=== PATIENT | female | born 1945 | race Caucasian/White ===

== ENCOUNTER 2017-01-24 17:48 | Emergency (ER) | payer MEDICARE, OTHER ==
[2017-01-24 18:24] VITALS: BP 169/94
--- NOTE | 2017-01-24 19:01 | EDM.PDOC ---
ED HPI GENERAL MEDICAL PROBLEM - General Chief Complaint: Cardiovascular Problem Stated Complaint: HIGH BLOOD PRESSURE Time Seen by Provider: 01/24/17 18:30 Source of Information: Reports: Patient History Limitations: Reports: No Limitations - History of Present Illness INITIAL COMMENTS - FREE TEXT/NARRATIVE: Very pleasant 71-year-old female comes in with complaints of dizziness that began today and now reports that it isn't already improved and also complaints of chronic nausea. Patient reports that she recently had her hypertensive medications changed. And was switched from atenolol to hydrochlorothiazide and metoprolol. This was done because of her chronic nausea that she's had since July since her right knee has been replaced. She comes in today to see what my opinion is with regarding the possibility of her have an allergic reaction to the metal placed in her right knee replacement as a possibility of her chronic nausea. We have taking care of her in the past when she had her left knee replaced. She states that her right knee as well as her left knee are both doing well since he been replaced and does not have any significant swelling warmth redness or pain or discomfort in the knees with activities or at rest. 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 She has an internal medicine consult tomorrow. Onset: Today Duration: Chronic, Waxing/Waning Location: Reports: Generalized Quality: Reports: Same as Previous Episode (nausea chronic) Severity: Moderate Improves with: Reports: Medication (scopolamine patch) Associated Symptoms: Reports: Nausea/Vomiting. Denies: Confusion, Chest Pain, Cough, Diaphoresis, Fever/Chills, Headaches, Shortness of Breath, Syncope, Weakness - Related Data Allergies Allergy/AdvReac Type Severity Reaction Status Date / Time amoxicillin AdvReac Nausea and Verified 01/24/17 18:12 Vomiting azithromycin [From Zithromax] AdvReac Nausea and Verified 01/24/17 18:12 Vomiting hydrocodone AdvReac Nausea and Verified 01/24/17 18:12 Vomiting paclitaxel [From Taxol] AdvReac Nausea and Verified 01/24/17 18:12 Vomiting Home Meds: Home Meds Hydrochlorothiazide 12.5 mg PO DAILY 01/24/17 [History] Metoprolol Succinate 50 mg PO BID 01/24/17 [History] Omeprazole 20 mg PO DAILY 01/24/17 [History] Rosuvastatin Calcium 10 mg PO DAILY 01/24/17 [History] Scopolamine [Transderm-Scop] 1.5 mg TOP Q3D 01/24/17 [History] Past Medical History HEENT History: Reports: Impaired Vision Cardiovascular History: Reports: Angina, Heart Murmur, Hypertension Gastrointestinal History: Reports: GERD Genitourinary History: Reports: None Other Genitourinary History: cancer on L kidney. kidney removed this past august COLD HEADER History: Reports: Musculoskeletal History: Reports: None Neurological History: Reports: TIA Endocrine/Metabolic History: Reports: Obesity/BMI 30+ Immunologic History: Reports: Immunosuppression Oncologic (Cancer) History: Reports: Breast, Renal Other Oncologic History: right breast removed - 2005. left kidney removed - 2015 Dermatologic History: Reports: Eczema - Infectious Disease History Infectious Disease History: Reports: None - Past Surgical History HEENT Surgical History: Reports: None Cardiovascular Surgical History: Reports: None GI Surgical History: Reports: Appendectomy, ERCP Female Surgical History: Reports: Nephrectomy Endocrine Surgical History: Reports: None Neurological Surgical History: Reports: None Musculoskeletal Surgical History: Reports: Knee Replacement Oncologic Surgical History: Reports: Mastectomy Dermatological Surgical History: Reports: None Social & Family History - Family History Cardiac: Reports: [place] Other Cardiac Family History: mother, father heart valve-replace, brother bypass Neurological: Reports: Alzheimers Disease Other Neurological Family History: father - Tobacco Use Smoking Status *Q: Former Smoker Years of Tobacco use: 10 Packs/Tins Daily: 1 Used Tobacco, but Quit: Yes Month Tobacco Last Used: 10 - Caffeine Use Caffeine Use: Reports: Coffee Other Caffeine Use: 2 cups a day - Recreational Drug Use Recreational Drug Use: No ED ROS GENERAL - Review of Systems Review Of Systems: See Below Constitutional: Denies: Fever, Chills, Weakness, Fatigue, Diaphoresis HEENT: Reports: Glasses. Denies: Ear Pain, Eye Pain, Hearing Loss, Sinus Problem, Vertigo, Vision Change Respiratory: Denies: Shortness of Breath, Cough Cardiovascular: Reports: Blood Pressure Problem. Denies: Chest Pain, Dyspnea on Exertion, Edema, Lightheadedness, Orthopnea, Palpitations, PND Endocrine: Reports: No Symptoms GI/Abdominal: Reports: No Symptoms : Reports: No Symptoms Musculoskeletal: Reports: No Symptoms Skin: Reports: No Symptoms Neurological: Reports: Dizziness. Denies: Confusion, Headache, Numbness, Paresthesia, Seizure, Syncope, Trouble Speaking, Difficulty Walking, Weakness, Change in Speech, Gait Disturbance Psychiatric: Reports: No Symptoms Hematologic/Lymphatic: Reports: No Symptoms Immunologic: Reports: No Symptoms ED EXAM, GENERAL - Physical Exam Exam: See Below Exam Limited By: No Limitations General Appearance: Alert, WD/WN, No Apparent Distress Eye Exam: Bilateral Eye: EOMI, PERRL Ears: Normal External Exam, Normal Canal, Hearing Grossly Normal, Normal TMs Nose: Normal Inspection, No Blood Throat/Mouth: Normal Inspection, Normal Lips, Normal Teeth (bridge for her teeth ), Normal Oropharynx, Normal Voice, No Airway Compromise Head: Atraumatic, Normocephalic Neck: Normal Inspection, Supple, Non-Tender, Full Range of Motion, Other ( scopolamine patch on the left side of her neck) Respiratory/Chest: No Respiratory Distress, Lungs Clear, Normal Breath Sounds, No Accessory Muscle Use Cardiovascular: Normal Peripheral Pulses, Regular Rate, Rhythm, Systolic Murmur Peripheral Pulses: 2+: Carotid (L), Carotid (R), Radial (L), Radial (R) GI/Abdominal: Soft Back Exam: Normal Inspection Extremities: Normal Inspection, Normal Range of Motion, No Pedal Edema Neurological: CN II-XII Intact, Normal Cognition, Normal Gait, No Motor/Sensory Deficits Psychiatric: Normal Affect, Normal Mood Skin Exam: Warm, Dry, Intact, Normal Color, No Rash Lymphatic: No Adenopathy Course - Vital Signs Last Recorded V/S: Last Vital Signs Temp 98.6 F 01/24/17 17:52 Pulse 70 01/24/17 18:20 Resp 18 01/24/17 18:20 BP 169/94 H 01/24/17 18:20 Pulse Ox 94 L 01/24/17 18:20 - Orders/Labs/Meds Orders: Active Orders 24 hr Category Date Time Status BASIC METABOLIC PANEL,BMP [CHEM] Stat Lab 01/24/17 18:54 Ordered CBC WITH AUTO DIFF [HEME] Stat Lab 01/24/17 18:54 Ordered UA W/MICROSCOPIC [URIN] Stat Lab 01/24/17 18:54 Uncollected Departure - Departure Time of Disposition: 20:08 Disposition: Home, Self-Care 01 Condition: Good Clinical Impression: Dizziness, Chronic nausea Hypertension Qualifiers: Hypertension type: unspecified Qualified Code(s): I10 - Essential (primary) hypertension Forms: ED Department Discharge - My Orders Last 24 Hours: My Active Orders 01/24/17 18:54 BASIC METABOLIC PANEL,BMP [CHEM] Stat CBC WITH AUTO DIFF [HEME] Stat UA W/MICROSCOPIC [URIN] Stat - Assessment/Plan Last 24 Hours: My Active Orders 01/24/17 18:54 BASIC METABOLIC PANEL,BMP [CHEM] Stat CBC WITH AUTO DIFF [HEME] Stat UA W/MICROSCOPIC [URIN] Stat Assessment:: dizziness, resolved. Hypertension, stable Chronic nausea continue with a scopolamine patch. Plan: 1. Your blood pressures have been fluctuating but are not showing any signs of end organ damage and have come down nicely on their own. Her dizziness has improved as her blood pressures have come down as well. We'll have you follow- up with your primary care next week. You have a follow-up in consult tomorrow with your manager consumer insights and you should keep this appointment. I do not have a significant solution with regards to her chronic nausea that has occurred since her knee replacement in July. I do not feel that your nausea is contributed though to the implants that you have in your knee. He do not seem to be having any type of reaction swelling warmth or pain in the knee following a knee replacement and has gone well. Her lab work was reviewed with you today and essentially looks normal. You have slightly elevated creatinine. Her lab work will be available for your primary care to review with your follow-up appointment.
== END 2017-01-24 20:15 | disposition home or self-care (01) ==
LOC: KA.ED 17:48
DX: I10 Essential (primary) hypertension (principal); K21.9 Gastro-esophageal reflux disease without esophagitis; E66.9 Obesity, unspecified; Z85.3 Personal history of malignant neoplasm of breast; Z90.89 Acquired absence of other organs; Z96.651 Presence of right artificial knee joint; Z90.10 Acquired absence of unspecified breast and nipple; Z88.1 Allergy status to other antibiotic agents; Z88.5 Allergy status to narcotic agent; Z88.8 Allergy status to other drugs, medicaments and biological substances; Z79.899 Other long term (current) drug therapy; Z87.891 Personal history of nicotine dependence
CPT/HCPCS: 36415; 80048; 81001; 85025; 99283

== ENCOUNTER 2017-01-30 21:18 | Emergency (ER) | payer MEDICARE, OTHER ==
[2017-01-30] MEDS ORDERED: Sodium Chloride 0.9% 1,000 ML ONE (21:46)
[2017-01-30] MEDS ORDERED: Ondansetron 4 MG/2 ML SDV ONE ×2 (21:46→22:51)
[2017-01-30] MEDS ORDERED: Sodium Chloride 0.9% 1,000 ML IV ONE (21:50)
--- NOTE | 2017-01-30 22:20 | EDM.PDOC ---
ED HPI GENERAL MEDICAL PROBLEM - General Chief Complaint: Gastrointestinal Problem Stated Complaint: NAUSEA VOMITTING Time Seen by Provider: 01/30/17 21:45 Source of Information: Reports: Patient History Limitations: Reports: No Limitations - History of Present Illness INITIAL COMMENTS - FREE TEXT/NARRATIVE: 71 YO WF presents to ER complaining of chronic nausea with vomiting since stopping her compazine patch. Pt reports she has been using her patch every 3rd day since july due to chronic nausea. Pt was seen by GI doctor who recently started her on carafate and omeprozole and suggested she stop taking her compazine. Pt reports she took the patch off yesterday and has had multiple episodes of vomiting over the last 24 hours. Pt reports she is concerned about her kidney function since she had a nephretomy 1 year ago due to renal cell carcinoma and wants to protect from dehydration. Pt denies chest pain, shortness of breath, dizziness or diaphoresis. Onset: Other (chronic) Duration: Chronic Location: Reports: Generalized Severity: Moderate Improves with: Reports: None Worsens with: Reports: Eating Associated Symptoms: Reports: No Other Symptoms, Nausea/Vomiting - Related Data Allergies Allergy/AdvReac Type Severity Reaction Status Date / Time amoxicillin AdvReac Nausea and Verified 01/30/17 22:11 Vomiting azithromycin [From Zithromax] AdvReac Nausea and Verified 01/30/17 22:11 Vomiting hydrocodone AdvReac Nausea and Verified 01/30/17 22:11 Vomiting paclitaxel [From Taxol] AdvReac Nausea and Verified 01/30/17 22:11 Vomiting Home Meds: Home Meds Hydrochlorothiazide 12.5 mg PO DAILY 01/24/17 [History] Metoprolol Succinate 50 mg PO DAILY 01/24/17 [History] Omeprazole 40 mg PO DAILY 01/24/17 [History] Rosuvastatin Calcium 10 mg PO DAILY 01/24/17 [History] Ondansetron [Zofran ODT] 4 mg PO Q6H PRN #10 tab.dis 01/30/17 [Rx] Sucralfate 1 gm PO QID 01/30/17 [History] Past Medical History HEENT History: Reports: Impaired Vision Cardiovascular History: Reports: Angina, Heart Murmur, Hypertension Gastrointestinal History: Reports: GERD Genitourinary History: Reports: None Other Genitourinary History: cancer on L kidney. 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 left kidney removed - 2015 Dermatologic History: Reports: Eczema - Infectious Disease History Infectious Disease History: Reports: None - Past Surgical History HEENT Surgical History: Reports: None Cardiovascular Surgical History: Reports: None GI Surgical History: Reports: Appendectomy, ERCP Female Surgical History: Reports: Nephrectomy Endocrine Surgical History: Reports: None Neurological Surgical History: Reports: None Musculoskeletal Surgical History: Reports: Knee Replacement Oncologic Surgical History: Reports: Mastectomy Dermatological Surgical History: Reports: None Social & Family History - Family History Cardiac: Reports: [place] Other Cardiac Family History: mother, father heart valve-replace, brother bypass Neurological: Reports: Alzheimers Disease Other Neurological Family History: father - Tobacco Use Smoking Status *Q: Former Smoker Years of Tobacco use: 10 Packs/Tins Daily: 1 Used Tobacco, but Quit: Yes Month Tobacco Last Used: 10 - Caffeine Use Caffeine Use: Reports: Coffee Other Caffeine Use: 2 cups a day - Recreational Drug Use Recreational Drug Use: No ED ROS GENERAL - Review of Systems Review Of Systems: See Below Constitutional: Reports: No Symptoms HEENT: Reports: No Symptoms Respiratory: Reports: No Symptoms Cardiovascular: Reports: No Symptoms Endocrine: Reports: No Symptoms GI/Abdominal: Reports: Nausea, Vomiting : Reports: No Symptoms Musculoskeletal: Reports: No Symptoms Skin: Reports: No Symptoms Neurological: Reports: No Symptoms Psychiatric: Reports: No Symptoms Hematologic/Lymphatic: Reports: No Symptoms Immunologic: Reports: No Symptoms ED EXAM, GI/ABD - Physical Exam Exam: See Below Exam Limited By: No Limitations General Appearance: Alert, WD/WN, No Apparent Distress Ears: Normal External Exam, Normal Canal, Hearing Grossly Normal, Normal TMs Nose: Normal Inspection, Normal Mucosa, No Blood Throat/Mouth: Normal Inspection, Normal Lips, Normal Teeth, Normal Gums, Normal Oropharynx, Normal Voice, No Airway Compromise Head: Atraumatic, Normocephalic Neck: Normal Inspection, Supple, Non-Tender, Full Range of Motion Respiratory/Chest: No Respiratory Distress, Lungs Clear, Normal Breath Sounds, No Accessory Muscle Use, Chest Non-Tender Cardiovascular: Normal Peripheral Pulses, Regular Rate, Rhythm, No Edema, No Gallop, No JVD, No Murmur, No Rub GI/Abdominal Exam: Normal Bowel Sounds, Soft, Non-Tender, No Organomegaly, No Distention, No Abnormal Bruit, No Mass, Pelvis Stable Back Exam: Normal Inspection, Full Range of Motion, NT Extremities: Normal Inspection, Normal Range of Motion, Non-Tender, Normal Capillary Refill, No Pedal Edema Neurological: Alert, Oriented, CN II-XII Intact, Normal Cognition, Normal Gait, Normal Reflexes, No Motor/Sensory Deficits Psychiatric: Normal Affect, Normal Mood Skin Exam: Warm, Dry, Intact, Normal Color, No Rash Lymphatic: No Adenopathy Course - Orders/Labs/Meds Orders: Active Orders 24 hr Category Date Time Status UA W/O MICROSCOPIC [URIN] Stat Lab 01/30/17 21:53 Uncollected Labs: Laboratory Tests 01/30/17 01/30/17 Range/Units 21:50 21:50 WBC 9.2 (5.0-10.0) 10^3/uL RBC 5.08 (3.80-5.50) 10^6/uL Hgb 14.6 (12.0-16.0) g/dL Hct 43.2 (37.0-47.0) % MCV 85.2 (82.0-92.0) fL MCH 28.7 (27.0-31.0) pg MCHC 33.7 (32.0-36.0) g/dL RDW 13.7 (11.5-14.5) % Plt Count 278 (150-300) 10^3/uL MPV 7.8 (7.4-10.4) fL Neut % (Auto) 72.1 H (50.0-70.0) % Lymph % (Auto) 17.1 L (20.0-40.0) % Phillips % (Auto) 7.4 (2.0-8.0) % Eos % (Auto) 2.2 (1.0-3.0) % Baso % (Auto) 1.2 H (0.0-1.0) % Neut # (Auto) 6.6 (2.5-7.0) 10^3/uL Lymph # (Auto) 1.6 (1.0-4.0) 10^3/uL Phillips # (Auto) 0.7 (0.1-0.8) 10^3/uL Eos # (Auto) 0.2 (0.1-0.3) 10^3/uL Baso # (Auto) 0.1 (0.0-0.1) 10^3/uL Sodium 137 (136-145) mmol/L Potassium 3.7 (3.3-5.3) mmol/L Chloride 99 (98-115) mmol/L Carbon Dioxide 26.7 (21.0-32.0) mmol/L BUN 23 (6-25) mg/dL Creatinine 1.12 (0.51-1.17) mg/dL Est Cr Clr Drug Dosing TNP Estimated GFR (MDRD) 48 mL/min Glucose 116 H (70-110) mg/dL Calcium 9.9 (8.7-10.3) mg/dL Total Bilirubin 1.5 H (0.2-1.0) mg/dL AST 26 (15-37) U/L ALT 26 (12-78) U/L Alkaline Phosphatase 86 (46-116) IU/L Total Protein 8.6 H (6.4-8.2) g/dL Albumin 3.99 (3.00-4.80) g/dL Lipase 457 H (73-393) U/L Meds: Medications Discontinued Medications Generic Name Dose Route Start Last Admin Trade Name Freq PRN Reason Stop Dose Admin Sodium Chloride Confirm 01/30/17 21:46 01/30/17 21:50 Normal Saline Administered 01/30/17 21:47 999 ml Dose Administration 1,000 mls @ as directed .ROUTE .STK-MED ONE Ondansetron HCl Confirm 01/30/17 21:46 01/30/17 21:52 Zofran Administered 01/30/17 21:47 4 mg Dose Administration 4 mg .ROUTE .STK-MED ONE Departure - Departure Time of Disposition: 22:41 Disposition: Home, Self-Care 01 Condition: Good Clinical Impression: Chronic nausea Vomiting Qualifiers: Vomiting Intractability: unspecified Nausea presence: with nausea - Discharge Information Prescriptions: Ondansetron [Zofran ODT] 4 mg PO Q6H PRN #10 tab.dis PRN Reason: Vomiting Instructions: Nausea, Adult, Nausea and Vomiting, Adult Referrals: Amanda Abernathy PA-C [Primary Care Provider] - - My Orders Last 24 Hours: My Active Orders 01/30/17 21:53 UA W/O MICROSCOPIC [URIN] Stat - Assessment/Plan Last 24 Hours: My Active Orders 01/30/17 21:53 UA W/O MICROSCOPIC [URIN] Stat Assessment:: 1. vomiting- chronic- improved Plan: 1. zofran ODT 4mg SL Q6 prn vomiting 2. continue current medications 3. plenty of fluids 4. follow up with PCP for further evaluation of chronic vomiting 5. return to ER for worsening symptoms
[2017-01-30 22:29] LABS: CHLORIDE,CL 99 mmol/L (98-115); SODIUM,NA 137 mmol/L (136-145)
[2017-01-30] MEDS ORDERED: Ondansetron 4 MG Tab.DIS PO PRN (22:42)
[2017-01-30] MEDS ORDERED: Ondansetron 4 MG/2 ML SDV IVPUSH ONE ×2 (22:49→23:45)
[2017-01-31 01:51] VITALS: BP 172/77
== END 2017-01-30 23:05 | disposition home or self-care (01) ==
LOC: KA.ED 21:18
DX: R11.2 Nausea with vomiting, unspecified (principal); I10 Essential (primary) hypertension; K21.9 Gastro-esophageal reflux disease without esophagitis; E66.9 Obesity, unspecified; Z85.528 Personal history of other malignant neoplasm of kidney; Z85.3 Personal history of malignant neoplasm of breast; Z90.5 Acquired absence of kidney; Z90.49 Acquired absence of other specified parts of digestive tract; Z96.659 Presence of unspecified artificial knee joint; Z90.11 Acquired absence of right breast and nipple; Z87.891 Personal history of nicotine dependence; Z88.1 Allergy status to other antibiotic agents; Z88.5 Allergy status to narcotic agent; Z88.8 Allergy status to other drugs, medicaments and biological substances; Z79.899 Other long term (current) drug therapy; Z86.73 Personal history of transient ischemic attack (TIA), and cerebral infarction without residual deficits; Z68.33 Body mass index [BMI] 33.0-33.9, adult
CPT/HCPCS: 80053; 83690; 85025; 96361; 96374; 96376; 99284; A9270; J2405; 99283; J7030

== ENCOUNTER 2019-12-27 12:55 | Observation (INO) | payer MEDICARE, OTHER ==
[2019-12-27] MEDS ORDERED: Sodium Chloride 0.9% 10 ML Syringe FLUSH PRN (13:22)
--- NOTE | 2019-12-27 13:41 | EDM.PDOC ---
ED HPI GENERAL MEDICAL PROBLEM - General Chief Complaint: General Stated Complaint: lightheaded, high blood pressure Time Seen by Provider: 12/27/19 13:15 Source of Information: Reports: Patient History Limitations: Reports: No Limitations - History of Present Illness INITIAL COMMENTS - FREE TEXT/NARRATIVE: 74 YO WF PRESENTS TO ER COMPLAINING OF FEELING LIGHTHEADED AND FATIGUED X 2 DAYS. PT REPORTS SHE WAS SITTING AT THE DINNER TABLE AND FELT LIGHTHEADED YESTERDAY. SYMPTOMS LASTED FOR LESS THAN 1 MINUTE. PT REPORTS SHE HAD A SIMILAR EPISODE TODAY PROMPTING ER EVALUATION. PT DENIES SHORTNESS OF BREATH, CHEST PAIN, FEVER/CHILLS, OR DIAPHORESIS. PT REPORTS MILD NAUSEA WITHOUT VOMITING. PT TOOK BP AT HOME AND WAS CONCERNED BECAUSE IT WAS A LITTLE ELEVATED FOR HER 140'S/80'S. PT DENIES HEADACHE, BLURRED VISION OR MOTOR/SENSORY DEFICITS. Onset Date: 12/26/19 Duration: Day(s): (2) Location: Reports: Generalized Severity: Mild Improves with: Reports: None Worsens with: Reports: None Associated Symptoms: Reports: No Other Symptoms, Loss of Appetite, Nausea/Vomiting. Denies: Chest Pain, Cough, Diaphoresis, Fever/Chills, Malaise, Shortness of Breath, Weakness - Related Data Allergies Allergy/AdvReac Type Severity Reaction Status Date / Time No Known Drug Intolerances Allergy Other Verified 02/02/17 16:51 amoxicillin AdvReac Nausea and Verified 01/30/17 22:11 Vomiting azithromycin [From Zithromax] AdvReac Nausea and Verified 01/30/17 22:11 Vomiting hydrocodone AdvReac Nausea and Verified 01/30/17 22:11 Vomiting paclitaxel [From Taxol] AdvReac Nausea and Verified 01/30/17 22:11 Vomiting Home Meds: Home Meds Rosuvastatin Calcium 10 mg PO DAILY 01/24/17 [History] Fluticasone Propionate [Flovent Diskus] 1 spray NASBOTH DAILY PRN 12/27/19 [History] Furosemide 20 mg PO DAILY 12/27/19 [History] atenoloL [Tenormin] 50 mg PO DAILY 12/27/19 [History] Past Medical History HEENT History: Reports: Impaired Vision Cardiovascular History: Reports: Angina, Heart Murmur, Hypertension Gastrointestinal History: Reports: Cholelithiasis, Gastritis, GERD, Other (See Below) Other Gastrointestinal History: Severe nausea/vomiting since 07/2016. Up until yesterday, this was controlled with scopalomine patch. Genitourinary History: Reports: None Other Genitourinary History: cancer on L kidney. kidney removed this past august [employer] History: Reports: Musculoskeletal History: Reports: Arthritis, Osteoarthritis Neurological History: Reports: TIA Endocrine/Metabolic History: Reports: Obesity/BMI 30+ Immunologic History: Reports: Immunosuppression Oncologic (Cancer) History: Reports: Breast, Renal Other Oncologic History: right breast removed - 2005. left kidney removed - 2015 Dermatologic History: Reports: Eczema - Infectious Disease History Infectious Disease History: Reports: None - Past Surgical History HEENT Surgical History: Reports: None Cardiovascular Surgical History: Reports: None GI Surgical History: Reports: Appendectomy, Cholecystectomy, ERCP Female Surgical History: Reports: Nephrectomy Endocrine Surgical History: Reports: None Neurological Surgical History: Reports: None Musculoskeletal Surgical History: Reports: Knee Replacement Oncologic Surgical History: Reports: Mastectomy Dermatological Surgical History: Reports: None Social & Family History - Family History Cardiac: Reports: OR Other Cardiac Family History: mother, father heart valve-replace, brother bypass Neurological: Reports: Alzheimers Disease Other Neurological Family History: father - Tobacco Use Smoking Status *Q: Former Smoker Used Tobacco, but Quit: Yes Month/Year Tobacco Last Used: quit years ago - Caffeine Use Caffeine Use: Reports: Soda Other Caffeine Use: 2 cups a day - Recreational Drug Use Recreational Drug Use: No ED ROS GENERAL - Review of Systems Review Of Systems: See Below Constitutional: Reports: Fatigue HEENT: Reports: No Symptoms Respiratory: Reports: No Symptoms Cardiovascular: Reports: Blood Pressure Problem, Lightheadedness Endocrine: Reports: No Symptoms GI/Abdominal: Reports: No Symptoms : Reports: No Symptoms Musculoskeletal: Reports: No Symptoms Skin: Reports: No Symptoms Neurological: Reports: No Symptoms Psychiatric: Reports: No Symptoms Hematologic/Lymphatic: Reports: No Symptoms Immunologic: Reports: No Symptoms ED EXAM, GENERAL - Physical Exam Exam: See Below Exam Limited By: No Limitations General Appearance: Alert, WD/WN, No Apparent Distress Eye Exam: Bilateral Eye: EOMI, PERRL Head: Atraumatic, Normocephalic Neck: Normal Inspection, Supple, Non-Tender, Full Range of Motion Respiratory/Chest: No Respiratory Distress, Lungs Clear, Normal Breath Sounds, No Accessory Muscle Use, Chest Non-Tender Cardiovascular: Normal Peripheral Pulses, Regular Rate, Rhythm, No Edema, No Gallop, No JVD, No Murmur, No Rub GI/Abdominal: Normal Bowel Sounds, Soft, Non-Tender, No Organomegaly, No Distention, No Abnormal Bruit, No Mass Back Exam: Normal Inspection, Full Range of Motion, NT Extremities: Normal Inspection, Normal Range of Motion, Non-Tender, Normal Capillary Refill, No Pedal Edema Neurological: Alert, Oriented, CN II-XII Intact, Normal Cognition, Normal Gait, Normal Reflexes, No Motor/Sensory Deficits Psychiatric: Normal Affect, Normal Mood Skin Exam: Warm, Dry, Intact, Normal Color, No Rash Lymphatic: No Adenopathy EKG INTERPRETATION EKG Date: 12/27/19 Time: 13:25 Rhythm: NSR Rate (Beats/Min): 66 Pierre: Normal P-Wave: Present QRS: Normal ST-T: Normal QT: Normal Comparison: No Change EKG Interpretation Comments: 08/27/2015 Course - Vital Signs Last Recorded V/S: Last Vital Signs Temp 37.2 C 12/27/19 13:00 Pulse 65 12/27/19 14:31 Resp 18 12/27/19 13:36 BP 141/65 H 12/27/19 14:31 Pulse Ox 93 L 12/27/19 13:36 - Orders/Labs/Meds Orders: Active Orders 24 hr Category Date Time Status Patient Status Manage Transfer [TRANSFER] Routine ADT 12/27/19 14:38 Ordered EKG Documentation Completion [RC] ASDIRECTED Care 12/27/19 13:33 Active Peripheral IV Care [RC] . DIRECTED Care 12/27/19 13:22 Active EKG 12 Lead [EK] Stat Ther 12/27/19 13:33 Ordered Labs: Laboratory Tests 12/27/19 12/27/19 12/27/19 Range/Units 13:20 13:20 13:48 WBC 9.46 (5.00-10.00) 10^3/uL RBC 5.06 (3.80-5.50) 10^6/uL Hgb 14.6 (12.0-16.0) g/dL Hct 45.0 (37.0-47.0) % MCV 88.9 D (82.0-92.0) fL MCH 28.9 (27.0-31.0) pg MCHC 32.4 (32.0-36.0) g/dL RDW 14.2 (11.5-14.5) % Plt Count 244 (150-400) 10^3/uL MPV 9.7 (7.4-10.4) fL Immature Gran % (Auto) 1.1 (0.0-5.0) % Neut % (Auto) 71.0 H (50.0-70.0) % Lymph % (Auto) 16.8 L (20.0-40.0) % Parker % (Auto) 8.5 H (2.0-8.0) % Eos % (Auto) 2.0 (1.0-3.0) % Baso % (Auto) 0.6 (0.0-1.0) % Neut # (Auto) 6.72 (2.50-7.00) 10^3/uL Lymph # (Auto) 1.59 (1.00-4.00) 10^3/uL Parker # (Auto) 0.80 (0.10-0.80) 10^3/uL Eos # (Auto) 0.19 (0.10-0.30) 10^3/uL Baso # (Auto) 0.06 (0.00-0.10) 10^3/uL Immature Gran # (Auto) 0.10 (0.00-0.50) 10^3/uL Sodium 141 (136-145) mmol/L Potassium 4.1 (3.3-5.3) mmol/L Chloride 103 (98-115) mmol/L Carbon Dioxide 27.6 (21.0-32.0) mmol/L Anion Gap 14.5 (5-15) mmol/L BUN 22 (6-25) mg/dL Creatinine 1.22 H (0.51-1.17) mg/dL Est Cr Clr Drug Dosing 45.07 mL/min Estimated GFR (MDRD) 43 mL/min Glucose 120 H (75 - 99) mg/dL Calcium 9.3 (8.7-10.3) mg/dL Total Bilirubin 1.0 (0.2-1.0) mg/dL AST 19 (15-37) U/L ALT 18 (12-78) U/L Alkaline Phosphatase 70 (46-116) IU/L CK-MB (CK-2) 1.10 (0.00-4.30) ng/mL Troponin I < 0.04 (0.00-0.070) ng/mL Total Protein 7.7 (6.4-8.2) g/dL Albumin 3.61 (3.00-4.80) g/dL Specimen Type Urinblad Urine Color Light yellow (YELLOW) Urine Appearance Clear (CLEAR) Urine pH 5.5 (5.0-9.0) Ur Specific [place] 1.015 (1.005-1.030) Urine Protein Negative (NEGATIVE) mg/dL Urine Glucose (UA) Negative (NEGATIVE) mg/dL Urine Ketones Negative (NEGATIVE) mg/dL Urine Occult Blood Trace-intact H (NEGATIVE) Urine Nitrite Negative (NEGATIVE) Urine Bilirubin Negative (NEGATIVE) Urine Urobilinogen 0.2 (0.2-1.0) E.U./dL Ur Leukocyte Esterase Negative (NEGATIVE) Urine RBC 0-5 (0-5) /HPF Urine WBC 0-5 (0-5) /HPF Ur Epithelial Cells Occasional /LPF Urine Bacteria Rare (NONE TO FEW) /HPF Meds: Medications Discontinued Medications Generic Name Dose Route Start Last Admin Trade Name Freq PRN Reason Stop Dose Admin Sodium Chloride 10 ml 12/27/19 13:22 Saline Flush FLUSH Q8HR PRN keep vein open - Radiology Interpretation Free Text/Narrative:: CXR-NAD - Re-Assessments/Exams Free Text/Narrative Re-Assessment/Exam: 12/27/19 14:41 PT FEELS FINE. PT DENIES CHEST PAIN, SHORTNESS OF BREATH, DIAPHORESIS OR LIGHTHEADEDNESS CURRENTLY. PT ALERT AND ORIENTED X 4 AND IN NAD. Departure - Departure Time of Disposition: 14:42 Disposition: Refer to Observation Condition: Fair Clinical Impression: Near syncope Hypertension Qualifiers: Hypertension type: unspecified Qualified Code(s): I10 - Essential (primary) hypertension - Discharge Information Referrals: Amanda Abernathy PA-C [Primary Care Provider] - Forms: ED Department Discharge Sepsis Event Note (ED) - Evaluation Sepsis Screening Result: No Definite Risk - Focused Exam Vital Signs: Vital Signs Temp Pulse Resp BP Pulse Ox 12/27/19 14:31 65 141/65 H 12/27/19 13:36 69 18 146/70 H 93 L 12/27/19 13:15 67 154/77 H 12/27/19 13:00 37.2 C 72 20 188/100 H 97 - My Orders Last 24 Hours: My Active Orders 12/27/19 13:22 Peripheral IV Care [RC] . DIRECTED 12/27/19 13:33 EKG Documentation Completion [RC] ASDIRECTED EKG 12 Lead [EK] Stat 12/27/19 14:38 Patient Status Manage Transfer [TRANSFER] Routine - Assessment/Plan Last 24 Hours: My Active Orders 12/27/19 13:22 Peripheral IV Care [RC] . DIRECTED 12/27/19 13:33 EKG Documentation Completion [RC] ASDIRECTED EKG 12 Lead [EK] Stat 12/27/19 14:38 Patient Status Manage Transfer [TRANSFER] Routine Assessment:: 1. NEAR SYNCOPE 2. HYPERTENSION Plan: 1. DISCUSSED CASE WITH NICOLLE CALHOUN WHO AGREES WITH OBSERVATION DUE TO NEAR SYNCOPE 2. SUPPORTIVE CARE 3. TROP I Q4 X 3
[2019-12-27 13:56] LABS: ANION GAP 14.5 mmol/L (5-15); CHLORIDE,CL 103 mmol/L (98-115); SODIUM,NA 141 mmol/L (136-145)
--- NOTE | 2019-12-27 13:58 | CR ---
[id number] RAD/RAD Chest PA And Lateral EXAM: FRONTAL AND LATERAL CHEST INDICATION: HYPERTENSION. COMPARISON: August 27, 2015. DISCUSSION: Scattered left-sided rib fractures are new relative to the previous exam, but appear chronic. Lateral peripheral and pleural parenchymal scarring in the lower left chest is new relative to the previous exam. Hyperinflation suggests potential underlying chronic obstructive pulmonary disease. Cardiomegaly without evidence of edema. Changes of right mastectomy and right axillary dissection. IMPRESSION: 1. Interval development of left rib fractures which have a chronic appearance. 2. Development of peripheral left MID and lower lung pleural and parenchymal scarring. Jakub Suárez MD 12/27/19 1150 Thank you for allowing us to participate in the care of your patient.
[2019-12-27] MEDS ORDERED: Non-Formulary Medication 1 Each (Fluticasone Propionate [Flovent] 1 SPRAY) NASBOTH PRN (15:55)
[2019-12-27] MEDS ORDERED: EPINEPHrine 1:10,000 1 MG/10 ML Syringe IVPUSH PRN (16:46)
[2019-12-27] MEDS ORDERED: Lidocaine 2% 100 MG/5 ML Syringe IVPUSH PRN (16:46)
[2019-12-27] MEDS ORDERED: Atropine 0.1 MG/ML 10 ML Syringe IVPUSH PRN (16:46)
[2019-12-27] MEDS ORDERED: Nitroglycerin 0.4 MG Tab.SL SL PRN (16:46)
[2019-12-27] MEDS ORDERED: Famotidine 20 MG Tab PO ONE (18:14)
--- NOTE | 2019-12-27 18:14 | PCM.HP.2 ---
H&P History of Present Illness - General Date of Service: 12/27/19 Admit Problem/Dx: Admission Diagnosis/Problem Admission Diagnosis/Problem Near syncope Source of Information: Patient History Limitations: Reports: No Limitations - History of Present Illness Initial Comments - Free Text/Narative: 74 year old female admitted observation telemetry status from the ED. She pres ented to the ED via personal vehicle with complaints of light headedness. She states she had one episode yesterday when she was sitting at the table eating and she became light-headed and felt like she was going to "pass out" and her vision went black for a short time. She did not pass out. No other symptoms noted at the time; chest pain, shortness of breath, nausea, vomiting. It lasted less than a minute and then she recovered. She had been outside mowing earlier in the day and become hot and went inside. Today she noted another episode of light-headedness and this time she had some chest heaviness with it. It last a bit longer. She checked her BP at home and states it was elevated in the 190s systolic. She presented to the ED for evaluation and was subsequently admitted observation to [facility] for rule out of acute coronary syndrome. - Related Data Allergies/Adverse Reactions: Allergies Allergy/AdvReac Type Severity Reaction Status Date / Time No Known Drug Intolerances Allergy Other Verified 02/02/17 16:51 amoxicillin AdvReac Nausea and Verified 01/30/17 22:11 Vomiting azithromycin [From Zithromax] AdvReac Nausea and Verified 01/30/17 22:11 Vomiting hydrocodone AdvReac Nausea and Verified 01/30/17 22:11 Vomiting paclitaxel [From Taxol] AdvReac Nausea and Verified 01/30/17 22:11 Vomiting Home Medications: Home Meds Rosuvastatin Calcium 10 mg PO DAILY 01/24/17 [History] Acyclovir [Zovirax 5% Crm] 1 applic TOP ASDIRECTED PRN 12/27/19 [History] Aspirin [Halfprin] 81 mg PO DAILY 12/27/19 [History] Fluticasone Propionate [Flonase] 1 spray NASBOTH BID 12/27/19 [History] Furosemide 20 mg PO DAILY 12/27/19 [History] Hydrocortisone [Hydrocortisone 2.5% Crm] 1 applic TOP BID PRN 12/27/19 [History] Non-Formulary Medication [NF Drug] 1 applic TOP BID PRN 12/27/19 [History] Non-Formulary Medication [NF Drug] 1 applic TOP QID PRN 12/27/19 [History] Triamcinolone Acetonide [Triamcinolone Acetonide 0.1% Crm] 1 applic TOP BID PRN 12/27/19 [History] atenoloL [Tenormin] 50 mg PO DAILY 12/27/19 [History] Past Medical History HEENT History: Reports: Impaired Vision Cardiovascular History: Reports: Angina, Heart Murmur, Hypertension Gastrointestinal History: Reports: Cholelithiasis, Gastritis, GERD, Other (See Below) Other Gastrointestinal History: Severe nausea/vomiting since 07/2016. Up until yesterday, this was controlled with scopalomine patch. Genitourinary History: Reports: Other (See Below) Other Genitourinary History: cancer on L kidney. 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 left kidney removed - 2015 Dermatologic History: Reports: Eczema - Infectious Disease History Infectious Disease History: Reports: None - Past Surgical History HEENT Surgical History: Reports: None Cardiovascular Surgical History: Reports: None GI Surgical History: Reports: Appendectomy, Cholecystectomy, ERCP Female Surgical History: Reports: Nephrectomy Endocrine Surgical History: Reports: None Neurological Surgical History: Reports: None Musculoskeletal Surgical History: Reports: Knee Replacement Oncologic Surgical History: Reports: Mastectomy Dermatological Surgical History: Reports: None Social & Family History - Family History Cardiac: Reports: ID Other Cardiac Family History: mother, father heart valve-replace, brother bypass Neurological: Reports: Alzheimers Disease Other Neurological Family History: father - Tobacco Use Smoking Status *Q: Former Smoker Years of Tobacco use: 20 Packs/Tins Daily: 0.2 Used Tobacco, but Quit: Yes Month/Year Tobacco Last Used: quit years ago Second Hand Smoke Exposure: No - Caffeine Use Caffeine Use: Reports: Soda Other Caffeine Use: 2 cups a day - Recreational Drug Use Recreational Drug Use: No H&P Review of Systems - Review of Systems: Review Of Systems: See Below General: Denies: Fever, Chills, Weakness, Fatigue HEENT: Reports: Sinus Congestion. Denies: Dysphasia, Ear Pain, Headaches Pulmonary: Denies: Shortness of Breath, Wheezing, Cough Cardiovascular: Denies: Chest Pain, Palpitations, Edema, Lightheadedness Gastrointestinal: Denies: Abdominal Pain, Black Stool, Constipation, Diarrhea, Nausea Genitourinary: Denies: Dysuria, Frequency, Burning, Urgency, Hematuria Musculoskeletal: Denies: Neck Pain, Arm Pain, Leg Pain Skin: Denies: Diaphoresis, Dryness, Pruritis, Rash Psychiatric: Denies: Confusion, Mood Lability, Anxiety Neurological: Denies: Confusion, Dizziness, Headache, Numbness Exam - Exam Exam: See Below - Vital Signs Vital Signs: Last Vital Signs Temp 36.6 C 12/27/19 14:53 Pulse 68 12/27/19 15:40 Resp 20 12/27/19 15:40 BP 141/82 H 12/27/19 15:40 Pulse Ox 95 12/27/19 15:40 Weight: 115.258 kg - Exam Physical Exam Comments:: GENERAL: Well-appearing adult in no acute distress, sitting up in chair. HEENT: Normocephalic, atraumatic. Conjunctiva clear. Nares patent without discharge. Mucous membranes moist, posterior pharynx unremarkable. NECK: Supple, no masses. CV: Regular rate and rhythm, no murmurs, rubs, or gallops. 2+ radial pulses. PULMONARY: Normal effort, clear to auscultation bilaterally, no wheezes, rales, or rhonchi. ABDOMEN: Positive bowel sounds, soft, nontender, nondistended. EXTREMITIES: No edema, cyanosis, or clubbing. MUSCULOSKELETAL: Moves all extremities well. NEUROLOGICAL: No obvious deficits. CN II-XII intact. Normal muscle bulk, normal muscle tone, muscle strength 5/5. Sensation intact in all extremities to touch. Coordination intact by finger-nose. No clonus. DERMATOLOGIC: No rashes or suspicious lesions in exposed areas. PSYCHIATRIC: Alert, interactive, appropriate affect. - Patient Data Lab Results Last 24 hrs: Laboratory Results - last 24 hr 12/27/19 12/27/19 12/27/19 Range/Units 13:20 13:20 13:48 WBC 9.46 (5.00-10.00) 10^3/uL RBC 5.06 (3.80-5.50) 10^6/uL Hgb 14.6 (12.0-16.0) g/dL Hct 45.0 (37.0-47.0) % MCV 88.9 D (82.0-92.0) fL MCH 28.9 (27.0-31.0) pg MCHC 32.4 (32.0-36.0) g/dL RDW 14.2 (11.5-14.5) % Plt Count 244 (150-400) 10^3/uL MPV 9.7 (7.4-10.4) fL Immature Gran % (Auto) 1.1 (0.0-5.0) % Neut % (Auto) 71.0 H (50.0-70.0) % Lymph % (Auto) 16.8 L (20.0-40.0) % [place] % (Auto) 8.5 H (2.0-8.0) % Eos % (Auto) 2.0 (1.0-3.0) % Baso % (Auto) 0.6 (0.0-1.0) % Neut # (Auto) 6.72 (2.50-7.00) 10^3/uL Lymph # (Auto) 1.59 (1.00-4.00) 10^3/uL [place] # (Auto) 0.80 (0.10-0.80) 10^3/uL Eos # (Auto) 0.19 (0.10-0.30) 10^3/uL Baso # (Auto) 0.06 (0.00-0.10) 10^3/uL Immature Gran # (Auto) 0.10 (0.00-0.50) 10^3/uL Sodium 141 (136-145) mmol/L Potassium 4.1 (3.3-5.3) mmol/L Chloride 103 (98-115) mmol/L Carbon Dioxide 27.6 (21.0-32.0) mmol/L Anion Gap 14.5 (5-15) mmol/L BUN 22 (6-25) mg/dL Creatinine 1.22 H (0.51-1.17) mg/dL Est Cr Clr Drug Dosing 45.07 mL/min Estimated GFR (MDRD) 43 mL/min Glucose 120 H (75 - 99) mg/dL Calcium 9.3 (8.7-10.3) mg/dL Total Bilirubin 1.0 (0.2-1.0) mg/dL AST 19 (15-37) U/L ALT 18 (12-78) U/L Alkaline Phosphatase 70 (46-116) IU/L CK-MB (CK-2) 1.10 (0.00-4.30) ng/mL Troponin I < 0.04 (0.00-0.070) ng/mL Total Protein 7.7 (6.4-8.2) g/dL Albumin 3.61 (3.00-4.80) g/dL Specimen Type Urinblad Urine Color Light yellow (YELLOW) Urine Appearance Clear (CLEAR) Urine pH 5.5 (5.0-9.0) Ur Specific [place] 1.015 (1.005-1.030) Urine Protein Negative (NEGATIVE) mg/dL Urine Glucose (UA) Negative (NEGATIVE) mg/dL Urine Ketones Negative (NEGATIVE) mg/dL Urine Occult Blood Trace-intact H (NEGATIVE) Urine Nitrite Negative (NEGATIVE) Urine Bilirubin Negative (NEGATIVE) Urine Urobilinogen 0.2 (0.2-1.0) E.U./dL Ur Leukocyte Esterase Negative (NEGATIVE) Urine RBC 0-5 (0-5) /HPF Urine WBC 0-5 (0-5) /HPF Ur Epithelial Cells Occasional /LPF Urine Bacteria Rare (NONE TO FEW) /HPF Result Diagrams: 12/27/19 13:20 12/27/19 13:20 Sepsis Event Note - Evaluation Sepsis Screening Result: No Definite Risk - Focused Exam Vital Signs: Vital Signs Temp Pulse Resp BP Pulse Ox 12/27/19 15:40 68 20 141/82 H 95 12/27/19 14:53 36.6 C 71 20 172/93 H 94 L 12/27/19 14:31 65 141/65 H 12/27/19 13:36 69 18 146/70 H 93 L 12/27/19 13:15 67 154/77 H 12/27/19 13:00 37.2 C 72 20 188/100 H 97 Date Exam was Performed: 12/27/19 Time Exam was Performed: 18:57 Problem List Initiated/Reviewed/Updated: Yes Orders Last 24hrs: Active Orders 24 hr Category Date Time Status Orthostatic Vital Signs [RC] ASDIRECTED Care 12/27/19 18:04 Ordered Peripheral IV Care [RC] . DIRECTED Care 12/27/19 13:22 Active Vital Signs [RC] 0700,1100,1500,1900,2300,0300 Care 12/27/19 16:49 Active Heart Healthy Diet [DIET] Diet 12/27/19 Dinner Active B-TYPE NATRIURETIC PEPTIDE,BNP [CHEM] Routine Lab 12/27/19 18:00 Ordered TROPONIN I [CHEM] Routine Lab 12/27/19 18:00 Ordered Aspirin Med 12/28/19 08:00 Ordered 81 mg PO WITHBREAKFAST Atropine [Atropine 0.1 MG/ML] Med 12/27/19 16:46 Active See Dose Instructions IVPUSH ASDIRECTED PRN EPINEPHrine [EPINEPHrine 1:10,000] Med 12/27/19 16:46 Active 1 mg IVPUSH ASDIRECTED PRN Lidocaine 2% [Xylocaine 2%] Med 12/27/19 16:46 Active See Dose Instructions IVPUSH ASDIRECTED PRN Nitroglycerin [Nitrostat] Med 12/27/19 16:46 Active 0.4 mg SL ASDIRECTED PRN Rosuvastatin [Crestor] Med 12/28/19 09:00 Active 10 mg PO DAILY atenoloL [Tenormin] Med 12/28/19 09:00 Active 50 mg PO DAILY lisinopriL [Prinivil] Med 12/27/19 18:15 Ordered 5 mg PO DAILY EKG 12 Lead [EK] Stat Ther 12/27/19 13:33 Stop Req Medication Orders Aspirin (Halfprin) 81 mg PO WITHBREAKFAST CORNELIO Atenolol (Tenormin) 50 mg PO DAILY [facility] Atropine Sulfate (Atropine 0.1 Mg/Ml) 0 mg IVPUSH ASDIRECTED PRN PRN Reason: Heart. Epinephrine HCl (Epinephrine 1:10,000) 1 mg IVPUSH ASDIRECTED PRN PRN Reason: Heart. Lidocaine HCl (Xylocaine 2%) 0 mg IVPUSH ASDIRECTED PRN PRN Reason: Heart. Nitroglycerin (Nitrostat) 0.4 mg SL ASDIRECTED PRN PRN Reason: Heart. Rosuvastatin Calcium (Crestor) 10 mg PO DAILY [facility] Assessment/Plan Comment:: HPI summary: 74 year old female admitted observation telemetry status from the ED. She presented to the ED via personal vehicle with complaints of light headedness. She states she had one episode yesterday when she was sitting at the table eating and she became light-headed and felt like she was going to "pass out" and her vision went black for a short time. She did not pass out. No other symptoms noted at the time; chest pain, shortness of breath, nausea, vomiting. It lasted less than a minute and then she recovered. She had been outside mowing earlier in the day and become hot and went inside. Today she noted another episode of light-headedness and this time she had some chest heaviness with it. It last a bit longer. She checked her BP at home and states it was elevated in the 190s systolic. She presented to the ED for evaluation and was subsequently admitted observation to [facility] for rule out of acute coronary syndrome. ED course: -VS: T 37.2, P 65, R 18, BP initially 188/100 then down to 141/65, O2 93%/RA -EKG: NSR rate 66 T wave inversion in V5 and V6 with 1mm of ST elevation in leads V1 and V3 which is pre-existing on previous EKG on 07/2019 in [facility] -[place]ine lock -Lab: WBC 9.46, RBC 5.06, Hgb 14.6, Hct 45, neutrophils 71, lymph 16.8, mono 8.5; Na 141, K 4.1, Cl 103, BUN 22, creatinine 1.22, GFR 43; glucose 120, CK-MB 1.10, troponin <0.04, urine unremarkable -CXR: no acute process Hospitalization problems and plan: # Near syncope; neuro exam unremarkable, no orthostatic changes -serial troponin levels (initial <0.04, second <0.04) -telemetry monitoring -check TSH, CMP, CBC, troponin in the AM # HTN -start lisinopril 5mg orally with first dose tonight -continue atenolol 50mg daily # CKD (chronic kidney disease) stage 3, GFR 30-59 ml/min, stable -discontinue lasix 20mg orally for now, suspect mildly dry; she did have dose this AM at home, consider restart dependent upon fluid status in AM -push oral fluids #HFpEF, last ECHO 07/2019 showing mildly increased LV size and wall thickness, Grade 2 LV diastolic dysfunction, baseline BNP 506 -BNP 649 -Monitor for now, need to get tighter BP control -Restart ASA, patient had previously stopped -daily weight -I/O #Heartburn -Famotidine 20mg orally one time Chronic, stable conditions: # Malignant neoplasm of female breast, stable # Pure hypercholesterolemia, continue rosuvastatin # Vitamin D deficiency, stable # Basal cell carcinoma, eyelid, stable # Allergic rhinitis, hold Flonase for now # Anemia, stable # Cancer of kidney, s/p nephrectomy, stable # Osteoarthritis of right knee, S/P total knee arthroplasty, stable # Thyroid nodule, stable # Malignant neoplasm metastatic to left lung, stable # Obesity with body mass index of 30.0-39.9 # Herpes simplex: hold acyclovir for now Hospitalization details: # FEN: oral fluid intake, saline lock, electrolyutes unremarkable, Heart healthy diet # PPX: restart ASA 81mg as ordered # Code status: Full, discussion with patient and in room # Emergency contact: Josh Pastrana, ; update given at bedside # Disposition: anticipate one overnight observation stay and discharge in the morning with further work-up in clinic if patient stable for discharge - Mortality Measure Prognosis:: Good
[2019-12-27] MEDS: Lisinopril 5 MG Tab PO SCH (18:40)
[2019-12-27] MEDS ORDERED: Aspirin 81 MG Tab.Chew PO ONE (19:43)
[2019-12-27] MEDS ORDERED: Fluticasone Propionate Nasal Spray 16 GM Bottle NASBOTH PRN (20:01)
[2019-12-27] MEDS ORDERED: Labetalol 100 MG/20 ML MDV IVPUSH PRN (23:35)
[2019-12-28] MEDS ORDERED: Aspirin 81 MG Tab.EC PO SCH (08:00)
[2019-12-28 08:08] LABS: ANION GAP 10.9 mmol/L (5-15)
[2019-12-28] MEDS: Lisinopril 5 MG Tab PO SCH (08:13)
[2019-12-28] MEDS ORDERED: Furosemide 20 MG Tab PO SCH (09:00)
[2019-12-28] MEDS ORDERED: Atenolol 25 MG Tab PO SCH (09:00)
[2019-12-28] MEDS ORDERED: Rosuvastatin 10 MG Tab PO SCH (09:00)
[2019-12-28] MEDS ORDERED: ROSUVASTATIN 10 MG PO SCH ×2 (09:00→09:23)
[2019-12-28] MEDS ORDERED: ATENOLOL 50 MG PO SCH (09:30)
[2019-12-28 16:04] VITALS: BP 133/76; PULSE 61
[2019-12-29] MEDS ORDERED: Aspirin 81 MG Tab.EC PO SCH (09:00)
== END 2019-12-28 13:40 | disposition home or self-care (01) ==
LOC: KA.ED 12:55 → KA.MS 14:38
PROVIDERS: ADMIT Nurse Practitioner Family; ATTEND Nurse Practitioner Family
DX: R55 Syncope and collapse (principal); I13.0 Hypertensive heart and chronic kidney disease with heart failure and stage 1 through stage 4 chronic kidney disease, or unspecified chronic kidney disease; I50.30 Unspecified diastolic (congestive) heart failure; N18.3 Chronic kidney disease, stage 3 (moderate); E78.00 Pure hypercholesterolemia, unspecified; K21.9 Gastro-esophageal reflux disease without esophagitis; E66.9 Obesity, unspecified; E55.9 Vitamin D deficiency, unspecified; J30.9 Allergic rhinitis, unspecified; D63.1 Anemia in chronic kidney disease; M17.11 Unilateral primary osteoarthritis, right knee; E04.1 Nontoxic single thyroid nodule; C78.02 Secondary malignant neoplasm of left lung; C44.111 Basal cell carcinoma of skin of unspecified eyelid, including canthus; B00.9 Herpesviral infection, unspecified; Z85.3 Personal history of malignant neoplasm of breast; Z90.11 Acquired absence of right breast and nipple; Z88.0 Allergy status to penicillin; Z88.1 Allergy status to other antibiotic agents; Z96.651 Presence of right artificial knee joint; Z88.5 Allergy status to narcotic agent; Z79.82 Long term (current) use of aspirin; Z85.528 Personal history of other malignant neoplasm of kidney; Z87.891 Personal history of nicotine dependence; Z90.5 Acquired absence of kidney; Z79.899 Other long term (current) drug therapy; Z68.30 Body mass index [BMI] 30.0-30.9, adult
CPT/HCPCS: 36415; 71046; 80053; 81001; 82553; 83880; 84443; 84484; 85025; 99284; 99285-25; A9270-GY; G0378

== ENCOUNTER 2020-11-01 18:44 | Emergency (ER) | payer MEDICARE, OTHER ==
--- NOTE | 2020-11-01 19:17 | EDM.PDOC ---
ED HPI GENERAL MEDICAL PROBLEM - General Chief Complaint: General Stated Complaint: NAUSEA/VOMITING Time Seen by Provider: 11/01/20 18:57 Source of Information: Reports: Patient, Significant Other History Limitations: Reports: No Limitations - History of Present Illness INITIAL COMMENTS - FREE TEXT/NARRATIVE: Patient presents with vomiting frequently since this morning. She now has dry- heaves but can't stop. She just completed her first 2-week course of daily chemotherapy pills for her lung cancer. She now has a week off then treatment again. No diarrhea. - Related Data Allergies Allergy/AdvReac Type Severity Reaction Status Date / Time ampicillin Allergy Nausea and Verified 11/01/20 18:53 Vomiting ciprofloxacin Allergy Nausea Verified 11/01/20 18:53 lisinopril Allergy Cough Verified 11/01/20 18:53 amoxicillin AdvReac Nausea and Verified 11/01/20 18:53 Vomiting azithromycin [From Zithromax] AdvReac Nausea and Verified 11/01/20 18:53 Vomiting hydrocodone AdvReac Nausea and Verified 11/01/20 18:53 Vomiting paclitaxel [From Taxol] AdvReac Nausea and Verified 11/01/20 18:53 Vomiting Home Meds: Home Meds Rosuvastatin Calcium 10 mg PO DAILY 01/24/17 [History] Acyclovir [Zovirax 5% Crm] 1 applic TOP ASDIRECTED PRN 12/27/19 [History] Fluticasone Propionate [Flonase] 1 spray NASBOTH BID PRN 12/27/19 [History] Furosemide 20 mg PO DAILY 12/27/19 [History] Hydrocortisone [Hydrocortisone 2.5% Crm] 1 applic TOP BID PRN 12/27/19 [History] Non-Formulary Medication [NF Drug] 1 applic TOP BID PRN 12/27/19 [History] Non-Formulary Medication [NF Drug] 1 applic TOP QID PRN 12/27/19 [History] Triamcinolone Acetonide [Triamcinolone Acetonide 0.1% Crm] 1 applic TOP BID PRN 12/27/19 [History] atenoloL [Tenormin] 50 mg PO DAILY 12/27/19 [History] Losartan [Cozaar] 25 mg PO DAILY 09/05/20 [History] Prochlorperazine Maleate [Compazine] 10 mg PO QID PRN 09/05/20 [History] Non-Formulary Medication [NF Drug] 1 tab PO ASDIRECTED 11/01/20 [History] Past Medical History HEENT History: Reports: Allergic Rhinitis, Impaired Vision Cardiovascular History: Reports: Angina, Heart Murmur, Hypertension Gastrointestinal History: Reports: Cholelithiasis, Gastritis, GERD, Other (See Below) Other Gastrointestinal History: Severe nausea/vomiting since 07/2016. Up until yesterday, this was controlled with scopalomine patch. Genitourinary History: Reports: Chronic Renal Insuffiency, Other (See Below) Other Genitourinary History: cancer on L kidney. 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 left kidney removed - 2015 Dermatologic History: Reports: Eczema - Infectious Disease History Infectious Disease History: Reports: None - Past Surgical History HEENT Surgical History: Reports: None Cardiovascular Surgical History: Reports: None GI Surgical History: Reports: Appendectomy, Cholecystectomy, ERCP Female Surgical History: Reports: Nephrectomy Other Female Surgeries/Procedures: breast CA with mastectomy years ago Endocrine Surgical History: Reports: None Neurological Surgical History: Reports: None Musculoskeletal Surgical History: Reports: Knee Replacement Oncologic Surgical History: Reports: Mastectomy Dermatological Surgical History: Reports: None Social & Family History - Family History Cardiac: Reports: [place] Other Cardiac Family History: mother, father heart valve-replace, brother bypass Neurological: Reports: Alzheimers Disease Other Neurological Family History: father - Caffeine Use Caffeine Use: Reports: Soda Other Caffeine Use: 2 cups a day ED ROS GENERAL - Review of Systems Review Of Systems: See Below Constitutional: Reports: Malaise, Weakness. Denies: Fever, Chills HEENT: Reports: No Symptoms Respiratory: Denies: Shortness of Breath, Cough Cardiovascular: Denies: Chest Pain, Syncope GI/Abdominal: Reports: Nausea, Vomiting. Denies: Abdominal Pain, Diarrhea : Reports: Frequency (since she started chemo). Denies: Dysuria, Flank Pain Musculoskeletal: Denies: Neck Pain, Shoulder Pain, Arm Pain, Back Pain, Hand Pain Skin: Denies: Cyanosis, Jaundice Neurological: Denies: Confusion, Dizziness, Seizure, Syncope, Trouble Speaking, Difficulty Walking Psychiatric: Denies: Agitation, Anxiety, Confusion ED EXAM, GENERAL - Physical Exam Exam: See Below Exam Limited By: No Limitations General Appearance: Alert, WD/WN, No Apparent Distress Eye Exam: Bilateral Eye: EOMI, Normal Inspection, PERRL Ears: Normal External Exam, Hearing Grossly Normal Nose: Normal Inspection, No Blood Throat/Mouth: Normal Inspection, Normal Lips, Normal Voice, No Airway Compromise Head: Atraumatic, Normocephalic Neck: Normal Inspection, Full Range of Motion Respiratory/Chest: No Respiratory Distress, Lungs Clear, Normal Breath Sounds Cardiovascular: Regular Rate, Rhythm, No Murmur GI/Abdominal: Soft, Non-Tender, No Organomegaly, No Distention Back Exam: Normal Inspection, Full Range of Motion. No: CVA Tenderness (L), CVA Tenderness (R) Extremities: Normal Inspection, Normal Range of Motion Neurological: Alert, Oriented, Normal Cognition, No Motor/Sensory Deficits Psychiatric: Normal Affect, Normal Mood Skin Exam: Warm, Dry, Intact, Normal Color, No Rash Course - Vital Signs Last Recorded V/S: Last Vital Signs Temp 98.7 F 11/01/20 20:44 Pulse 79 11/01/20 20:44 Resp 20 11/01/20 20:44 BP 125/67 11/01/20 20:44 Pulse Ox 91 L 11/01/20 20:44 - Orders/Labs/Meds Labs: Laboratory Tests 11/01/20 11/01/20 Range/Units 19:40 20:15 WBC 5.22 (5.00-10.00) 10^3/uL RBC 5.71 H (3.80-5.50) 10^6/uL Hgb 16.0 (12.0-16.0) g/dL Hct 47.4 H (37.0-47.0) % MCV 83.0 D (82.0-92.0) fL MCH 28.0 (27.0-31.0) pg MCHC 33.8 (32.0-36.0) g/dL RDW 14.6 H (11.5-14.5) % Plt Count 88 L D (150-400) 10^3/uL MPV 10.3 (7.4-10.4) fL Immature Gran % (Auto) 0.6 (0.0-5.0) % Neut % (Auto) 88.1 H (50.0-70.0) % Lymph % (Auto) 6.5 L (20.0-40.0) % [place] % (Auto) 4.2 (2.0-8.0) % Eos % (Auto) 0.0 L (1.0-3.0) % Baso % (Auto) 0.6 (0.0-1.0) % Neut # (Auto) 4.60 (2.50-7.00) 10^3/uL Lymph # (Auto) 0.34 L (1.00-4.00) 10^3/uL [place] # (Auto) 0.22 (0.10-0.80) 10^3/uL Eos # (Auto) 0.00 L (0.10-0.30) 10^3/uL Baso # (Auto) 0.03 (0.00-0.10) 10^3/uL Immature Gran # (Auto) 0.03 (0.00-0.50) 10^3/uL Sodium 139 (136-145) mmol/L Potassium 3.9 (3.5-5.1) mmol/L Chloride 102 (98-107) mmol/L Carbon Dioxide 25.1 (21.0-32.0) mmol/L Anion Gap 15.8 H (5-15) mmol/L BUN 25 H (7-18) mg/dL Creatinine 1.33 H (0.51-1.17) mg/dL Est Cr Clr Drug Dosing 38.00 mL/min Estimated GFR (MDRD) 39 mL/min Glucose 133 (70-140) mg/dL Calcium 8.8 (8.7-10.3) mg/dL Total Bilirubin 2.4 H (0.2-1.0) mg/dL AST 34 (15-37) U/L ALT 29 (14-63) U/L Alkaline Phosphatase 73 (46-116) U/L Total Protein 7.1 (6.4-8.2) g/dL Albumin 2.96 L (3.40-5.00) g/dL Meds: Medications Discontinued Medications Generic Name Dose Route Start Last Admin Trade Name Freq PRN Reason Stop Dose Admin Sodium Chloride 1,000 mls @ 999 mls/hr 11/01/20 19:36 11/01/20 19:44 Normal Saline IV 11/01/20 20:36 999 mls/hr .BOLUS ONE Administration Sodium Chloride Confirm 11/01/20 19:43 11/01/20 21:05 Normal Saline Administered 11/01/20 19:44 Not Given Dose 1,000 mls @ as directed .ROUTE .STK-MED ONE Magnesium Hydroxide Confirm 11/01/20 20:01 11/01/20 21:05 Magnesium Hydroxide 400 Mg/5 Ml Susp 30 Ml Cup Administered 11/01/20 20:02 Not Given Dose 30 ml .ROUTE .STK-MED ONE Ondansetron HCl 8 mg 11/01/20 19:36 11/01/20 19:44 Ondansetron 4 Mg/2 Ml Sdv IVPUSH 11/01/20 19:37 8 mg ONETIME ONE Administration Ondansetron HCl 16 mg 11/01/20 20:44 11/01/20 21:05 Ondansetron 4 Mg Tab.Dis PO 11/01/20 20:45 16 mg ONETIME ONE Administration Ondansetron HCl Confirm 11/01/20 19:43 11/01/20 21:05 Ondansetron 4 Mg/2 Ml Sdv Administered 11/01/20 19:44 Not Given Dose 8 mg .ROUTE .STK-MED ONE Ondansetron HCl Confirm 11/01/20 20:55 11/01/20 21:05 Ondansetron 4 Mg Tab.Dis Administered 11/01/20 20:56 Not Given Dose 16 mg .ROUTE .STK-MED ONE - Re-Assessments/Exams Free Text/Narrative Re-Assessment/Exam: 11/01/20 20:54 Patient is feeling much better. We discussed findings and treatment plan. Zofran ODT 8 mg po bid prn N/V #20 was given to patient to fill if needed tomorrow morning when pharmacies are open for weekend. She is discharged to home in stable condition. Departure - Departure Time of Disposition: 20:50 Disposition: Home, Self-Care 01 Condition: Good Clinical Impression: Chemotherapy-induced nausea and vomiting - Discharge Information Instructions: Nausea and Vomiting, Adult, [id number] Referrals: Guido Duarte NP [Nurse Practitioner] - Forms: ED Department Discharge Additional Instructions: Use the Zofran as directed if needed to control nausea and vomiting. Drink 8 cups of water daily if possible. Follow up with your PCP if this persists. Return to ER if needed. Sepsis Event Note (ED) - Evaluation Sepsis Screening Result: No Definite Risk - Focused Exam Vital Signs: Vital Signs Temp Pulse Resp BP Pulse Ox 11/01/20 20:44 98.7 F 79 20 125/67 91 L 11/01/20 19:20 79 20 129/79 92 L 11/01/20 18:48 98.4 F 85 18 134/69 93 L
[2020-11-01 19:21] VITALS: PULSE 79
[2020-11-01] MEDS ORDERED: Sodium Chloride 0.9% 1,000 ML IV ONE (19:36)
[2020-11-01] MEDS ORDERED: Ondansetron 4 MG/2 ML SDV IVPUSH ONE (19:36)
[2020-11-01] MEDS ORDERED: Ondansetron 4 MG/2 ML SDV ONE (19:43)
[2020-11-01] MEDS ORDERED: Sodium Chloride 0.9% 1,000 ML ONE (19:43)
[2020-11-01] MEDS ORDERED: Magnesium Hydroxide 400 MG/5 ML Susp 30 ML Cup ONE (20:01)
[2020-11-01 20:35] LABS: ANION GAP 15.8 mmol/L (5-15)
[2020-11-01] MEDS ORDERED: Ondansetron 4 MG Tab.DIS PO ONE (20:44)
[2020-11-01 20:46] VITALS: BP 125/67
[2020-11-01] MEDS ORDERED: Ondansetron 4 MG Tab.DIS ONE (20:55)
== END 2020-11-01 21:20 | disposition home or self-care (01) ==
LOC: KA.ED 18:44
DX: R11.2 Nausea with vomiting, unspecified (principal); T45.1X5A Adverse effect of antineoplastic and immunosuppressive drugs, initial encounter; I12.9 Hypertensive chronic kidney disease with stage 1 through stage 4 chronic kidney disease, or unspecified chronic kidney disease; N18.9 Chronic kidney disease, unspecified; E66.9 Obesity, unspecified; Z68.38 Body mass index [BMI] 38.0-38.9, adult; Z88.1 Allergy status to other antibiotic agents; Z88.8 Allergy status to other drugs, medicaments and biological substances; Z88.0 Allergy status to penicillin; Z88.5 Allergy status to narcotic agent; Z86.73 Personal history of transient ischemic attack (TIA), and cerebral infarction without residual deficits
CPT/HCPCS: 36415; 80053; 85025; 96374; 99284; A9270; J2405; J7030

== ENCOUNTER 2020-11-02 11:16 | Inpatient (IN) | payer MEDICARE, OTHER ==
[2020-11-02] MEDS ORDERED: Sodium Chloride 0.9% 1,000 ML ONE (11:42)
[2020-11-02] MEDS ORDERED: Sodium Chloride 0.9% 1,000 ML IV SCH (12:15)
--- NOTE | 2020-11-02 12:42 | EDM.PDOC ---
ED HPI GENERAL MEDICAL PROBLEM - General Chief Complaint: General Stated Complaint: extreme tired, nausea Time Seen by Provider: 11/02/20 11:49 Source of Information: Reports: Patient, Family (two sons) History Limitations: Reports: No Limitations - History of Present Illness INITIAL COMMENTS - FREE TEXT/NARRATIVE: Patient presents to ER with weakness, fatigue and nausea. She hasn't vomited any since she was in ER last evening but has some nausea still. She took a Zofran 8 mg ODT about 1.5 hours ago. She hasn't eaten anything today but did eat some Cheerios after ER visit last night. She hasn't drank any water at all. She did take her laxative last night and passed stool twice this morning. She was in ER last night with frequent vomiting after finishing a 2-week course of chemotherapy for lung cancer. She felt quite well after Zofran and fluids IV. - Related Data Allergies Allergy/AdvReac Type Severity Reaction Status Date / Time ampicillin Allergy Nausea and Verified 11/02/20 13:08 Vomiting ciprofloxacin Allergy Nausea Verified 11/02/20 13:08 lisinopril Allergy Cough Verified 11/02/20 13:08 amoxicillin AdvReac Nausea and Verified 11/02/20 13:08 Vomiting azithromycin [From Zithromax] AdvReac Nausea and Verified 11/02/20 13:08 Vomiting hydrocodone AdvReac Nausea and Verified 11/02/20 13:08 Vomiting paclitaxel [From Taxol] AdvReac Nausea and Verified 11/02/20 13:08 Vomiting Home Meds: Home Meds Rosuvastatin Calcium 10 mg PO DAILY 01/24/17 [History] Acyclovir [Zovirax 5% Crm] 1 applic TOP ASDIRECTED PRN 12/27/19 [History] Fluticasone Propionate [Flonase] 1 spray NASBOTH BID PRN 12/27/19 [History] Furosemide 20 mg PO DAILY 12/27/19 [History] Hydrocortisone [Hydrocortisone 2.5% Crm] 1 applic TOP BID PRN 12/27/19 [History] Non-Formulary Medication [NF Drug] 1 applic TOP BID PRN 12/27/19 [History] Non-Formulary Medication [NF Drug] 1 applic TOP QID PRN 12/27/19 [History] Triamcinolone Acetonide [Triamcinolone Acetonide 0.1% Crm] 1 applic TOP BID PRN 12/27/19 [History] atenoloL [Tenormin] 50 mg PO DAILY 12/27/19 [History] Losartan [Cozaar] 25 mg PO DAILY 09/05/20 [History] Prochlorperazine Maleate [Compazine] 10 mg PO QID PRN 09/05/20 [History] Non-Formulary Medication [NF Drug] 1 tab PO ASDIRECTED 11/01/20 [History] Past Medical History HEENT History: Reports: Allergic Rhinitis, Impaired Vision Cardiovascular History: Reports: Angina, Heart Murmur, Hypertension Gastrointestinal History: Reports: Cholelithiasis, Gastritis, GERD, Other (See Below) Other Gastrointestinal History: Severe nausea/vomiting since 07/2016. Up until yesterday, this was controlled with scopalomine patch. Genitourinary History: Reports: Chronic Renal Insuffiency, Other (See Below) Other Genitourinary History: cancer on L kidney. kidney removed this past august VET TECH History: Reports: Musculoskeletal History: Reports: Arthritis, Osteoarthritis Neurological History: Reports: TIA Endocrine/Metabolic History: Reports: Obesity/BMI 30+, Other (See Below) Other Endocrine/Metabolic History: thyroid nodule Hematologic History: Reports: Anemia Immunologic History: Reports: Immunosuppression Oncologic (Cancer) History: Reports: Basal Cell Carcinoma, Breast, Lung, Renal Other Oncologic History: right breast removed - 2005. left kidney removed - 2015 Dermatologic History: Reports: Eczema - Infectious Disease History Infectious Disease History: Reports: None - Past Surgical History HEENT Surgical History: Reports: None Cardiovascular Surgical History: Reports: None GI Surgical History: Reports: Appendectomy, Cholecystectomy, ERCP Female Surgical History: Reports: Nephrectomy Other Female Surgeries/Procedures: breast CA with mastectomy years ago Endocrine Surgical History: Reports: None Neurological Surgical History: Reports: None Musculoskeletal Surgical History: Reports: Knee Replacement Oncologic Surgical History: Reports: Mastectomy Dermatological Surgical History: Reports: None Social & Family History - Family History Cardiac: Reports: DC Other Cardiac Family History: mother, father heart valve-replace, brother bypass Neurological: Reports: Alzheimers Disease Other Neurological Family History: father - Tobacco Use Tobacco Use Status *Q: Never Tobacco User - Caffeine Use Caffeine Use: Reports: Coffee Other Caffeine Use: 2 cups a day - Recreational Drug Use Recreational Drug Use: No ED ROS GENERAL - Review of Systems Review Of Systems: See Below Constitutional: Reports: Weakness, Fatigue, Decreased Appetite. Denies: Fever, Chills, Malaise HEENT: Reports: No Symptoms Respiratory: Denies: Shortness of Breath, Cough Cardiovascular: Denies: Chest Pain, Lightheadedness, Syncope GI/Abdominal: Reports: Nausea. Denies: Abdominal Pain, Constipation (did for 3 days), Diarrhea, Vomiting : Denies: Dysuria Musculoskeletal: Reports: No Symptoms Skin: Denies: Cyanosis, Jaundice, Mottled, Pallor, Diaphoresis Neurological: Reports: Weakness (general). Denies: Confusion, Dizziness, Seizure, Syncope, Trouble Speaking, Difficulty Walking Psychiatric: Denies: Agitation, Anxiety, Confusion ED EXAM, GENERAL - Physical Exam Exam: See Below Exam Limited By: No Limitations General Appearance: Alert, WD/WN, No Apparent Distress Eye Exam: Bilateral Eye: EOMI, Normal Inspection, PERRL Ears: Normal External Exam, Hearing Grossly Normal Nose: Normal Inspection, No Blood Throat/Mouth: Normal Inspection, Normal Lips, Normal Voice, No Airway Compromise Head: Atraumatic, Normocephalic Neck: Normal Inspection, Full Range of Motion Respiratory/Chest: No Respiratory Distress, No Accessory Muscle Use, Crackles (mildly in bilat bases). No: Decreased Breath Sounds, Rhonchi, Wheezing, Stridor Cardiovascular: Regular Rate, Rhythm, No Murmur GI/Abdominal: Soft, Non-Tender, No Organomegaly, No Distention Back Exam: Normal Inspection, Full Range of Motion. No: CVA Tenderness (L), CVA Tenderness (R) Extremities: Normal Inspection, Normal Range of Motion Neurological: Alert, Oriented, Normal Cognition, No Motor/Sensory Deficits Psychiatric: Normal Affect, Normal Mood Skin Exam: Warm, Dry, Intact, Normal Color, No Rash Course - Vital Signs Last Recorded V/S: Last Vital Signs Temp 100.7 F H 11/02/20 12:55 Pulse 81 11/02/20 12:55 Resp 16 11/02/20 12:55 BP 149/76 H 11/02/20 12:55 Pulse Ox 92 L 11/02/20 12:55 - Orders/Labs/Meds Orders: Active Orders 24 hr Category Date Time Status Sodium Chloride 0.9% [Normal Saline] 1,000 ml Med 11/02/20 12:15 Active IV ASDIRECTED Medication Orders Sodium Chloride (Normal Saline) 1,000 mls @ 500 mls/hr IV ASDIRECTED CORNELIO Last Admin: 11/02/20 12:16 Dose: 500 mls/hr Documented by: ALICIA Labs: Laboratory Tests 11/02/20 11/02/20 11/02/20 Range/Units 13:07 13:35 13:35 WBC 5.65 (5.00-10.00) 10^3/uL RBC 5.57 H (3.80-5.50) 10^6/uL Hgb 15.3 (12.0-16.0) g/dL Hct 46.7 (37.0-47.0) % MCV 83.8 (82.0-92.0) fL MCH 27.5 (27.0-31.0) pg MCHC 32.8 (32.0-36.0) g/dL RDW 14.8 H (11.5-14.5) % Plt Count 64 L (150-400) 10^3/uL MPV 9.6 (7.4-10.4) fL Immature Gran % (Auto) 0.5 (0.0-5.0) % Neut % (Auto) 90.0 H (50.0-70.0) % Lymph % (Auto) 5.8 L (20.0-40.0) % [place] % (Auto) 3.2 (2.0-8.0) % Eos % (Auto) 0.0 L (1.0-3.0) % Baso % (Auto) 0.5 (0.0-1.0) % Neut # (Auto) 5.08 (2.50-7.00) 10^3/uL Lymph # (Auto) 0.33 L (1.00-4.00) 10^3/uL [place] # (Auto) 0.18 (0.10-0.80) 10^3/uL Eos # (Auto) 0.00 L (0.10-0.30) 10^3/uL Baso # (Auto) 0.03 (0.00-0.10) 10^3/uL Immature Gran # (Auto) 0.03 (0.00-0.50) 10^3/uL Sodium 138 (136-145) mmol/L Potassium 3.9 (3.5-5.1) mmol/L Chloride 101 (98-107) mmol/L Carbon Dioxide 24.7 (21.0-32.0) mmol/L Anion Gap 16.2 H (5-15) mmol/L BUN 28 H (7-18) mg/dL Creatinine 1.41 H (0.51-1.17) mg/dL Est Cr Clr Drug Dosing 35.85 mL/min Estimated GFR (MDRD) 37 mL/min Glucose 135 (70-140) mg/dL Lactic Acid (0.4-2.0) mmol/L Calcium 8.6 L (8.7-10.3) mg/dL Total Bilirubin 2.3 H (0.2-1.0) mg/dL AST 58 H (15-37) U/L ALT 48 (14-63) U/L Alkaline Phosphatase 75 (46-116) U/L Total Protein 7.1 (6.4-8.2) g/dL Albumin 2.92 L (3.40-5.00) g/dL Specimen Type Urincc Urine Color [place] H (YELLOW) Urine Appearance Slightly cloudy H (CLEAR) Urine pH 5.5 (5.0-9.0) Ur Specific [place] >= 1.030 (1.005-1.030) Urine Protein >=300 H (NEGATIVE) mg/dL Urine Glucose (UA) Negative (NEGATIVE) mg/dL Urine Ketones Negative (NEGATIVE) mg/dL Urine Occult Blood Moderate H (NEGATIVE) Urine Nitrite Negative (NEGATIVE) Urine Bilirubin Small H (NEGATIVE) Urine Urobilinogen 1.0 (0.2-1.0) E.U./dL Ur Leukocyte Esterase Trace H (NEGATIVE) Urine RBC 0-5 (0-5) /HPF Urine WBC 5-10 H (0-5) /HPF Ur Epithelial Cells Many H /LPF Amorphous Sediment Moderate H (0/HPF) /HPF Urine Bacteria Moderate H (NONE TO FEW) /HPF 11/02/20 Range/Units 13:35 WBC (5.00-10.00) 10^3/uL RBC (3.80-5.50) 10^6/uL Hgb (12.0-16.0) g/dL Hct (37.0-47.0) % MCV (82.0-92.0) fL MCH (27.0-31.0) pg MCHC (32.0-36.0) g/dL RDW (11.5-14.5) % Plt Count (150-400) 10^3/uL MPV (7.4-10.4) fL Immature Gran % (Auto) (0.0-5.0) % Neut % (Auto) (50.0-70.0) % Lymph % (Auto) (20.0-40.0) % [place] % (Auto) (2.0-8.0) % Eos % (Auto) (1.0-3.0) % Baso % (Auto) (0.0-1.0) % Neut # (Auto) (2.50-7.00) 10^3/uL Lymph # (Auto) (1.00-4.00) 10^3/uL [place] # (Auto) (0.10-0.80) 10^3/uL Eos # (Auto) (0.10-0.30) 10^3/uL Baso # (Auto) (0.00-0.10) 10^3/uL Immature Gran # (Auto) (0.00-0.50) 10^3/uL Sodium (136-145) mmol/L Potassium (3.5-5.1) mmol/L Chloride (98-107) mmol/L Carbon Dioxide (21.0-32.0) mmol/L Anion Gap (5-15) mmol/L BUN (7-18) mg/dL Creatinine (0.51-1.17) mg/dL Est Cr Clr Drug Dosing mL/min Estimated GFR (MDRD) mL/min Glucose (70-140) mg/dL Lactic Acid 1.9 (0.4-2.0) mmol/L Calcium (8.7-10.3) mg/dL Total Bilirubin (0.2-1.0) mg/dL AST (15-37) U/L ALT (14-63) U/L Alkaline Phosphatase (46-116) U/L Total Protein (6.4-8.2) g/dL Albumin (3.40-5.00) g/dL Specimen Type Urine Color (YELLOW) Urine Appearance (CLEAR) Urine pH (5.0-9.0) Ur Specific [place] (1.005-1.030) Urine Protein (NEGATIVE) mg/dL Urine Glucose (UA) (NEGATIVE) mg/dL Urine Ketones (NEGATIVE) mg/dL Urine Occult Blood (NEGATIVE) Urine Nitrite (NEGATIVE) Urine Bilirubin (NEGATIVE) Urine Urobilinogen (0.2-1.0) E.U./dL Ur Leukocyte Esterase (NEGATIVE) Urine RBC (0-5) /HPF Urine WBC (0-5) /HPF Ur Epithelial Cells /LPF Amorphous Sediment (0/HPF) /HPF Urine Bacteria (NONE TO FEW) /HPF Meds: Medications Generic Name Dose Route Start Last Admin Trade Name Freq PRN Reason Stop Dose Admin Sodium Chloride 1,000 mls @ 500 mls/hr 11/02/20 12:15 11/02/20 12:16 Normal Saline IV 500 mls/hr ASDIRECTED CORNELIO Administration Discontinued Medications Generic Name Dose Route Start Last Admin Trade Name Freq PRN Reason Stop Dose Admin Sodium Chloride Confirm 11/02/20 11:42 11/02/20 12:16 Normal Saline Administered 11/02/20 11:43 Not Given Dose 1,000 mls @ as directed .ROUTE .STK-MED ONE - Re-Assessments/Exams Free Text/Narrative Re-Assessment/Exam: 11/02/20 12:47 With the recent dose of Zofran I didn't give more now but encouraged patient to try to eat something. She was willing and successfully ate a slice of toast with peanut butter and jelly. She drank a bottle of water and is working on her second. 500 ml of saline is in and IV is running. 11/02/20 12:55 Temp recheck is now 100.7, up from 99.0 so will run some labs and CXR. WBC was normal last night. 11/02/20 14:43 CXR reports evidence of possible left lower lobe pneumonia. UA shows possible mild UTI. Lactate 1.9, WBC 5.6 with 90% NE. Temp is now 101.1. Discussed case with Evelyn Parnell NP who accepted for admission for treatment. Patient has several allergies but I will initiate treatment with Rocephin 2 gm in ER. Blood and urine cultures are obtained. Discussed findings and treatment plan with patient and she is agreeable. She is stable. Departure - Departure Time of Disposition: 14:38 Disposition: Admitted As Inpatient 68 Condition: Good Clinical Impression: General weakness, Patient on antineoplastic chemotherapy regimen CAP (community acquired pneumonia) Qualifiers: Laterality: left Lung location: lower lobe of lung Qualified Code(s): J18.9 - Pneumonia, unspecified organism Fatigue Qualifiers: Fatigue type: other Qualified Code(s): R53.83 - Other fatigue Fever Qualifiers: Fever type: unspecified Qualified Code(s): R50.9 - Fever, unspecified Lung cancer Qualifiers: Laterality: unspecified laterality - Discharge Information Referrals: Sophia Smith [employer] [Primary Care Provider] - Forms: ED Department Discharge Sepsis Event Note (ED) - Evaluation Sepsis Screening Result: No Definite Risk - Focused Exam Vital Signs: Vital Signs Temp Pulse Resp BP Pulse Ox 11/02/20 12:55 100.7 F H 81 16 149/76 H 92 L 11/02/20 11:47 99.0 F 88 18 114/67 93 L - My Orders Last 24 Hours: My Active Orders 11/02/20 12:15 Sodium Chloride 0.9% [Normal Saline] 1,000 ml IV ASDIRECTED - Assessment/Plan Last 24 Hours: My Active Orders 11/02/20 12:15 Sodium Chloride 0.9% [Normal Saline] 1,000 ml IV ASDIRECTED
--- NOTE | 2020-11-02 13:34 | CR ---
[id number] RAD/RAD Chest PA And Lateral EXAM: RAD Chest PA And Lateral INDICATION: FEVER. COMPARISON: January 08, 2020. DISCUSSION/IMPRESSION: Blunting of the left costophrenic sulcus. This was not seen previously. Lateral view demonstrates opacity in the retrocardiac clear space. Combination of findings suggest possible left lower lobe pneumonia in the clinical setting of infection. Right lung is clear. Chronic left-sided rib fracture is stable compared to the prior examination. Cardiac mediastinal silhouette is also stable in size and contour. Suraj Gutiérrez MD 11/02/20 [id number] Thank you for allowing us to participate in the care of your patient.
[2020-11-02 13:59] LABS: ANION GAP 16.2 mmol/L (5-15)
[2020-11-02] MEDS ORDERED: cefTRIAXone 2 GM Vial IVPUSH ONE (14:27)
[2020-11-02] MEDS ORDERED: Acetaminophen 500 MG Tab PO ONE (14:38)
[2020-11-02] MEDS ORDERED: Water For Injection, Sterile 20 ML ONE (14:44)
--- NOTE | 2020-11-02 16:08 | PCM.HP.2 ---
H&P History of Present Illness - General Date of Service: 11/02/20 Admit Problem/Dx: Admission Diagnosis/Problem Admission Diagnosis/Problem CAP (community acquired pneumonia) due to MSSA ( methicillin sensitive Staphylococcus aureus) Source of Information: Patient History Limitations: Reports: No Limitations - History of Present Illness Initial Comments - Free Text/Narative: 75 year old female with known breast, left kidney and left lower lung cancer with multiple mets presented initially to the ED on 11/01/2020 with complaints of weakness, nausea and vomiting. She recently finished a two week course of Sunitinib (VEGF antagonist) 37.5mg orally for two weeks on 10/31/2020. This is her week off. Denies diarrhea. She was afebrile with stable VSS, labs were unremarkable. She was given ondansetron and IVF with improvement in symptoms and discharged home. She returned the following day 11/02/2020 with complaints of continued weakness, fatigue and nausea. Decreased oral intake. She did take a laxative the night before and had good results today. While in the ED patient started to develop fever at 38.2C and 38.4C. Her oxygen saturations were diminished to 88-91% and oxygen was applied. Patient was admitted for inpatient stay related to community acquired pneumonia with possible UTI and dehydration. - Related Data Allergies/Adverse Reactions: Allergies Allergy/AdvReac Type Severity Reaction Status Date / Time ampicillin Allergy Nausea and Verified 11/02/20 13:08 Vomiting ciprofloxacin Allergy Nausea Verified 11/02/20 13:08 lisinopril Allergy Cough Verified 11/02/20 13:08 amoxicillin AdvReac Nausea and Verified 11/02/20 13:08 Vomiting azithromycin [From Zithromax] AdvReac Nausea and Verified 11/02/20 13:08 Vomiting hydrocodone AdvReac Nausea and Verified 11/02/20 13:08 Vomiting paclitaxel [From Taxol] AdvReac Nausea and Verified 11/02/20 13:08 Vomiting Home Medications: Home Meds Rosuvastatin Calcium 10 mg PO DAILY 01/24/17 [History] Acyclovir [Zovirax 5% Crm] 1 applic TOP ASDIRECTED PRN 12/27/19 [History] Fluticasone Propionate [Flonase] 1 spray NASBOTH BID PRN 12/27/19 [History] Furosemide 20 mg PO DAILY 12/27/19 [History] Hydrocortisone [Hydrocortisone 2.5% Crm] 1 applic TOP BID PRN 12/27/19 [History] Non-Formulary Medication [NF Drug] 1 applic TOP BID PRN 12/27/19 [History] Non-Formulary Medication [NF Drug] 1 applic TOP QID PRN 12/27/19 [History] Triamcinolone Acetonide [Triamcinolone Acetonide 0.1% Crm] 1 applic TOP BID PRN 12/27/19 [History] atenoloL [Tenormin] 50 mg PO DAILY 12/27/19 [History] Losartan [Cozaar] 25 mg PO DAILY 09/05/20 [History] Prochlorperazine Maleate [Compazine] 10 mg PO QID PRN 09/05/20 [History] Non-Formulary Medication [NF Drug] 1 tab PO ASDIRECTED 11/01/20 [History] Ondansetron [Zofran ODT] 8 mg PO BID PRN 11/02/20 [History] Past Medical History HEENT History: Reports: Allergic Rhinitis, Impaired Vision Cardiovascular History: Reports: Angina, Heart Murmur, Hypertension Gastrointestinal History: Reports: Cholelithiasis, Gastritis, GERD, Other (See Below) Other Gastrointestinal History: Severe nausea/vomiting since 07/2016. Up until yesterday, this was controlled with scopalomine patch. Genitourinary History: Reports: Chronic Renal Insuffiency, Other (See Below) Other Genitourinary History: cancer on L kidney. kidney removed this past august STUDY LEAD History: Reports: Musculoskeletal History: Reports: Arthritis, Osteoarthritis Neurological History: Reports: TIA Endocrine/Metabolic History: Reports: Obesity/BMI 30+, Other (See Below) Other Endocrine/Metabolic History: thyroid nodule Hematologic History: Reports: Anemia Immunologic History: Reports: Immunosuppression Oncologic (Cancer) History: Reports: Basal Cell Carcinoma, Breast, Lung, Renal Other Oncologic History: right breast removed - 2005. left kidney removed - Dermatologic History: Reports: Eczema - Infectious Disease History Infectious Disease History: Reports: None - Past Surgical History HEENT Surgical History: Reports: None Cardiovascular Surgical History: Reports: None GI Surgical History: Reports: Appendectomy, Cholecystectomy, ERCP Female Surgical History: Reports: Nephrectomy Other Female Surgeries/Procedures: breast CA with mastectomy years ago Endocrine Surgical History: Reports: None Neurological Surgical History: Reports: None Musculoskeletal Surgical History: Reports: Knee Replacement Oncologic Surgical History: Reports: Mastectomy Dermatological Surgical History: Reports: None Social & Family History - Family History Cardiac: Reports: [place] Other Cardiac Family History: mother, father heart valve-replace, brother bypass Neurological: Reports: Alzheimers Disease Other Neurological Family History: father - Tobacco Use Tobacco Use Status *Q: Never Tobacco User - Caffeine Use Caffeine Use: Reports: Coffee Other Caffeine Use: 2 cups a day - Recreational Drug Use Recreational Drug Use: No H&P Review of Systems - Review of Systems: Review Of Systems: See Below Free Text/Narrative: 75 year old female reports weakness and fatigue. Denies any pain. No cough. General: Reports: Fever, Weakness, Fatigue, Decreased Appetite. Denies: Chills HEENT: Denies: Dysphasia, Headaches, Sinus Congestion, Sore Throat, Visual Changes Pulmonary: Reports: Shortness of Breath. Denies: Wheezing, Cough Cardiovascular: Reports: Lightheadedness (when standing). Denies: Chest Pain, Palpitations, Edema Gastrointestinal: Reports: Constipation (recent, but did have BM this am), Decreased Appetite, Nausea. Denies: Abdominal Pain, Bloody Stool, Diarrhea, Vomiting Genitourinary: Denies: Dysuria, Burning, Urgency, Hematuria Musculoskeletal: Denies: Neck Pain, Back Pain, Joint Swelling Skin: Reports: Pallor. Denies: Bruising, Rash Psychiatric: Denies: Confusion, Depression, Anxiety Neurological: Denies: Confusion, Dizziness, Headache, Paresthesia, Trouble Speaking, Difficulty Walking Exam - Exam Exam: See Below - Vital Signs Vital Signs: Last Vital Signs Temp 37.2 C 11/02/20 15:27 Pulse 77 11/02/20 15:27 Resp 20 11/02/20 15:27 BP 132/72 11/02/20 15:27 Pulse Ox 88 L 11/02/20 15:27 Weight: 115.122 kg - Exam Physical Exam Comments:: GENERAL: Ill-appearing adult in no acute distress lying in bed with daughter in law in room. HEENT: Normocephalic, atraumatic. Conjunctiva clear. Nares patent without discharge. Mucous membranes moist, posterior pharynx unremarkable. NECK: Supple, no masses. CV: Regular rate and rhythm, no murmurs, rubs, or gallops. 2+ radial pulses. PULMONARY: Normal effort, clear to auscultation bilaterally, no wheezes, rales, or rhonchi. ABDOMEN: Positive bowel sounds, soft, nontender, nondistended. EXTREMITIES: No edema, cyanosis, or clubbing. MUSCULOSKELETAL: Moves all extremities well. NEUROLOGICAL: No obvious deficits. DERMATOLOGIC: No rashes or suspicious lesions in exposed areas. PSYCHIATRIC: Alert, interactive, appropriate affect. - Patient Data Lab Results Last 24 hrs: Laboratory Results - last 24 hr 11/02/20 11/02/20 11/02/20 Range/Units 13:07 13:35 13:35 WBC 5.65 (5.00-10.00) 10^3/uL RBC 5.57 H (3.80-5.50) 10^6/uL Hgb 15.3 (12.0-16.0) g/dL Hct 46.7 (37.0-47.0) % MCV 83.8 (82.0-92.0) fL MCH 27.5 (27.0-31.0) pg MCHC 32.8 (32.0-36.0) g/dL RDW 14.8 H (11.5-14.5) % Plt Count 64 L (150-400) 10^3/uL MPV 9.6 (7.4-10.4) fL Immature Gran % (Auto) 0.5 (0.0-5.0) % Neut % (Auto) 90.0 H (50.0-70.0) % Lymph % (Auto) 5.8 L (20.0-40.0) % [place] % (Auto) 3.2 (2.0-8.0) % Eos % (Auto) 0.0 L (1.0-3.0) % Baso % (Auto) 0.5 (0.0-1.0) % Neut # (Auto) 5.08 (2.50-7.00) 10^3/uL Lymph # (Auto) 0.33 L (1.00-4.00) 10^3/uL [place] # (Auto) 0.18 (0.10-0.80) 10^3/uL Eos # (Auto) 0.00 L (0.10-0.30) 10^3/uL Baso # (Auto) 0.03 (0.00-0.10) 10^3/uL Immature Gran # (Auto) 0.03 (0.00-0.50) 10^3/uL Sodium 138 (136-145) mmol/L Potassium 3.9 (3.5-5.1) mmol/L Chloride 101 (98-107) mmol/L Carbon Dioxide 24.7 (21.0-32.0) mmol/L Anion Gap 16.2 H (5-15) mmol/L BUN 28 H (7-18) mg/dL Creatinine 1.41 H (0.51-1.17) mg/dL Est Cr Clr Drug Dosing 35.85 mL/min Estimated GFR (MDRD) 37 mL/min Glucose 135 (70-140) mg/dL Lactic Acid (0.4-2.0) mmol/L Calcium 8.6 L (8.7-10.3) mg/dL Total Bilirubin 2.3 H (0.2-1.0) mg/dL AST 58 H (15-37) U/L ALT 48 (14-63) U/L Alkaline Phosphatase 75 (46-116) U/L Total Protein 7.1 (6.4-8.2) g/dL Albumin 2.92 L (3.40-5.00) g/dL Specimen Type Urincc Urine Color Webb H (YELLOW) Urine Appearance Slightly cloudy H (CLEAR) Urine pH 5.5 (5.0-9.0) Ur Specific Candia >= 1.030 (1.005-1.030) Urine Protein >=300 H (NEGATIVE) mg/dL Urine Glucose (UA) Negative (NEGATIVE) mg/dL Urine Ketones Negative (NEGATIVE) mg/dL Urine Occult Blood Moderate H (NEGATIVE) Urine Nitrite Negative (NEGATIVE) Urine Bilirubin Small H (NEGATIVE) Urine Urobilinogen 1.0 (0.2-1.0) E.U./dL Ur Leukocyte Esterase Trace H (NEGATIVE) Urine RBC 0-5 (0-5) /HPF Urine WBC 5-10 H (0-5) /HPF Ur Epithelial Cells Many H /LPF Amorphous Sediment Moderate H (0/HPF) /HPF Urine Bacteria Moderate H (NONE TO FEW) /HPF SARS CoV-2 RNA Rapid AMERICO (NEGATIVE) 11/02/20 11/02/20 Range/Units 13:35 14:55 WBC (5.00-10.00) 10^3/uL RBC (3.80-5.50) 10^6/uL Hgb (12.0-16.0) g/dL Hct (37.0-47.0) % MCV (82.0-92.0) fL MCH (27.0-31.0) pg MCHC (32.0-36.0) g/dL RDW (11.5-14.5) % Plt Count (150-400) 10^3/uL MPV (7.4-10.4) fL Immature Gran % (Auto) (0.0-5.0) % Neut % (Auto) (50.0-70.0) % Lymph % (Auto) (20.0-40.0) % [place] % (Auto) (2.0-8.0) % Eos % (Auto) (1.0-3.0) % Baso % (Auto) (0.0-1.0) % Neut # (Auto) (2.50-7.00) 10^3/uL Lymph # (Auto) (1.00-4.00) 10^3/uL [place] # (Auto) (0.10-0.80) 10^3/uL Eos # (Auto) (0.10-0.30) 10^3/uL Baso # (Auto) (0.00-0.10) 10^3/uL Immature Gran # (Auto) (0.00-0.50) 10^3/uL Sodium (136-145) mmol/L Potassium (3.5-5.1) mmol/L Chloride (98-107) mmol/L Carbon Dioxide (21.0-32.0) mmol/L Anion Gap (5-15) mmol/L BUN (7-18) mg/dL Creatinine (0.51-1.17) mg/dL Est Cr Clr Drug Dosing mL/min Estimated GFR (MDRD) mL/min Glucose (70-140) mg/dL Lactic Acid 1.9 (0.4-2.0) mmol/L Calcium (8.7-10.3) mg/dL Total Bilirubin (0.2-1.0) mg/dL AST (15-37) U/L ALT (14-63) U/L Alkaline Phosphatase (46-116) U/L Total Protein (6.4-8.2) g/dL Albumin (3.40-5.00) g/dL Specimen Type Urine Color (YELLOW) Urine Appearance (CLEAR) Urine pH (5.0-9.0) Ur Specific Candia (1.005-1.030) Urine Protein (NEGATIVE) mg/dL Urine Glucose (UA) (NEGATIVE) mg/dL Urine Ketones (NEGATIVE) mg/dL Urine Occult Blood (NEGATIVE) Urine Nitrite (NEGATIVE) Urine Bilirubin (NEGATIVE) Urine Urobilinogen (0.2-1.0) E.U./dL Ur Leukocyte Esterase (NEGATIVE) Urine RBC (0-5) /HPF Urine WBC (0-5) /HPF Ur Epithelial Cells /LPF Amorphous Sediment (0/HPF) /HPF Urine Bacteria (NONE TO FEW) /HPF SARS CoV-2 RNA Rapid AMERICO Negative (NEGATIVE) Result Diagrams: 11/02/20 13:35 11/02/20 13:35 Sepsis Event Note - Evaluation Sepsis Screening Result: No Definite Risk - Focused Exam Vital Signs: Vital Signs Temp Pulse Resp BP Pulse Ox 11/02/20 15:27 37.2 C 77 20 132/72 88 L 11/02/20 14:48 81 16 121/64 91 L 11/02/20 14:19 38.4 C H 78 16 120/64 91 L 11/02/20 12:55 38.2 C H 81 16 149/76 H 92 L 11/02/20 11:47 37.2 C 88 18 114/67 93 L Problem List Initiated/Reviewed/Updated: Yes Orders Last 24hrs: Active Orders 24 hr Category Date Time Status Patient Status [ADT] Routine ADT 11/02/20 14:48 Active CULTURE BLOOD [BC] Stat Lab 11/02/20 14:40 Received CULTURE BLOOD [BC] Stat Lab 11/02/20 14:50 Received CULTURE URINE [RM] Stat Lab 11/02/20 14:17 Ordered Sodium Chloride 0.9% [Normal Saline] 1,000 ml Med 11/02/20 12:15 Active IV ASDIRECTED Blood Culture x2 Reflex Set [OM.PC] Stat Oth 11/02/20 14:18 Ordered Medication Orders Sodium Chloride (Normal Saline) 1,000 mls @ 500 mls/hr IV ASDIRECTED CORNELIO Last Admin: 11/02/20 12:16 Dose: 500 mls/hr Documented by: [id number] Assessment/Plan Comment:: HPI summary: 75 year old female with known breast, left kidney and left lower lung cancer with multiple mets presented initially to the ED on 11/01/2020 with complaints of weakness, nausea and vomiting. She recently finished a two week course of Sunitinib (VEGF antagonist) 37.5mg orally for two weeks on 10/31/2020. This is her week off. Denies diarrhea. She was afebrile with stable VSS, labs were unremarkable. She was given ondansetron and IVF with improvement in symptoms and discharged home. She returned the following day 11/02/2020 with complaints of continued weakness, fatigue and nausea. Decreased oral intake. She did take a laxative the night before and had good results today. While in the ED patient started to develop fever at 38.2C and 38.4C. Her oxygen saturations were diminished to 88-91% and oxygen was applied. Patient was admitted for inpatient stay related to community acquired pneumonia with possible UTI and dehydration. ED course: 11/01/2020: Afebrile, VSS -labs: WBC 5.22, RBC 5.71, Hgb 16, hct 47.4, Plt 88, neut 88.1%, electrolytes unremarkable, BUN 25, creatinine 1.33, GFR 39 -NS 1000mL bolus x 1; ondansetron 8mg IVP with improvement and discharge 11/02/2020: Afebrile initially, VSS -patient was initially given 1000mL NS bolus, but developed fever while in the ED of up to 101 -lab: WBC 5.65, RBC 5.57, Hgb 15.3, Hct 46.7, plt 64, neut 90%, electrolytes stable, BUN 28, creatinine 1.41, GFR 37, lactic 1.9 with anion gap 16.2 -urine: orange and cloudy, >300 protein, mod blood, neg nitrites, small bili, trace leukocyte esterase, 0-5 RBC, 5-10 WBC, many epithelial cells, moderate bacteria and moderate amorphous sediment -CXR: blunting of left costophrenic sulcus not seen previously, lateral view demonstrates opacity in the retrocardiac clear space, suggesting LLL pneumonia Hospital course: 11/02/2020: Patient reports weakness and fatigue, no pain or cough. Added on procalcitonin and CRP. Lungs are clear. No edema. No urinary complaints, a lthough son reports later she has had frequency. Given recent oral sunitinib consult call placed to oncology in [place]. Recommendations to continue same, await blood cultures, continue ceftriaxone and trend lab. General feeling is that symptoms are primarily due to sunitinib, however fever would not fit with this picture. Will monitor closely for clinical improvement or deterioration. Hospitalization problems and plan: # Fever, unknown origin suspect pneumonia vs Cystitis - CBC in the AM - Add on procalcitonin and CRP - Acetaminophen 650mg orally as needed for fever - ceftriaxone 2gm IVP daily - blood cultures pending - urine culture pending - sputum culture if able to be obtained # Dehydration, rehydrate gently due to h/o grade 2 diastolic heart failure, last EF 55% 08/18/2019 - NS 75mL/hr - Push oral intake - BMP in the AM - weight daily # Nausea, secondary to chemotherapy - Ondansetron 4mg IVP every four hours as needed # Thrombocytopenia, possibly secondary to chemotherapy - CBC in the AM - VTE prophylaxis with antiplatelets contraindicated at this time - Bleeding precautions Chronic, stable conditions: # Hypertension; hold losartan for now # Hypercholesterolemia, continue rosuvastatin # Chronic diastolic heart failure: hold furosemide for now; continue atenolol # Postmenopausal status since age 58 # Stage IIB (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 # TIA with Rt. Facial droop and expressive aphasia on 08/27/15. # Allergic rhinitis: continue fluticasone # CKD, stage 3: baseline creatinine 1.29, GFR 49 # Thyroid nodule Hospitalization details: # FEN: NS 75mL/hr; electrolytes stable; oral diet as tolerated # PPX: Lovenox contraindicated due to platelets less than 100,000. Will reassess in the AM; GI prophylaxis Protonix # Code status: Full code per discussion with patient # Emergency contact: gerard Raya updated via telephone # Disposition: home after approximately two to three midnights while awaiting blood cultures - Mortality Measure Prognosis:: Good
[2020-11-02] MEDS ORDERED: Fluticasone Propionate Nasal Spray 16 GM Bottle NASBOTH PRN (16:38)
[2020-11-02] MEDS: Sodium Chloride 0.9% 1,000 ML IV SCH (17:24)
[2020-11-02] MEDS ORDERED: Pantoprazole 40 MG in Sodium Chloride 0.9% 100 ML IV SCH (17:45)
[2020-11-02] MEDS ORDERED: Pantoprazole 40 MG Vial ONE (18:55)
[2020-11-02] MEDS ORDERED: Pantoprazole 40 MG Vial IVPUSH ONE (18:59)
[2020-11-02] MEDS: Acetaminophen 325 MG Tab PO PRN (20:18)
[2020-11-02] MEDS: Ondansetron 4 MG/2 ML SDV IVPUSH PRN (21:41)
[2020-11-03] MEDS: Acetaminophen 325 MG Tab PO PRN ×3 (02:29→18:10)
[2020-11-03] MEDS: Sodium Chloride 0.9% 1,000 ML IV SCH (06:19)
[2020-11-03 08:27] LABS: ANION GAP 14.6 mmol/L (5-15)
[2020-11-03] MEDS ORDERED: Atenolol 25 MG Tab PO SCH (09:00)
[2020-11-03] MEDS ORDERED: Rosuvastatin 10 MG Tab PO SCH (09:00)
--- NOTE | 2020-11-03 10:56 | PCM.PN ---
- General Info Date of Service: 11/03/20 Subjective Update: 75 year old female reports some improvement in her weakness. No additional complaint. Functional Status: Reports: Pain Controlled, Ambulating, Urinating - Review of Systems General: Reports: Fever, Weakness (mildly improved), Fatigue, Appetite (decreased) HEENT: Denies: Dysphasia, Headaches, Sinus Congestion, Sore Throat, Visual Changes Pulmonary: Denies: Shortness of Breath, Cough, Sputum Cardiovascular: Denies: Chest Pain, Palpitations, Edema Gastrointestinal: Reports: Decreased Appetite, Nausea. Denies: Abdominal Pain, Constipation, Diarrhea, Vomiting Genitourinary: Denies: Dysuria, Pain, Urgency Musculoskeletal: Denies: Neck Pain, Back Pain, Joint Swelling Skin: Denies: Diaphoresis, Bruising, Rash Neurological: Reports: Weakness. Denies: Confusion, Headache, Trouble Speaking, Difficulty Walking - Patient Data Vitals - Most Recent: Last Vital Signs Temp 38.3 C H 11/03/20 09:48 Pulse 79 11/03/20 09:43 Resp 20 11/03/20 09:41 BP 137/68 11/03/20 09:43 Pulse Ox 92 L 11/03/20 09:41 Weight - Most Recent: 118.07 kg I&O - Last 24 Hours: Intake & Output 11/02/20 11/03/20 11/03/20 22:59 06:59 14:59 Intake Total 331 606 Balance 331 606 Lab Results Last 24 Hours: Laboratory Results - last 24 hr 11/02/20 11/02/20 11/02/20 Range/Units 13:07 13:35 13:35 WBC 5.65 (5.00-10.00) 10^3/uL RBC 5.57 H (3.80-5.50) 10^6/uL Hgb 15.3 (12.0-16.0) g/dL Hct 46.7 (37.0-47.0) % MCV 83.8 (82.0-92.0) fL MCH 27.5 (27.0-31.0) pg MCHC 32.8 (32.0-36.0) g/dL RDW 14.8 H (11.5-14.5) % Plt Count 64 L (150-400) 10^3/uL MPV 9.6 (7.4-10.4) fL Immature Gran % (Auto) 0.5 (0.0-5.0) % Neut % (Auto) 90.0 H (50.0-70.0) % Lymph % (Auto) 5.8 L (20.0-40.0) % [place] % (Auto) 3.2 (2.0-8.0) % Eos % (Auto) 0.0 L (1.0-3.0) % Baso % (Auto) 0.5 (0.0-1.0) % Neut # (Auto) 5.08 (2.50-7.00) 10^3/uL Lymph # (Auto) 0.33 L (1.00-4.00) 10^3/uL [place] # (Auto) 0.18 (0.10-0.80) 10^3/uL Eos # (Auto) 0.00 L (0.10-0.30) 10^3/uL Baso # (Auto) 0.03 (0.00-0.10) 10^3/uL Immature Gran # (Auto) 0.03 (0.00-0.50) 10^3/uL Clumped Platelets Sodium 138 (136-145) mmol/L Potassium 3.9 (3.5-5.1) mmol/L Chloride 101 (98-107) mmol/L Carbon Dioxide 24.7 (21.0-32.0) mmol/L Anion Gap 16.2 H (5-15) mmol/L BUN 28 H (7-18) mg/dL Creatinine 1.41 H (0.51-1.17) mg/dL Est Cr Clr Drug Dosing 35.85 mL/min Estimated GFR (MDRD) 37 mL/min Glucose 135 (70-140) mg/dL Lactic Acid (0.4-2.0) mmol/L Calcium 8.6 L (8.7-10.3) mg/dL Total Bilirubin 2.3 H (0.2-1.0) mg/dL AST 58 H (15-37) U/L ALT 48 (14-63) U/L Alkaline Phosphatase 75 (46-116) U/L C-Reactive Protein (0.0-0.9) mg/dL Total Protein 7.1 (6.4-8.2) g/dL Albumin 2.92 L (3.40-5.00) g/dL Specimen Type Urincc Urine Color [place] H (YELLOW) Urine Appearance Slightly cloudy H (CLEAR) Urine pH 5.5 (5.0-9.0) Ur Specific [place] >= 1.030 (1.005-1.030) Urine Protein >=300 H (NEGATIVE) mg/dL Urine Glucose (UA) Negative (NEGATIVE) mg/dL Urine Ketones Negative (NEGATIVE) mg/dL Urine Occult Blood Moderate H (NEGATIVE) Urine Nitrite Negative (NEGATIVE) Urine Bilirubin Small H (NEGATIVE) Urine Urobilinogen 1.0 (0.2-1.0) E.U./dL Ur Leukocyte Esterase Trace H (NEGATIVE) Urine RBC 0-5 (0-5) /HPF Urine WBC 5-10 H (0-5) /HPF Ur Epithelial Cells Many H /LPF Amorphous Sediment Moderate H (0/HPF) /HPF Urine Bacteria Moderate H (NONE TO FEW) /HPF SARS CoV-2 RNA Rapid AMERICO (NEGATIVE) 11/02/20 11/02/20 11/03/20 Range/Units 13:35 14:55 07:50 WBC (5.00-10.00) 10^3/uL RBC (3.80-5.50) 10^6/uL Hgb (12.0-16.0) g/dL Hct (37.0-47.0) % MCV (82.0-92.0) fL MCH (27.0-31.0) pg MCHC (32.0-36.0) g/dL RDW (11.5-14.5) % Plt Count (150-400) 10^3/uL MPV (7.4-10.4) fL Immature Gran % (Auto) (0.0-5.0) % Neut % (Auto) (50.0-70.0) % Lymph % (Auto) (20.0-40.0) % [place] % (Auto) (2.0-8.0) % Eos % (Auto) (1.0-3.0) % Baso % (Auto) (0.0-1.0) % Neut # (Auto) (2.50-7.00) 10^3/uL Lymph # (Auto) (1.00-4.00) 10^3/uL [place] # (Auto) (0.10-0.80) 10^3/uL Eos # (Auto) (0.10-0.30) 10^3/uL Baso # (Auto) (0.00-0.10) 10^3/uL Immature Gran # (Auto) (0.00-0.50) 10^3/uL Clumped Platelets Sodium (136-145) mmol/L Potassium (3.5-5.1) mmol/L Chloride (98-107) mmol/L Carbon Dioxide (21.0-32.0) mmol/L Anion Gap (5-15) mmol/L BUN (7-18) mg/dL Creatinine (0.51-1.17) mg/dL Est Cr Clr Drug Dosing mL/min Estimated GFR (MDRD) mL/min Glucose (70-140) mg/dL Lactic Acid 1.9 (0.4-2.0) mmol/L Calcium (8.7-10.3) mg/dL Total Bilirubin (0.2-1.0) mg/dL AST (15-37) U/L ALT (14-63) U/L Alkaline Phosphatase (46-116) U/L C-Reactive Protein 11.5 H (0.0-0.9) mg/dL Total Protein (6.4-8.2) g/dL Albumin (3.40-5.00) g/dL Specimen Type Urine Color (YELLOW) Urine Appearance (CLEAR) Urine pH (5.0-9.0) Ur Specific [place] (1.005-1.030) Urine Protein (NEGATIVE) mg/dL Urine Glucose (UA) (NEGATIVE) mg/dL Urine Ketones (NEGATIVE) mg/dL Urine Occult Blood (NEGATIVE) Urine Nitrite (NEGATIVE) Urine Bilirubin (NEGATIVE) Urine Urobilinogen (0.2-1.0) E.U./dL Ur Leukocyte Esterase (NEGATIVE) Urine RBC (0-5) /HPF Urine WBC (0-5) /HPF Ur Epithelial Cells /LPF Amorphous Sediment (0/HPF) /HPF Urine Bacteria (NONE TO FEW) /HPF SARS CoV-2 RNA Rapid AMERICO Negative (NEGATIVE) 11/03/20 11/03/20 Range/Units 07:50 07:50 WBC 4.49 L (5.00-10.00) 10^3/uL RBC 5.28 (3.80-5.50) 10^6/uL Hgb 14.4 (12.0-16.0) g/dL Hct 44.6 (37.0-47.0) % MCV 84.5 (82.0-92.0) fL MCH 27.3 (27.0-31.0) pg MCHC 32.3 (32.0-36.0) g/dL RDW 15.1 H (11.5-14.5) % Plt Count 38 L (150-400) 10^3/uL MPV 9.6 (7.4-10.4) fL Immature Gran % (Auto) 0.7 (0.0-5.0) % Neut % (Auto) 86.9 H (50.0-70.0) % Lymph % (Auto) 8.9 L (20.0-40.0) % [place] % (Auto) 2.9 (2.0-8.0) % Eos % (Auto) 0.2 L (1.0-3.0) % Baso % (Auto) 0.4 (0.0-1.0) % Neut # (Auto) 3.90 (2.50-7.00) 10^3/uL Lymph # (Auto) 0.40 L (1.00-4.00) 10^3/uL [place] # (Auto) 0.13 (0.10-0.80) 10^3/uL Eos # (Auto) 0.01 L (0.10-0.30) 10^3/uL Baso # (Auto) 0.02 (0.00-0.10) 10^3/uL Immature Gran # (Auto) 0.03 (0.00-0.50) 10^3/uL Clumped Platelets Rare Sodium 139 (136-145) mmol/L Potassium 3.8 (3.5-5.1) mmol/L Chloride 103 (98-107) mmol/L Carbon Dioxide 25.2 (21.0-32.0) mmol/L Anion Gap 14.6 (5-15) mmol/L BUN 27 H (7-18) mg/dL Creatinine 1.40 H (0.51-1.17) mg/dL Est Cr Clr Drug Dosing 36.10 mL/min Estimated GFR (MDRD) 37 mL/min Glucose 100 (70-140) mg/dL Lactic Acid (0.4-2.0) mmol/L Calcium 8.1 L (8.7-10.3) mg/dL Total Bilirubin (0.2-1.0) mg/dL AST (15-37) U/L ALT (14-63) U/L Alkaline Phosphatase (46-116) U/L C-Reactive Protein (0.0-0.9) mg/dL Total Protein (6.4-8.2) g/dL Albumin (3.40-5.00) g/dL Specimen Type Urine Color (YELLOW) Urine Appearance (CLEAR) Urine pH (5.0-9.0) Ur Specific [place] (1.005-1.030) Urine Protein (NEGATIVE) mg/dL Urine Glucose (UA) (NEGATIVE) mg/dL Urine Ketones (NEGATIVE) mg/dL Urine Occult Blood (NEGATIVE) Urine Nitrite (NEGATIVE) Urine Bilirubin (NEGATIVE) Urine Urobilinogen (0.2-1.0) E.U./dL Ur Leukocyte Esterase (NEGATIVE) Urine RBC (0-5) /HPF Urine WBC (0-5) /HPF Ur Epithelial Cells /LPF Amorphous Sediment (0/HPF) /HPF Urine Bacteria (NONE TO FEW) /HPF SARS CoV-2 RNA Rapid AMERICO (NEGATIVE) Med Orders - Current: Current Medications Acetaminophen (Acetaminophen 325 Mg Tab) 650 mg PO Q6H PRN PRN Reason: Fever Last Admin: 11/03/20 09:48 Dose: 650 mg Documented by: Atenolol (Atenolol 25 Mg Tab) 50 mg PO DAILY [facility] Last Admin: 11/03/20 09:43 Dose: 50 mg Documented by: Ceftriaxone Sodium (Ceftriaxone 2 Gm Vial) 2 gm IVPUSH Q24H [facility] Fluticasone Propionate (Fluticasone Propionate Nasal [place] 16 Gm Bottle) 0 gm NASBOTH BID PRN PRN Reason: post nasal drip Sodium Chloride (Normal Saline) 1,000 mls @ 100 mls/hr IV ASDIRECTED [facility] Last Admin: 11/03/20 06:19 Dose: 75 mls/hr Documented by: Ondansetron HCl (Ondansetron 4 Mg/2 Ml Sdv) 4 mg IVPUSH Q4H PRN PRN Reason: Nausea/Vomiting Last Admin: 11/02/20 21:41 Dose: 4 mg Documented by: Rosuvastatin Calcium (Rosuvastatin 10 Mg Tab) 10 mg PO DAILY [facility] Last Admin: 11/03/20 09:43 Dose: 10 mg Documented by: Discontinued Medications Acetaminophen (Acetaminophen 500 Mg Tab) 500 mg PO ONETIME ONE Stop: 11/02/20 14:39 Last Admin: 11/02/20 14:46 Dose: 500 mg Documented by: Ceftriaxone Sodium (Ceftriaxone 2 Gm Vial) 2 gm IVPUSH ONETIME ONE Stop: 11/02/20 14:28 Last Admin: 11/02/20 14:56 Dose: 2 gm Documented by: Sodium Chloride (Normal Saline) Confirm Administered Dose 1,000 mls @ as direct ed .ROUTE .STK-MED ONE Stop: 11/02/20 11:43 Last Admin: 11/02/20 12:16 Dose: Not Given Documented by: Sodium Chloride (Normal Saline) 1,000 mls @ 500 mls/hr IV ASDIRECTED [facility] Last Admin: 11/02/20 12:16 Dose: 500 mls/hr Documented by: Sterile Water (Sterile Water For Injection) Confirm Administered Dose 20 mls @ as directed .ROUTE .[facility] ONE Stop: 11/02/20 14:45 Last Admin: 11/02/20 15:15 Dose: Not Given Documented by: Pantoprazole Sodium (Pantoprazole 40 Mg Vial) Confirm Administered Dose 40 mg .ROUTE .STK-MED ONE Stop: 11/02/20 18:56 Last Admin: 11/02/20 19:06 Dose: Not Given Documented by: Pantoprazole Sodium (Pantoprazole 40 Mg Vial) 40 mg IVPUSH ONETIME ONE Stop: 11/02/20 19:00 Last Admin: 11/02/20 19:07 Dose: 40 mg Documented by: - Exam Physical Findings Comments:: GENERAL: Ill-appearing adult in no acute distress lying in bed with son in room. HEENT: Normocephalic, atraumatic. Conjunctiva clear. Nares patent without discharge. Mucous membranes moist, posterior pharynx unremarkable. NECK: Supple, no masses. CV: Regular rate and rhythm, no murmurs, rubs, or gallops. 2+ radial pulses. PULMONARY: Normal effort, clear to auscultation bilaterally, no wheezes, rales, or rhonchi. ABDOMEN: Positive bowel sounds, soft, nontender, nondistended. EXTREMITIES: No edema, cyanosis, or clubbing. MUSCULOSKELETAL: Moves all extremities well. NEUROLOGICAL: No obvious deficits. DERMATOLOGIC: No rashes or suspicious lesions in exposed areas. PSYCHIATRIC: Alert, interactive, appropriate affect. - Patient Data Lab Results Last 24 hrs: Laboratory Results - last 24 hr 11/02/20 11/02/20 11/02/20 Range/Units 13:07 13:35 13:35 WBC 5.65 (5.00-10.00) 10^3/uL RBC 5.57 H (3.80-5.50) 10^6/uL Hgb 15.3 (12.0-16.0) g/dL Hct 46.7 (37.0-47.0) % MCV 83.8 (82.0-92.0) fL MCH 27.5 (27.0-31.0) pg MCHC 32.8 (32.0-36.0) g/dL RDW 14.8 H (11.5-14.5) % Plt Count 64 L (150-400) 10^3/uL MPV 9.6 (7.4-10.4) fL Immature Gran % (Auto) 0.5 (0.0-5.0) % Neut % (Auto) 90.0 H (50.0-70.0) % Lymph % (Auto) 5.8 L (20.0-40.0) % [place] % (Auto) 3.2 (2.0-8.0) % Eos % (Auto) 0.0 L (1.0-3.0) % Baso % (Auto) 0.5 (0.0-1.0) % Neut # (Auto) 5.08 (2.50-7.00) 10^3/uL Lymph # (Auto) 0.33 L (1.00-4.00) 10^3/uL [place] # (Auto) 0.18 (0.10-0.80) 10^3/uL Eos # (Auto) 0.00 L (0.10-0.30) 10^3/uL Baso # (Auto) 0.03 (0.00-0.10) 10^3/uL Immature Gran # (Auto) 0.03 (0.00-0.50) 10^3/uL Clumped Platelets Sodium 138 (136-145) mmol/L Potassium 3.9 (3.5-5.1) mmol/L Chloride 101 (98-107) mmol/L Carbon Dioxide 24.7 (21.0-32.0) mmol/L Anion Gap 16.2 H (5-15) mmol/L BUN 28 H (7-18) mg/dL Creatinine 1.41 H (0.51-1.17) mg/dL Est Cr Clr Drug Dosing 35.85 mL/min Estimated GFR (MDRD) 37 mL/min Glucose 135 (70-140) mg/dL Lactic Acid (0.4-2.0) mmol/L Calcium 8.6 L (8.7-10.3) mg/dL Total Bilirubin 2.3 H (0.2-1.0) mg/dL AST 58 H (15-37) U/L ALT 48 (14-63) U/L Alkaline Phosphatase 75 (46-116) U/L C-Reactive Protein (0.0-0.9) mg/dL Total Protein 7.1 (6.4-8.2) g/dL Albumin 2.92 L (3.40-5.00) g/dL Specimen Type Urincc Urine Color [place] H (YELLOW) Urine Appearance Slightly cloudy H (CLEAR) Urine pH 5.5 (5.0-9.0) Ur Specific [place] >= 1.030 (1.005-1.030) Urine Protein >=300 H (NEGATIVE) mg/dL Urine Glucose (UA) Negative (NEGATIVE) mg/dL Urine Ketones Negative (NEGATIVE) mg/dL Urine Occult Blood Moderate H (NEGATIVE) Urine Nitrite Negative (NEGATIVE) Urine Bilirubin Small H (NEGATIVE) Urine Urobilinogen 1.0 (0.2-1.0) E.U./dL Ur Leukocyte Esterase Trace H (NEGATIVE) Urine RBC 0-5 (0-5) /HPF Urine WBC 5-10 H (0-5) /HPF Ur Epithelial Cells Many H /LPF Amorphous Sediment Moderate H (0/HPF) /HPF Urine Bacteria Moderate H (NONE TO FEW) /HPF SARS CoV-2 RNA Rapid AMERICO (NEGATIVE) 05/15/21 05/15/21 05/16/21 Range/Units 13:35 14:55 07:50 WBC (5.00-10.00) 10^3/uL RBC (3.80-5.50) 10^6/uL Hgb (12.0-16.0) g/dL Hct (37.0-47.0) % MCV (82.0-92.0) fL MCH (27.0-31.0) pg MCHC (32.0-36.0) g/dL RDW (11.5-14.5) % Plt Count (150-400) 10^3/uL MPV (7.4-10.4) fL Immature Gran % (Auto) (0.0-5.0) % Neut % (Auto) (50.0-70.0) % Lymph % (Auto) (20.0-40.0) % [place] % (Auto) (2.0-8.0) % Eos % (Auto) (1.0-3.0) % Baso % (Auto) (0.0-1.0) % Neut # (Auto) (2.50-7.00) 10^3/uL Lymph # (Auto) (1.00-4.00) 10^3/uL [place] # (Auto) (0.10-0.80) 10^3/uL Eos # (Auto) (0.10-0.30) 10^3/uL Baso # (Auto) (0.00-0.10) 10^3/uL Immature Gran # (Auto) (0.00-0.50) 10^3/uL Clumped Platelets Sodium (136-145) mmol/L Potassium (3.5-5.1) mmol/L Chloride (98-107) mmol/L Carbon Dioxide (21.0-32.0) mmol/L Anion Gap (5-15) mmol/L BUN (7-18) mg/dL Creatinine (0.51-1.17) mg/dL Est Cr Clr Drug Dosing mL/min Estimated GFR (MDRD) mL/min Glucose (70-140) mg/dL Lactic Acid 1.9 (0.4-2.0) mmol/L Calcium (8.7-10.3) mg/dL Total Bilirubin (0.2-1.0) mg/dL AST (15-37) U/L ALT (14-63) U/L Alkaline Phosphatase (46-116) U/L C-Reactive Protein 11.5 H (0.0-0.9) mg/dL Total Protein (6.4-8.2) g/dL Albumin (3.40-5.00) g/dL Specimen Type Urine Color (YELLOW) Urine Appearance (CLEAR) Urine pH (5.0-9.0) Ur Specific [place] (1.005-1.030) Urine Protein (NEGATIVE) mg/dL Urine Glucose (UA) (NEGATIVE) mg/dL Urine Ketones (NEGATIVE) mg/dL Urine Occult Blood (NEGATIVE) Urine Nitrite (NEGATIVE) Urine Bilirubin (NEGATIVE) Urine Urobilinogen (0.2-1.0) E.U./dL Ur Leukocyte Esterase (NEGATIVE) Urine RBC (0-5) /HPF Urine WBC (0-5) /HPF Ur Epithelial Cells /LPF Amorphous Sediment (0/HPF) /HPF Urine Bacteria (NONE TO FEW) /HPF SARS CoV-2 RNA Rapid AMER[place] Negative (NEGATIVE) 11/03/20 11/03/20 Range/Units 07:50 07:50 WBC 4.49 L (5.00-10.00) 10^3/uL RBC 5.28 (3.80-5.50) 10^6/uL Hgb 14.4 (12.0-16.0) g/dL Hct 44.6 (37.0-47.0) % MCV 84.5 (82.0-92.0) fL MCH 27.3 (27.0-31.0) pg MCHC 32.3 (32.0-36.0) g/dL RDW 15.1 H (11.5-14.5) % Plt Count 38 L (150-400) 10^3/uL MPV 9.6 (7.4-10.4) fL Immature Gran % (Auto) 0.7 (0.0-5.0) % Neut % (Auto) 86.9 H (50.0-70.0) % Lymph % (Auto) 8.9 L (20.0-40.0) % [place] % (Auto) 2.9 (2.0-8.0) % Eos % (Auto) 0.2 L (1.0-3.0) % Baso % (Auto) 0.4 (0.0-1.0) % Neut # (Auto) 3.90 (2.50-7.00) 10^3/uL Lymph # (Auto) 0.40 L (1.00-4.00) 10^3/uL [place] # (Auto) 0.13 (0.10-0.80) 10^3/uL Eos # (Auto) 0.01 L (0.10-0.30) 10^3/uL Baso # (Auto) 0.02 (0.00-0.10) 10^3/uL Immature Gran # (Auto) 0.03 (0.00-0.50) 10^3/uL Clumped Platelets Rare Sodium 139 (136-145) mmol/L Potassium 3.8 (3.5-5.1) mmol/L Chloride 103 (98-107) mmol/L Carbon Dioxide 25.2 (21.0-32.0) mmol/L Anion Gap 14.6 (5-15) mmol/L BUN 27 H (7-18) mg/dL Creatinine 1.40 H (0.51-1.17) mg/dL Est Cr Clr Drug Dosing 36.10 mL/min Estimated GFR (MDRD) 37 mL/min Glucose 100 (70-140) mg/dL Lactic Acid (0.4-2.0) mmol/L Calcium 8.1 L (8.7-10.3) mg/dL Total Bilirubin (0.2-1.0) mg/dL AST (15-37) U/L ALT (14-63) U/L Alkaline Phosphatase (46-116) U/L C-Reactive Protein (0.0-0.9) mg/dL Total Protein (6.4-8.2) g/dL Albumin (3.40-5.00) g/dL Specimen Type Urine Color (YELLOW) Urine Appearance (CLEAR) Urine pH (5.0-9.0) Ur Specific [place] (1.005-1.030) Urine Protein (NEGATIVE) mg/dL Urine Glucose (UA) (NEGATIVE) mg/dL Urine Ketones (NEGATIVE) mg/dL Urine Occult Blood (NEGATIVE) Urine Nitrite (NEGATIVE) Urine Bilirubin (NEGATIVE) Urine Urobilinogen (0.2-1.0) E.U./dL Ur Leukocyte Esterase (NEGATIVE) Urine RBC (0-5) /HPF Urine WBC (0-5) /HPF Ur Epithelial Cells /LPF Amorphous Sediment (0/HPF) /HPF Urine Bacteria (NONE TO FEW) /HPF SARS CoV-2 RNA Rapid AMERICO (NEGATIVE) Result Diagrams: 11/03/20 07:50 11/03/20 07:50 Sepsis Event Note - Evaluation Sepsis Screening Result: No Definite Risk - Focused Exam Vital Signs: Vital Signs Temp Temp Temp Pulse Pulse Resp BP 11/03/20 09:48 38.3 C H 11/03/20 09:43 79 137/68 11/03/20 09:41 38.3 C H 79 20 11/03/20 09:00 11/03/20 06:58 37.5 C 76 20 11/03/20 02:59 37.3 C 11/03/20 02:29 38.1 C 11/03/20 02:27 38.1 C 76 20 BP Pulse Ox Pulse Ox 11/03/20 09:48 11/03/20 09:43 11/03/20 09:41 137/68 92 L 11/03/20 09:00 92 L 11/03/20 06:58 131/64 93 L 11/03/20 02:59 11/03/20 02:29 11/03/20 02:27 125/55 L 93 L - Problem List Review Problem List Initiated/Reviewed/Updated: Yes - My Orders Last 24 Hours: My Active Orders 11/02/20 16:38 Fluticasone Propionate [Flonase] 0 gm NASBOTH BID PRN 11/02/20 16:42 Height and Weight [RC] 07 Intake and Output [RC] .PRN Oxygen Therapy [RC] DAILY Up With Assistance [RC] ASDIRECTED VTE/DVT Education [RC] PER UNIT ROUTINE Vital Signs [RC] 03,07,11,15,19,23 Anticoagulation Contraindications VTE [AST] Per Unit Routine Resuscitation Status Routine 11/02/20 16:53 Sequential Compression Device [OM.PC] Per Unit Routine 11/02/20 16:55 Antiembolic Devices [RC] ,11/02/20 16:58 PROCALCITONIN [REF] Routine 11/02/20 16:59 Acetaminophen [TylenoL] 650 mg PO Q6H PRN 11/02/20 17:00 Sodium Chloride 0.9% [Normal Saline] 1,000 ml IV ASDIRECTED 11/02/20 17:02 Ondansetron [Zofran] 4 mg IVPUSH Q4H PRN 11/02/20 17:03 CULTURE SPUTUM + SMEAR [RM] Routine 11/02/20 17:19 Communication Order [RC] 11/02/20 Dinner Regular Diet [DIET] 11/03/20 09:00 Rosuvastatin [Crestor] 10 mg PO DAILY atenoloL [Tenormin] 50 mg PO DAILY 11/03/20 14:00 cefTRIAXone [Rocephin] 2 gm IVPUSH Q24H 11/04/20 05:11 CBC W/O DIFF,HEMOGRAM [HEME] AM CMP [COMPREHENSIVE METABOLIC PN,CMP] [CHEM] AM CRP [C-REACTIVE PROTEIN] [CHEM] AM - Plan Plan:: HPI summary: 75 year old female with known breast, left kidney and left lower lung cancer with multiple mets presented initially to the ED on 11/01/2020 with complaints of weakness, nausea and vomiting. She recently finished a two week course of Sunitinib (VEGF antagonist) 37.5mg orally for two weeks on 10/31/2020. This is her week off. Denies diarrhea. She was afebrile with stable VSS, labs were unremarkable. She was given ondansetron and IVF with improvement in symptoms and discharged home. She returned the following day 11/02/2020 with complaints of continued weakness, fatigue and nausea. Decreased oral intake. She did take a laxative the night before and had good results today. While in the ED salas ent started to develop fever at 38.2C and 38.4C. Her oxygen saturations were diminished to 88-91% and oxygen was applied. Patient was admitted for inpatient stay related to community acquired pneumonia with possible UTI and dehydration. ED course: 11/01/2020: Afebrile, VSS -labs: WBC 5.22, RBC 5.71, Hgb 16, hct 47.4, Plt 88, neut 88.1%, electrolytes unremarkable, BUN 25, creatinine 1.33, GFR 39 -NS 1000mL bolus x 1; ondansetron 8mg IVP with improvement and discharge 11/02/2020: Afebrile initially, VSS -patient was initially given 1000mL NS bolus, but developed fever while in the ED of up to 101 -lab: WBC 5.65, RBC 5.57, Hgb 15.3, Hct 46.7, plt 64, neut 90%, electrolytes stable, BUN 28, creatinine 1.41, GFR 37, lactic 1.9 with anion gap 16.2 -urine: orange and cloudy, >300 protein, mod blood, neg nitrites, small bili, trace leukocyte esterase, 0-5 RBC, 5-10 WBC, many epithelial cells, moderate bacteria and moderate amorphous sediment -CXR: blunting of left costophrenic sulcus not seen previously, lateral view demonstrates opacity in the retrocardiac clear space, suggesting LLL pneumonia Hospital course: 11/02/2020: Patient reports weakness and fatigue, no pain or cough. Added on procalcitonin and CRP. Lungs are clear. No edema. No urinary complaints, although son reports later she has had frequency. Given recent oral sunitinib consult call placed to oncology in [place]. Recommendations to continue same, await blood cultures, continue ceftriaxone and trend lab. General feeling is that symptoms are primarily due to sunitinib, however fever would not fit with this picture. Will monitor closely for clinical improvement or deterioration. 11/03/2020: Patient reports mild improvement in weakness. She has had fevers that are responsive to Tylenol overnight Tmax 101. She does continue to have an oxygen requirement of 3L/NC with sat of 92%. BP 137/68, pulse 79, resp 20. WBC 4.49, Hgb 14.4, Hct 44.6, Plt 38, Neut 86.9%, electrolytes unremarkable with exception of calcium at 8.1, BUN 27, creatinine 1.40, GFR 37, CRP 11.5. Awaiting blood cultures. Call placed to [facility] oncology to update. Recommend to continue with ceftriaxone for now, will consider cefepime tomorrow if continues to have fevers. Hospitalization problems and plan: # Fever, unknown origin suspect pneumonia vs Cystitis - CBC and CRP in the AM - Acetaminophen 650mg orally as needed for fever - ceftriaxone 2gm IVP daily - blood cultures pending - urine culture pending - sputum culture if able to be obtained # Dehydration, rehydrate gently due to h/o grade 2 diastolic heart failure, last EF 55% 08/18/2019 - NS 100mL/hr - Push oral intake - CMP in the AM - weight daily # Nausea, secondary to chemotherapy - Ondansetron 4mg IVP every four hours as needed # Thrombocytopenia, possibly secondary to chemotherapy - CBC in the AM - VTE prophylaxis with antiplatelets contraindicated at this time - Bleeding precautions Chronic, stable conditions: # Hypertension; hold losartan for now # Hypercholesterolemia, continue rosuvastatin # Chronic diastolic heart failure: hold furosemide for now; continue atenolol # Postmenopausal status since age 58 # Stage IIB (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 # TIA with Rt. Facial droop and expressive aphasia on 08/27/15. # Allergic rhinitis: continue fluticasone # CKD, stage 3: baseline creatinine 1.29, GFR 49 # Thyroid nodule Hospitalization details: # FEN: NS 100mL/hr; electrolytes stable; oral diet as tolerated # PPX: Lovenox contraindicated due to platelets less than 100,000. Will reassess in the AM; GI prophylaxis Protonix # Code status: Full code per discussion with patient # Emergency contact: Suraj, son updated in room # Disposition: home after approximately two to three midnights while awaiting blood cultures and clinical response
[2020-11-03] MEDS ORDERED: cefTRIAXone 2 GM Vial IVPUSH SCH (14:00)
[2020-11-03] MEDS: Morphine 2 MG/ML SYRINGE IVPUSH PRN ×2 (16:43→19:10)
[2020-11-03] MEDS ORDERED: Cefepime 2 GM in Sodium Chloride 0.9% 50 ML IV ONE (18:56)
[2020-11-03] MEDS ORDERED: diphenhydrAMINE 50 MG/ML SDV IVPUSH ONE (19:15)
[2020-11-03] MEDS: Ondansetron 4 MG/2 ML SDV IVPUSH PRN (19:21)
[2020-11-03 19:36] VITALS: BP 143/71; PULSE 84
--- NOTE | 2020-11-03 19:37 | PCM.DCSUM1 ---
Discharge Summary - Hospital Course Free Text/Narrative:: Date of admission: 11/02/2020 Date of discharge: 11/03/2020 Admission diagnoses: # Fever, unknown origin suspect pneumonia vs Cystitis # Dehydration, rehydrate gently due to h/o # Nausea, secondary to chemotherapy # Thrombocytopenia Discharge diagnoses: # Neutopenic fever # Dehydration, improved # Nausea # Thrombocytopenia # Hypertension # Hypercholesterolemia # Chronic diastolic heart failure; grade 2 diastolic heart failure, last EF 55% 08/18/2019 # Postmenopausal status since age 58 # Stage IIB (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 # TIA with Rt. Facial droop and expressive aphasia on 08/27/15. # Allergic rhinitis # CKD, stage 3: baseline creatinine 1.29, GFR 49 # Thyroid nodule Consultations: [facility] Procedures: None Hospital course: HPI summary: 75 year old female with known breast, left kidney and left lower lung cancer with multiple mets presented initially to the ED on 11/01/2020 with complaints of weakness, nausea and vomiting. She recently finished a two week course of Sunitinib (VEGF antagonist) 37.5mg orally for two weeks on 10/31/2020. This is her week off. Denies diarrhea. She was afebrile with stable VSS, labs were unremarkable. She was given ondansetron and IVF with improvement in symptoms and discharged home. She returned the following day 11/02/2020 with complaints of continued weakness, fatigue and nausea. Decreased oral intake. She did take a laxative the night before and had good results today. While in the ED patient started to develop fever at 38.2C and 38.4C. Her oxygen saturations were diminished to 88-91% and oxygen was applied. Patient was admitted for inpatient stay related to community acquired pneumonia with possible UTI and dehydration. ED course: 11/01/2020: Afebrile, VSS -labs: WBC 5.22, RBC 5.71, Hgb 16, hct 47.4, Plt 88, neut 88.1%, electrolytes unremarkable, BUN 25, creatinine 1.33, GFR 39 -NS 1000mL bolus x 1; ondansetron 8mg IVP with improvement and discharge 11/02/2020: Afebrile initially, VSS -patient was initially given 1000mL NS bolus, but developed fever while in the ED of up to 101 -lab: WBC 5.65, RBC 5.57, Hgb 15.3, Hct 46.7, plt 64, neut 90%, electrolytes stable, BUN 28, creatinine 1.41, GFR 37, lactic 1.9 with anion gap 16.2 -urine: orange and cloudy, >300 protein, mod blood, neg nitrites, small bili, trace leukocyte esterase, 0-5 RBC, 5-10 WBC, many epithelial cells, moderate bacteria and moderate amorphous sediment -CXR: blunting of left costophrenic sulcus not seen previously, lateral view demonstrates opacity in the retrocardiac clear space, suggesting LLL pneumonia Hospital course: 11/02/2020: Patient reports weakness and fatigue, no pain or cough. Added on procalcitonin and CRP. Lungs are clear. No edema. No urinary complaints, although son reports later she has had frequency. Given recent oral sunitinib consult call placed to oncology in [place]. Recommendations to continue same, await blood cultures, continue ceftriaxone and trend lab. General feeling is that symptoms are primarily due to sunitinib, however fever would not fit with this picture. Will monitor closely for clinical improvement or deterioration. 11/03/2020: Patient reports mild improvement in weakness. She has had fevers that are responsive to Tylenol overnight Tmax 101. She does continue to have an oxygen requirement of 3L/NC with sat of 92%. BP 137/68, pulse 79, resp 20. WBC 4.49, Hgb 14.4, Hct 44.6, Plt 38, Neut 86.9%, electrolytes unremarkable with exception of calcium at 8.1, BUN 27, creatinine 1.40, GFR 37, CRP 11.5. Awaiting blood cultures. Call placed to [facility] oncology to update. Recommend to continue with ceftriaxone for now, will consider cefepime tomorrow if continues to have fevers. UPDATE: Fever 103 with tachypnea 36, blood pressure stable. Called placed to [facility] for transfer. Dr. Nava accepting. Cefepime and vancomycin initiated for transfer. Patient has pain bilateral hips and legs. Also noted some facial swelling and edema. Suspect possibly allergy to Rocephin that was given several hours ago. Will hold cefepime for now and only initiate Vanco. Benedryl 50mg IV x 1 given. Report given. Discharge and follow-up recommendations: - Discharge to [facility] via ambulance - Follow-up after hospitalization - Discharge Data Discharge Date: 11/03/20 Discharge Disposition: DC/Tfer to Acute Hospital 02 Condition: Poor - Referral to Home Health Primary Care Physician: Sophia Smith NP - Discharge Plan *PRESCRIPTION DRUG MONITORING PROGRAM REVIEWED*: Not Applicable *COPY OF PRESCRIPTION DRUG MONITORING REPORT IN PATIENT CLARENCE: Not Applicable Home Medications: Home Meds Rosuvastatin Calcium 10 mg PO DAILY 01/24/17 [History] Acyclovir [Zovirax 5% Crm] 1 applic TOP ASDIRECTED PRN 12/27/19 [History] Fluticasone Propionate [Flonase] 1 spray NASBOTH BID PRN 12/27/19 [History] Furosemide 20 mg PO DAILY 12/27/19 [History] Hydrocortisone [Hydrocortisone 2.5% Crm] 1 applic TOP BID PRN 12/27/19 [History] Non-Formulary Medication [NF Drug] 1 applic TOP BID PRN 12/27/19 [History] Non-Formulary Medication [NF Drug] 1 applic TOP QID PRN 12/27/19 [History] Triamcinolone Acetonide [Triamcinolone Acetonide 0.1% Crm] 1 applic TOP BID PRN 12/27/19 [History] atenoloL [Tenormin] 50 mg PO DAILY 12/27/19 [History] Losartan [Cozaar] 25 mg PO DAILY 09/05/20 [History] Prochlorperazine Maleate [Compazine] 10 mg PO QID PRN 09/05/20 [History] Non-Formulary Medication [NF Drug] 1 tab PO ASDIRECTED 11/01/20 [History] Ondansetron [Zofran ODT] 8 mg PO BID PRN 11/02/20 [History] Acetaminophen [Tylenol] 650 mg PO Q6H PRN tablet 11/03/20 [Rx] Morphine 1 mg IVPUSH Q1H PRN syringe 11/03/20 [Rx] Ondansetron [Zofran] 4 mg IVPUSH Q4H PRN vial 11/03/20 [Rx] Oxygen Therapy Mode: Nasal Cannula Referrals: Sophia Smiht NP [Primary Care Provider] - - Discharge Summary/Plan Comment DC Time >30 min.: Yes - General Info Functional Status: Reports: Tolerating Diet, Ambulating, Urinating - Review of Systems General: Reports: Fever, Weakness, Fatigue Pulmonary: Denies: Shortness of Breath, Cough, Sputum, Wheezing Cardiovascular: Denies: Chest Pain, Palpitations Gastrointestinal: Denies: Abdominal Pain Neurological: Reports: Weakness. Denies: Confusion, Headache, Trouble Speaking, Difficulty Walking - Patient Data Vitals - Most Recent: Last Vital Signs Temp 39.5 C H 11/03/20 18:14 Pulse 92 11/03/20 18:14 Resp 36 H 11/03/20 18:14 BP 149/75 H 11/03/20 18:14 Pulse Ox 94 L 11/03/20 18:14 Weight - Most Recent: 118.07 kg I&O - Last 24 hours: Intake & Output 11/03/20 11/03/20 11/03/20 06:59 14:59 22:59 Intake Total 606 1035 Balance 606 1035 Lab Results - Last 24 hrs: Laboratory Results - last 24 hr 11/03/20 11/03/20 11/03/20 Range/Units 07:50 07:50 07:50 WBC 4.49 L (5.00-10.00) 10^3/uL RBC 5.28 (3.80-5.50) 10^6/uL Hgb 14.4 (12.0-16.0) g/dL Hct 44.6 (37.0-47.0) % MCV 84.5 (82.0-92.0) fL MCH 27.3 (27.0-31.0) pg MCHC 32.3 (32.0-36.0) g/dL RDW 15.1 H (11.5-14.5) % Plt Count 38 L (150-400) 10^3/uL MPV 9.6 (7.4-10.4) fL Immature Gran % (Auto) 0.7 (0.0-5.0) % Neut % (Auto) 86.9 H (50.0-70.0) % Lymph % (Auto) 8.9 L (20.0-40.0) % [place] % (Auto) 2.9 (2.0-8.0) % Eos % (Auto) 0.2 L (1.0-3.0) % Baso % (Auto) 0.4 (0.0-1.0) % Neut # (Auto) 3.90 (2.50-7.00) 10^3/uL Lymph # (Auto) 0.40 L (1.00-4.00) 10^3/uL [place] # (Auto) 0.13 (0.10-0.80) 10^3/uL Eos # (Auto) 0.01 L (0.10-0.30) 10^3/uL Baso # (Auto) 0.02 (0.00-0.10) 10^3/uL Immature Gran # (Auto) 0.03 (0.00-0.50) 10^3/uL Clumped Platelets Rare Sodium 139 (136-145) mmol/L Potassium 3.8 (3.5-5.1) mmol/L Chloride 103 (98-107) mmol/L Carbon Dioxide 25.2 (21.0-32.0) mmol/L Anion Gap 14.6 (5-15) mmol/L BUN 27 H (7-18) mg/dL Creatinine 1.40 H (0.51-1.17) mg/dL Est Cr Clr Drug Dosing 36.10 mL/min Estimated GFR (MDRD) 37 mL/min Glucose 100 (70-140) mg/dL Calcium 8.1 L (8.7-10.3) mg/dL C-Reactive Protein 11.5 H (0.0-0.9) mg/dL LAURENCE Results - Last 24 hrs: Microbiology 11/02/20 14:50 Aerobic Blood Culture - Preliminary Blood - Arm, Left NO GROWTH AFTER 1 DAY Anaerobic Blood Culture - Preliminary NO GROWTH AFTER 1 DAY 11/02/20 14:40 Aerobic Blood Culture - Preliminary Blood - Arm, Left NO GROWTH AFTER 1 DAY Anaerobic Blood Culture - Preliminary NO GROWTH AFTER 1 DAY Med Orders - Current: Current Medications Acetaminophen (Acetaminophen 325 Mg Tab) 650 mg PO Q6H PRN PRN Reason: Fever Last Admin: 11/03/20 18:10 Dose: 650 mg Documented by: Atenolol (Atenolol 25 Mg Tab) 50 mg PO DAILY CORNELIO Last Admin: 11/03/20 09:43 Dose: 50 mg Documented by: Ceftriaxone Sodium (Ceftriaxone 2 Gm Vial) 2 gm IVPUSH Q24H [facility] Last Admin: 11/03/20 13:43 Dose: 2 gm Documented by: Fluticasone Propionate (Fluticasone Propionate Nasal [place] 16 Gm Bottle) 0 gm NASBOTH BID PRN PRN Reason: post nasal drip Sodium Chloride (Normal Saline) 1,000 mls @ 100 mls/hr IV ASDIRECTED [facility] Last Admin: 11/03/20 06:19 Dose: 75 mls/hr Documented by: Cefepime HCl 2 gm/ Sodium (Chloride) 50 mls @ 100 mls/hr IV ONETIME ONE Stop: 11/03/20 19:25 Morphine Sulfate (Morphine 2 Mg/Ml Syringe) 1 mg IVPUSH Q4H PRN PRN Reason: severe pain greater than 6/10 Last Admin: 11/03/20 16:43 Dose: 1 mg Documented by: Ondansetron HCl (Ondansetron 4 Mg/2 Ml Sdv) 4 mg IVPUSH Q4H PRN PRN Reason: Nausea/Vomiting Last Admin: 11/02/20 21:41 Dose: 4 mg Documented by: Rosuvastatin Calcium (Rosuvastatin 10 Mg Tab) 10 mg PO DAILY [facility] Last Admin: 11/03/20 09:43 Dose: 10 mg Documented by: Vancomycin HCl (Pharmacy To Dose - Vancomycin) 1 dose .XX ONETIME ONE Stop: 11/03/20 18:58 Discontinued Medications Acetaminophen (Acetaminophen 500 Mg Tab) 500 mg PO ONETIME ONE Stop: 11/02/20 14:39 Last Admin: 11/02/20 14:46 Dose: 500 mg Documented by: Ceftriaxone Sodium (Ceftriaxone 2 Gm Vial) 2 gm IVPUSH ONETIME ONE Stop: 11/02/20 14:28 Last Admin: 11/02/20 14:56 Dose: 2 gm Documented by: Sodium Chloride (Normal Saline) Confirm Administered Dose 1,000 mls @ as directed .ROUTE .STK-MED ONE Stop: 11/02/20 11:43 Last Admin: 11/02/20 12:16 Dose: Not Given Documented by: Sodium Chloride (Normal Saline) 1,000 mls @ 500 mls/hr IV ASDIRECTED [facility] Last Admin: 11/02/20 12:16 Dose: 500 mls/hr Documented by: Sterile Water (Sterile Water For Injection) Confirm Administered Dose 20 mls @ as directed .ROUTE .STK-MED ONE Stop: 11/02/20 14:45 Last Admin: 11/02/20 15:15 Dose: Not Given Documented by: Pantoprazole Sodium (Pantoprazole 40 Mg Vial) Confirm Administered Dose 40 mg .ROUTE .STK-MED ONE Stop: 11/02/20 18:56 Last Admin: 11/02/20 19:06 Dose: Not Given Documented by: Pantoprazole Sodium (Pantoprazole 40 Mg Vial) 40 mg IVPUSH ONETIME ONE Stop: 11/02/20 19:00 Last Admin: 11/02/20 19:07 Dose: 40 mg Documented by: - Exam General: Reports: Alert, Oriented, Cooperative, Mild Distress HEENT: Reports: Other (MIld facial edema with mild erythema) Neck: Reports: Trachea Midline Lungs: Reports: Clear to Auscultation, Decreased Breath Sounds Cardiovascular: Reports: Regular Rate, Regular Rhythm *Q Meaningful Use (DIS) - VTE *Q VTE Anticoagulation Contraindications: Medical/Procedure Contrai
== END 2020-11-03 19:45 | DRG 808 ==
LOC: KA.ED 11:16 → KA.MS 14:48
PROVIDERS: ADMIT Nurse Practitioner Family; ATTEND Family Medicine
DX: D70.9 Neutropenia, unspecified (principal); R53.1 Weakness; R53.83 Other fatigue; R50.9 Fever, unspecified; C34.90 Malignant neoplasm of unspecified part of unspecified bronchus or lung; Z85.3 Personal history of malignant neoplasm of breast; Z85.528 Personal history of other malignant neoplasm of kidney; J18.9 Pneumonia, unspecified organism; I50.32 Chronic diastolic (congestive) heart failure; I13.0 Hypertensive heart and chronic kidney disease with heart failure and stage 1 through stage 4 chronic kidney disease, or unspecified chronic kidney disease; C64.2 Malignant neoplasm of left kidney, except renal pelvis; I12.9 Hypertensive chronic kidney disease with stage 1 through stage 4 chronic kidney disease, or unspecified chronic kidney disease; N18.9 Chronic kidney disease, unspecified; R47.01 Aphasia; C34.32 Malignant neoplasm of lower lobe, left bronchus or lung; D84.9 Immunodeficiency, unspecified; R50.81 Fever presenting with conditions classified elsewhere; Z20.822 Contact with and (suspected) exposure to COVID-19; E86.0 Dehydration; R11.0 Nausea; D69.59 Other secondary thrombocytopenia; T45.1X5A Adverse effect of antineoplastic and immunosuppressive drugs, initial encounter; E78.00 Pure hypercholesterolemia, unspecified; N18.30 Chronic kidney disease, stage 3 unspecified; C50.911 Malignant neoplasm of unspecified site of right female breast; R29.810 Facial weakness; J30.9 Allergic rhinitis, unspecified; E04.1 Nontoxic single thyroid nodule; K21.9 Gastro-esophageal reflux disease without esophagitis; M19.90 Unspecified osteoarthritis, unspecified site; E66.9 Obesity, unspecified; T36.1X5A Adverse effect of cephalosporins and other beta-lactam antibiotics, initial encounter; Z96.659 Presence of unspecified artificial knee joint; M25.551 Pain in right hip; M25.552 Pain in left hip; M79.604 Pain in right leg; H54.7 Unspecified visual loss; M79.605 Pain in left leg; Z86.73 Personal history of transient ischemic attack (TIA), and cerebral infarction without residual deficits; Z88.1 Allergy status to other antibiotic agents; Z88.0 Allergy status to penicillin; Z88.5 Allergy status to narcotic agent; Z88.8 Allergy status to other drugs, medicaments and biological substances; Z79.899 Other long term (current) drug therapy; Z90.49 Acquired absence of other specified parts of digestive tract; Z68.39 Body mass index [BMI] 39.0-39.9, adult; Z85.828 Personal history of other malignant neoplasm of skin; Z90.10 Acquired absence of unspecified breast and nipple; Z90.5 Acquired absence of kidney
CPT/HCPCS: 36415; 71046; 80048; 80053; 81001; 83605; 84145; 85025; 86140; 87040; 87086; 87088; 87186; 99284; 99285-25; A9270-GY; C9113; J0692; J0696; J1200; J2270; J2405; J3370; J7030; J7050; U0002

== ENCOUNTER 2020-11-12 16:05 | Emergency (ER) | payer MEDICARE, OTHER ==
[2020-11-12 17:15] LABS: ANION GAP 14.5 mmol/L (5-15)
--- NOTE | 2020-11-12 17:16 | EDM.PDOC ---
ED HPI GENERAL MEDICAL PROBLEM - General Chief Complaint: Respiratory Problem Stated Complaint: DYSPNEA Time Seen by Provider: 11/12/20 16:08 Source of Information: Reports: Patient, Family, Old Records History Limitations: Reports: No Limitations - History of Present Illness INITIAL COMMENTS - FREE TEXT/NARRATIVE: 75 YO WF WITH PMH OF RENAL CELL CARCINOMA, CKD STAGE 3, S/P NEPHRECTOMY AND LEFT LUNG CA WHO WAS RECENTLY HOSPITALIZED 11/03-11/11 AND DISCHARGED YESTERDAY FOR LLL PNEUMONIA, THROMBOCYTOPENIA AND ACUTE TUBULAR NECROSIS SECONDARY TO CHEMO, PRESENTS TO ER WITH SHORTNESS OF BREATH AND BILATERAL LOWER EXTREMITY EDEMA WHICH BEGAN THIS AM. PT REPORTS SHE WAS RESTLESS LAST NIGHT AND HAD A LOT OF DIFFICULTY SLEEPING DUE TO FATIGUE AND MILD ORTHOPNEA. PT STATES SHE TOOK HER LASIX 20MG THIS AM, BUT WAS TOLD TO STOP TAKING DUE TO RENAL FUNCTION. PT DENIES CHEST PAIN, DIAPHORESIS, NAUSEA/VOMITING. PT REPORTS NONPRODUCTIVE COUGH WITHOUT HEMOPTYSIS. PT REPORTS NO CHANGE IN URINATION. PT WAS STARTED ON SODIUM BICARB AND LACTULOSE IN HOSPITAL. PT WAS TOLD TO STOP LOSARTAN, LASIX, PREDNISONE AND CHEMO DRUG DUE TO RENAL FUNCTION. Onset: Today Duration: Getting Worse Location: Reports: Generalized Severity: Moderate Improves with: Reports: Rest Worsens with: Reports: Breathing, Movement Associated Symptoms: Reports: No Other Symptoms, Cough, Malaise, Shortness of Breath, Weakness. Denies: Chest Pain, Diaphoresis, Fever/Chills, Nausea/Vomiting, Syncope - Related Data Allergies Allergy/AdvReac Type Severity Reaction Status Date / Time ampicillin Allergy Nausea and Verified 11/02/20 13:08 Vomiting ciprofloxacin Allergy Nausea Verified 11/02/20 13:08 lisinopril Allergy Cough Verified 11/02/20 13:08 pembrolizumab Allergy Joint Pain Verified 11/12/20 17:59 amoxicillin AdvReac Nausea and Verified 11/02/20 13:08 Vomiting azithromycin [From Zithromax] AdvReac Nausea and Verified 11/02/20 13:08 Vomiting hydrocodone AdvReac Nausea and Verified 11/02/20 13:08 Vomiting paclitaxel [From Taxol] AdvReac Nausea and Verified 11/02/20 13:08 Vomiting paclitaxel Allergy Nausea and Uncoded 11/12/20 17:59 Vomiting Home Meds: Home Meds Rosuvastatin Calcium 10 mg PO DAILY 01/24/17 [History] Acyclovir [Zovirax 5% Crm] 1 applic TOP ASDIRECTED PRN 12/27/19 [History] Fluticasone Propionate [Flonase] 1 spray NASBOTH BID PRN 12/27/19 [History] Hydrocortisone [Hydrocortisone 2.5% Crm] 1 applic TOP BID PRN 12/27/19 [History] atenoloL [Tenormin] 50 mg PO DAILY 12/27/19 [History] Ondansetron [Zofran ODT] 8 mg PO TID PRN 11/02/20 [History] Aspirin [Aspirin EC] 81 mg PO DAILY 11/12/20 [History] Lactulose [Chronulac] 30 ml PO DAILY 11/12/20 [History] Metoclopramide [Reglan] 10 mg PO QID 11/12/20 [History] Omeprazole 40 mg PO BIDAC 11/12/20 [History] Sodium Bicarbonate 650 mg PO BID 11/12/20 [History] Sodium Chloride/Aloe Vera [[place] Saline Nasal Gel Powers] 2 spray NS Q2H PRN 11/12/20 [History] Triamcinolone Acetonide [Triamcinolone Acetonide 0.1% Crm] 1 applic TOP BID 11/12/20 [History] fluorouraciL [Fluorouracil] 1 gm TP BID 11/12/20 [History] guaiFENesin/Dextromethorphan [Guaifenesin Dm Syrup] 10 ml PO Q6H 11/12/20 [History] oxyCODONE 5 mg PO Q6H PRN 11/12/20 [History] Past Medical History HEENT History: Reports: Allergic Rhinitis, Impaired Vision Cardiovascular History: Reports: Angina, Heart Murmur, Hypertension Gastrointestinal History: Reports: Cholelithiasis, Gastritis, GERD Other Gastrointestinal History: Severe nausea/vomiting since 07/2016. Up until yesterday, this was controlled with scopalomine patch. Genitourinary History: Reports: Chronic Renal Insuffiency, Other (See Below) Other Genitourinary History: cancer on L kidney. 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 left kidney removed - 2016 Dermatologic History: Reports: Eczema - Infectious Disease History Infectious Disease History: Reports: None - Past Surgical History HEENT Surgical History: Reports: None Cardiovascular Surgical History: Reports: None GI Surgical History: Reports: Appendectomy, Cholecystectomy, ERCP Female Surgical History: Reports: Nephrectomy Other Female Surgeries/Procedures: breast CA with mastectomy years ago Endocrine Surgical History: Reports: None Neurological Surgical History: Reports: None Musculoskeletal Surgical History: Reports: Knee Replacement Oncologic Surgical History: Reports: Mastectomy Dermatological Surgical History: Reports: None Social & Family History - Family History Family Medical History: No Pertinent Family History Cardiac: Reports: NE Other Cardiac Family History: mother, father heart valve-replace, brother bypass Neurological: Reports: Alzheimers Disease Other Neurological Family History: father - Caffeine Use Caffeine Use: Reports: Coffee Other Caffeine Use: 2 cups a day ED ROS GENERAL - Review of Systems Review Of Systems: See Below Constitutional: Reports: Malaise, Weakness HEENT: Reports: No Symptoms Respiratory: Reports: Shortness of Breath, Cough. Denies: Hemoptysis Cardiovascular: Reports: Dyspnea on Exertion, Edema, Orthopnea Endocrine: Reports: No Symptoms GI/Abdominal: Reports: No Symptoms : Reports: No Symptoms Musculoskeletal: Reports: No Symptoms Skin: Reports: No Symptoms Neurological: Reports: No Symptoms Psychiatric: Reports: No Symptoms Hematologic/Lymphatic: Reports: No Symptoms Immunologic: Reports: No Symptoms ED EXAM, GENERAL - Physical Exam Exam: See Below Exam Limited By: No Limitations General Appearance: Alert, WD/WN, No Apparent Distress Eye Exam: Bilateral Eye: PERRL Throat/Mouth: Normal Inspection, Normal Lips, Normal Teeth, Normal Gums, Normal Oropharynx, Normal Voice, No Airway Compromise Head: Atraumatic, Normocephalic Neck: Normal Inspection, Supple, Non-Tender, Full Range of Motion Respiratory/Chest: No Respiratory Distress, No Accessory Muscle Use, Chest Non- Tender, Decreased Breath Sounds Cardiovascular: Normal Peripheral Pulses, Regular Rate, Rhythm, No Edema, No Gallop, No JVD, No Murmur, No Rub GI/Abdominal: Normal Bowel Sounds, Soft, Non-Tender, No Organomegaly, No Distention, No Abnormal Bruit, No Mass Back Exam: Normal Inspection, Full Range of Motion, NT Extremities: Pedal Edema Neurological: Alert, Oriented, CN II-XII Intact, Normal Cognition, Normal Gait, Normal Reflexes, No Motor/Sensory Deficits Psychiatric: Normal Affect, Normal Mood Skin Exam: Warm, Dry, Intact, Normal Color, No Rash Lymphatic: No Adenopathy #1 Interpretation EKG Date: 11/12/20 Time: 16:25 Rhythm: NSR Rate (Beats/Min): 82 Orient: Normal P-Wave: Present QRS: Normal ST-T: Normal QT: Normal Course - Vital Signs Last Recorded V/S: Last Vital Signs Temp 98.0 F 11/12/20 16:25 Pulse 73 11/12/20 18:45 Resp 21 H 11/12/20 18:45 BP 155/82 H 11/12/20 18:45 Pulse Ox 97 11/12/20 18:45 - Orders/Labs/Meds Orders: Active Orders 24 hr Category Date Time Status Chest 1V Frontal [CR] Stat Exams 11/12/20 17:06 Taken CULTURE BLOOD [BC] Stat Lab 11/12/20 16:35 Received Peripheral IV Insertion Adult [OM.PC] Routine Oth 11/12/20 17:06 Ordered EKG 12 Lead [EK] Stat Ther 11/12/20 17:06 Ordered Labs: Laboratory Tests 11/12/20 11/12/20 11/12/20 Range/Units 16:35 16:35 16:35 WBC 4.39 L (5.00-10.00) 10^3/uL RBC 4.31 (3.80-5.50) 10^6/uL Hgb 11.8 L D (12.0-16.0) g/dL Hct 35.8 L (37.0-47.0) % MCV 83.1 (82.0-92.0) fL MCH 27.4 (27.0-31.0) pg MCHC 33.0 (32.0-36.0) g/dL RDW 15.2 H (11.5-14.5) % Plt Count 175 D (150-400) 10^3/uL MPV 10.0 (7.4-10.4) fL Immature Gran % (Auto) 0.2 (0.0-5.0) % Neut % (Auto) 69.5 (50.0-70.0) % Lymph % (Auto) 15.5 L (20.0-40.0) % [place] % (Auto) 8.9 H (2.0-8.0) % Eos % (Auto) 4.8 H (1.0-3.0) % Baso % (Auto) 1.1 H (0.0-1.0) % Neut # (Auto) 3.05 (2.50-7.00) 10^3/uL Lymph # (Auto) 0.68 L (1.00-4.00) 10^3/uL [place] # (Auto) 0.39 (0.10-0.80) 10^3/uL Eos # (Auto) 0.21 (0.10-0.30) 10^3/uL Baso # (Auto) 0.05 (0.00-0.10) 10^3/uL Immature Gran # (Auto) 0.01 (0.00-0.50) 10^3/uL PT 10.5 (9.2-11.2) SEC INR 1.0 (0.9-1.1) APTT 27.2 (22.8-31.4) SEC D-Dimer, Quantitative 967 H (<400) ng/mL Sodium 139 (136-145) mmol/L Potassium 4.2 (3.5-5.1) mmol/L Chloride 102 (98-107) mmol/L Carbon Dioxide 26.7 (21.0-32.0) mmol/L Anion Gap 14.5 (5-15) mmol/L BUN 37 H (7-18) mg/dL Creatinine 2.79 H D (0.51-1.17) mg/dL Est Cr Clr Drug Dosing 18.12 mL/min Estimated GFR (MDRD) 17 mL/min Glucose 115 (70-140) mg/dL Lactic Acid (0.4-2.0) mmol/L Calcium 9.3 (8.7-10.3) mg/dL Total Bilirubin 1.5 H (0.2-1.0) mg/dL AST 46 H (15-37) U/L ALT 71 H (14-63) U/L Alkaline Phosphatase 113 (46-116) U/L Troponin I High Sens 22.300 (0-51.000) pg/mL B-Natriuretic Peptide 1270 H (0-100) pg/mL Total Protein 6.6 (6.4-8.2) g/dL Albumin 2.72 L (3.40-5.00) g/dL SARS CoV-2 RNA Rapid AMERICO (NEGATIVE) 11/12/20 11/12/20 Range/Units 16:35 16:35 WBC (5.00-10.00) 10^3/uL RBC (3.80-5.50) 10^6/uL Hgb (12.0-16.0) g/dL Hct (37.0-47.0) % MCV (82.0-92.0) fL MCH (27.0-31.0) pg MCHC (32.0-36.0) g/dL RDW (11.5-14.5) % Plt Count (150-400) 10^3/uL MPV (7.4-10.4) fL Immature Gran % (Auto) (0.0-5.0) % Neut % (Auto) (50.0-70.0) % Lymph % (Auto) (20.0-40.0) % [place] % (Auto) (2.0-8.0) % Eos % (Auto) (1.0-3.0) % Baso % (Auto) (0.0-1.0) % Neut # (Auto) (2.50-7.00) 10^3/uL Lymph # (Auto) (1.00-4.00) 10^3/uL [place] # (Auto) (0.10-0.80) 10^3/uL Eos # (Auto) (0.10-0.30) 10^3/uL Baso # (Auto) (0.00-0.10) 10^3/uL Immature Gran # (Auto) (0.00-0.50) 10^3/uL PT (9.2-11.2) SEC INR (0.9-1.1) APTT (22.8-31.4) SEC D-Dimer, Quantitative (<400) ng/mL Sodium (136-145) mmol/L Potassium (3.5-5.1) mmol/L Chloride (98-107) mmol/L Carbon Dioxide (21.0-32.0) mmol/L Anion Gap (5-15) mmol/L BUN (7-18) mg/dL Creatinine (0.51-1.17) mg/dL Est Cr Clr Drug Dosing mL/min Estimated GFR (MDRD) mL/min Glucose (70-140) mg/dL Lactic Acid 1.1 (0.4-2.0) mmol/L Calcium (8.7-10.3) mg/dL Total Bilirubin (0.2-1.0) mg/dL AST (15-37) U/L ALT (14-63) U/L Alkaline Phosphatase (46-116) U/L Troponin I High Sens (0-51.000) pg/mL B-Natriuretic Peptide (0-100) pg/mL Total Protein (6.4-8.2) g/dL Albumin (3.40-5.00) g/dL SARS CoV-2 RNA Rapid AMERICO Negative (NEGATIVE) Meds: Medications Discontinued Medications Generic Name Dose Route Start Last Admin Trade Name Freq PRN Reason Stop Dose Admin Bumetanide 1 mg 11/12/20 17:19 11/12/20 17:50 Bumetanide 1 Mg/4 Ml Mdv IVPUSH 11/12/20 17:20 1 mg ONETIME ONE Administration Sodium Chloride 10 ml 11/12/20 17:06 11/12/20 17:54 Sodium Chloride 0.9% 10 Ml Syringe FLUSH 10 ml Q8HR PRN Administration keep vein open - Radiology Interpretation Free Text/Narrative:: CXR- MILD TO MODERATE CHF Departure - Departure Time of Disposition: 19:00 Disposition: DC/Tfer to Acute Hospital 02 Condition: Serious Clinical Impression: Congenital heart disease in adult Renal failure (ARF), acute on chronic Qualifiers: Chronic kidney disease stage: stage 4 (severe) - Discharge Information Referrals: Sophia Smith ASSOCIATE DIRECTOR OF NURSING [Primary Care Provider] - Forms: ED Department Discharge, Interfacility Transfer GEORGINA Sepsis Event Note (ED) - Focused Exam Vital Signs: Vital Signs Temp Pulse Resp BP Pulse Ox 11/12/20 18:45 73 21 H 155/82 H 97 11/12/20 18:30 75 22 H 155/84 H 96 11/12/20 18:15 73 18 163/61 H 95 11/12/20 18:00 75 21 H 155/89 H 94 L 11/12/20 17:45 78 23 H 158/86 H 95 11/12/20 17:30 76 24 H 167/96 H 95 11/12/20 17:15 75 19 165/89 H 93 L 11/12/20 17:00 77 19 169/97 H 94 L 11/12/20 16:45 81 24 H 168/99 H 95 11/12/20 16:30 82 27 H 172/93 H 98 11/12/20 16:25 98.0 F 85 21 H 166/94 H 96 11/12/20 16:15 80 23 H 167/90 H 94 L - My Orders Last 24 Hours: My Active Orders 11/12/20 16:35 CULTURE BLOOD [BC] Stat 11/12/20 17:06 Chest 1V Frontal [CR] Stat Peripheral IV Insertion Adult [OM.PC] Routine EKG 12 Lead [EK] Stat - Assessment/Plan Last 24 Hours: My Active Orders 11/12/20 16:35 CULTURE BLOOD [BC] Stat 11/12/20 17:06 Chest 1V Frontal [CR] Stat Peripheral IV Insertion Adult [OM.PC] Routine EKG 12 Lead [EK] Stat Assessment:: 1. DECOMPENSATED CONGESTIVE HEART FAILURE 2. ELEVATED D DIMER- PT NEEDS V/Q SCAN 3. RENAL FAILURE-ACUTE ON CHRONIC Plan: 1. [facility] IF PT IS AGREEABLE TO HEMODIALYSIS IF NEPHROLOGY DEEMS NECESSARY. 2. SUPPORTIVE CARE 3. BUMEX 1MG IV NOW 4. CONSIDER KIRK CATH 5. BIPAP IF NECESSARY
[2020-11-12 17:34] LABS: PTT,PARTIAL THROMBOPLSTIN TIME 27.2 SEC (22.8-31.4)
[2020-11-12] MEDS: Bumetanide 1 MG/4 ML MDV IVPUSH ONE (17:50)
[2020-11-12] MEDS: Sodium Chloride 0.9% 10 ML Syringe FLUSH PRN (17:54)
[2020-11-12 18:48] VITALS: BP 155/82; PULSE 73
--- OUTSIDE RECORDS SUMMARY | 2020-11-21 15:22 | XMSREPORT ---
:[address] [facility] and [facility] s Address [address] [place] [address] [address] [place] [address] Care Team Providers Name Role Phone TOMMIE Archer Unavailable Jeremi Smith APRN-ULTRASOUND SPECIALIST Primary Care Provider Provider, Attributed RESOURCE Attributed Provider Unavailab le Reason for Referral Comprehensive Primary [facility] Plus (Routine) Status Reason Specialty Diagnoses / Referred By Referred To Contact Procedures Contact New Request Diagnoses Acute systolic heart failure (HCC) [facility] Manrique [address] [place] [id number] Phone: Phone: Scheduling Instructions This is an electronic referral. Reason for Visit Auth/Cert Status Reason Specialty Diagnoses / Procedures Referred By Shakeel alejoact Referred To Contact Encounter Details Date Type Department Care Team Description 11/12/2020 - Hospital Encounter [facility] Provider, Gen aguirre Hosp Procedure Heart failure (HCC) 11/16/2020 CENTER 6CD Nery Ward MD [address] [place] [address] [phone] [id number] [facility] Otto Tamayo MD [address] [place] [address] [phone] [place] [address] Bj Diego MD [address] [place] [address] [phone] Allergies Active Allergy Reactions Severity Noted Date Comments Amoxicillin Nausea and Vomiting 01/24/2017 Ampicillin Nausea and Vomiting, 11/03/2012 Diarrhea Azithromycin Nausea and Vomiting 01/24/2017 Ciprofloxacin Nausea 12/26/2015 Hydrocodone Nausea, Other (Specify in 04/23/2015 Sk in crawling per Comments), Nausea and patien t Vomiting Lisinopril Cough 01/18/2020 Paclitaxel Nausea and Vomiting 01/24/2017 Pembrolizumab Other (Specify in 09/25/2020 Joint new ns. Auto-immune Comments) arthritis. Omeprazole Nausea and Vomiting 11/13/2020 Paclitaxel Hives (High), Rash, Edema High 11/03/2012 Azithromycin Hives (High), Rash High 11/03/2012 documented as of this encounter (statuses as of 11/16/2020) Medications Medication Sig Dispensed Refills Start Date End Date Status aspirin 81 mg Take 81 mg by mouth 0 10/21/2016 Active enteric coated 1 time per day tablet fluorouracil APPLY TO AFFECTED 40 g 0 01/31/2018 Active (EFUDEX) 5 % AREA ON FACE creamIndications: AK (NOSE/CHEEKS) TWICE (actinic keratosis) DAILY FOR TWO-THREE WEEKS. acyclovir (ZOVIRAX) Apply topically 5 5 g 2 06/07/2018 Active 5 % times a day Begin as creamIndications: early as possible Herpes simplex following onset of signs and symptoms. triamcinolone Apply twice a day to 80 g 2 07/24/2019 Active acetonide affected eczema (KENALOG,ARISTOCORT) areas for 1-2 weeks 0.1 % for flares and creamIndications: break. Than apply Stasis dermatitis of the hydrocortisone both legs cream. hydrocortisone, Apply to affected 1 Tube 0 08/10/2019 Active topical, (HYTONE) area 2 times a day 2.5 % as needed for creamIndications: itching Apply to Irritant dermatitis affected areas twice a day for 1-2 weeks. RUP ANALGESIC RUB Apply topically 4 4 oz 1 11/20/2019 Active (KETOPROFEN times a day as 20%/MENTHOL needed for other 3%/TROLAMINE 10%) (Specify) (muscle COMPOUNDIndications: aches) Greater trochanteric bursitis of left hip oxyCODONE (OXY-IR) 5 Take 1 tablet (5 mg) 5 tablet 0 06/22/19 21 Active mg tablet (immediate by mouth every 6 release)Indications: hours as needed for Left adrenal mass severe pain for up (HCC) to 5 doses rosuvastatin TAKE ONE TABLET 90 tablet 3 08/14/2020 Active (CRESTOR) 10 mg DAILY AT BEDTIME tabletIndications: Hyperlipidemia, unspecified hyperlipidemia type Additional Information Patient taking differently: 10 mg Oral Bedtime, TAKE ONE TABLET DAILY AT BEDTIME, Reported on 11/04/2020 fluticasone (FLONASE) 50 SPRAY ONE SPRAY INTO EACH 16 g 2 08/14/2020 Active mcg/spray nasal sprayIndications: NOSTRIL TWO TIMES A DAY Chronic allergic rhinitis NEEDED FOR POSTNASAL DRIP. Additional Information Patient taking differently: 1 spray Each nostril Two times a day prn, SPRAY ONE SPRAY INTO EACH NOSTRIL TWO TIMES A DAY NEEDED FOR POSTNASAL DRIP., Reported on 11/04/2020 ondansetron (ZOFRAN) 8 Take 1 tablet (8 50 tablet 11 10/04/2020 Active MG tabletIndications: mg) by mouth 3 Nausea times a day as needed for nausea or vomiting metoclopramide (REGLAN) Take 1 tablet (10 120 tablet 12 021 Active 10 mg mg) by mouth 4 tabletIndications: times a day Nausea, Malignant before meals and neoplasm metastatic to at bedtime left adrenal gland (HCC) omeprazole (PRILOSEC) Take 1 capsule 180 capsule 3 10/25/2020 Active 40 mg (40 mg) by mouth capsuleIndications: 2 times a day Other chronic gastritis before meals without hemorrhage guaiFENesin-dextrometho Take 10 mL by 50 mL 0 11/11/2020 Active rphan (ROBITUSSIN DM) mouth every 6 100 mg-10mg/5 mL hours as needed SYRPIndications: for cough Pneumonia of left lower lobe due to infectious organism saline nasal spray [place] 2 sprays 50 mL 0 11/11/2020 Active (AYR,OCEAN) 0.65 % into each nostril nasal sprayIndications: every 2 hours as Pneumonia of left lower needed for other lobe due to infectious (Specify) organism (dryness) lactulose 10 GM/15ML Take 30 mL by 200 mL 0 11/11/2020 Active oral mouth 1 time a solutionIndications: day as needed for Constipation, constipation unspecified constipation type carVEDilol (COREG) 6.25 Take 1 tablet 60 tablet 0 11/16/2020 0 11/20 Active mg tabletIndications: (6.25 mg) by 02/07 Acute combined systolic mouth 2 times a 21 and diastolic heart day with meals failure (HCC) furosemide (LASIX) 40 Take 1 tablet (40 60 tablet 0 11/16/202011/20 Active mg tabletIndications: mg) by mouth two Acute combined systolic times a day (in 21 and diastolic heart the morning and failure (HCC) mid-afternoon). magnesium oxide 500 mg Take 1 tablet 30 tablet 0 11/17/2020 Active TABS tabletIndications: (500 mg) by mouth 03/10 Acute combined systolic 1 time per day 2 1 and diastolic heart failure (HCC) potassium chloride Take 1 tablet (10 30 tablet 0 11/16/2020 Active (KLOR-CON M10) 10 MEQ mEq) by mouth 1 CR tabletIndications: time per day TAKE 21 Acute combined systolic WHEN TOLD BY PCP and diastolic heart AFTER OUTPATIENT failure (HCC) FOLLOW UP nitroglycerin Dissolve 1 tablet 30 tablet 0 11/16/202011/20 Active (NITROSTAT) 0.4 mg (0.4 mg) under 02/07 sublingual the tongue Every tabletIndications: 5 minutes as Acute combined systolic needed for chest and diastolic heart pain May repeat failure ([facility]) every 5 minutes for a total of 3 doses. sodium bicarbonate 650 Take 0.5 tablets 15 tablet 0 11/16/20202 Active MG tabletIndications: (325 mg) by mouth 02/07 DOMENIC (acute kidney 1 time per day 21 injury) ([facility]) atenolol (TENORMIN) 50 Take 1 tablet (50 90 tablet 3 1 05/2 Discontinued mg tabletIndications: mg) by mouth 1 02/20 0 (Stop Taking at Essential hypertension, time per day 21 Discharge) benign sodium bicarbonate 650 Take 1 tablet 90 tablet 0 11/11/2020 Discontinued MG tabletIndications: (650 mg) by mouth 03/10 (Reorder) DOMENIC (acute kidney 2 times a day 21 injury) (HCC) documented as of this encounter (statuses as of 11/16/2020) Active Problems Problem Noted Date Heart failure 11/12/2020 Acute heart failure 11/12/2020 LLL pneumonia 11/03/2020 Gastritis 10/17/2020 Malignant neoplasm metastatic to left adrenal gland Obesity with body mass index of 30.0-39.9 07/15/2018 Malignant neoplasm metastatic to left lung 05/24/2018 Thyroid nodule 04/01/2018 Nausea 08/24/2016 S/P total knee arthroplasty 07/23/2016 S/p nephrectomy 07/17/2016 CKD (chronic kidney disease) stage 3, GFR 30-59 ml/min 05/06/2016 Cancer of kidney 08/25/2015 Cancer Staging: Clinical: Stage I (T1b, N0, M0) - Unsigned Anemia 08/13/2015 Allergic rhinitis 03/10/2015 Basal cell carcinoma, eyelid 03/29/2013 Vitamin D deficiency 03/19/2011 Malignant neoplasm of female breast 04/15/2006 Cancer Staging: Clinical: Stage IIB (T2, N1, M0) - Signed by Jerry Wang MD on 02/11/2013 Pathologic: Stage IIB (T2, N1a, M0) - Si gned by Jerry Wang MD on 02/11/2013 Essential hypertension, benign Pure hypercholesterolemia documented as of this encounter (statuses as of 11/16/2020) Resolved Problems Problem Noted Date Resolved Date Left adrenal mass 06/26/2020 06/26/2020 Hypertension 07/15/2018 07/15/2018 Nodule of left lung 04/25/2018 12/19/2018 Lung nodule 03/23/2018 07/15/2018 Musculoskeletal pain 07/05/2017 01/17/2018 Osteoarthritis of right knee 07/21/2016 11/20/2019 Chest pain 05/08/2016 01/17/2018 Weight loss, unintentional 08/18/2015 01/17/2018 Epigastric pain 08/06/2015 01/17/2018 Chronic fatigue syndrome 06/24/2011 01/17/2018 documented as of this encounter (statuses as of 11/16/2020) Immunizations Name Administration Dates Next Due FLU VACCINE TRIVALENT 04/10/2013 MULTIDOSE(Fluvirin,Afluria) FLU VACCINE HIGH DOSE 65YR+(Fluzone) 03/14/2020, 03/15/2019, 04/08/2018, 04/26/2017, 04/10/2016, 04/10/2016 FLU VACCINE SINGLE DOSE 04/13/2018 0.5mL(6MO+Fluzone/Flulaval/Fluarix,3YR +Afluria) H1N1 Vaccine W/preservative 3yr+ 07/19/2009 Influenza Vaccine,unspecified 04/10/2016, 03/15/2015, 2013 Moderna COVID-19 Vaccine 08/23/2020, 07/24/2020 Pneumococcal Conj PCV13 04/10/2016, 03/15/2015 Pneumococcal Polysaccharide PPSV23 04/19/2018 Zoster Live(Zostavax) 04/02/2013 Zoster Recombinant (Shingrix) 04/13/2018, 12/28/2017 documented as of this encounter Social History Tobacco Use Types Packs/Day Years Used Date Former Smoker Cigarettes 0.3 Quit: 06/21/18 85 Smokeless Tobacco: Never Used Alcohol Use Standard Drinks/Week Comments Not Currently 0 (1 standard drink = 0.6 oz pure 0-1 EV SHARAN THREE MONTHS A GLASS OF alcohol) WINE Alcohol Habits Answer Date Recorded How often do you have a drink containing alcohol? Monthly or less 11/13/2020 How many drinks containing alcohol do you have on a 1 or 2 11/13/2020 typical day when you are drinking? How often do you have six or more drinks on one Less than mo nthly 11/13/2020 occasion? Physical Activity Answer Date Recorded On average, how many days per week do you engage in moderate to 3 days 08/13/2020 strenuous exercise (like walking fast, running, jogging, dancing, swimming, biking, or other activities that cause a light or heavy sweat)? On average, how many minutes do you engage in exercise at th is 40 min 08/13/2020 level? Food Insecurity Answer Date Recorded Within the past 12 months, you worried that your food would Never true 08/13/2020 run out before you got money to buy more. Within the past 12 months, the food you bought just didn't N ever true 08/13/2020 last and you didn't have money to get more. Transportation Needs Answer Date Recorded In the past 12 months, has lack of transportation kept you f rom No 08/13/2020 medical appointments or from getting medications? In the past 12 months, has lack of transportation kept you f rom No 08/13/2020 meetings, work, or getting things needed for daily living? Sexually Active Control Partners Comments Yes Male Sex Assigned at Date Recorded Not on file documented as of this encounter Last Filed Vital Signs Vital Sign Reading Time Taken Comments Blood Pressure 139/85 11/16/2020 11:10 AM CDT Pulse 71 11/16/2020 11:10 AM CDT Temperature 36.7 C (98 F) 11/16/2020 11:10 AM CDT Respiratory Rate 18 11/16/2020 11:10 AM CDT Oxygen Saturation 96% 11/16/2020 11:10 AM CDT Inhaled Oxygen Concentration - - Weight 100.7 kg (222 lb) 11/16/2020 6:27 AM CDT Height 172.7 cm (5' 8") 11/12/2020 10:00 PM CDT Body Mass Index 33.75 11/12/2020 10:00 PM CDT documented in this encounter Functional Status Functional Status Response Date of Assessment Is the person deaf or does he/she have serious difficulty No 04/22/2018 hearing? Is this person blind or does he/she have difficulty No 04/22/2018 seeing even when wearing glasses? Do you have difficulty with walking, balance, climbing No 11/14/2020 stairs, or had a fall in the last 3 months? Does the patient have difficulty dressing or bathing? No 04/22/2018 Because of a physical, mental, or emotional condition; No 04/22/2018 does this person have difficulty doing errands alone such as visiting a doctor's office or shopping? Cognitive Status Response Date of Assessment Because of a physical, mental, or emotional condition; No 04/22/2018 does this person have serious difficulty concentrating, remembering, or making decisions? documented as of this encounter Discharge Summaries Not on filedocumented in this encounter Discharge Instructions Adelina Blanchard RN - 11/14/2020 Heart Failure Discharge Instructions Activity: Be as active as possible Break down tasks to small activities to avoid becoming overly tired Talk to your doctor before lifting more than 10 pounds Begin to exercise slowly and increase only as tolerated; refer to your education book Balance activity and rest periods Nutrition: Follow a low sodium (salt) diet Choose no added salt or low sodium foods; choose fresh foods as much as possible Avoid adding salt to food when cooking or at the table Read the nutrition facts labels and avoid foods with more than 300 mg of sodium per serving Medication: Make a list and schedule of the medications you take Keep a current list of your medications with you Take your medications as prescribed Avoid NSAIDs or Non-Steroidal Anti-Inflammatory Drugs (i.e. Advil, Ibuprofen, Motrin, etc.) Self-Care: Weigh yourself and write it down first thing in the morning after you empty your bladder and before you eat or drink Check for swelling of your feet, ankles, legs, and stomach Do your daily exercise If you smoke, stop Keep all follow-up appointments and bring your medications and weight log with you Review the Living Well with Heart Failure booklet for more information on caring for yourself or your loved one at home. Call Your Doctor or Health Finance Mgr If You Have: Weight gain of more than 2 pounds overnight or 5 pounds in one week (or whatever weight gain youwere told to report by your doctor) New or increased swelling of your legs or ankles, swelling or pain in your stomach Decrease in amount you urinate Increased shortness of breath Increased cough with yellow or green sputum (mucus) Increased breathing trouble at night (waking up short of breath, needing more pillows to breathe) Feeling much more tired than usual Racing or pounding heart beat Dizziness Go To The Nearest Emergency Room or Call 911 If You Have: Shortness of breath so severe that you cannot catch your breath even while resting [place], foamy sputum (mucus) New problem sleeping; you need to sit straight up to sleep or are not able to sleep due to shortness of breath Severe chest pain that does not resolve with rest or Nitroglycerin New or increased confusion or cannot think clearly A continuous rapid or irregular heart beat Fainting or feeling to dizzy to stand up AttachmentsThe following attachments cannot be sent through Care Everywhere. Advanced Heart Failure and Ventricular Assist Devices, Understanding (Uzbek) Coreg Oral Tablet 6.25 mg (Uzbek)Lasix Oral Tablet 40 mg (Uzbek)documented in this encounter Medications at Time of Discharge Medication Sig Dispensed Refills Start Date End Date carVEDilol (COREG) Take 1 tablet (6.25 60 tablet 0 11/17/19 21 12/16/2020 6.25 mg mg) by mouth 2 times tabletIndications: a day with meals Acute combined systolic and diastolic heart failure (HCC) furosemide (LASIX) 40 Take 1 tablet (40 mg) 60 tablet 0 12/16/2020 mg tabletIndications: by mouth two times a Acute combined day (in the morning systolic and diastolic and mid-afternoon). heart failure (HCC) magnesium oxide 500 mg Take 1 tablet (500 30 tablet 0 11/1712/17/2020 TABS mg) by mouth 1 time tabletIndications: per day Acute combined systolic and diastolic heart failure (HCC) sodium bicarbonate 650 Take 0.5 tablets (325 15 tablet 0 12/16/2020 MG tabletIndications: mg) by mouth 1 time DOMENIC (acute kidney per day injury) (HCC) guaiFENesin-dextrometh Take 10 mL by mouth 50 mL 0 10/20 orphan (ROBITUSSIN DM) every 6 hours as 100 mg-10mg/5 mL needed for cough SYRPIndications: Pneumonia of left lower lobe due to infectious organism saline nasal spray [place] 2 sprays into 50 mL 0 11/12/19 21 (AYR,OCEAN) 0.65 % each nostril every 2 nasal hours as needed for sprayIndications: other (Specify) Pneumonia of left (dryness) lower lobe due to infectious organism lactulose 10 GM/15ML Take 30 mL by mouth 1 200 mL 0 10/20 oral time a day as needed solutionIndications: for constipation Constipation, unspecified constipation type omeprazole (PRILOSEC) Take 1 capsule (40 180 capsule 3 10/25 40 mg mg) by mouth 2 times capsuleIndications: a day before meals Other chronic gastritis without hemorrhage metoclopramide Take 1 tablet (10 mg) 120 tablet 12 10/14/2020 (REGLAN) 10 mg by mouth 4 times a tabletIndications: day before meals and Nausea, Malignant at bedtime neoplasm metastatic to left adrenal gland (HCC) ondansetron (ZOFRAN) 8 Take 1 tablet (8 mg) 50 tablet 11 MG tabletIndications: by mouth 3 times a Nausea day as needed for nausea or vomiting rosuvastatin (CRESTOR) TAKE ONE TABLET DAILY 90 tablet 3 10 mg AT BEDTIME tabletIndications: Hyperlipidemia, unspecified hyperlipidemia type fluticasone (FLONASE) SPRAY ONE SPRAY INTO 16 g 2 07/23 50 mcg/spray nasal EACH NOSTRIL TWO sprayIndications: TIMES A DAY NEEDED Chronic allergic FOR POSTNASAL DRIP. rhinitis oxyCODONE (OXY-IR) 5 Take 1 tablet (5 mg) 5 tablet 0 06/22 mg tablet (immediate by mouth every 6 release)Indications: hours as needed for Left adrenal mass severe pain for up to (HCC) 5 doses RUP ANALGESIC RUB Apply topically 4 4 oz 1 11/20/2019 (KETOPROFEN times a day as needed 20%/MENTHOL for other (Specify) 3%/TROLAMINE 10%) (muscle aches) COMPOUNDIndications: Greater trochanteric bursitis of left hip hydrocortisone, Apply to affected 1 Tube 0 08/10/2019 topical, (HYTONE) 2.5 area 2 times a day as % creamIndications: needed for itching Irritant dermatitis Apply to affected areas twice a day for 1-2 weeks. triamcinolone Apply twice a day to 80 g 2 07/24/2019 acetonide affected eczema areas (KENALOG,ARISTOCORT) for 1-2 weeks for 0.1 % flares and break. creamIndications: Than apply the Stasis dermatitis of hydrocortisone cream. both legs acyclovir (ZOVIRAX) 5 Apply topically 5 5 g 2 06/07/ 018 % creamIndications: times a day Begin as Herpes simplex early as possible following onset of signs and symptoms. fluorouracil (EFUDEX) APPLY TO AFFECTED 40 g 0 018 5 % creamIndications: AREA ON FACE AK (actinic keratosis) (NOSE/CHEEKS) TWICE DAILY FOR TWO-THREE WEEKS. aspirin 81 mg enteric Take 81 mg by mouth 1 0 08/2016 coated tablet time per day potassium chloride Take 1 tablet (10 30 tablet 0 11/16/2020 12/16/2020 (KLOR-CON M10) 10 MEQ mEq) by mouth 1 time CR tabletIndications: per day TAKE WHEN Acute combined TOLD BY PCP AFTER systolic and diastolic OUTPATIENT FOLLOW UP heart failure (HCC) nitroglycerin Dissolve 1 tablet 30 tablet 0 11/16/2020 06/2 01/2021 (NITROSTAT) 0.4 mg (0.4 mg) under the sublingual tongue Every 5 tabletIndications: minutes as needed for Acute combined chest pain May repeat systolic and diastolic every 5 minutes for a heart failure (HCC) total of 3 doses. documented as of this encounter Progress Notes Epi Barr MD - 11/15/2020 11:36 AM CDT Inpatient Progress Note ROOM/BED: [id number] PCP: Sophia Smith APRN-[facility] Admission date: 11/12/2020 LOS: 3 Assessment/ Plan Acute on chronic combined CHF Fluid overload overload secondary to above 75-year-old female who presented with shortness of breath and leg swelling. She was recently hospitalized in was discharged on 11/11 and treated for left lower lobe pneumonia and DOMENIC that was thought to be ATN due to her immune therapy regimen. Upon discharge her creatinine was trending down baselinecreatinine 1.3 she was treated for 7-day course of IV cefepime and doxycycline. Last echo was done in 2018 which showed ejection fraction of 55% with grade 2 diastolic dysfunction and mild to moderateaortic stenosis. D-dimer was elevated at an outside facility of 967(upper range of normal was 400). Concern for PE warranted a VQ scan due to CTA B contraindicated due to her DOMENIC/ATN. She was then given a dose of Lasix 40 mg IV to help with the fluid overload. Fluids were avoided due to ATN and likely improvement with diuresis. With diuresis she responded well the next morning and her creatininewent down to 2.90. We will continue diuresis with Lasix and monitor VQ scan. Will continue Diuresis and switch to oral this afternoon. If progresses well, possible discharge home tomorrow with family assistance. Plan - Cardiology following, appreciate recommendations - Lasix 40 mg IV 1 dose - Lasix 40 mg oral BID starting in PM - Avoid IVF - Coreg 6.25 mg BID - ASA 81 mg - Rosuvastatin 10 mg - 1.8 L fluid restriction - Telemetry - Strict I/O - PT/OT/RT - Cardiac rehab - Supplemental oxygen as needed - CBC,RFP, mag in AM DOMENIC - likely ATN secondary to immunotherapy medications CKD stage 1 Baseline creatinine 1.2-1.3. Has improved significantly with diuresis. Most likely due to her outpatient cancer treatment. Plan: - Nephrology following, appreciate recommendations - Lasix 40 mg IV 1 dose, reassess later - Avoid IVF - ACEi held due to DOMENIC Hypokalemia Hypomagnesemia Anticipate potassium will decrease due to lasix diuresis. Plan: - Replace as needed - RFP and magnesium in AM Chronic Medical Conditions: Hypertension - Coreg 6.25 mg Hyperlipidemia - Rosuvastatin 10 mg Renal cancer with mets - Follows with [facility] - Prilosec Obesity Known anemia DVT Prophylaxis:SQ Heparin Diet:Heart Healthy and 1.8L fluid restriction Code Status:Full Code Epi Barr MD Pager Number: [phone] 11/15/2020 HPI / History / ROS Interval History Stress test showed non-ischemic cardiomyopathy. Weight stable from yesterday. Symptomatically, she has improved significantly today. If continues to do well, possible discharge home tomorrow with assistance from family. Review of Systems Review of Systems Constitutional: Negative for chills and fever. Respiratory: Positive for cough and wheezing. Negative for hemoptysis, sputum production and shortness of breath. Cardiovascular: Negative for chest pain and palpitations. Gastrointestinal: Negative for abdominal pain, nausea and vomiting. Musculoskeletal: Negative for back pain, myalgias and neck pain. Neurological: Negative for dizziness and headaches. Physical / Results Physical Exam/Vitals Vital signs: Blood pressure 140/84, pulse 82, temperature 98.6 F (37 C), resp. rate 18, height 172.7 cm (68"), weight 112.7 kg (248 lb 8 oz), SpO2 93 %, not currently . Vital Signs Min/Max (last 24 hours) Flowsheet Row Name Min Max Temp 97.9 F (36.6 C) 98.6 F (37 C) BP: Systolic 124 140 BP: Diastolic 75 84 Pulse 74 82 Resp 16 18 SpO2 93 % 99 % O2 Flow Rate (L/min) 2.5 l/min 2.5 l/min MAP (mm Hg) 101 mm Hg 101 mm Hg Physical Exam: Physical Exam Vitals and nursing note reviewed. Constitutional: Appearance: Normal appearance. She is obese. She is not ill-appearing or diaphoretic. HENT: Head: Normocephalic and atraumatic. Cardiovascular: Rate and Rhythm: Normal rate and regular rhythm. Pulses: Normal pulses. Heart sounds: No friction rub. No gallop. Pulmonary: Breath sounds: No stridor. Wheezing present. No rhonchi. Comments: Bilateral crackles Chest: Chest wall: No tenderness. Abdominal: General: There is distension (Adiposity). Palpations: Abdomen is soft. There is no mass. Tenderness: There is no abdominal tenderness. There is no guarding or rebound. Hernia: No hernia is present. Musculoskeletal: General: Swelling present. No tenderness, deformity or signs of injury. Right lower leg: Edema present. Left lower leg: Edema present. Skin: General: Skin is warm and dry. Coloration: Skin is not jaundiced or pale. Findings: No bruising, erythema, lesion or rash. Neurological: General: No focal deficit present. Mental Status: She is alert and oriented to person, place, and time. Mental status is at baseline. Psychiatric: Mood and Affect: Mood normal. Behavior: Behavior normal. Thought Content: Thought content normal. Judgment: Judgment normal. Patient Lines/Drains/Airways Status Active Lines Name: Placement date: Placement time: Site: Days: Peripheral IV 11/13/20 Thumb Anterior;Left 11/13/20 2000 Thumb 1 [place] Drain 06/20/20 Left Abdomen Drain #1 06/20/20 1001 Abdomen 148 Incision 06/20/20 Left Abdomen Lap sites 5 06/20/20 1002 Abdomen 148 Intake and Output Last 24 Hours 11/14 0700 - 11/15 0659 In: 120 [Oral:120] Out: 800 [Urine:800] Intake and Output Since Admit 10/010 - 11/15 1859 In: 1090 [Oral:1090] Out: 1850 [Urine:1850] Net: -760 Weight change: -0.227 kg (-8 oz) Medications Current Facility-Administered Medications Medication Dose Route Frequency Provider Last Rate Last Admin furosemide (LASIX) tablet 40 mg 40 mg Oral 2 times a day diuretic Steven Brunson MD sodium chloride 0.9% flush (adult) 10 mL 10 mL IV 2 times a day and prn Fang Cox MD 10 mL at 11/15/20 0816 magnesium oxide tablet 500 mg 500 mg Oral Daily Steven Brunson MD 500 mg at 11/15/20 0816 rosuvastatin (CRESTOR) tablet 10 mg 10 mg Oral at bedtime Ludwig Land MD 10 mg at11/14/208 lactulose oral solution (10 gm/15 mL) 30 mL 30 mL Oral 1 time a day prn Otto Tamayo MD saline (AYR,OCEAN) nasal spray 2 spray Each nostril Every 2 hours prn Otto Tamayo MD 2 spray at 11/14/20 1236 heparin (porcine) injection solution 5,000 Units 5,000 Units Subcutaneous Every 8 hours Otto Tamayo MD 5,000 Units at 11/15/20 0549 carVEDilol (COREG) tablet 6.25 mg 6.25 mg Oral 2 times a day with meals Otto Tamayo MD 6.25 mg at 11/15/20 0816 sodium chloride 0.9% flush (adult) 10 mL 10 mL IV 2 times a day and prn Farshad Guevara MD 10mL at 11/13/202003 acetaminophen (TYLENOL) tablet 650 mg 650 mg Oral Every 4 hours prn Farshad Guevara MD nalOXone (NARCAN) injection solution (vial) 0.4 mg 0.4 mg Injection Every 2 minutes prn Farshad Guevara MD nalOXone (NARCAN) injection solution (vial) 0.2 mg 0.2 mg Injection Every 2 minutes prn Farshad Guevara MD ondansetron (ZOFRAN) injection solution 4 mg 4 mg IV Every 4 hours prn Farshad Guevara MD aspirin enteric coated tablet 81 mg 81 mg Oral daily Ludwig Land MD 81 mg at 11/15/20 0816 omeprazole (priLOSEC) capsule 40 mg 40 mg Oral 2 times a day before meals Ludwig Land MD 40 mg at 11/13/20 0630 oxyCODONE (OXY-IR) tablet 5 mg 5 mg Oral Every 6 hours prn Ludwig Land MD sodium chloride 0.9% flush (adult) 10 mL 10 mL IV 2 times a day and prn Ludwig Land MD 10 mL at 11/14/202117 nitroglycerin (NITROSTAT) sublingual tablet 0.4 mg 0.4 mg Sublingual Every 5 minutes prn Ludwig Land MD melatonin tablet 3 mg 3 mg Oral Bedtime prn Ludwig Land MD senna-docusate sodium (SENOKOT-S;PERICOLACE) tablet 2 tablet 2 tablet Oral 2 times a day prn Ludwig Land MD And bisacodyl (DULCOLAX) suppository 10 mg 10 mg Rectal 1 time a day prn Ludwig Land MD And docusate sodium (THEREVAC-SB MINI;ENEMEEZ MINI) 283 MG enema 1 enema 1 enema Rectal 1 time a day prn Ludwig Land MD calcium carbonate (TUMS) chewable tablet 1,000 mg 1,000 mg Oral Every 4 hours prn Ludwig Land MD Labs/Imaging All labs and imaging were personally reviewed and pertinent findings are discussed in the history and assessment. Associated attestation - Otto Tamayo MD - 11/15/2020 2:56 PM CDT I discussed the patient with the resident and personally interviewed and examined the patient. I verified in the medical record all resident documentation/findings, including history, physical exam, and medical decision making, and I agree with the resident's documentation. Haylee Morrissey, PIETRO-ULTRASOUND SPECIALIST - 11/14/2020 4:16 PM CDT Images from the original note were not included. Nephrology Daily Progress Note Assessment/Plan 1. Non-Oliguric DOMENIC on CKDIII improving 2. Solitary kidney s/p nephrectomy 2015 -contributing factors include: recent DOMENIC, dehydration, ATN & sunitinib, htn, CHF, malignant neoplasm of the lung with mets hx of renal cell carcinoma s/p L nephrectomy 08/23/15. -baseline creatinine 1.2-1.4mg/dl as of 07/2020 -today creatinine 2.73mg/dl. Improved since discharge from last hospitalization for DOMENIC -admission weight 118.2kg; today weight 112.7kg -24hr urine output: 1050mls -Diuretic recommendation: lasix per primary team for fluid status management -potassium 3.8mEq/L -Avoid Nephrotoxins, NSAIDs, ACEis, ARBs, IV contrast -Renally dose all medications -Strict I&O -Drink to thirst -Access: none - no concerns -No need for METER MAKER at this time. -Nephrology services will sign off. Please call or re-consult on-call provider with any questions or concerns. 3. Anemia of chronic disease -Hgb 12.3g/dL; albumin 3.5g/dL -transfuse if Hgb < 7 4. Hypertension 5. CHF 6. Metastatic malignant neoplasm of the breast, to lung & adrenal gland -cardiology on board -primary team to manage -continue bumex or lasix at time of discharge per primary team for fluid status maintance -primary team to manage Plan discussed and made in conjunction with Dr. Rain. Please call or re-consult with any questions. Thank you for allowing Nephrology services to be part of patient care team. Nephrology Department Haylee Morrissye APRN, FREDIS- Subjective: Patient was seen and examined today. She feels well Oxygen via NC Good appetite A&O No family at bedside Patient denies shortness of breath, chest pain, abdominal discomfort, excessive swelling or cramping. All questions answered, no additional concerns. Objective: Current Vital Signs Temp: 97.9 F (36.6 C) BP: 128/80 Pulse: 74 O2 Device: NC - no humidity O2 Flow Rate (L/min): 2.5 l/min Resp: 18 Pain Ratin (out of 10) Weight: 112.8 kg (248 lb 9.6 oz) SpO2: 99 % Vitals Min/Max Last 24 Hours Vital Signs Min/Max (last 24 hours) Flowsheet Row Name Min Max Temp 97.7 F (36.5 C) 98.7 F (37.1 C) BP: Systolic 124 148 BP: Diastolic 62 89 Pulse 69 84 Resp 14 18 SpO2 96 % 100 % O2 Flow Rate (L/min) 1 l/min 2.5 l/min MAP (mm Hg) 94 mm Hg 105 mm Hg Intake and Output Last 24 Hours Intake/Output Summary (Last 24 hours) at 11/14/2020 1616 Last data filed at 11/14/2020 0600 Gross per 24 hour Intake 240 ml Output 1050 ml Net -810 ml Physical Exam: General Appearance: Patient is well developed, well nourished, alert and oriented to person, place, time and situation. Chest: clear to auscultation Heart: Regular rate and rhythm Abdomen: bowel sounds present, soft, non-tender, and non-distended. Extremities: no edema. Symmetric pedal pulses. Diagnostics and Labs Labs (Last day) 11/13/20 1758 - 11/13/20 1758 CARDIAC MARKERS 11/13/20 1758 CARDIAC MARKERS Troponin I 0.000-0.028 (ng/mL) 0.013 11/14/20 1025 - 11/14/20 1025 CBC 11/14/20 1025 CBC WBC 4.0-11.0 (K/uL) 3.9 RBC 3.80-5.30 (M/uL) 4.66 Hemoglobin 11.5-15.8 (g/dL) 12.3 Hematocrit 35.0-45.0 (%) 39.0 MCV 80.0-98.0 (fL) 83.7 MCH 25.5-34.0 (pg) 26.4 MCHC 31.5-36.5 (g/dL) 31.5 RDW-CV 11.5-15.5 (%) 15.6 RDW-SD 35.5-50.0 (fl) 46.2 Platelet Count 140-400 (K/uL) 181 MPV 8.5-12.0 (fL) 9.5 11/14/20 1025 - 11/14/20 1025 CHEMISTRY 11/14/20 1025 11/14/20 1025 11/14/20 1025 CHEMISTRY Glucose 70-100 (mg/dL) 118 Sodium 135-145 (meq/L) 143 Potassium 3.5-5.3 (meq/L) 3.8 Chloride 99-110 (meq/L) 100 CO2 20-29 (meq/L) 31 Anion Gap with K 6-20 (meq/L) 16 BUN 6-22 (mg/dL) 36 Creatinine 0.60-1.10 (mg/dL) 2.73 BUN/Creatinine Ratio 10.0-25.0 13.2 Calcium 8.5-10.5 (mg/dL) 10.0 Corrected Calcium 8.5-10.5 (mg/dL) 10.4 Phosphorus 2.5-4.5 (mg/dL) 2.8 Magnesium 1.8-2.4 (mg/dL) 1.9 Albumin 3.5-5.0 (g/dL) 3.5 Ammonia 10-45 (uMol/L) 25 eGFR >=60 (mL/min/1.73m2) 21 eGFR Non- >=60 (mL/min/1.73m2) 17 11/14/20 1147 - 11/14/20 1147 GLUCOSE POINT OF CARE 11/14/20 1147 GLUCOSE POINT OF CARE Glucose POC 70-99 (mg/dL) 115 11/14/20 1025 - 11/14/20 1025 OTHER 11/14/20 1025 OTHER Age (Years) 75 Allergies Allergies have been reviewed. Teresa is allergic to taxol [paclitaxel], zithromax [azithromycin], amoxicillin, ampicillin, azithromycin, ciprofloxacin, hydrocodone, lisinopril, paclitaxel, pembrolizumab, and prilosec [omeprazole]. Medications in the hospital: Current Facility-Administered Medications Medication Dose Route Frequency Provider Last Rate Last Admin sodium chloride 0.9% flush (adult) 10 mL 10 mL IV 2 times a day and prn Fang Cox MD aminophylline IV solution 125 mg 125 mg IV PRN per parameter Fang Cox MD magnesium oxide tablet 500 mg 500 mg Oral Daily Steven Brunson MD 500 mg at 11/14/20 1123 rosuvastatin (CRESTOR) tablet 10 mg 10 mg Oral at bedtime Ludwig Land MD 10 mg at11/13/202003 lactulose oral solution (10 gm/15 mL) 30 mL 30 mL Oral 1 time a day prn Otto Tamayo MD saline (AYR,OCEAN) nasal spray 2 spray Each nostril Every 2 hours prn Otto Tamayo MD 2 spray at 11/14/20 1236 heparin (porcine) injection solution 5,000 Units 5,000 Units Subcutaneous Every 8 hours Otto Tamayo MD 5,000 Units at 11/14/20 1321 carVEDilol (COREG) tablet 6.25 mg 6.25 mg Oral 2 times a day with meals Otto Tamayo MD 6.25 mg at 11/14/20 1049 sodium chloride 0.9% flush (adult) 10 mL 10 mL IV 2 times a day and prn Farshad Guevara MD 10mL at 11/13/202003 acetaminophen (TYLENOL) tablet 650 mg 650 mg Oral Every 4 hours prn Farshad Guevara MD nalOXone (NARCAN) injection solution (vial) 0.4 mg 0.4 mg Injection Every 2 minutes prn Farshad Guevara MD nalOXone (NARCAN) injection solution (vial) 0.2 mg 0.2 mg Injection Every 2 minutes prn Farshad Guevara MD ondansetron (ZOFRAN) injection solution 4 mg 4 mg IV Every 4 hours prn Farshad Guevara MD aspirin enteric coated tablet 81 mg 81 mg Oral daily Ludwig Land MD 81 mg at 11/14/20 1049 omeprazole (priLOSEC) capsule 40 mg 40 mg Oral 2 times a day before meals Ludwig Land MD 40 mg at 11/13/20 0630 oxyCODONE (OXY-IR) tablet 5 mg 5 mg Oral Every 6 hours prn Ludwig Land MD sodium chloride 0.9% flush (adult) 10 mL 10 mL IV 2 times a day and prn Ludwig Land MD 10 mL at 11/14/20 1050 nitroglycerin (NITROSTAT) sublingual tablet 0.4 mg 0.4 mg Sublingual Every 5 minutes prn Ludwig Land MD melatonin tablet 3 mg 3 mg Oral Bedtime prn Ludwig Land MD senna-docusate sodium (SENOKOT-S;PERICOLACE) tablet 2 tablet 2 tablet Oral 2 times a day prn Ludwig Land MD And bisacodyl (DULCOLAX) suppository 10 mg 10 mg Rectal 1 time a day prn Ludwig Land MD And docusate sodium (THEREVAC-SB MINI;ENEMEEZ MINI) 283 MG enema 1 enema 1 enema Rectal 1 time a day prn Ludwig Land MD calcium carbonate (TUMS) chewable tablet 1,000 mg 1,000 mg Oral Every 4 hours prn Ludwig Land MD Associated attestation - Jose Rain MD - 11/14/2020 10:33 PM CDT I discussed the patient with the RANDALL and personally interviewed and examined the patient. I verifiedin the medical record all RANDALL documentation/findings, including history, physical exam, and medical decision making, and I agree with the RANDALL's documentation. The patient's renal function are improving. We will sign off, please have the patient to follow withnephrology as outpatient in 1-2 months after hospital discharge. Thank you very much for this interesting consult.Epi Barr MD - 11/14/2020 11:28 AM CDT Inpatient Progress Note ROOM/BED: [id number] PCP: Sophia Smith APRN-ULTRASOUND SPECIALIST Admission date: 11/12/2020 LOS: 2 Assessment/ Plan Acute on chronic combined CHF Fluid overload overload secondary to above 75-year-old female who presented with shortness of breath and leg swelling. She was recently hospitalized in was discharged on 11/11 and treated for left lower lobe pneumonia and DOMENIC that was thought to be ATN due to her immune therapy regimen. Upon discharge her creatinine was trending down baselinecreatinine 1.3 she was treated for 7-day course of IV cefepime and doxycycline. Last echo was done in 2018 which showed ejection fraction of 55% with grade 2 diastolic dysfunction and mild to moderateaortic stenosis. D-dimer was elevated at an outside facility of 967(upper range of normal was 400). Concern for PE warranted a VQ scan due to CTA B contraindicated due to her DOMENIC/ATN. She was then given a dose of Lasix 40 mg IV to help with the fluid overload. Fluids were avoided due to ATN and likely improvement with diuresis. With diuresis she responded well the next morning and her creatininewent down to 2.90. We will continue diuresis with Lasix and monitor VQ scan. Stress test this morning. Possibly followed by dobutamine echo pending results. Plan - Cardiology following, appreciate recommendations - Lasix 40 mg IV 1 dose, reassess later - Avoid IVF - Coreg 6.25 mg BID - ASA 81 mg - Rosuvastatin 10 mg - 1.8 L fluid restriction - Telemetry - Strict I/O - PT/OT/RT - Cardiac rehab - Supplemental oxygen as needed - CBC,RFP, mag in AM DOMENIC - likely ATN secondary to immunotherapy medications CKD stage 1 Baseline creatinine 1.2-1.3. Has improved significantly with diuresis. Most likely due to her outpatient cancer treatment. Plan: - Nephrology following, appreciate recommendations - Lasix 40 mg IV 1 dose, reassess later - Avoid IVF Hypokalemia Hypomagnesemia Anticipate potassium will decrease due to lasix diuresis. Plan: - Replace as needed - RFP and magnesium in AM Chronic Medical Conditions: Hypertension - Coreg 6.25 mg Hyperlipidemia - Rosuvastatin 10 mg Renal cancer with mets - Follows with [facility] - Prilosec Obesity Known anemia DVT Prophylaxis:SQ Heparin Diet:Heart Healthy and 1.8L fluid restriction Code Status:Full Code Epi Barr MD Pager Number: [phone] 11/14/2020 HPI / History / ROS Interval History Underwent stress test this morning. [place] worse after, but stated breathing felt better. No acute events overnight. She has had 10 lb weight loss overnight, I/O do not appear accurate. Review of Systems Review of Systems Constitutional: Negative for chills and fever. Respiratory: Positive for cough, shortness of breath and wheezing. Negative for hemoptysis and sputum production. Cardiovascular: Negative for chest pain and palpitations. Gastrointestinal: Negative for abdominal pain, nausea and vomiting. Musculoskeletal: Negative for back pain, myalgias and neck pain. Neurological: Negative for dizziness and headaches. Physical / Results Physical Exam/Vitals Vital signs: Blood pressure 148/86, pulse 79, temperature 98.2 F (36.8 C), resp. rate 18, hqdrez130.7 cm (68"), weight 112.8 kg (248 lb 9.6 oz), SpO2 99 %, not currently . Vital Signs Min/Max (last 24 hours) Flowsheet Row Name Min Max Temp 97.7 F (36.5 C) 98.7 F (37.1 C) BP: Systolic 124 148 BP: Diastolic 62 89 Pulse 69 84 Resp 14 18 SpO2 96 % 100 % O2 Flow Rate (L/min) 1 l/min 2 l/min MAP (mm Hg) 94 mm Hg 105 mm Hg Physical Exam: Physical Exam Vitals and nursing note reviewed. Constitutional: Appearance: Normal appearance. She is obese. She is not ill-appearing or diaphoretic. HENT: Head: Normocephalic and atraumatic. Cardiovascular: Rate and Rhythm: Normal rate and regular rhythm. Pulses: Normal pulses. Heart sounds: No friction rub. No gallop. Pulmonary: Breath sounds: No stridor. Wheezing present. No rhonchi. Comments: Bilateral crackles Chest: Chest wall: No tenderness. Abdominal: General: There is distension (Adiposity). Palpations: Abdomen is soft. There is no mass. Tenderness: There is no abdominal tenderness. There is no guarding or rebound. Hernia: No hernia is present. Musculoskeletal: General: Swelling present. No tenderness, deformity or signs of injury. Right lower leg: Edema present. Left lower leg: Edema present. Skin: General: Skin is warm and dry. Coloration: Skin is not jaundiced or pale. Findings: No bruising, erythema, lesion or rash. Neurological: General: No focal deficit present. Mental Status: She is alert and oriented to person, place, and time. Mental status is at baseline. Psychiatric: Mood and Affect: Mood normal. Behavior: Behavior normal. Thought Content: Thought content normal. Judgment: Judgment normal. Patient Lines/Drains/Airways Status Active Lines Name: Placement date: Placement time: Site: Days: Peripheral IV 11/13/20 Thumb Anterior;Left 11/13/201999 Thumb less than 1 [place] Drain 06/20/20 Left Abdomen Drain #1 06/20/20 1001 Abdomen 147 Incision 06/20/20 Left Abdomen Lap sites 5 06/20/20 1002 Abdomen 147 Intake and Output Last 24 Hours 11/13 0700 - 11/14 0659 In: 720 [Oral:720] Out: 1050 [Urine:1050] Intake and Output Since Admit 09/30 1900 - 11/14 1859 In: 720 [Oral:720] Out: 1050 [Urine:1050] Net: -330 Weight change: -4.536 kg (-8 lb) Medications Current Facility-Administered Medications Medication Dose Route Frequency Provider Last Rate Last Admin sodium chloride 0.9% flush (adult) 10 mL 10 mL IV 2 times a day and prn Fang Cox MD aminophylline IV solution 125 mg 125 mg IV PRN per parameter Fang Cox MD furosemide (LASIX) injection solution 40 mg 40 mg IV 1 time Marta Baez MD magnesium oxide tablet 500 mg 500 mg Oral Daily Steven Brunson MD 500 mg at 11/14/20 1123 rosuvastatin (CRESTOR) tablet 10 mg 10 mg Oral at bedtime Ludwig Land MD 10 mg at11/13/202003 lactulose oral solution (10 gm/15 mL) 30 mL 30 mL Oral 1 time a day prn Otto Tamayo MD saline (AYR,OCEAN) nasal spray 2 spray Each nostril Every 2 hours prn Otto Tamayo MD heparin (porcine) injection solution 5,000 Units 5,000 Units Subcutaneous Every 8 hours Otto Tamayo MD 5,000 Units at 11/14/20 0605 carVEDilol (COREG) tablet 6.25 mg 6.25 mg Oral 2 times a day with meals Otto Tamayo MD 6.25 mg at 11/14/20 1049 sodium chloride 0.9% flush (adult) 10 mL 10 mL IV 2 times a day and prn Farshad Guevara MD 10mL at 11/13/202003 acetaminophen (TYLENOL) tablet 650 mg 650 mg Oral Every 4 hours prn Farshad Guevara MD nalOXone (NARCAN) injection solution (vial) 0.4 mg 0.4 mg Injection Every 2 minutes prn Farshad Guevara MD nalOXone (NARCAN) injection solution (vial) 0.2 mg 0.2 mg Injection Every 2 minutes prn Farshad Guevara MD ondansetron (ZOFRAN) injection solution 4 mg 4 mg IV Every 4 hours prn Farshad Guevara MD aspirin enteric coated tablet 81 mg 81 mg Oral daily Ludwig Land MD 81 mg at 11/14/20 1049 omeprazole (priLOSEC) capsule 40 mg 40 mg Oral 2 times a day before meals Lduwig Land MD 40 mg at 11/13/20 0630 oxyCODONE (OXY-IR) tablet 5 mg 5 mg Oral Every 6 hours prn Ludwig Land MD sodium chloride 0.9% flush (adult) 10 mL 10 mL IV 2 times a day and prn Ludwig Land MD 10 mL at 11/14/20 1050 nitroglycerin (NITROSTAT) sublingual tablet 0.4 mg 0.4 mg Sublingual Every 5 minutes prn Ludwig Land MD melatonin tablet 3 mg 3 mg Oral Bedtime prn Ludwig Land MD senna-docusate sodium (SENOKOT-S;PERICOLACE) tablet 2 tablet 2 tablet Oral 2 times a day prn Ludwig Land MD And bisacodyl (DULCOLAX) suppository 10 mg 10 mg Rectal 1 time a day prn Ludwig Land MD And docusate sodium (THEREVAC-SB MINI;ENEMEEZ MINI) 283 MG enema 1 enema 1 enema Rectal 1 time a day prn Ludwig Land MD calcium carbonate (TUMS) chewable tablet 1,000 mg 1,000 mg Oral Every 4 hours prn Ludwig Land MD Labs/Imaging All labs and imaging were personally reviewed and pertinent findings are discussed in the history and assessment. Associated attestation - Otto Tamayo MD - 11/14/2020 5:03 PM CDT I discussed the patient with the resident and personally interviewed and examined the patient. I verified in the medical record all resident documentation/findings, including history, physical exam, and medical decision making, and I agree with the resident's documentation. Otto Tamayo MD - 11/13/2020 4:04 PM CDT Prolonged conference at bedside with son / . Discussed with cardiology and nephrology . Patient wants full code . Guarded prognosis due to CHF/DOMENIC/Cancer and other comorbidities discussed . Total time spent in care of this patient 35 minutes with greater than 50 percent of the time spent in counseling and coordination of care as described above alongside reviewing chart, discussing with nursing, phone calls, reviewing labs, and imaging. Epi Melendez MD - 11/13/2020 9:14 AM CDT Inpatient Progress Note [facility] PCP: Sophia Smith APRN-[facility] Admission date: 11/12/2020 LOS: 0 Assessment/ Plan Acute on chronic combined CHF Fluid overload overload secondary to above 75-year-old female who presented with shortness of breath and leg swelling. She was recently hospitalized in was discharged on 11/11 and treated for left lower lobe pneumonia and DOMENIC that was thought to be ATN due to her immune therapy regimen. Upon discharge her creatinine was trending down baselinecreatinine 1.3 she was treated for 7-day course of IV cefepime and doxycycline. Last echo was done in 2018 which showed ejection fraction of 55% with grade 2 diastolic dysfunction and mild to moderateaortic stenosis. D-dimer was elevated at an outside facility of 967(upper range of normal was 400). Concern for PE warranted a VQ scan due to CTA B contraindicated due to her DOMENIC/ATN. She was then given a dose of Lasix 40 mg IV to help with the fluid overload. Fluids were avoided due to ATN and likely improvement with diuresis. With diuresis she responded well the next morning and her creatininewent down to 2.90. We will continue diuresis with Lasix and monitor VQ scan. Plan - Cardiology following, appreciate recommendations - Lasix 40 mg IV - Avoid IVF - Coreg 6.25 mg - ASA 81 mg - Rosuvastatin 10 mg - 1.8 L fluid restriction - Telemetry - Strict I/O - PT/OT/RT - Supplemental oxygen as needed - CBC,RFP, mag in AM DOMENIC - likely ATN secondary to immunotherapy medications CKD stage 1 Baseline creatinine 1.2-1.3. Has improved significantly with diuresis. Most likely due to her outpatient cancer treatment. Plan: - Nephrology following, appreciate recommendations - Lasix 40 mg IV - Avoid IVF Chronic Medical Conditions: Hypertension - Coreg 6.25 mg Hyperlipidemia - Rosuvastatin 10 mg Renal cancer with mets - Follows with [facility] - Prilosec Obesity Known anemia DVT Prophylaxis:SQ Heparin Diet:Heart Healthy and 1.8L fluid restriction Code Status:Full Code Epi Barr MD Pager Number: [phone] 11/13/2020 HPI / History / ROS Interval History No acute events overnight. She continues to feel weak. Upon first visit with patient, she felt slightly better, but upon second visit, after going to the bathroom, she felt the same as she did on admit. Review of Systems Review of Systems Constitutional: Negative for chills and fever. Respiratory: Positive for cough, shortness of breath and wheezing. Negative for hemoptysis and sputum production. Cardiovascular: Negative for chest pain and palpitations. Gastrointestinal: Negative for abdominal pain, nausea and vomiting. Musculoskeletal: Negative for back pain, myalgias and neck pain. Neurological: Negative for dizziness and headaches. Physical / Results Physical Exam/Vitals Vital signs: Blood pressure 147/90, pulse 72, temperature 97.9 F (36.6 C), resp. rate 16, skezvw797.7 cm (68"), weight 117.3 kg (258 lb 9.6 oz), SpO2 97 %, not currently . Vital Signs Min/Max (last 24 hours) Flowsheet Row Name Min Max Temp 97.1 F (36.2 C) 98.6 F (37 C) BP: Systolic 147 166 BP: Diastolic 75 93 Pulse 68 77 Resp 16 18 SpO2 91 % 98 % O2 Flow Rate (L/min) 1 l/min 2 l/min MAP (mm Hg) 98 mm Hg 105 mm Hg Physical Exam: Physical Exam Vitals and nursing note reviewed. Constitutional: Appearance: Normal appearance. She is obese. She is ill-appearing. She is not diaphoretic. HENT: Head: Normocephalic and atraumatic. Cardiovascular: Rate and Rhythm: Normal rate and regular rhythm. Pulses: Normal pulses. Heart sounds: No friction rub. No gallop. Pulmonary: Breath sounds: No stridor. Wheezing present. No rhonchi. Comments: Bilateral crackles Chest: Chest wall: No tenderness. Abdominal: General: There is distension (Adiposity). Palpations: Abdomen is soft. There is no mass. Tenderness: There is no abdominal tenderness. There is no guarding or rebound. Hernia: A hernia is present. Musculoskeletal: General: Swelling present. No tenderness, deformity or signs of injury. Right lower leg: Edema present. Left lower leg: Edema present. Skin: General: Skin is warm and dry. Coloration: Skin is not jaundiced or pale. Findings: No bruising, erythema, lesion or rash. Neurological: General: No focal deficit present. Mental Status: She is alert and oriented to person, place, and time. Mental status is at baseline. Psychiatric: Mood and Affect: Mood normal. Behavior: Behavior normal. Thought Content: Thought content normal. Judgment: Judgment normal. Patient Lines/Drains/Airways Status Active Lines Name: Placement date: Placement time: Site: Days: [place] Drain 06/20/20 Left Abdomen Drain #1 06/20/20 1001 Abdomen 146 Incision 06/20/20 Left Abdomen Lap sites 5 06/20/20 1002 Abdomen 146 Intake and Output Last 24 Hours No intake/output data recorded. Intake and Output Since Admit 09/290 - 11/13 1859 In: 360 [Oral:360] Out: - Net: 360 Weight change: Medications Current Facility-Administered Medications Medication Dose Route Frequency Provider Last Rate Last Admin rosuvastatin (CRESTOR) tablet 10 mg 10 mg Oral at bedtime Ludwig Land MD sodium chloride 0.9% flush (adult) 10 mL 10 mL IV 2 times a day and prn Farshad Guevara MD 10mL at 11/13/20 0835 acetaminophen (TYLENOL) tablet 650 mg 650 mg Oral Every 4 hours prn Farshad Guevara MD nalOXone (NARCAN) injection solution (vial) 0.4 mg 0.4 mg Injection Every 2 minutes prn Farshad Guevara MD nalOXone (NARCAN) injection solution (vial) 0.2 mg 0.2 mg Injection Every 2 minutes prn Farshad Guevara MD ondansetron (ZOFRAN) injection solution 4 mg 4 mg IV Every 4 hours prn Farshad Guevara MD aspirin enteric coated tablet 81 mg 81 mg Oral daily Ludwig Land MD 81 mg at 11/13/20 0835 atenolol (TENORMIN) tablet 50 mg 50 mg Oral daily Ludwig Land MD 50 mg at 11/13/20 0835 omeprazole (priLOSEC) capsule 40 mg 40 mg Oral 2 times a day before meals Ludwig Land MD 40 mg at 11/13/20 0630 oxyCODONE (OXY-IR) tablet 5 mg 5 mg Oral Every 6 hours prn Ludwig Land MD sodium chloride 0.9% flush (adult) 10 mL 10 mL IV 2 times a day and prn Ludwig Land MD nitroglycerin (NITROSTAT) sublingual tablet 0.4 mg 0.4 mg Sublingual Every 5 minutes prn Ludwig Land MD heparin (porcine) injection solution 5,000 Units 5,000 Units Subcutaneous Every 8 hours Ludwig Land MD 5,000 Units at 11/13/20 1314 melatonin tablet 3 mg 3 mg Oral Bedtime prn Ludwig Land MD senna-docusate sodium (SENOKOT-S;PERICOLACE) tablet 2 tablet 2 tablet Oral 2 times a day prn Ludwig Land MD And bisacodyl (DULCOLAX) suppository 10 mg 10 mg Rectal 1 time a day prn Ludwig Land MD And docusate sodium (THEREVAC-SB MINI;ENEMEEZ MINI) 283 MG enema 1 enema 1 enema Rectal 1 time a day prn Ludwig Land MD calcium carbonate (TUMS) chewable tablet 1,000 mg 1,000 mg Oral Every 4 hours prn Ludwig Land MD Labs/Imaging All labs and imaging were personally reviewed and pertinent findings are discussed in the history and assessment. Associated attestation - Otto Tamayo MD - 11/14/2020 5:03 PM CDT I discussed the patient with the resident and personally interviewed and examined the patient. I verified in the medical record all resident documentation/findings, including history, physical exam, and medical decision making, and I agree with the resident's documentation. documented in this encounter H&P Notes Ludwig Land MD - 11/12/2020 10:33 PM CDT INTERNAL MEDICINE H&P NOTE NAME: Teresa Perez is a 75yr old female 1945 PCP: Sophia Smith APRN-ULTRASOUND SPECIALIST Admit Date: 11/12/2020 Referring Provider: No ref. provider found [facility] Impression / Plan Acute Medical Conditions: #) Acute heart failure, likely diastolic #) Hx of chronic diastolic heart failure #) Elevated D dimer (967; normal <400) in the setting of malignancy Assessment: - Patient presented with SBO and leg swelling. Pt had elevated BNP and evidence of pulmonary vascular congestion on CXR. Pt clinically appears fluid overloaded which I think is likely the main cause ofher SOB. - Last echo was in 07/2017 which showed EF 55% with grade 2 diastolic dysfunction, mild to moderate . - D dimer was elevated at the outside facility. She has a significant history of malignancy and was recently hospitalized. Due to DOMENIC, CT with contrast should be avoided. Well's score for PE: 2.5 pointindicating moderate risk Plan: - Admit to med/surg - Consider oncology consult - Echocardiogram ordered - Lasix 40 mg IV - VQ scan to rule out PE - Labs: BNP, troponin, Procalcitonin, CRP, CBC, RFP, Mg - Morning labs: RFP, Mg - Strict I&O - Daily weights - Continuous oximetry - Supplemental O2 as needed #) DOMENIC on CKD stage III, improving Assessment: - Baseline creatinine was 1.3 prior to the previous admission. She was hospitalized with an DOMENIC - Pt could still be recovering from ATN but clinically appears fluid overloaded at this time which could be worsening her DOMENIC. Plan: - Trial diuresis as above - Monitor Cr and electrolytes - Replace electrolytes as needed - Avoid nephrotoxic medications Stable Chronic Medical Conditions: #) HTN - Continue Atenolol #) HLD - Continue Crestor 10 mg #) Renal cancer with multiple sites of metastasis - follows with [facility] oncology #) GERD - Continue Prilosec #) Obesity #) Anemia - Monitor CODE STATUS: Full Code DVT Prophylaxis: SQ heparin Therapies: PT/OT Disposition: Med/surg - anticipate home when medically stable Diet: Heart healthy with sodium and fluid restriction Chief Complaint Leg swelling, SOB HPI Teresa Perez is a 75-year-old female who presents as a direct admit from the [place] ED due to shortness of breath and leg swelling. Past medical history significant for hypertension, hyperlipidemia, CKD stage III, kidney cancer with metastasis to the lung and adrenal gland as well as a history of breast cancer. Patient was recently admitted at [place] from 11/03-11/11 with a LLL pneumonia and DOMENIC likely secondary to ATN due to her immune therapy with sunitinib and dehydration. Creatinine peaked at 3.89 and was3.1 at the time of discharge, 1 day prior to this admission. Patient's baseline creatinine is about1.3. For her CAP, the patient was treated with a 7 day course of IV cefepime and doxycycline. Patient developed swelling in her feet that started on the day of admission. She took a dose of Lasix however did not help her leg swelling. Then she developed sudden onset shortness of breath while walking around her home. She has an associated cough that is productive of yellow sputum however this has improved since her discharge from the hospital after being treated for pneumonia. Patient states she cannot lay flat due to shortness of breath however this is not new for her. She presented to the [place] ED where vital signs showed she was afebrile, BP 165/84, heart rate 76, respiratory rate 24, SPO2 96% on 3 L. Labs were significant for WBC 4.4, hemoglobin 11.8, platelets 175, creatinine 2.8, T bili 1.5, AST 46, ALT 71, BNP 1270, troponin negative, D-dimer 967 (normal less than 400). Lactic acid was 1.1 CXR was concerning for pulmonary vascular congestion. She was given Bumex 1 mg IV in the ED and was transferred for further work-up of the elevated D-dimer and CHF as well as management. She is a former smoker and denies any EtOH use. She lives in [place] with her and a disabled son. Medications Current Facility-Administered Medications Medication Dose Route Frequency Provider Last Rate Last Admin sodium chloride 0.9% flush (adult) 10 mL 10 mL IV 2 times a day and prn Farshad Guevara MD 10mL at 11/12/202 acetaminophen (TYLENOL) tablet 650 mg 650 mg Oral Every 4 hours prn Farshad Guevara MD nalOXone (NARCAN) injection solution (vial) 0.4 mg 0.4 mg Injection Every 2 minutes prn Farshad Guevara MD nalOXone (NARCAN) injection solution (vial) 0.2 mg 0.2 mg Injection Every 2 minutes prn Farshad Guevara MD ondansetron (ZOFRAN) injection solution 4 mg 4 mg IV Every 4 hours prn Farshad Guevara MD [START ON 11/13/2020] aspirin enteric coated tablet 81 mg 81 mg Oral daily Ludwig Land MD [START ON 11/13/2020] atenolol (TENORMIN) tablet 50 mg 50 mg Oral daily Ludwig Land MD [START ON 11/13/2020] omeprazole (priLOSEC) capsule 40 mg 40 mg Oral 2 times a day before meals Ludwig Land MD oxyCODONE (OXY-IR) tablet 5 mg 5 mg Oral Every 6 hours prn Ludwig Land MD [START ON 11/13/2020] sodium chloride 0.9% flush (adult) 10 mL 10 mL IV 2 times a day and prn Ludwig Land MD nitroglycerin (NITROSTAT) sublingual tablet 0.4 mg 0.4 mg Sublingual Every 5 minutes prn Ludwig Land MD heparin (porcine) injection solution 5,000 Units 5,000 Units Subcutaneous Every 8 hours Ludwig Land MD melatonin tablet 3 mg 3 mg Oral Bedtime prn Ludwig Land MD senna-docusate sodium (SENOKOT-S;PERICOLACE) tablet 2 tablet 2 tablet Oral 2 times a day prn Ludwig Land MD And bisacodyl (DULCOLAX) suppository 10 mg 10 mg Rectal 1 time a day prn Ludwig Land MD And docusate sodium (THEREVAC-SB MINI;ENEMEEZ MINI) 283 MG enema 1 enema 1 enema Rectal 1 time a day prn Ludwig Land MD calcium carbonate (TUMS) chewable tablet 1,000 mg 1,000 mg Oral Every 4 hours prn Ludwig Ladn MD Allergies Allergies Allergen Reactions Taxol [Paclitaxel] Hives (High), Rash and Edema Zithromax [Azithromycin] Hives (High) and Rash Amoxicillin Nausea and Vomiting Ampicillin Nausea and Vomiting and Diarrhea Azithromycin Nausea and Vomiting Ciprofloxacin Nausea Hydrocodone Nausea, Other (Specify in Comments) and Nausea and Vomiting Skin crawling per patient Lisinopril Cough Paclitaxel Nausea and Vomiting Pembrolizumab Other (Specify in Comments) Joint pains. Auto-immune arthritis. Problem List Patient Active Problem List Diagnosis Heart failure (HCC) Acute heart failure (HCC) LLL pneumonia Gastritis Malignant neoplasm metastatic to left adrenal gland (HCC) Obesity with body mass index of 30.0-39.9 Malignant neoplasm metastatic to left lung (HCC) Thyroid nodule Nausea S/P total knee arthroplasty S/p nephrectomy CKD (chronic kidney disease) stage 3, GFR 30-59 ml/min (HCC) Cancer of kidney (HCC) Anemia Allergic rhinitis Basal cell carcinoma, eyelid Vitamin D deficiency Essential hypertension, benign Pure hypercholesterolemia Malignant neoplasm of female breast (HCC) Social History Social History Socioeconomic History Marital status: Spouse name: Not on file Number of children: 3 Years of education: 14 Highest education level: Not on file Occupational History Employer: [employer] 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 (09/2016) Social Determinants of Health Financial Resource Strain: Difficulty of Paying Living Expenses: Food Insecurity: No Food Insecurity Worried About Running Out of Food in the Last Year: Never true Ran Out of Food in the Last Year: Never true Transportation Needs: No Transportation Needs Lack of Transportation (Medical): No Lack of Transportation (Non-Medical): No Physical Activity: Insufficiently Active Days of Exercise per Week: 3 days Minutes of Exercise per Session: 40 min Stress: Feeling of Stress : Social Connections: Frequency of Communication with Friends and Family: Frequency of Social Gatherings with Friends and Family: Attends Voodoo Services: Active Member of Clubs or Organizations: Attends Club or Organization Meetings: Marital Status: Intimate Partner Violence: Fear of Current or Ex-Partner: Emotionally Abused: Physically Abused: Sexually Abused: Family History Family History Problem Relation Age of Onset Heart Attack Mother Dementia Father No Known Problems Sister Heart Disease Brother Valve replaced. No Known Problems Sister No Known Problems Sister Heart Disease Brother CABG No Known Problems Brother Skin Cancer (non melanomatous) Son Melanoma Neg Hx Bladder Cancer Neg Hx Kidney Disease Neg Hx Kidney Cancer Neg Hx Nephrolithiasis Neg Hx Prostate Cancer Neg Hx Testicular Cancer Neg Hx ROS Review of Systems Constitutional: Negative for chills and fever. HENT: Negative for congestion and sore throat. Cardiovascular: Positive for leg swelling. Negative for chest pain. Respiratory: Positive for cough, shortness of breath and sputum production. Hematologic/Lymphatic: Negative for bleeding problem. Skin: Negative for rash. Musculoskeletal: Negative for falls. Gastrointestinal: Negative for abdominal pain, constipation, diarrhea, nausea and vomiting. Genitourinary: Negative for dysuria and hematuria. Neurological: Negative for headaches and numbness. Physical Exam BP 166/93 Pulse 70 Temp 97.1 F (36.2 C) Resp 18 Ht 172.7 cm (68") Wt 117.3 kg (258 lb 9.6 oz) SpO2 98% BMI 39.32 kg/m2 Body mass index is 39.32 kg/m. Physical Exam Constitutional: Appearance: She is well-developed. She is obese. Interventions: Nasal cannula in place. HENT: Head: Normocephalic and atraumatic. Eyes: General: No scleral icterus. Cardiovascular: Rate and Rhythm: Normal rate and regular rhythm. Heart sounds: Normal heart sounds. No murmur heard. Pulmonary: Effort: Pulmonary effort is normal. No respiratory distress. Breath sounds: Wheezing (scattered) and rales (bibasilar) present. Abdominal: General: Bowel sounds are normal. There is no distension. Palpations: Abdomen is soft. Tenderness: There is no abdominal tenderness. Musculoskeletal: Cervical back: Neck supple. Comments: 2+ pitting edema to bilateral lower extremities to the knees Skin: General: Skin is warm and dry. Neurological: Mental Status: She is alert and oriented to person, place, and time. Psychiatric: Mood and Affect: Mood normal. Labs/Imaging I have reviewed laboratory studies myself. I have reviewed images myself. I have reviewed the patients medical records. This note was produced with voice recognition software, there may be some unintended errors within the dictation secondary to the software used to compile this note. Ludwig Land MD Internal Medicine, PGY-1 Page #: [id number] Associated attestation - Nery Castro MD - 11/13/2020 8:21 AM CDT I saw and evaluated the patient. Discussed with resident and agree with residents findings and plan as documented in the residents note. All patient's available previous medical records reviewed, all available laboratory studies reviewedand interpreted, all available imaging studies reviewed. documented in this encounter Consult Notes Jamil Brooks MD - 11/13/2020 4:57 PM CDT Cardiology Consult Note Consults Assessment / Plan Active Problems: Heart failure (HCC) Acute heart failure (HCC) Plan: 1. Schedule cardiac PET to assess whether patient's impaired LV function is likely to be due to CAD. 2. To assess the severity of the aortic stenosis, will proceed with dobutamine stress echo, depending on results of PET. 3. Continue heart failure treatment, IV diuresis, PRN Reason for Consult DCM, elevated troponin, shortness of breath HPI / History / ROS HPI Teresa Perez is a 75yr old female with a medical history of hypertension, hyperlipidemia, CKDstage III, kidneycancer with metastasis to the lung andadrenal glandas well as a history of breast cancer who initially presented from the emergency department in [facility]. She was recently discharged from the hospital here with CHF, acute kidney injury with a peak in her creatinine to 3.89 with appears her baseline is 1.3. This was felt to be 2 medications as well as dehydration. Creatinine was trending down at the time of discharge. Patient was also in the hospital with leftlower lobe pneumonia and thrombocytopenia. Pt presented to [place] ED with restlessness and orthopnea b ilateral lower extremity edema as well as worsening shortness of breath. She states she had not been on any diuretics since discharge due to above. She slowly started to notice more shortness of breath and lower extremity edema at which point she went to the ED in [place] for further evaluation. She denies any chest pain, palpitations, lightheadedness or syncope during this time. Upon admission, she had changes in her chest x-ray consist with CHF. Initial O2 sat was 91% up to 96% after 6 L of oxygen via nasal cannula. Creatinine is 2.8 today which is slightly improved from yesterday. BNP is >1400. She was given a dose of Bumex. Patient also has an elevated D-dimer and cannot have a CTA of the chest due to elevated creatinine and renal insufficiency. VQ scan ordered. Echo showed a decline in systolic function from 50% to 20% for which cardiology is consulted. Troponin negative on admission. Currently, pt denies any chest pain. She states the shortness of breath she had has improved with oxygen and diuretics. She is faithful with her medications but does not weigh herself daily. 05/09/2016 PET: Normal perfusion without evidence of ischemia or infarction. There is evidence of misregistration reducing uptake in the lateral wall. Reduced global coronary flow reserve. No obvious coronary artery calcification seen on the CT attenuation map. Misregistration is noted. EF 48-53%. Coronary risk factors: Hyperlipidemia, non-smoker, denies HTN, DM History Patient Active Problem List Diagnosis Essential hypertension, benign Malignant neoplasm of female breast (HCC) Pure hypercholesterolemia Vitamin D deficiency Basal cell carcinoma, eyelid Allergic rhinitis Anemia Cancer of kidney (HCC) CKD (chronic kidney disease) stage 3, GFR 30-59 ml/min (HCC) S/p nephrectomy S/P total knee arthroplasty Nausea Thyroid nodule Malignant neoplasm metastatic to left lung (HCC) Obesity with body mass index of 30.0-39.9 Malignant neoplasm metastatic to left adrenal gland (HCC) Gastritis LLL pneumonia Heart failure (HCC) Acute heart failure (HCC) Current Facility-Administered Medications Medication Dose Route Frequency rosuvastatin (CRESTOR) tablet 10 mg 10 mg Oral at bedtime lactulose oral solution (10 gm/15 mL) 30 mL 30 mL Oral 1 time a day prn saline (AYR,OCEAN) nasal spray 2 spray Each nostril Every 2 hours prn heparin (porcine) injection solution 5,000 Units 5,000 Units Subcutaneous Every 8 hours [START ON 11/14/2020] carVEDilol (COREG) tablet 6.25 mg 6.25 mg Oral 2 times a day with meals sodium chloride 0.9% flush (adult) 10 mL 10 mL IV 2 times a day and prn acetaminophen (TYLENOL) tablet 650 mg 650 mg Oral Every 4 hours prn nalOXone (NARCAN) injection solution (vial) 0.4 mg 0.4 mg Injection Every 2 minutes prn nalOXone (NARCAN) injection solution (vial) 0.2 mg 0.2 mg Injection Every 2 minutes prn ondansetron (ZOFRAN) injection solution 4 mg 4 mg IV Every 4 hours prn aspirin enteric coated tablet 81 mg 81 mg Oral daily omeprazole (priLOSEC) capsule 40 mg 40 mg Oral 2 times a day before meals oxyCODONE (OXY-IR) tablet 5 mg 5 mg Oral Every 6 hours prn sodium chloride 0.9% flush (adult) 10 mL 10 mL IV 2 times a day and prn nitroglycerin (NITROSTAT) sublingual tablet 0.4 mg 0.4 mg Sublingual Every 5 minutes prn melatonin tablet 3 mg 3 mg Oral Bedtime prn senna-docusate sodium (SENOKOT-S;PERICOLACE) tablet 2 tablet 2 tablet Oral 2 times a day prn And bisacodyl (DULCOLAX) suppository 10 mg 10 mg Rectal 1 time a day prn And docusate sodium (THEREVAC-SB MINI;ENEMEEZ MINI) 283 MG enema 1 enema 1 enema Rectal 1 time a day prn calcium carbonate (TUMS) chewable tablet 1,000 mg 1,000 mg Oral Every 4 hours prn Allergies Allergen Reactions Taxol [Paclitaxel] Hives (High), Rash and Edema Zithromax [Azithromycin] Hives (High) and Rash Amoxicillin Nausea and Vomiting Ampicillin Nausea and Vomiting and Diarrhea Azithromycin Nausea and Vomiting Ciprofloxacin Nausea Hydrocodone Nausea, Other (Specify in Comments) and Nausea and Vomiting Skin crawling per patient Lisinopril Cough Paclitaxel Nausea and Vomiting Pembrolizumab Other (Specify in Comments) Joint pains. Auto-immune arthritis. 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 Eczema Gastritis 10/17/2020 History of antineoplastic chemotherapy Hyperlipidemia Hypertension Infiltrating ductal carcinoma of right breast (HCC) 2005 Malignant neoplasm metastatic to left adrenal gland (HCC) 07/24/2020 Malignant neoplasm metastatic to left adrenal gland (HCC) 07/24/2020 Malignant neoplasm metastatic to left lung (HCC) 05/24/2018 Malignant neoplasm of female breast (HCC) Nausea Nodule of left lung 04/25/2018 Nodule of lower lobe of left lung Obesity Osteoarthritis of right knee 07/21/2016 PONV (postoperative nausea and vomiting) Pure hypercholesterolemia S/p nephrectomy S/P total knee arthroplasty Thyroid nodule TIA (transient ischemic attack) 08/27/2015 Vitamin D deficiency Vitamin D deficiency Past Surgical History: Procedure Laterality Date APPENDECTOMY BREAST BIOPSY Right 05/14/2006 malignant (needle) EXCISION BASAL CELL 09/20/2013 leg x 2 mohs EXCISIONAL BIOPSY Right 12/14/2005 breast IR PORTACATH INSERTION 06/28/2006 now out JOINT REPLACEMENT left TKA LAP ADRENALECTOMY ROBOTIC Left 06/20/2020 Procedure: FRANK DAVPATRICIA LEFT ADRENALECTOMY;; Surgeon: David Wang MD LAP CHOLECYSTECTOMY N/A 10/09/2016 Procedure: LAPAROSCOPIC CHOLECYSTECTOMY;; Surgeon: Ralph Guerin MD LAP NEPHRECTOMY Left 08/23/2015 Procedure: LEFT HAND ASSIST LAPAROSCOPIC NEPHRECTOMY ;; Surgeon: Sanya Gomez MD MASTCTMY, MOD RAD,W/AXIL LYMPH NODES,W/WO PECTORALIS MINOR WO PECT MJR Right 05/26/[id number] MASTECTOMY 2006 rt THORACOSCOPY Left 04/25/2018 Procedure: LEFT THORACOSCOPY, LEFT THORACOTOMY, WEDGE RESECTION OF LEFT LOWER LOBE, FLEXIBLE BRONCHOSCOPY;; Surgeon: Alejandro Kohler MD TOTAL ABDOMINAL HYSTERECTOMY WWO REMVL TUBE(S) OVARY(S) [id number] one ovary left TOTAL KNEE Right 07/22/2016 Procedure: RIGHT TOTAL KNEE ARTHROPLASTY ;; Surgeon: Felipe Manzo MD TUBAL LIGATION UPPER ENDOSCOPY N/A 10/01/2016 Procedure: UPPER ENDOSCOPY;; Surgeon: David Jaramillo MD Family History Problem Relation Age of Onset Heart Attack Mother Dementia Father No Known Problems Sister Heart Disease Brother Valve replaced. 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 (09/2016) Social Determinants of Health Physical Activity: Insufficiently Active Days of Exercise per Week: 3 days Minutes of Exercise per Session: 40 min Stress: Feeling of Stress : Social Connections: Frequency of Communication with Friends and Family: Frequency of Social Gatherings with Friends and Family: Attends Voodoo Services: Active Member of Clubs or Organizations: Attends Club or Organization Meetings: Marital Status: Intimate Partner Violence: Fear of Current or Ex-Partner: Emotionally Abused: Physically Abused: Sexually Abused: Financial Resource Strain: Difficulty of Paying Living Expenses: Food Insecurity: No Food Insecurity Worried About Running Out of Food in the Last Year: Never true Ran Out of Food in the Last Year: Never true Transportation Needs: No Transportation Needs Lack of Transportation (Medical): No Lack of Transportation (Non-Medical): No Review of Systems Review of Systems Constitutional: Negative. HENT: Negative. Eyes: Negative. Respiratory: Negative for apnea, cough, chest tightness, shortness of breath and wheezing. Cardiovascular: Negative for chest pain, palpitations and leg swelling. Gastrointestinal: Negative for abdominal distention and abdominal pain. Genitourinary: Negative. Musculoskeletal: Negative. Skin: Negative. Neurological: Negative. Psychiatric/Behavioral: Negative. Physical / Results Current Vital Signs Temp: 97.9 F (36.6 C) BP: 147/90 Weight: 117.3 kg (258 lb 9.6 oz) SpO2: 97 % Resp: 16 Pulse: 72 Current BMI (>50 = increased risk): (!) 39.33 O2 Device: NC - no humidity O2 Flow Rate (L/min): 1 l/min Pain Ratin Physical Exam Constitutional: She appears healthy. No distress. Neck: Thyroid normal. Cardiovascular: Normal rate, regular rhythm and normal heart sounds. Pulmonary/Chest: Effort normal and breath sounds normal. She has no wheezes. She has no rales. She exhibits no tenderness. Abdominal: Soft. Bowel sounds are normal. She exhibits no distension and no mass. There is no abdominal tenderness. Musculoskeletal: General: No edema. Normal range of motion. Cervical back: Normal range of motion and neck supple. Neurological: She is alert and oriented to person, place, and time. She has intact cranial nerves. Skin: Skin is warm and dry. Wilbert, Mark Ogden PA-C - 11/13/2020 3:51 PM CDT NEPHROLOGY CONSULT NOTE 11/13/2020 3:52 PM CDT Reason For Consult: DOMENIC Consulted Requested By: Dr. Tamayo Chief Complaint: "Shortness of breath" HISTORY OF PRESENT ILLNESS: Teresa Perez is a 75yr old lady with baseline creatinine of 1.2-1.4 mg/dL as of July 2020. 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 Patient was recently hospitalized from -11/11 primarily for DOMENIC on CKD 3 and left lower lobe pneumonia. Her DOMENIC as mentioned before was thought to be secondary to ATN from prolonged dehydration, vomiting, and sunitinib. During that admission, she had thrombocytopenia. Peripheral blood smear was negative for schistocytes, and both haptoglobin and LDH were elevated. [id number] was ordered and it was resulted at 38%. Patient has a solitary kidney, kidney function was improving, and she making over 2 L of urine output. Renal biopsy was not pursued because of these reasons. In the setting of DOMENIC and dehydration, ACEi/ARB and loop diuretics were held at discharge. She has an allergy/adverse reaction listed for lisinopril (cough). Patient's shortness of breath began yesterday. She lives at home near [facility] with her . Shestates that she took Lasix 20 mg PO one time yesterday. This produced a mild diuresis. She then presented to the ER and was transferred here. Patient's kidney function on discharge was 3.13 mg/dL, and today it is 2.90 mg/dL. She reports that breathing is easier after she received a dose of Lasix 40 mgIV by primary team and now on supplemental oxygen. Notably her ejection fraction has dropped from 55% in July 2019 to 20% today 11/13/2020. CXR from this morning shows improvement in pulmonary edema. ALLERGIES: Allergies Allergen Reactions Taxol [Paclitaxel] Hives (High), Rash and Edema Zithromax [Azithromycin] Hives (High) and Rash Amoxicillin Nausea and Vomiting Ampicillin Nausea and Vomiting and Diarrhea Azithromycin Nausea and Vomiting Ciprofloxacin Nausea Hydrocodone Nausea, Other (Specify in Comments) and Nausea and Vomiting Skin crawling per patient Lisinopril Cough Paclitaxel Nausea and Vomiting Pembrolizumab Other (Specify in Comments) Joint pains. Auto-immune arthritis. 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 Eczema Gastritis 10/17/2020 History of antineoplastic chemotherapy Hyperlipidemia Hypertension Infiltrating ductal carcinoma of right breast (HCC) 2006 Malignant neoplasm metastatic to left adrenal gland (HCC) 07/24/2020 Malignant neoplasm metastatic to left adrenal gland (HCC) 07/24/2020 Malignant neoplasm metastatic to left lung (HCC) 05/24/2018 Malignant neoplasm of female breast (HCC) Nausea Nodule of left lung 04/25/2018 Nodule of lower lobe of left lung Obesity Osteoarthritis of right knee 07/21/2016 PONV (postoperative nausea and vomiting) Pure hypercholesterolemia S/p nephrectomy S/P total knee arthroplasty Thyroid nodule TIA (transient ischemic attack) 08/27/2015 Vitamin D deficiency Vitamin D deficiency PAST SURGICAL HISTORY: Past Surgical History: Procedure Laterality Date APPENDECTOMY BREAST BIOPSY Right 05/14/2006 malignant (needle) EXCISION BASAL CELL 09/20/2013 leg x 2 mohs EXCISIONAL BIOPSY Right 12/14/2005 breast IR PORTACATH INSERTION 06/28/2006 now out JOINT REPLACEMENT left TKA LAP ADRENALECTOMY ROBOTIC Left 06/20/2020 Procedure: XI DAVINCI LEFT ADRENALECTOMY;; Surgeon: David Wang MD LAP CHOLECYSTECTOMY N/A 10/09/2016 Procedure: LAPAROSCOPIC CHOLECYSTECTOMY;; Surgeon: Ralph Guerin MD LAP NEPHRECTOMY Left 08/23/2015 Procedure: LEFT HAND ASSIST LAPAROSCOPIC NEPHRECTOMY ;; Surgeon: Sanya Gomez MD MASTCTMY, MOD RAD,W/AXIL LYMPH NODES,W/WO PECTORALIS MINOR WO PECT MJR Right 05/26/200620111029 MASTECTOMY 2006 rt THORACOSCOPY Left 04/25/2018 Procedure: LEFT THORACOSCOPY, LEFT THORACOTOMY, WEDGE RESECTION OF LEFT LOWER LOBE, FLEXIBLE BRONCHOSCOPY;; Surgeon: Alejandro Kohler MD TOTAL ABDOMINAL HYSTERECTOMY WWO REMVL TUBE(S) OVARY(S) [id number] one ovary left TOTAL KNEE Right 07/22/2016 Procedure: RIGHT TOTAL KNEE ARTHROPLASTY ;; Surgeon: Felipe Manzo MD TUBAL LIGATION UPPER ENDOSCOPY N/A 10/01/2016 Procedure: UPPER ENDOSCOPY;; Surgeon: David Jaramillo MD SOCIAL HISTORY: Social History Socioeconomic History Marital status: Spouse name: Not on file Number of children: 3 Years of education: 14 Highest education level: Not on file Occupational History Employer: [employer] 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 (09/2016) Social Determinants of Health Financial Resource Strain: Difficulty of Paying Living Expenses: Food Insecurity: No Food Insecurity Worried About Running Out of Food in the Last Year: Never true Ran Out of Food in the Last Year: Never true Transportation Needs: No Transportation Needs Lack of Transportation (Medical): No Lack of Transportation (Non-Medical): No Physical Activity: Insufficiently Active Days of Exercise per Week: 3 days Minutes of Exercise per Session: 40 min Stress: Feeling of Stress : Social Connections: Frequency of Communication with Friends and Family: Frequency of Social Gatherings with Friends and Family: Attends Voodoo Services: Active Member of Clubs or Organizations: Attends Club or Organization Meetings: Marital Status: Intimate Partner Violence: Fear of Current or Ex-Partner: Emotionally Abused: Physically Abused: Sexually Abused: FAMILY HISTORY: Family History Problem Relation Age of Onset Heart Attack Mother Dementia Father No Known Problems Sister Heart Disease Brother Valve replaced. No Known Problems Sister No Known Problems Sister Heart Disease Brother CABG No Known Problems Brother Skin Cancer (non melanomatous) Son Melanoma Neg Hx Bladder Cancer Neg Hx Kidney Disease Neg Hx Kidney Cancer Neg Hx Nephrolithiasis Neg Hx Prostate Cancer Neg Hx Testicular Cancer Neg Hx Family Status Relation Name Status Mo at age 42 MT Fa at age 90 Dementia Sis Alive Bro Alive Sis Alive Sis Alive Bro Alive Bro Alive Son Alive Son Alive Handicaled after a minigitis Son Alive Neg Hx (Not Specified) MEDICATIONS: Current Facility-Administered Medications Medication Dose Route Frequency Provider Last Rate Last Admin rosuvastatin (CRESTOR) tablet 10 mg 10 mg Oral at bedtime Ludwig Land MD lactulose oral solution (10 gm/15 mL) 30 mL 30 mL Oral 1 time a day prn Otto Tamayo MD saline (AYR,OCEAN) nasal spray 2 spray Each nostril Every 2 hours prn Otto Tamayo MD heparin (porcine) injection solution 5,000 Units 5,000 Units Subcutaneous Every 8 hours Otto Tamayo MD sodium chloride 0.9% flush (adult) 10 mL 10 mL IV 2 times a day and prn Farshad Guevara MD 10mL at 11/13/20 0835 acetaminophen (TYLENOL) tablet 650 mg 650 mg Oral Every 4 hours prn Farshad Guevara MD nalOXone (NARCAN) injection solution (vial) 0.4 mg 0.4 mg Injection Every 2 minutes prn Farshad Guevara MD nalOXone (NARCAN) injection solution (vial) 0.2 mg 0.2 mg Injection Every 2 minutes prn Farshad Guevara MD ondansetron (ZOFRAN) injection solution 4 mg 4 mg IV Every 4 hours prn Farshad Guevara MD aspirin enteric coated tablet 81 mg 81 mg Oral daily Ludwig Land MD 81 mg at 11/13/20 0835 atenolol (TENORMIN) tablet 50 mg 50 mg Oral daily Ludwig Land MD 50 mg at 11/13/20 0835 omeprazole (priLOSEC) capsule 40 mg 40 mg Oral 2 times a day before meals Ludwig Land MD 40 mg at 11/13/20 0630 oxyCODONE (OXY-IR) tablet 5 mg 5 mg Oral Every 6 hours prn Ludwig Land MD sodium chloride 0.9% flush (adult) 10 mL 10 mL IV 2 times a day and prn Ludwig Land MD nitroglycerin (NITROSTAT) sublingual tablet 0.4 mg 0.4 mg Sublingual Every 5 minutes prn Ludwig Land MD melatonin tablet 3 mg 3 mg Oral Bedtime prn Ludwig Land MD senna-docusate sodium (SENOKOT-S;PERICOLACE) tablet 2 tablet 2 tablet Oral 2 times a day prn Ludwig Land MD And bisacodyl (DULCOLAX) suppository 10 mg 10 mg Rectal 1 time a day prn Ludwig Land MD And docusate sodium (THEREVAC-SB MINI;ENEMEEZ MINI) 283 MG enema 1 enema 1 enema Rectal 1 time a day prn Ludwig Land MD calcium carbonate (TUMS) chewable tablet 1,000 mg 1,000 mg Oral Every 4 hours prn Ludwig Land MD REVIEW OF SYSTEMS: Gen: no fever, chills, fatigue, weight loss/gain, anorexia HEENT: no vision changes, no hearing deficits, no nasal discharge Respiratory:+dypsnea. no cough, dyspnea CVS: no chest pain, PND, orthopnea Abd:+constipation-last BM 2 days ago per patient no nausea, vomiting, abdl pain, diarrhea : no hematuria, dysuria, urinary retention Ext: +edema. no joint and muscle pains Neuro: no weakness, no numbness Skin: no rashes, no lesions Psych: no depression, no anxiety PHYSICAL EXAMINATION: BP 147/90 Pulse 72 Temp 97.9 F (36.6 C) Resp 16 Ht 1.727 m (5' 8") Wt 117.3 kg (258 lb 9.6 oz) SpO2 97% ? No BMI 39.32 kg/m2|| Vital signs reviewed. GENERAL ASSESSMENT: alert, well appearing, and in no distress, oriented to person, place, and time, overweight SKIN EXAM: Skin color, texture, turgor normal. No rashes or lesions. EYES: normal ENT: Ears, Nose, Throat: No hearing loss, sneezing, congestion, runny nose or sore throat. HEART: Regular rate and rhythm. CHEST: clear to auscultation, no wheezes, rales, or rhonchi and no tachypnea, retractions, or cyanosis ABDOMEN: Abdomen soft, non-tender. BS normal. No masses or organomegaly EXTREMITIES: Trace peripheral edema. Access: None. NEURO: alert, oriented, normal speech, no focal findings or movement disorder noted LABS: Lab Results Component Value Date NA 139 11/13/2020 POTASSIUM 4.0 11/13/2020 CL 101 11/13/2020 CO2 30 (H) 11/13/2020 BUN 36 (H) 11/13/2020 CREATSERUM 2.90 (H) 11/13/2020 EGFR 16 (L) 11/13/2020 MAGNESIUM 1.9 11/13/2020 GLUCOSE 140 (H) 11/13/2020 ALBUMIN 3.2 (L) 11/13/2020 No results found for: TACROLIMUS MBD: Lab Results Component Value Date CA 9.8 11/13/2020 PHOSPHORUS 3.1 11/13/2020 Lab Results Component Value Date [id number] <4 01/20/2014 [id number] 34 01/20/2014 [id number] 34 01/20/2014 HEMATOLOGY: Lab Results Component Value Date WBC 4.2 11/13/2020 NUCRBC 0 11/13/2020 RBC 4.17 11/13/2020 HEMOGLOBIN 11.2 (L) 11/13/2020 HEMATOCRIT 35.4 11/13/2020 MCV 84.9 11/13/2020 MCH 26.9 11/13/2020 MCHC 31.6 11/13/2020 PLTCOUNT 172 11/13/2020 NEUTROPCT 66.1 11/13/2020 LYMPHSPCT 17.0 11/13/2020 MONOSPCT 9.9 11/13/2020 EOSPCT 5.4 11/13/2020 BASOPHILPCT 1.4 11/13/2020 Lab Results Component Value Date FETOT 20 (L) 11/04/2020 FERRITINSER 1,932 (H) 11/04/2020 TIBC 251 11/04/2020 FESAT 8 (L) 11/04/2020 URINALYSIS: Lab Results Component Value Date COLORUR Yanira 11/05/2020 CLARITYUR Cloudy (A) 11/05/2020 GLUCOSEUR Negative 11/05/2020 BILIUR Negative 11/05/2020 SPECGRAVU 1.020 09/13/2018 BLDUR Small (1+) (A) 11/05/2020 PHURINE 5.0 11/05/2020 PROTEINUA 30 mg/dL (A) 11/05/2020 UROBILINOGEN < 2 mg/dL 11/05/2020 NITRITE Negative 11/05/2020 LEUKESTERUR Trace (A) 11/05/2020 WBCUR 6-10 /hpf (A) 11/05/2020 RBCUR 3-5 /hpf (A) 11/05/2020 SQUAMEPI Moderate (21-50) /lpf (A) 11/05/2020 BACTERIAUA Occ (0-10) /hpf (A) 11/05/2020 Lab Results Component Value Date PROTEINTRNUR 76.7 11/05/2020 No results found for: MICCRERAT Lab Results Component Value Date CREATURINE 95.6 11/05/2020 CREATURINE 95.1 11/05/2020 ENDOCRINE: Lab Results Component Value Date HGBA1C 6.2 (H) 12/26/2012 ASSESSMENT /PLAN 1. Baseline Creatinine of 1.2-1.4 mg/dl as of Feburary. -Solitary kidney, hx of RCC, left nephrectomy on 08/23/2015 2. DOMENIC on CKD 3: -Unlikely to have aHUS/TTP/TMA -Kidney function improving since last hospital admission discharge. -Patient is likely in recovery phase of ATN -Recommend daily renal panel. -US kidneys from 11/05: Showed solitary right kidney, normal cortical thickness, and 13.7 cm kidney size . -Urinalysis from 11/05: Showed granular casts consistent with ATN. Recommendations: -Encourage adequate oral hydration. -Encourage to avoid NSAID, IV contrast. -Discussed briefly with her about creatinine, eGFR, chronic kidney disease and it's stages, dialysisand access. -Accurate intake and output -Daily weights -Hold ACEi/ARB -Avoid coronary angiogram if possible until kidney function returns to baseline. 3. Electrolytes, acid base, and nutrtion: -Patient's home medications reviewed. -Her CO2 is high and she was taking sodium bicarbonate. I discussed with Dr. Tamayo that I recommend holding this during this admission. -Patient's hypoalbuminemia is improving. Currently 3.2, was as low as 2.6. 4. Hypertension/Fluid Status: -Currently on atenolol. Cardiology following and recommending changing to Coreg. -Consider nifedipine XL 30 mg PO once daily if patient is still hypertensive (>130/80 mmHg) after Coreg adjustment. -Patient is already feeling better after relatively low dose diuretic. She'll likely need to remain on a loop diuretic such as Bumex 1 mg PO daily or Lasix 40 mg daily. She appears mildly fluid overloaded on exam. CXR improved after Lasix IV. 5. Anemia -Hemoglobin is 11.2. Monitor. 6. Congestive Heart Failure with Reduced Ejection Fraction 7. Aortic Regurgitation versus Aortic Stenosis? -Cardiology following. No plans for coronary angiogram at this time. Plan was discussed and made in conjunction with Dr. Rain Thank you for the consult. Nephrology services will continue to follow. Mark Philip PA-C [facility] Associated attestation - Jose Rain MD - 11/14/2020 10:29 PM CDT I discussed the patient with the RANDALL, Mark, and personally interviewed and examined the patient.I verified in the medical record all RANDALL documentation/findings, including history, physical exam, and medical decision making, and I agree with the RANDALL's documentation. documented in this encounter Miscellaneous Notes Clinical Team - Marva Goetz RN - 11/16/2020 2:04 PM CDT Patient D/C home. Upon D/C, patient was stable. AVS printed. Education provided. No questions at this time. are Planning - Marva Goetz RN - 11/16/2020 11:38 AM CDT Problem: DECREASED CARDIAC OUTPUT Goal: ACTIVITY TOLERANCE Description: DEFINITION: Physiologic response to energy-consuming movements with daily activities. 1= Severely compromised, 2=Substantially compromised, 3=Moderately compromised, 4=Mildly compromised, 5=Not compromised. Outcome: Outcome acceptable for discharge Cardiac Rehab - Rosita Daniels EP - 11/16/2020 9:48 AM CDT Cardiac Rehab Phase 1 Inpatient Note: Diagnosis: CHF Physical Activity Completed: Ambulate in [place] Distance Ambulated: 300 feet Ambulation Assistance: SBA Patient response to Exercise: good Exercise Comments: Steady gait with pushing FWW. Denies SOB or chest pain today, is awaiting DC plans. Gaitbelt used with activity Vitals Exercise Heart Rate - 87 bpm O2 Device - RA Exercise SpO2 - 93% Assessment/Plan: Tolerates activity well. Encouraged patient to ambulate in hallway 3-4 times daily as tolerated with gradual progression. -Progress as tolerated -Patient referred to outpatient Cardiac Rehab program -Continue to follow until until Discharge -Home activity and exercise teaching completed Recommendation: "Outpatient Cardiac Rehab- [place] Continue Inpatient Cardiac Rehab Plan of Care daily until discharge. Cardiac Rehab [place] Pager: [phone] linical Team - Jreemy Yeboah RN - 11/16/2020 5:06 AM CDT Shift Summary [id number]: Patient is alert and oriented x4. Vital signs stable on room air/1L NC overnight. NS on tele. Patient denies pain and SOB. On bed alarm for safety. Will continue to monitor. are Planning - Jeremy Yeboah RN - 11/15/2020 9:26 PM CDT Problem: DECREASED CARDIAC OUTPUT Goal: ACTIVITY TOLERANCE Description: DEFINITION: Physiologic response to energy-consuming movements with daily activities. 1= Severely compromised, 2=Substantially compromised, 3=Moderately compromised, 4=Mildly compromised, 5=Not compromised. Outcome: NOC Rating 3 Flowsheets (Taken 11/15/20202123) Initial Score: 3 Target Score: 5 Plan of care reviewed with: Patient Patient specific goal for the day: Pt will remain vitally stable on room air Patient specific goal for the stay: Return to baseline Achieve goal for stay: By discharge Patient Progress: VSS on room air. pt denies SOB. Will continue to encourage activity as tolerated by the patient. NS on tele, HR in 70s. linical Team - Marva Goetz RN - 11/15/2020 5:55 PM CDT A/Ox4 VSS stable. Remains on RA at rest. Started on lasix PO SOB with exertion. Patient ambulated twice in the [place] way today. Home O2 evaluation completed Will continue to monitor. Possible D/C tomorrow. espiratory Therapy - Harriet Potts RRT - 11/15/2020 3:17 PM CDT Home Oxygen Evaluation A home oxygen evaluation was completed because of Hypoxemia. The patient has a history of CHF. The patient does not qualify for home oxygen at rest or with activity to keep SpO2 levels greater than 88%. During the home oxygen evaluation the patient walked until exertion with gait belt and walker. The patient will not be set up with home oxygen. Harriet Potts, METER MAKER, CTTS Disease Management Respiratory Care Services [facility] Cardiac Rehab - Deanna Jackson EP - 11/15/2020 2:55 PM CDT Cardiac Rehab Phase 1 Inpatient Note: Attempted to see patient 3 times today. She was either busy with another discipline or had just returned from a walk with other staff. Will follow up tomorrow for activity. are Planning - Marva Goetz RN - 11/15/2020 1:29 PM CDT Problem: DECREASED CARDIAC OUTPUT Goal: ACTIVITY TOLERANCE Description: DEFINITION: Physiologic response to energy-consuming movements with daily activities. 1= Severely compromised, 2=Substantially compromised, 3=Moderately compromised, 4=Mildly compromised, 5=Not compromised. Outcome: NOC Rating 3 Flowsheets (Taken 11/15/2020 1327) Target Score: 4 Plan of care reviewed with: Patient Patient specific goal for the day: Pt will remain vitally stable and Room air Patient specific goal for the stay: Pt will return to baseline. Achieve goal for stay: By discharge Patient Progress: patient is vital stable. reports no SOB with activity. remains on room air. ambulated in [place] ways today with RN. MOOSEM Nutrition Team - Zackary Lindsay RD - 11/15/2020 12:48 PM CDT Nutrition Therapy Follow Up Hospital Day: 3 days Active Problems: #)Acute heart failure, likely diastolic #)Hx of chronic diastolic heart failure #) Elevated D dimer (967; normal <400)in the setting of malignancy #)DOMENIC on CKD stage III, improving PMH: HTN, HLD, Renal cancer w/ multiple metastasis, Left nephrectomy (2016), Obesity, GERD, Anemia, Vit D deficiency, Gastritis Recommendations: Continue with current diet. Encourage 3 meals per day Moderate (not high) protein intake d/t reduced renal function. NUTRITION ASSESSMENT Anthropometrics: Height: 172.7 cm (5' 8") Admission Weight: Weight: 117.3 kg (258 lb 9.6 oz) as of 11/12/2020 per bed scale Most Recent Weight: Weight: 112.7 kg (248 lb 8 oz) (11/15/20 0632) per bed scale Lowest Weight Since Admission: 112.5 kg Weight Change: -4.6 kg (-10.1 lb) since admission BMI: Body mass index is 37.78 kg/m. IBW: 64 kg %IBW: 183% (based on admit weight) Usual Body Weight: ~260 lb Unintentional Weight Loss: No significant wt change noted Adjusted Body Weight: 77 kg Estimated Needs: 6042-8869 kcal/day ([place] [address]. Jeor x 1-1.1 Using: Admission Weight) 62 gm protein (0.8 gm/kg Using:Adjusted Body Weight) Fluids per MD Estimated average intake over the last 2 days: 1465 kcal and 46 gm protein, which meets: 85% of estimated kcal needs and 74% of estimated protein needs. Intake Records: Intake Prior to Admit: Pt recently admitted to [facility]. Per RD note on 11/07, she had been meeting most of kcal and protein needs from 11/04-11/06. Pt tired during visit today, though denies poor appetite since that time. 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 Normal eating for patient is typically 3 small meals during the day. Breakfast: cereal with 2% milk, toast with cheese, jelly, or peanut butter, black coffee Lunch: ~ 1 cup of macaroni hot dish with meat, water to drink Dinner: same as lunch Current Intake: Meeting most of kcal needs. No questions today r/t the low- sodium diet. Current Diet: Nutrition (From admission, onward) Start Ordered 11/12/202319 Diet - Heart Healthy; Sodium 2 gm (Low), 1800 mls FL Restr. Now Question Answer Comment Modified Diets Heart Healthy Sodium Control/Fluid Restriction Sodium 2 gm (Low) Sodium Control/Fluid Restriction 1800 mls FL Restr. 11/12/202322 Physical Assessment: Edema: (per physician office rep at 0916 today) LLE Edema 1 RLE Edema 1 GI Assessment: Abdominal exam: WDL, per physician office rep at 0916 today. Stool Frequency: 0-2x/day over the last 3 days Wounds/Pressure Points: (per physician office rep at 0916 today) Coccyx Blanchable Redness Functional Status: PT Following OT Following Nutrition Focused Physical Exam: Completed by RD on 11/15 Below the Eye (fat): Slightly Bulged Fat Pads (Within Defined Limits) [place] (muscle): Able to see/feel well-defined muscle (Within defined limits) Buccal (fat): Full, round/filled out cheeks (Within defined limits) Clavicle (muscle): Bone not prominent (Within defined limits) Shoulder (muscle)/Deltoid muscle: Rounded curves at arm/shoulder/neck (Within defined limits) Triceps/Biceps (fat): Ample fat tissue obvious between folds of skin (Within defined limits) Hand/Interosseous (muscle): Flat to bulging muscle (Within defined limits) Nutritionally-Relevant Medications, Vitamins and Minerals: Lasix, Mg, PPI, Statin Nutritionally-Relevant Biochemical Data: (11/15/2020) Glucose 145 H BUN 37 H Creatinine 2.62 H Albumin 3.3 L GFR 18 L Allergies/Food Intolerance: Teresa is allergic to taxol [paclitaxel], zithromax [azithromycin], amoxicillin, ampicillin, azithromycin, ciprofloxacin, hydrocodone, lisinopril, paclitaxel, pembrolizumab, and prilosec [omeprazole]. Culturally Voodoo Needs: no INTERVENTIONS Encouraged adequate calories and optimal protein in small, frequent meals and snacks Will send pm snack RD provided nutrition education on heart failure on 11/13. Discussed high and low sodium foods, label reading and flavoring foods without sodium. Pt has no questions regarding that today. MONITORING/EVALUATION Monitor ability to consume and tolerate adequate intake to approximate estimated needs with accomodation of preferences and tolerances until intake is sustained within desirable limits Monitor I&O, weight trends, nutrition-related labs and medications, clinical status, and planof care r/t need for nutrition intervention and provide as warranted Nutrition Therapy will reassess every 1-[address], LRD [facility] Pager #[phone] ase Laura Mauro RN - 11/15/2020 10:48 AM CDT CASE MANAGEMENT / SOCIAL SERVICE TRANSITION PLAN - INITIAL ASSESSMENT TRANSITION PLAN: Will Continue to Follow for Support and Progression Towards Final Transition Plan BARRIERS TO TRANSITION: Medical barriers:PT, Cr 2.62, IV lasix, home O2 eval, Cardiology to see COMMENTS / PATIENT AND FAMILY RESPONSE TO PLAN: Chart reviewed. Patient was recently discharged home with family after hospitalization at [facility]. Prior to admission, patient was living in own home with her spouse and handicapped son in a house ([address] [place], [place] Patient has not been using any community services. She does havea FWW and shower chair available at home along with grab bars and handicapped-height toilet. Patient had been independent with ADLs/IADLs, medication management, finances, and driving. Patient and family did not have any other questions for CM at this time. PT currently recommending outpatient cardiac rehab. OT has signed off. Family hopeful for patient to return home over weekend. Family will provide transportation home. 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 Medical Doctor Medical Record Nurse: Bedside Patient CURRENT LIVING SITUATION / LEVEL OF ASSISTANCE: Lives with spouse and son in own home on [address] in [place], [place] Independent Front Wheeled Walker COMMUNITY SERVICES: None HEALTHCARE DIRECTIVE: No POWER OF MACHINE SHORTHAND REPORTER: None FINANCIAL CONCERNS: No Concerns Medicare Part A & B Supplemental Insurance- for Life PRIMARY CARE PHYSICIAN: Daylin Smith APRN-EDNA : No IS PATIENT'S ADMISSION ASSOCIATED WITH TIA, ISCHEMIC, OR HEMORRHAGIC STROKE?: No LANGUAGE / COMMUNICATION BARRIERS: No PATIENT / SUBSTITUTE DECISION MAKER GOAL UPON TRANSITION: First Choice: Home: Family/Friend Support ANTICIPATED NEEDS, TRANSITION CHOICES OFFERED: Home Health: Bath Aid, Home Safety Evaluation, Nurse, Occupational Therapy and Physical Therapy Home: Family/Friend Support RESOURCE(S) PROVIDED: Home Health DOES PATIENT HAVE CLOTHING TO WEAR AT DISCHARGE? Yes ANTICIPATED MODE OF TRANSPORT UPON DISCHARGE: Family Car VERIFIED CORRECT PHARMACY IS ENTERED FOR DISCHARGE: Yes - Pharmacy: [id number] CURRENT READMISSION RISK SCORE Predictive Risk Score Risk of Unplanned Readmission: 24.1 Please refer to readmission risk assessment flowsheet for further details. SIGNED: Laura Henderson RN, BSN, CMSRN Case Management [facility] Office (Ph): [phone] [facility] (Ph): [phone] Care Planning - Annie Montoya RN - 11/15/2020 12:20 AM CDT Problem: DECREASED CARDIAC OUTPUT Goal: ACTIVITY TOLERANCE Description: DEFINITION: Physiologic response to energy-consuming movements with daily activities. 1= Severely compromised, 2=Substantially compromised, 3=Moderately compromised, 4=Mildly compromised, 5=Not compromised. Outcome: NOC Rating 3 Flowsheets (Taken 11/15/2020 0019) Initial Score: 3 Target Score: 5 Plan of care reviewed with: Patient Patient specific goal for the day: Pt will remain vitally stable on 1.5L's of O2. Patient specific goal for the stay: Pt will return to baseline. Achieve goal for stay: By discharge Patient Progress: Pt is vitally stable on 1.5L's of O2. Pt's SpO2 has been greater than 95% throughout shift. Pt reports having SOB with exertion but not at rest. linical Team - Annie Montoya RN - 11/15/2020 12:18 AM CDT Pt is A&Ox4. Pt is vitally stable on RA. Pt is currently on tele running NSR, 70's-80's. Pt is aSBA. Pt voided well throughout shift, see Flowsheet. No other acute events occurred throughout this shift. linical Team - Alondra Hickman RN - 11/14/2020 6:26 PM CDT [id number] AO x 4 VSS on 1.5-2L NC Tele: NSR Pt reports SOB at rest. No CP. No N/V. PET/Stress today. IV lasix for diuresis Supplemental Progress Note - Epi Barr MD - 11/14/2020 5:57 PM CDT Talked with son Elver Perez and updated him on current status of Teresa. Attempted to call Suraj Victoriano,sent to voicemail. are Planning - Alondra Hickman RN - 11/14/2020 2:51 PM CDT Problem: DECREASED CARDIAC OUTPUT Goal: ACTIVITY TOLERANCE Description: DEFINITION: Physiologic response to energy-consuming movements with daily activities. 1= Severely compromised, 2=Substantially compromised, 3=Moderately compromised, 4=Mildly compromised, 5=Not compromised. Outcome: NOC Rating 3 Flowsheets (Taken 11/14/2020 1242) Target Score: 5 Plan of care reviewed with: Patient Patient specific goal for the day: Pt will remain vitally stable on 1.5L's of O2. Patient specific goal for the stay: Pt will return to baseline. Achieve goal for stay: By discharge Patient Progress: Pt is vitally stable on 1.5L's of O2. Pt's SpO2 is has been 95% and greater throughout shift. PET/Stress test completed today. Awaiting results. Pt reports SOB at rest. IV lasix given. Will continue to monitor. hysical Therapy - Nikia Zhang, SPT - 11/14/2020 11:21 AM CDT Physical Therapy Acute Inpatient Initial Evaluation ASSESSMENT/RECOMMENDATIONS Patient presents with generalized deconditioning and functional mobility impairments below baseline.She transfers independently and ambulates ~100' with front-wheeled walker and contact guard assistance. Recommend she will progress enough to discharge home with family assistance when medically stable. May benefit from OP cardiac rehab to further improve cardiovascular health. 6-Clicks Basic Mobility Score: 21 Activity Prescription with Nursing: With assist of 1 and FWW, walk in [place] 3 times per day. At a minimum, up to chair for all meals or 3 times per day. Encourage patient to perform personal cares at sink when able. Encourage walking to bathroom rather than use commode or bedpan. Anticipated D/C Service needs: No further PT needs anticipated upon transition from hospital Diagnosis: ICD-10-CM 1. Acute on chronic heart failure, unspecified heart failure type (HCC) I50.9 CARDIAC REHAB PHASE II 2. Malignant neoplasm of left kidney (HCC) C64.2 Prescription: Eval and Treat Admit Date: 11/12/2020 Pertinent Medical / Surgical History: Patient has a past medical history of Adrenal nodule (HCC), Allergic rhinitis, Allergic rhinitis, Anemia, Basal cell carcinoma, Basal cell carcinoma, eyelid, Breast cancer (HCC) (12/14/2005), Cancer (HCC), Cancer of kidney (HCC) (08/25/2015), Cancer of kidney (HCC), CKD (chronic kidney disease) stage 3, GFR 30-59 ml/min (HCC), Clear cell carcinoma of kidney (HCC), Eczema, Gastritis (10/17/2020), History of antineoplastic chemotherapy, Hyperlipidemia, Hypertension, Infiltrating ductal carcinoma of right breast (HCC) (2005), Malignant neoplasm metastatic to left adrenal gland (HCC) (07/24/2020), Malignant neoplasm metastatic to left adrenal gland (HCC) (07/24/2020), Malignant neoplasm metastatic to left lung (HCC) (05/24/2018), Malignant neoplasm of female breast (HCC), Nausea, Nodule of left lung (04/25/2018), Nodule of lower lobe of left lung, Obesity, Osteoarthritis of right knee (07/21/2016), PONV (postoperative nausea and vomiting), Pure hypercholesterolemia, S/p nephrectomy, S/P total knee arthroplasty, Thyroid nodule, TIA (transient ischemic attack) (08/27/2015), Vitamin D deficiency, and Vitamin D deficiency. She also has no past medical history of Actinic keratosis, Atypical nevi, Autoimmune disease (HCC), Automatic implantable cardiac defibrillator in situ, Diabetes mellitus (HCC), Family hist ory of malignant hyperthermia, Heart valve replaced by other means, Keloid, Liver disease, shelter(current) use of anticoagulants, Malignant hyperthermia, Melanoma (HCC), Organ transplant, Other specified disorder of skin, Pacemaker, Psoriasis, or Squamous cell carcinoma. Patient has a past surgical history that includes mastctmy, mod rad,w/axil lymph nodes,w/wo pectoralis minor wo pect mjr (Right, 05/26/2006); total abdominal hysterectomy wwo remvl tube(s) ovary(s); lap nephrectomy (Left, 08/23/2015); total knee (Right, 07/22/2016); upper endoscopy (N/A, 10/01/2016); appen dectomy; lap cholecystectomy (N/A, 10/09/2016); Joint Replacement; excisional biopsy (Right, 12/14/2005); breast biopsy (Right, 05/14/2006); ir portacath insertion (06/28/2006); excision basal cell (09/20/2013); thoracoscopy (Left, 04/25/2018); mastectomy; tubal ligation; and lap adrenalectomy robotic (Left, 06/20/2020). Current medical status: Admitted with CHF and SOB Precautions: None SUBJECTIVE Social History: Patient lives: With Home environment: House Steps: 3 to enter, railing. None inside the home Employment: Retired Prior Level of Function: Activities of Daily Living: Independent Mobility: Independent, no AD History of falls: No Home O2: None Adaptive equipment available: front-wheeled walker Patient Concerns: None Patient/Family Goals: Return home OBJECTIVE Patient seen at bedside. Patient presents with no lines. Cognition: Alert and oriented x4 Pain: Reports 9/10 pain in low back and both legs at rest, improves with activity Posture: Forward head, rounded shoulders Observation: Patient sitting up in bed upon PT arrival. No acute distress. Agreeable to PT. Range of Motion: Bilateral lower extremities WFL Refer to Occupational Therapy report for upper extremity range of motion. Strength: Bilateral lower extremities WFL Refer to Occupational Therapy report for upper extremity strength testing. Sensation: Grossly intact bilaterally. Tone: Normal. Coordination: WNL bilaterally. Bed Mobility: Supine to Sit: Not assessed this session. Sit to Supine: Not assessed this session. Transfers: Sit to/from Stand: Independent Balance: Static Sitting Balance: Good Dynamic Sitting Balance: Good Static Standing with FWW: Good Dynamic Standing with FWW: Good Perturbation Testing: NA Gait: Ambulates ~100 feet with front-wheeled walker and contact guard assistance. Steady, no LOB orSOB. Unable to ambulate further due to fatigue. Stairs: NA Response to Activity: Observation: no change from baseline Education: Patient was educated on PT role, plan of care, goals, and discharge recommendations today through explanation. They accepted teaching and verbalized understanding. Interdisciplinary Communication: Spoke with interdisciplinary team members regarding patient plan ofcare. Today's Treatment Evaluation: Completed Gait trainin minutes Therapeutic exercise: 0 minutes Therapeutic activity: 8 minutes TOTAL TIME-CODED MINUTES: 8 minutes TOTAL TREATMENT TIME: 15 minutes Treatment provided: Physical therapy evaluation. Therapeutic activity consisting of: bed mobility, transfers and ambulation. GOALS Goals to be achieved by discharge. Patient will be aware of equipment recommendations as indicated in note to allow for safe mobility. Patient will transfer sit to/from supine with no assistance. Patient will transfer from sit to/from stand with no assistance and equipment as needed to progress to safe household mobility. Patient will be able to ambulate 150 feet using FWW with no assistance to progress to safe functional mobility in the home. Patient will be able to negotiate 3 stairs with rail in step to pattern with no assistance to progress to safe functional mobility in the home. PLAN Will continue 3 times per week. Physical Therapy Services: balance training bed mobility training education equipment gait training therapeutic activity therapeutic exercise transfer training Nikia Wendorff, SPT Associated attestation - Hong Tracy PT - 11/14/2020 11:55 AM CDT Hong Canales PT, have reviewed the attached note and this students entries in Care Plan andPatient Education Activities and agree with the evaluation findings, plan of care and patient education notation. Cardiac Rehab - Rosita Daniels EP - 11/14/2020 10:40 AM CDT Cardiac Rehab Phase 1 Inpatient Note: Diagnosis: CHF Physical Activity Completed: Ambulate in [place] Distance Ambulated: 80 feet Ambulation Assistance: SBA Patient response to Exercise: good Exercise Comments: Steady gait with pushing FWW. Pt distance was limited due to leg cramps. Denies chest pain. Gaitbelt used with activity Assessment/Plan: Tolerates activity well. Encouraged patient to ambulate in hallway 3-4 times daily as tolerated with gradual progression. -Progress as tolerated -Continue to follow until until Discharge Recommendation: "Outpatient Cardiac Rehab Continue Inpatient Cardiac Rehab Plan of Care daily until discharge. Cardiac Rehab [facility] Pager: [phone] are Planning - Annie Montoya RN - 11/13/2020 10:20 PM CDT Problem: DECREASED CARDIAC OUTPUT Goal: ACTIVITY TOLERANCE Description: DEFINITION: Physiologic response to energy-consuming movements with daily activities. 1= Severely compromised, 2=Substantially compromised, 3=Moderately compromised, 4=Mildly compromised, 5=Not compromised. Outcome: NOC Rating 3 Flowsheets (Taken 11/13/2020 2210) Initial Score: 3 Target Score: 5 Plan of care reviewed with: Patient Patient specific goal for the day: Pt will remain vitally stable on 1.5L's of O2. Patient specific goal for the stay: Pt will return to baseline. Achieve goal for stay: By discharge Patient Progress: Pt is vitally stable on 1.5L's of O2. Pt's SpO2 is has been 95% and greater throughout shift. linical Team - Annie Montoya RN - 11/13/2020 10:15 PM CDT Pt is A&Ox4. Pt is vitally stable on 1.5L's of O2. Pt is currently on tele running NSR, 60's-70's. Pt is a SBA with a GB/FWW. Pt voided well throughout night, see Flowsheet. Pt has been NPO since midnight. No acute events occurred throughout this shift. linical Team - Alondra Hickman RN - 11/13/2020 5:04 PM CDT Upon Transfer to [facility], skin assessment completed with Fang Young RN Upon skin assessment including pressure points findings include: Old surgical scars to Bilateral knees, L. Back, R. Mastectomy. Pressure points WDL. Scattered bruising. AO x 4 VSS on 1.5L NC Plan for PET/Stress tomorrow. NPO at 0000. No caffeine ardiac Rehab - Deanna Jackson EP - 11/13/2020 3:10 PM CDT Cardiac Rehab Phase 1 Inpatient Note: Diagnosis: CHF Physical Activity Completed: Ambulate in [place] Distance Ambulated: 100 feet Ambulation Assistance: independent with FWW Patient response to Exercise: good Exercise Comments: Steady gait. Just slightly short of breath but oxygen levels are good. Gaitbelt used with activity Vitals Exercise Heart Rate - 80's bpm O2 Device - RA Exercise SpO2 - 95% Assessment/Plan: Tolerates activity well. Encouraged patient to ambulate in hallway 3-4 times daily as tolerated with gradual progression. -Progress as tolerated -Patient referred to outpatient Cardiac Rehab program -Continue to follow until until Discharge -Home activity and exercise teaching to be completed Recommendation: "Outpatient Cardiac Rehab Continue Inpatient Cardiac Rehab Plan of Care daily until discharge. Cardiac Rehab [facility] Pager: [phone] Physical Therapy - Alyssa Hammond PT - 11/13/2020 1:06 PM CDT Attempted to see for PT, but patient busy on 3 attempts thus far. Will follow up as appropriate. Alyssa Hammond PT Alpha pager [phone] utrition Team - Zackary Lindsay RD - 11/13/2020 11:22 AM CDT Nutrition Therapy Initial Assessment Referral: heart failure Hospital Day: 0 days Active Problems: #) Acute heart failure, likely diastolic #) Hx of chronic diastolic heart failure #) Elevated D dimer (967; normal <400) in the setting of malignancy #) DOMENIC on CKD stage III, improving PMH: HTN, HLD, Renal cancer w/ multiple metastasis, Left nephrectomy (2015), Obesity, GERD, Anemia, Vit D deficiency, Gastritis Recommendations: Continue with current diet. Encourage 3 meals per day Moderate (not high) protein intake d/t reduced renal function. NUTRITION ASSESSMENT Anthropometrics: Height: 172.7 cm (5' 8") Admission Weight: Weight: 117.3 kg (258 lb 9.6 oz) as of 11/12/2020 per bed scale Most Recent Weight: Weight: 117.3 kg (258 lb 9.6 oz) (11/12/20 2200) per bed scale BMI: Body mass index is 39.32 kg/m. IBW: 64 kg %IBW: 183% (based on admit weight) Usual Body Weight: ~260 lb Unintentional Weight Loss: No significant wt change noted Adjusted Body Weight: 77 kg Estimated Needs: 9567-1998 kcal/day ([place] [address] Jeor x 1-1.1 Using: Admission Weight) 62 gm protein (0.8 gm/kg Using:Adjusted Body Weight) Fluids per MD Intake Records: Intake Prior to Admit: Pt recently admitted to [facility]. Per RD note on 11/07, she had been meeting most of kcal and protein needs from 11/04-11/06. Pt tired during visit today, though denies poor appetite since that time. 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 Normal eating for patient is typically 3 small meals during the day. Breakfast: cereal with 2% milk, toast with cheese, jelly, or peanut butter, black coffee Lunch: ~ 1 cup of macaroni hot dish with meat, water to drink Dinner: same as lunch Current Intake: Provided low-sodium menu. She is hungry and ordered lunch. Current Diet: Nutrition (From admission, onward) Start Ordered 11/12/20 2320 Diet - Heart Healthy; Sodium 2 gm (Low), 1800 mls FL Restr. Now Question Answer Comment Modified Diets Heart Healthy Sodium Control/Fluid Restriction Sodium 2 gm (Low) Sodium Control/Fluid Restriction 1800 mls FL Restr. 11/12/20 2323 Physical Assessment: Edema: (per physician office rep at 0837 today) LLE Edema 1 RLE Edema 1 GI Assessment: Abdominal exam: WDL, per physician office rep at 0837 today. Stool Frequency: x2 since admit Wounds/Pressure Points: (per physician office rep at 0837 today) Coccyx Blanchable Redness Nutrition Focused Physical Exam: No visible losses. No deficits noted per RD note on 11/07. Nutritionally-Relevant Medications, Vitamins and Minerals: PPI, Statin, Lasix Nutritionally-Relevant Biochemical Data: (11/13/2020) Glucose 140 H BUN 36 H Creatinine 2.9 H Albumin 3.2 L CRP 44.3 H GFR 16 L Allergies/Food Intolerance: Teresa is allergic to taxol [paclitaxel], zithromax [azithromycin], amoxicillin, ampicillin, azithromycin, ciprofloxacin, hydrocodone, lisinopril, paclitaxel, and pembrolizumab. Culturally Voodoo Needs: no INTERVENTIONS Encouraged adequate calories and optimal protein in small, frequent meals and snacks Pt declined snacks. Provided nutrition education for heart failure w/ handout (Heart Failure Nutrition Therapy). Discussed high and low sodium foods, label reading, and ways to flavor food without sodium. Obtained diet history Consult acknowledged MONITORING/EVALUATION Monitor ability to consume and tolerate adequate intake to approximate estimated needs with accomodation of preferences and tolerances until intake is sustained within desirable limits Monitor I&O, weight trends, nutrition-related labs and medications, clinical status, and planof care r/t need for nutrition intervention and provide as warranted Nutrition Therapy will reassess every 1-[address], LRD [facility] Pager #[phone] ccupational Therapy - April Pacheco, OTR/L - 11/13/2020 9:43 AM CDT Occupational Therapy Acute Care Evaluation/Discharge Impression/Recommendations Recommending home with spouse when medically stable. No further skilled acute OT needs as pt is modIto SBA with ADL's, transfers, and mobility with use of FWW. OT to sign off at this time. Admitting Diagnosis: ICD-10-CM 1. Acute on chronic heart failure, unspecified heart failure type (HCC) I50.9 CARDIAC REHAB PHASE II History of Present Illness: Refer to H&P for details Past Medical History: 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 Eczema Gastritis 10/17/2020 History of antineoplastic chemotherapy Hyperlipidemia Hypertension Infiltrating ductal carcinoma of right breast (HCC) 2005 Malignant neoplasm metastatic to left adrenal gland (HCC) 07/24/2020 Malignant neoplasm metastatic to left adrenal gland (HCC) 07/24/2020 Malignant neoplasm metastatic to left lung (HCC) 05/24/2018 Malignant neoplasm of female breast (HCC) Nausea Nodule of left lung 04/25/2018 Nodule of lower lobe of left lung Obesity Osteoarthritis of right knee 07/21/2016 PONV (postoperative nausea and vomiting) Pure hypercholesterolemia S/p nephrectomy S/P total knee arthroplasty Thyroid nodule TIA (transient ischemic attack) 08/27/2015 Vitamin D deficiency Vitamin D deficiency Activity Level: As tolerated Precautions: Standard Infection Control: standard Patient History Social/Home Environment: Patient lives: lives with their family (adult son disabled and spouse who is retired) House: house (farm) with 3 steps with railing Home Environment: Bed/Bath on main: yes Bath Setup: Walk-In Shower with curtain can sit or stand for showering Employment: retired Prior Level of Function Independent prior Adaptive Equipment Available: 4 wheeled walker,shower chair, hand held shower, grab bars and handicapped-height toilet Present for Eval: pt Objective Activities of Daily Living: Feeding: Set up Grooming: able to stand at the sink to complete hand washing, combing hair, and teeth brushing Upper Extremity Dressing: SBA Lower Extremity Dressing: SBA to don/doff socks while sitting at EOB Bathing: Toileting: SBA clothing management and hygiene cares Comments: Pt able to demonstrate ADL's with SBA this date. No v/c's needed this date for FWW safety. Transfers: Bed: SBA Chair: SBA Toilet: SBA Tub/Shower: - Comments: Pt able to demonstrate transfers and mobility within the room and hallway with use of FWW and SBA. Pain: denied pain Upper Extremity Function: Range of Motion: Right:within functional limits Left: within functional limits Strength: Right: within functional limits Left: within functional limits Orientation: Cognition: intact Attention: intact Following Directions: intact Safety Awareness: intact Visual/Perception: WFL's Glasses: yes Education Education/Training provided: Role of OT, plan of care, ADL's, transfers, mobility, d/c rec's Learners: Patient Readiness: Acceptance Method of Training: Verbal education, demonstration Response: Verbalized/demonstrated understanding, will benefit from continued reinforcement Adaptive Equipment Recommendations Adaptive Equipment Recommended: No adaptive equipment needed Plan to obtain adaptive equipment: Patient indicates all needed adaptive equipment obtained prior to hospitalization. Assessment/Plan Assessment: Patient at SBA/Independent level for ADLs/transfers. No further skilled OT needed. Plan: D/c acute OT Goals Patient/Family Stated Goal for Session: none, agreeable to OT OT goals met d/c acute OT Certification dates: 11/13/2020 to 12/13/20 Treatment Provided See above for details Charges Treatment/Minutes: Today's Evaluation/Treatment Evaluation Self care/home management: 18 minutes Total for time-based codes: 18 minutes Total treatment time: 30 minutes Evaluation Complexity PMH/Comorbidities that affect Occupational Performance: see above for details Occupational Profile/Medical and Therapy History: LOW - Brief history relating to presenting problem Patient Assessment: LOW - 1-3 performance deficits relating to physical, cognitive, psychosocial limitations/restrictions Clinical Decision Making: LOW - Low complexity, limited amount of treatment options, no assessment modification, no comorbidities Evaluation Complexity: Low Therapist Alpha Pager Number: [phone] linical Team - Nereyda Rico RN - 11/13/2020 4:51 AM CDT Upon Admission to [facility], skin assessment completed with Lizbeth Resendiz RN Upon skin assessment including pressure points findings include: Scab under the right nostril, scattered bruising in abdomen,old lap sites in abdomen, rash to bilateral forearms, bruise to the left AC,scars to bilateral knees, blanchable redness to buttocks, bruising to bilateral lower extremities, dry heels bilaterally. documented in this encounter Plan of Treatment Date Type Specialty Care Team Description 11/27/2020 Office Visit Nephrology Deon Chavarria MD [address] [place], [place] [id number] 12/02/2020 Ancillary Procedure Radiology 12/04/2020 Orders Only Laboratory 12/06/2020 Office Visit Oncology Jerry Wang MD [address] [place], [place] [id number] 12/18/2020 Orders Only Laboratory 12/25/2020 Office Visit Oncology Jerry Wang MD [address] [place], [place] [id number] Name Type Priority Associated Diagnoses Order S chedule RENAL FUNCTION PANEL Lab Routine Early A M draw for labs until discontinued st arting 11/16/2020, 1 c ompleted MAGNESIUM Lab Routine Early AM draw f or labs until discontinued st arting 11/16/2020, 1 c ompleted Name Type Priority Associated Diagnoses Order S chedule CLINIC REFERRAL HEART Referral Routine Acute systolic hear t Ordered: 11/15/2020 FAILURE PROGRAM ONE failure (HCC) CHART documented as of this encounter Implants Implanted Type Area Mineral Surveyor Device Shelf Model / Identifier Expiration Serial / Date Lot Cmnt Bone Simplex P Stry 40gm N 6191-1-001 Ea - Sn/A Bone/Tiss Right: KNEE FERNANDA 02/18/2019 [id number] / Implanted: Qty: 1 on 07/22/2016 by Felipe Manzo MD at [facility] ue/Allogr N/A / aft [id number] Knee Psn Ptla All Pe Ve 38mm N [id number] Ea - Sn/A Total Jt Ri ght: CARISSA 06/20/2021 [id number] / Implanted: Qty: 1 on 07/22/2016 by Felipe Manzo MD at [facility] Knee PATELLA N/A / [id number] Knee Psn Tib Stem 5d Rt Szf N [id number] Ea - Sn/A Total Jt Right: KNEE CARISSA 03/20/2026 [id number] / Implanted: Qty: 1 on 07/22/2016 by Felipe Manzo MD at [facility] Knee N/A / [id number] Knee Psn Fem Pscmnt Std Rt Sz8 N [id number] Ea - Sn/A Total Jt Right: KNEE CARISSA 12/18/2025 [id number] / Implanted: Qty: 1 on 07/22/2016 by Felipe Manzo MD at [facility] Knee N/A / [id number] Knee Psn Asf Ps Ve [id number] Ef N [id number] Ea - Sn/A Total Jt Right: KNEE CARISSA 10/18/2017 [id number] / Implanted: Qty: 1 on 07/22/2016 by Felipe Manzo MD at [facility] Knee N/A / [id number] documented as of this encounter Procedures Procedure Name Priority Date/Time Associated Comments Diagnosis MAGNESIUM Routine 11/16/2020 6:25 Results for this AM CDT procedure are i n the results section. RENAL FUNCTION PANEL Routine 11/16/2020 6:25 Res ults for this AM CDT procedure are i n the results section. MAGNESIUM Routine 11/15/2020 8:53 Results for this AM CDT procedure are i n the results section. RENAL FUNCTION PANEL Routine 11/15/2020 8:53 Res ults for this AM CDT procedure are i n the results section. GLUCOSE BY METER, POCT Routine 11/14/2020 11:47 R esults for this AM CDT procedure are i n the results section. PETCT NUCLEAR STRESS Routine 11/14/2020 10:38 Res ults for this TEST RB-82 AM CDT procedure are i n the results section. COMPLETE BLOOD COUNT CHAVA 11/14/2020 10:25 Res ults for this WITHOUT DIFFERENTIAL AM CDT procedu re are in the results section. MAGNESIUM CHAVA 11/14/2020 10:25 Results for this AM CDT procedure are i n the results section. AMMONIA Routine 11/14/2020 10:25 Results for this AM CDT procedure are i n the results section. RENAL FUNCTION PANEL CHAVA 11/14/2020 10:25 Res ults for this AM CDT procedure are i n the results section. TROPONIN I CHAVA 11/13/2020 5:58 Results for this PM CDT procedure are i n the results section. ECHO ADULT COMPLETE Routine 11/13/2020 1:37 Resu lts for this PM CDT procedure are i n the results section. XRAY CHEST PA AND Routine 11/13/2020 11:13 Malignant neoplasm Results for this LATERAL AM CDT of left kidney procedure are in (HCC) the results section. NM LUNG VQ SCAN Routine 11/13/2020 11:02 Results for this VENTILATION AND AM CDT procedure ar e in PERFUSION the results section. LAB ONLY-COMPLETE Routine 11/13/2020 9:21 Result s for this BLOOD COUNT WITH AM CDT procedure a re in DIFFERENTIAL the results section. PROCALCITONIN Routine 11/13/2020 9:21 Results fo r this AM CDT procedure are i n the results section. C-REACTIVE PROTEIN Routine 11/13/2020 9:21 Resul ts for this (INFLAMMATION) AM CDT procedure are in the results section. TROPONIN I Routine 11/13/2020 9:21 Results for this AM CDT procedure are i n the results section. MAGNESIUM Routine 11/13/2020 9:21 Results for this AM CDT procedure are i n the results section. RENAL FUNCTION PANEL Routine 11/13/2020 9:21 Res ults for this AM CDT procedure are i n the results section. LAB ONLY-COMPLETE Routine 11/13/2020 9:21 Result s for this BLOOD COUNT WITH AM CDT procedure a re in DIFFERENTIAL the results section. BRAIN NATRIURETIC Routine 11/13/2020 9:21 Result s for this PEPTIDE AM CDT procedure are i n the results section. documented in this encounter Results MAGNESIUM (11/16/2020 6:25 AM CDT) Pathologist [facility] Magnesium 1.8 1.8 - 2.4 mg/dL [address] Specimen Blood - Blood specimen (specimen) Performing Organization Address City/State/ZIP Code Phon e Number [address], [place] [address] RENAL FUNCTION PANEL (11/16/2020 6:25 AM CDT) Pathologist [facility] Glucose 105 (H) 70 - 100 mg/dL [address] BUN 40 (H) 6 - 22 mg/dL [address] Creatinine 2.38 (H) 0.60 - 1.[address] mg/dL BUN/Creatinine Ratio 16.8 10.0 - 25.[address] Sodium 143 135 - 145 meq/L [address] Potassium 4.6 3.5 - 5.3 meq/L [address] Chloride 103 99 - 110 meq/L [place] [address] [facility] CO2 29 20 - 29 meq/L [address] Anion Gap with K 16 6 - 20 meq/L [address] Calcium 9.6 8.5 - 10.5 [place] [address] [facility] mg/dL Phosphorus 3.2 2.5 - 4.5 mg/dL [address] Albumin 3.2 (L) 3.5 - 5.0 g/dL [address] Corrected Calcium 10.2 8.5 - 10.5 [place] [address] [facility] mg/dL Age [address] eGFR Non- 20 (L) >=[address] Vincentian mL/min/1.73m2 eGFR 24 (L) >=[address] mL/min/1.73m2 Specimen Blood - Blood specimen (specimen) Performing Organization Address [facility] Phon e Number [place] [address] [facility] [address] [place] [address] MAGNESIUM (11/15/2020 8:53 AM CDT) Pathologist Sig nature Magnesium 1.8 1.8 - 2.4 mg/dL [place] [address] [facility] Specimen Blood - Blood specimen (specimen) Performing Organization Address [facility] Phon e Number [place] [address] [facility] [address] [place] [address] RENAL FUNCTION PANEL (11/15/2020 8:53 AM CDT) Pathologist Sig nature Glucose 145 (H) 70 - 100 mg/dL [address] BUN 37 (H) 6 - 22 mg/dL [address] Creatinine 2.62 (H) 0.60 - 1.[address] mg/dL BUN/Creatinine Ratio 14.1 10.0 - 25.[address] Sodium 141 135 - 145 meq/L [address] Potassium 3.7 3.5 - 5.3 meq/L [address] Chloride 99 99 - 110 meq/L [address] CO2 31 (H) 20 - 29 meq/L [address] Anion Gap with K 15 6 - 20 meq/L [address] Calcium 9.5 8.5 - 10.5 [place] [address] [facility] mg/dL Phosphorus 2.8 2.5 - 4.5 mg/dL [address] Albumin 3.3 (L) 3.5 - 5.0 g/dL [address] Corrected Calcium 10.1 8.5 - 10.5 [place] [address] [facility] mg/dL Age 75 Years [place] [address] [facility] eGFR Non- 18 (L) >=[address] Vincentian mL/min/1.73m2 eGFR 22 (L) >=[address] mL/min/1.73m2 Specimen Blood - Blood specimen (specimen) Performing Organization Address City/State/ZIP Code Phon e Number [place] [facility] [address] [facility] [place] [address] GLUCOSE BY METER, POCT (11/14/2020 11:47 AM CDT) Pathologist Sig nature Glucose POC 115 (H) 70 - 99 mg/dL [facility] O POINT OF CARE TESTING Specimen Blood - Blood specimen (specimen) Performing Organization Address [facility]/ZIP Code Phon e Number [facility] POINT [address] [facility] [place], [place] [address] OF CARE TESTING PETCT NUCLEAR STRESS TEST RB-82 (11/14/2020 10:38 AM CDT) Specimen Narrative Performed At This result has an attachment that is no t available. Name: TERESA PEREZCurt LAB : 1945 RADIOLOGY EXAM DATE AND TIME OF SERVICE: 11/14/2020 00:00:00 INDICATION: Heart failure, known or suspected, initial workup EXAM: PETCT NUCLEAR STRESS TEST RB-82 REQUESTING PROVIDER: Juany Booker NP Dosage of rubidium at rest 51 mCi, at stress 52 mCi. REASON FOR STUDY: A 75-year-old female with new hear t failure. Rule out ischemia. STRESS EKG PORTION: Patient underwent Lexiscan PET p rotocol. There was ST depression and T-wave inversion in multiple leads a t rest. This did not change appreciably during stress. Stress EKG overall was diagnostic due to resting ST-T wave changes and a pharmacologic stress test. TECHNIQUE: Gated and nongated perfusion images were obtained at rest and following vasodilator stress using rubidium-82 as the radioactive tracer. Images were reformatted into standard views. Absolut e flow quantification was also performed. FINDINGS: There is homogeneous uptake of radioactive tracer in all myocardial segments at stress and rest. There were n o significant fixed or reversible perfusion defects. Gated perfusion sharath ges show severe diffuse hypokinesis. Resting ejection fraction 29%, resting end-diastolic volume 207 mL, resting end-systolic volume 146 mL. S tress ejection fraction 33%, stress end-diastolic volume 198 mL, stre ss end-systolic volume 132 mL. TID 0.95 is within normal limits. C T attenuation map reveals mild coronary calcification within the left an terior descending and left circumflex coronary arteries. Absolute flow quantification shows global myocardial flow at rest of 1.05 mL/g per minute . Global myocardial flow at stress is 1.37 mL/g per minute. Global myoca rdial flow reserve was 1.31, which is moderate to severely reduced. IMPRESSION: 1. Abnormal study due to reduced systolic function . 2. Normal stress and rest perfusion images. No e vidence of ischemia or infarction. 3. Dilated left ventricular cavity. Severely red uced left ventricular ejection fraction with severe diffuse hypokinesis. 4. Mild coronary calcification. 5. Reduced global myocardial flow reserve. This most likely reflects endothelial dysfunction or small vessel disease since the perfusion images were normal. 6. 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 Fang Cox MD Receipt: [id number] Trans ID: [id number] WELT WHEELER WELT WHEELER CSN: [id number] Order Phys: JUANY BOOKER MR#/TONY#: [id number] Admit Date: 11/12/2020 [facility] RADIOLOGY REPORT [facility] Performing Organization Address City/State/ZIP Code Phon e Number LAB RENAL FUNCTION PANEL (11/14/2020 10:25 AM CDT) [facility] nature Glucose 118 (H) 70 - 100 mg/dL [address] BUN 36 (H) 6 - 22 mg/dL [place] [address] [facility] Creatinine 2.73 (H) 0.60 - 1.[address] mg/dL BUN/Creatinine Ratio 13.2 10.0 - 25.0 [place] [address] [facility] Sodium 143 135 - 145 meq/L [address] Potassium 3.8 3.5 - 5.3 meq/L [address] Chloride 100 99 - 110 meq/L [place] [address] [facility] CO2 31 (H) 20 - 29 meq/L [address] Anion Gap with K 16 6 - 20 meq/L [address] Calcium 10.0 8.5 - 10.5 [place] [address] [facility] mg/dL Phosphorus 2.8 2.5 - 4.5 mg/dL [place] [address] [facility] Albumin 3.5 3.5 - 5.0 g/dL [address] Corrected Calcium 10.4 8.5 - 10.[address] mg/dL Age [address] eGFR Non- 17 (L) >=[address] Vincentian mL/min/1.73m2 eGFR 21 (L) >=[address] mL/min/1.73m2 Specimen Blood - Blood specimen (specimen) Performing Organization Address [facility] Phon e Number [address] [place] [address] COMPLETE BLOOD COUNT WITHOUT DIFFERENTIAL (11/14/2020 10:25 AM CDT) Pathologist Sig nature WBC 3.9 (L) 4.0 - 11.0 K/uL [address] RBC 4.66 3.80 - 5.30 M/uL [address] Hemoglobin 12.3 11.5 - 15.8 g/dL [address] Hematocrit 39.0 35.0 - 45.0 % [address] MCV 83.7 80.0 - 98.[address] MCH 26.4 25.5 - 34.[address] MCHC 31.5 31.5 - 36.5 g/dL [address] RDW-CV 15.6 (H) 11.5 - 15.5 % [address] RDW-SD 46.2 35.5 - 50.[address] Platelet Count 181 140 - 400 K/uL [address] MPV 9.5 8.5 - 12.[address] Specimen Blood - Blood specimen (specimen) Performing Organization Address [facility] Phon e Number [place] [address] [facility] [address] [place] [address] MAGNESIUM (11/14/2020 10:25 AM CDT) Pathologist Sig nature Magnesium 1.9 1.8 - 2.4 mg/dL [address] Specimen Blood - Blood specimen (specimen) Performing Organization Address [facility] Phon e Number [place] [address] [facility] [address] [place] [address] AMMONIA (11/14/2020 10:25 AM CDT) Pathologist Sig nature Ammonia 25 10 - 45 uMol/L [address] Specimen Blood - Blood specimen (specimen) Performing Organization Address [facility] Phon e Number [place] [facility] [address], [place] [address] TROPONIN I (11/13/2020 5:58 PM CDT) Pathologist Sig nature Troponin I 0.013 0.000 - 0.028 ng/mL [address] Specimen Blood - Blood specimen (specimen) Performing Organization Address [facility] Phon e Number [facility] [address] [place] [address] ECHO ADULT COMPLETE (11/13/2020 1:37 PM CDT) Specimen Narrative Performed At This result has an attachment that is no t available. [facility] Patient: TERESA PEREZ MR#: [id number] Exam Date: 11/13/2020 Transthoracic Echocardiogram [facility] [address] [place] [address] BP: 147/90 mmHg HR: 60 bpm : 1945 Exam Location: Height: 68.00 "(172.7 cm) Age: 75 year(s) Patient Room: [place] [address] Weight: 258 lbs.(117.03 kg) Gender: Female Patient Status: Inpatient BSA: 2.28 m2 [employer] Room Servicer: KARENA SORIANO RDCS [place] Physician: CARIE HINDS MD Ordering Physician: NERY GIRON MD Procedure Indication(s): Congestive heart failure Examination: TTE Complete 2D(m-mode), Complete Spectral Doppler, Color Doppler Conclusions Left Ventricle: Markedly reduced left ventricular systol ic function. The ejection fraction is visually estimated to be 20 %. Left Atrium: Markedly dilated left atrium. Aortic Valve: Mild aortic regurgitation. Aortic valve mean gradient is 19 mmHg. Estimated aortic valve area (by VTI) is 1.6 cm-sq. Aortic valve obstructive index (by VTI) is 0.36. Open ing looks quite restricted but probably due to low output state.Severity of Aortic stenosis not clear . May need to consider Dobutamine e cho to review this. Mitral Valve: Mild mitral regurgitation. Right Ventricle: Normal right ventricular systolic functi on on visualized images although quality poor.. Pericardium: No significant pericardial effusion. Comparison Study Comparison Date: 08/18/2019 Comparison Study: Transthoracic Echocardiogram There was no significant change from prior echo Findings Left Ventricle: Dilated left ventricle. Upper normal lef t ventricular wall thickness. Markedly reduced left ventricular systolic function. The ejection fraction is visually estimated to be 20 %. There is global hypokinesis of the left ventricle. Grade 2 left ventricular diastolic dysfunction. Left Atrium: Markedly dilated left atrium. Aortic Valve: The aortic valve is tricuspid. Marked ao rtic cuspal calcification. Mild aortic regurgitation. Aortic valve mean gradient is 19 mmHg. Estimated aortic valve area (by VT I) is 1.6 cm-sq. Aortic valve obstructive index (by VTI) is 0.36. Opening looks quite restricted but probably due to low outpu t state.Severity of Aortic stenosis not clear . May need to consider Dobutamine echo to review this. Aorta: The sinus of valsalva is normal in size measuring 35.0 mm. The ascending aorta is normal in size measuring 38.0 mm. Mitral Valve: Normal mitral valve structure. Mild mitr al regurgitation. No mitral stenosis. IAS: No evidence of an atrial shunt by color Doppler. Right Ventricle: Normal right ventricular size. Normal ri ght ventricular systolic function on visualized images although quality poor.. Normal right ventricular wall thickness. Pulmonary Artery: The tricuspid jet envelope definition is inadequate for estimation of RV systolic pressure. Right Atrium: Normal right atrial size. Tricuspid Valve: Normal tricuspid valve structure. No significant tricu spid regurgitation. Pulmonic Valve: Normal pulmonary valve structure. No sig nificant pulmonary regurgitation. No pulmonary stenosis. Pericardium: No significant pericardial effusion. No pleural effusi on. Measurements Left Ventricle Aortic Valve Label Value Normal Value Label Value Normal Value LVDd, 2D 59.4 mm LVOT Vmax 81 cm/s LVDs, 2D 53.6 mm AV Vmax 284 cm/s IVSd, 2D 11.3 mm LVOTd 24 mm LVPWd, 2D 11.3 mm LVOT VTI 20.05 cm FS, 2D 9.76 % LVOT PGmax 3 mmHg LVEF, 2D 21 % AV Vmean 169 cm/s LVEDV, 2D 176 ml AV VTI 55.89 cm LVESV, 2D 139 ml AV PGmax 23 mmHg LVEDVI, 2D 77.2 ml/m 2 ANSELMO (Vmax) 1.5 cm-sq LVESVI, 2D 61 ml/m2 AV Vmax, Caliper 242 cm/s Cardiac Output 5.46 L/min Obstructive Index 0.29 Cardiac Index 2.39 (Vmax) L/min/m-sq AV PGmean 19 mmHg Stroke Index 39.91 ANSELMO (VTI) 1.6 cm-sq ml/m-sq Obstruction Index 0.36 Left Atrium (VTI) Label Value Normal Value Mitral Valve LA Volume Index 47 ml/m-sq Label Value Normal Value Aorta MV E Vmax 99 cm/s Label Value Normal Value MV A Vmax 76 cm/s Ao Asc 38 mm MV E/E' septal 17.7 Ao Sinus, 2D 35 mm MV Dec Time 226 ms Heart Rate MV E' septal 0.1 cm/s Label Value Normal Value MV E/A 1.3 Heart Rate 60 bpm Procedure Note [employer] Results No Pull Forward - 11/13/2020 2:19 PM CDT Patient: TERESA PEREZ MR#: [id number] Exam Date: 11/13/2020 Transthoracic Echocardiogram [facility] [address] [place] [address] BP: 147/90 mmHg HR: 60 bpm : 1945 Exa m Location: Height: 68.00 "(172.7 cm) Age: 75 year(s) Pat ient Room: [place] [address] Weight: 258 lbs.(117.03 kg) Gender: Female Pat ient Status: Inpatient BSA: 2.28 m2 [employer] Room Servicer: KARENA Olivares, [facility] Reading Physician: TRICIA HINDS MD Ordering Physician: NREY CASTRO MD Procedure Indication(s): Conges tive heart failure Examination: TTE Co mplete 2D(m-mode), Complete Spectral Doppler, Color Doppler Conclusions Left Ventricle: Markedly reduced left ventricular systol ic function. The ejection fraction is visually estimated to be 20 %. Left Atrium: Markedly dilated left atrium. Aortic Valve: Mild aortic regurgitation. Aortic valve mean gradient is 19 mmHg. Estimated aortic valve area (by VTI) is 1.6 cm-sq. Aortic valve obstructive index (by VTI) is 0.36. Open ing looks quite restricted but probably due to low output state.Severity of Aortic stenosis not clear . May need to conside r Dobutamine echo to review this. Mitral Valve: Mild mitral regurgitation. Right Ventricle: Normal right ventricular systolic functi on on visualized images although quality poor.. Pericardium: No significant pericardial effusion. Comparison Study Comparison Date: 08/18/2019 Comparison Study: Transthoracic Echocard iogram There was no significant change from prema or echo Findings Left Ventricle: Dilated left ventricle. Upper normal lef t ventricular wall thickness. Markedly reduced left ventricular systolic function. The ejection fraction is visually estimated to be 20 %. There is global hypokinesis of the left ventricle. Grade 2 left ventricular diastolic dysfunction. Left Atrium: Markedly dilated left atrium. Aortic Valve: The aortic valve is tricuspid. Marked ao rtic cuspal calcification. Mild aortic regurgitation. Aortic valve mean gradient is 19 mmHg. Estimated aortic valve area (by VT I) is 1.6 cm-sq. Aortic valve obstructive index (by VTI) is 0.36. Opening looks quite restricted but probably due to low outpu t state.Severity of Aortic stenosis not clear . May need to consider Dobutamine echo to review this. Aorta: The sinus of valsalva is normal in size measuring 35.0 mm. The ascending aorta is normal in size measuring 38.0 mm. Mitral Valve: Normal mitral valve structure. Mild mitr al regurgitation. No mitral stenosis. IAS: No evidence of an atrial shunt by color Doppler. Right Ventricle: Normal right ventricular size. Normal ri ght ventricular systolic function on visualized images although quality poor.. Normal right ventricular wall thickness. Pulmonary Artery: The tricuspid jet envelope definition is inadequate for estimation of RV systolic pressure. Right Atrium: Normal right atrial size. Tricuspid Valve: Normal tricuspid valve structure. No sig nificant tricuspid regurgitation. Pulmonic Valve: Normal pulmonary valve structure. No sig nificant pulmonary regurgitation. No pulmonary stenosis. Pericardium: No significant pericardial effusion. No pleural effusion. Measurements Left Ventricle Aortic Valve Label Value Nor mal Value Label Value Normal Value LVDd, 2D 59.4 mm LVOT Vmax 81 cm/s LVDs, 2D 53.6 mm AV Vmax 284 cm/s IVSd, 2D 11.3 mm LVOTd 24 mm LVPWd, 2D 11.3 mm LVOT VTI 20.05 cm FS, 2D 9.76 % LVOT PGmax 3 mmHg LVEF, 2D 21 % AV Vmean 169 cm/s LVEDV, 2D 176 ml AV VTI 55.89 cm LVESV, 2D 139 ml AV PGmax 23 mmHg LVEDVI, 2D 77.2 ml/m2 ANSELMO (Vmax) 1.5 cm-sq LVESVI, 2D 61 ml/m2 AV Vmax, Caliper 242 cm/s Cardiac Output 5.46 L/min Obstructive Index 0.29 Cardiac Index 2.39 (Vmax) L/min/m-sq A V PGmean 19 mmHg Stroke Index 39.91 ANSELMO (VTI) 1.6 cm-sq ml/m-sq O bstruction Index 0.36 Left Atrium (VTI) Label Value Nor mal Value Mitral Valve LA Volume Index 47 ml/m-sq Label Value Normal Value Aorta MV E Vmax 99 cm/s Label Value Nor mal Value MV A Vmax 76 cm/s Ao Asc 38 mm MV E/E' septal 17.7 Ao Sinus, 2D 35 mm MV Dec Time 226 ms Heart Rate MV E' septal 0.1 cm/s Label Value Nor mal Value MV E/A 1.3 Heart Rate 60 bpm Performing Organization Address City/State/ZIP Code Phon e Number [facility] [place], [place] XRAY CHEST PA AND LATERAL (11/13/2020 11:13 AM CDT) Specimen Narrative Performed At [facility] Patient Name: TERESA PEREZ Date of : 1945 Procedure: XRAY CHEST PA AND LATERAL Date of Service: 11/13/2020 EXAM: XRAY CHEST PA AND LATERAL INDICATION: ICD-10 C64.2 Malignant neopl asm of left kidney COMPARISON(S): Chest radiograph from November 12, 2020 FINDINGS: There are small pleural effusions bilaterall y similar to the prior study. Bibasilar opacities are also present like ly representing associated atelectasis. Mild cardiomegaly is stable. T here is mild pulmonary edema which has improved since the prior. Ch ronic left lower rib fracture deformities and multiple ri ght axillary surgical clips. IMPRESSION: 1. Improvement in now mild pulmonary epi ma since the prior day's study. 2. Small pleural effusions, greater on the left, and a ssociated bibasilar atelectasis is stable. Finalized by: Magdiel Gaitan MD on 11/13 1:14 PM CDT Patient/Procedure Information: [facility] MRN/TONY: [id number] Order Number: [id number] Accession Number: [id number] Ordering Provider: JERRY WANG Authorizing Provider: JERRY WANG Procedure Note Interface, Radiantres - 11/13/2020 1:16 PM CDT Patient Name: TERESA PEREZ Date of : 1945 Procedure: XRAY CHEST PA AND LATERAL Date of Service: 11/13/2020 EXAM: XRAY CHEST PA AND LATERAL INDICATION: ICD-10 C64.2 Malignant neopl asm of left kidney COMPARISON(S): Chest radiograph from November 12, 2020 FINDINGS: There are small pleural effusi ons bilaterally similar to the prior study. Bibasilar opacities are also present likely representing associated atelectasis. Mild cardiomegaly is stable. There is mild pulmonary edema which has improved since the prior. Chronic left lower rib fracture deformities and multiple right axillary surgical clips. IMPRESSION: 1. Improvement in now mild pulmonary epi ma since the prior day's study. 2. Small pleural effusions, greater on t he left, and associated bibasilar atelectasis is stable. Finalized by: Magdiel Gaitan MD on 11/13 1:14 PM CDT Patient/Procedure Information: [facility] MRN/TONY: [id number] Order Number: [id number] Accession Number: [id number] Ordering Provider: JERRY WANG Authorizing Provider: JERRY WANG Performing Organization Address City/State/ZIP Code Phon e Number [id number] NM LUNG VQ SCAN VENTILATION AND PERFUSION (11/13/2020 11:02 AM CDT) Specimen Narrative Performed At [facility] Patient Name: TERESA PEREZ Date of : 1945 Procedure: NM LUNG VQ SCAN VENTILATION AND PERFUSION Date of Service: 11/13/2020 EXAM: NM LUNG VQ SCAN VENTILATION AND PE RFUSION INDICATION:PE suspected, low/intermediat e prob, positive D-dimer DOSE: 34 mCi technetium 99m DTPA Aerosol 5.42 mCi technetium 99m MAA IV. IMPRESSION: 1. Low probability for pulmonary embo lism FINDINGS: The perfusion study shows central radiotrace r impaction. This may be secondary to COPD/air trapping. The perfusion lung scan shows minimal peripheral heter ogeneity, but no clearly segmental or subsegmental perfusion defect. No ventilation/perfusion mismatch. Finalized by: Yosvany Amezcua MD on 5:30 PM CDT Patient/Procedure Information: [facility] MRN/TONY: [id number] Order Number: [id number] Accession Number: [id number] Ordering Provider: LUDWIG LAND Authorizing Provider: NERY CASTRO Procedure Note Interface, Radiantres - 11/13/2020 5:32 PM CDT Patient Name: TERESA PEREZ Date of : 1945 Procedure: NM LUNG VQ SCAN VENTILATION AND PERFUSION Date of Service: 11/13/2020 EXAM: NM LUNG VQ SCAN VENTILATION AND PE RFUSION INDICATION:PE suspected, low/intermediat e prob, positive D-dimer DOSE: 34 mCi technetium 99m DTPA Aerosol 5.42 mCi technetium 99m MAA IV. IMPRESSION: 1. Low probability for pulmonary embol ism FINDINGS: The perfusion study shows cent ral radiotracer impaction. This may be secondary to COPD/air trapping. The perfusion lung scan shows minimal pe ripheral heterogeneity, but no clearly segmental or subsegmental perfusion defect. No ventilation/perfusion mismatch. Finalized by: Yosvany Amezcua MD on 5:30 PM CDT Patient/Procedure Information: [facility] MRN/TONY: [id number] Order Number: [id number] Accession Number: [id number] Ordering Provider: LUDWIG LAND Authorizing Provider: NERY ALMAZAN NIS Performing Organization Address [facility] Phon e Number [id number] PROCALCITONIN (11/13/2020 9:21 AM CDT) Pathologist Sig nature Procalcitonin 0.12 (H) <0.07 ng/mL [address] Specimen Blood - Blood specimen (specimen) Narrative Performed At Suspected Lower Respiratory Tract Infect ion: [address] 0.1-0.25: Low risk for bacterial infection; Antibiotic s discouraged. > 0.25: Increased likelihood for bacterial infection; Antibiotics encouraged. Suspected Sepsis: 0.1-0.5: Low likelihood for sepsis; Anti biotics discouraged. > 0.5: Increased Likelihood for sepsis; Antibiotics encouraged. > 2.0: High risk of sepsis/septic shock; Antibiotics s trongly encouraged. Decisions on antibiotic use should not be based solely on procalcitonin levels. If antibiotics are administered, repeat procalcitonin testing should be performed every 2-3 da ys to consider early antibiotic cessation. PCT is a dynamic biomarker and most useful when trends are analyzed over time in accompaniment with other clinical data. Performing Organization Address [facility] Phon e Number [address] [place] [phone] C-REACTIVE PROTEIN QUANTITATIVE (11/13/2020 9:21 AM CDT) Pathologist Sig nature CRP 44.3 (H) 0.0 - 8.0 mg/L [address] Specimen Blood - Blood specimen (specimen) Performing Organization Address [facility] Phon e Number [address] [place] [phone] LAB ONLY-COMPLETE BLOOD COUNT WITH DIFFERENTIAL (11/13/2020 9:21 AM CDT) Pathologist Sig nature WBC 4.2 4.0 - 11.0 K/uL [address] RBC 4.17 3.80 - 5.[address] M/uL Hemoglobin 11.2 (L) 11.5 - 15.[address] g/dL Hematocrit 35.4 35.0 - 45.0 % [address] MCV 84.9 80.0 - 98.[address] MCH 26.9 25.5 - 34.[address] MCHC 31.6 31.5 - 36.[address] g/dL RDW-CV 15.4 11.5 - 15.5 % [address] RDW-SD 46.9 35.5 - 50.[address] Platelet Count 172 140 - 400 K/uL [address] MPV 9.9 8.5 - 12.[address] Seg Neut Absolute 2.8 1.8 - 8.0 K/uL [address] Lymphocytes Absolute 0.7 (L) 0.8 - 4.1 K/uL [place] [address] [facility] Monocytes Absolute 0.4 0.0 - 1.0 K/uL [address] Eosinophils Absolute 0.2 0.0 - 0.7 K/uL [place] [address] [facility] Basophil Absolute 0.1 0.0 - 0.2 K/uL [address] Immature Granulocyte 0.01 0.00 - 0.[address] Absolute K/uL Neutrophils Abs. 2,800 /uL [address] (Segs and Bands) Neutrophils Percent 66.1 % [address] Lymphocytes Percent 17.0 % [address] Monocytes Percent 9.9 % [address] Immature Granulocyte 0.2 % [address] Percent Eosinophils Percent 5.4 % [address] Basophil Percent 1.4 % [address] Nucleated RBC 0 /[address] Specimen Blood - Blood specimen (specimen) Performing Organization Address City/[facility] Phon e Number [place] [address] [facility] [address] [place] [phone] TROPONIN I (11/13/2020 9:21 AM CDT) Pathologist Sig nature Troponin I 0.016 0.000 - 0.028 ng/mL [address] Specimen Blood - Blood specimen (specimen) Performing Organization Address [facility] Phon e Number [place] [address] [facility] [address] [place] [address], [place] [address] BRAIN NATRIURETIC PEPTIDE (11/13/2020 9:21 AM CDT) Pathologist Sig nature BNP 1,457 (H) 0 - 100 pg/mL [address] Specimen Blood - Blood specimen (specimen) Performing Organization Address [facility] Phon e Number [place] [address] [facility] [address] [place] [address], [place] [address] MAGNESIUM (11/13/2020 9:21 AM CDT) Pathologist Sig [facility] Magnesium 1.9 1.8 - 2.4 mg/dL [address] Specimen Blood - Blood specimen (specimen) Performing Organization Address [facility] Phon e Number [place] [address] [facility] [address] [place] [address], [place] [address] RENAL FUNCTION PANEL (11/13/2020 9:21 AM CDT) Pathologist Sig [facility] Glucose 140 (H) 70 - 100 mg/dL [address] BUN 36 (H) 6 - 22 mg/dL [address] Creatinine 2.90 (H) 0.60 - 1.[address] mg/dL BUN/Creatinine Ratio 12.4 10.0 - 25.[address] Sodium 139 135 - 145 meq/L [address] Potassium 4.0 3.5 - 5.3 meq/L [address] Chloride 101 99 - 110 meq/L [address] CO2 30 (H) 20 - 29 meq/L [address] Anion Gap with K 12 6 - 20 meq/L [address] Calcium 9.8 8.5 - 10.[address] mg/dL Phosphorus 3.1 2.5 - 4.5 mg/dL [address] Albumin 3.2 (L) 3.5 - 5.0 g/dL [address] Corrected Calcium 10.4 8.5 - 10.5 [place] [address] [facility] mg/dL Age 75 Years [place] [address] [facility] eGFR Non- 16 (L) >=[address] Vincentian mL/min/1.73m2 eGFR 19 (L) >=[address] mL/min/1.73m2 Specimen Blood - Blood specimen (specimen) Performing Organization Address [facility] Phon e Number [place] [address] [facility] [address] [place] [address], [place] [address] documented in this encounter Visit Diagnoses Diagnosis Acute combined systolic and diastolic he art failure (HCC) - Primary Acute combined systolic and diastolic he art failure Acute on chronic heart failure, unspecif ied heart failure type (HCC) Malignant neoplasm of left kidney (HCC) Acute systolic heart failure (HCC) Acute systolic heart failure DOMENIC (acute kidney injury) (HCC) Acute kidney failure, unspecified Heart failure (HCC) Heart failure, unspecified Acute heart failure (HCC) Heart failure, unspecified documented in this encounter Discharge Diagnoses Not on filedocumented in this encounter Administered Medications Medication Order MAR Action Action Date Dose Rate Site aspirin enteric coated tablet 81 Given 11/16/2020 8:13 AM CDT 8 1 mg mg 81 mg, Oral, DAILY, First dose on Wed11/13/20 at 0900, Until Discontinued, Tablet should be swallowed whole and not be divided, crushed or chewed. Given 11/15/2020 8:16 AM CDT 81 mg Given 11/14/2020 10:49 AM CDT 81 mg bisacodyl (DULCOLAX) suppository 10 mg 10 mg, Rectal, One time a day prn, Starting on 10/20 at 2318, Until Discontinued, constipation, Use SECOND for constipatio n. If patient cannot take oral medications, use first for constipation. calcium carbonate (TUMS) chewable tablet 1,000 mg 1,000 mg, Oral, Every four hours prn, Starting on Wed11/12/20 at 2318, Until Discontinued, other (Specify), acid reflux, Use FIRST for acid reflux. If ineffective after 60 minutes, may proceed to next chacon ce option or, if no other options, contact provider. carVEDilol (COREG) tablet 6.25 mg Given 11/16/2020 8:13 AM CDT 6.25 mg 6.25 mg, Oral, Two times a day with meals, First dose (after last modification) on Wed11/14/20 at 0800, Until Discontinued, Take with food. Hold if sbp <100 Hold if HR <50 Given 11/15/2020 5:04 PM CDT 6.25 mg Given 11/15/2020 8:16 AM CDT 6.25 mg docusate sodium (THEREVAC-SB MINI;ENEMEE Z MINI) 283 MG enema 1 enema 1 enema, Rectal, One time a day prn, Starting on Wed at 2318, Until Discontinued, constipation, Use THIRD for constipation - if no BM 8 hours after dulcolax suppository. If patient cannot take oral medi cations, use second for constipation. furosemide (LASIX) tablet 40 mg Given 11/16/2020 8:13 AM CDT 40 mg 40 mg, Oral, Two times a day diuretic, First dose on Wed11/15/20 at 1600, Until Discontinued, Hold for SBP less than 100 Given 11/15/2020 4:15 PM CDT 40 mg heparin (porcine) injection solution Given 11/16/2020 5:50 AM C DT 5,000 Units 5,000 Units 5,000 Units, Subcutaneous, Every eight hours, First dose on Wed11/13/20 at 2200, Until Discontinued, 1 mL Given 11/15/2020 10:19 PM CDT 5,000 Units Given 11/15/2020 2:04 PM CDT 5,000 Units magnesium oxide tablet 500 mg Given 11/16/2020 8:13 AM CDT 500 mg 500 mg, Oral, Daily, First dose on Wed11/14/20 at 1105, Until Discontinued Given 11/15/2020 8:16 AM CDT 500 mg Given 11/14/2020 11:23 AM CDT 500 mg melatonin tablet 3 mg 3 mg, Oral, Bedtime prn, Starting on Wed11/12/20 at 2317, Until Discontinued, other (Specify), insomnia, Use FIRST for insom alex. If inadequate response in 60 minutes, may proceed to next choice option or, if no other opti ons, contact provider. nitroglycerin (NITROSTAT) sublingual tab let 0.4 mg 0.4 mg, Sublingual, Every five minutes p rn, Starting on Wed11/12/20 at 2315, Until Discontinued, chest pain, Administer nitroglycerin FIR ST for chest pain if SBP greater than 90 mmHg; dissolve one table t under tongue; do not crush or chew May repeat every 5 minutes for a total of 3 doses if needed for continued pain as long as SBP remains greater than 90 mmHg. Notify provider if administered. omeprazole (priLOSEC) capsule 40 mg Given 11/13/2020 6:30 AM CDT 40 mg 40 mg, Oral, Two times a day before meals, First dose on Wed11/13/20 at 0700, Until Discontinued, Swallow cap whole. Do not crush, chew or open. rosuvastatin (CRESTOR) tablet 10 mg Given 11/15/2020 8:01 PM CDT 10 mg 10 mg, Oral, Bedtime, First dose on Wed11/13/20 at 2100, Until Discontinued Given 11/14/2020 9:18 PM CDT 10 mg Given 11/13/2020 8:04 PM CDT 10 mg saline (AYR,OCEAN) nasal spray Given 11/14/2020 12:36 PM CDT 2 sprays 2 spray, Each nostril, Every two hours prn, Starting on Wed11/13/20 at 1449, Until Discontinued, other (Specify), dryness, 44 mL senna-docusate sodium (SENOKOT-S;PERICOL BESS) tablet 2 tablet 2 tablet, Oral, Two times a day prn, Starting on Wed at 2318, Until Discontinued, constipation, Use FIRST fo r constipation unless patient cannot take oral medications. sodium chloride 0.9% flush (adult) 10 mL Given 11/13/2020 8:04 PM CDT 10 mL 10 mL, IV, Two times a day and prn, First dose on Wed11/12/20 at 2205, Until Discontinued, 10 mL, Flush PIV line as scheduled and as often as necessary before and after meds. Use a push / pause technique when flushing to create turbulence. Given 11/13/2020 8:35 AM CDT 10 mL Given 11/12/2020 10:22 PM CDT 10 mL sodium chloride 0.9% flush (adult) 10 mL Given 11/14/2020 9:18 PM CDT 10 mL 10 mL, IV, Two times a day and prn, First dose on Wed11/13/20 at 0900, Until Discontinued, 10 mL, Flush PIV line as scheduled and as often as necessary before and after meds. Use a push / pause technique when flushing to create turbulence. Given 11/14/2020 10:50 AM CDT 10 mL Given 11/14/2020 9:15 AM CDT 10 mL sodium chloride 0.9% flush (adult) 10 mL Given 11/16/2020 8:14 AM CDT 10 mL 10 mL, IV, Two times a day and prn, First dose on Wed11/14/20 at 0900, Until Discontinued, 10 mL, Flush PIV line as scheduled and as often as necessary before and after meds. Use a push / pause technique when flushing to create turbulence. Given 11/15/2020 8:01 PM CDT 10 mL Given 11/15/2020 8:16 AM CDT 10 mL Medication Order MAR Action Action Date Dose Rate Site 82Rb-rubidium 60 Given 11/14/2020 9:51 AM 52.6 millicuries millicurie CDT 60 millicurie, IV, Now imaging, 2 doses, Starting on Wed11/14/20 at 0949, Until Wed11/14/20 at 0951 Given 11/14/2020 9:40 AM CDT 51.14 millicuries 82Rb-rubidium 60 millicurie Given 11/14/2020 9:53 AM CDT 34.62 millicuries 60 millicurie, IV, Now imaging, 1 dose, Starting on Wed11/14/20 at 0952, Until Wed11/14/20 at 0953 99mTc-DTPA Aerosol 35 Given 11/13/2020 10:41 AM 34 millicuries Other (See millicurie CDT Comments) 35 millicurie, Inhalation, Now imaging, 1 dose, Starting on Wed11/13/20 at 1040, Until Wed11/13/20 at 1041 99mTc-MAA Lung 5 Given 11/13/2020 10:46 AM 5.42 millicuries Left Wrist millicurie CDT Inner IV 5 millicurie, IV, Now imaging, 1 dose, Starting on Wed11/13/20 at 1040, Until Wed11/13/20 at 1046 atenolol (TENORMIN) tablet 50 mg Given 11/13/2020 8:35 AM CDT 50 mg 50 mg, Oral, DAILY, First dose on Wed11/13/20 at 0900, Until Discontinued, Hold for SBP less than 100 Hold for HR less than 60 furosemide (LASIX) injection solution 20 mg Given 11/14/2020 1:21 PM CDT 20 mg 20 mg, IV, One time, 1 dose, On Shawna 11/14/20 at 1255, 2 mL, If preference is to further dilute for IV administration: First draw up patient-specific dose, then dilute to 10 mL with 0.9% sodium chloride. Administer SLOW IV push. furosemide (LASIX) injection solution 40 mg Given 11/13/2020 2:20 AM CDT 40 mg 40 mg, IV, One time, 1 dose, On Wed11/13/20 at 0110, 4 mL, If preference is to further dilute for IV administration: First draw up patient-specific dose, then dilute to 10 mL with 0.9% sodium chloride. Administer SLOW IV push. furosemide (LASIX) injection solution 40 mg Given 11/13/2020 1:10 PM CDT 40 mg 40 mg, IV, One time, 1 dose, On Wed11/13/20 at 1335, 4 mL, If preference is to further dilute for IV administration: First draw up patient-specific dose, then dilute to 10 mL with 0.9% sodium chloride. Administer SLOW IV push. furosemide (LASIX) injection solution 40 mg Given 11/14/2020 12:35 PM CDT 40 mg 40 mg, IV, One time, 1 dose, On Shawna 11/14/20 at 1300, 4 mL, If preference is to further dilute for IV administration: First draw up patient-specific dose, then dilute to 10 mL with 0.9% sodium chloride. Administer SLOW IV push. furosemide (LASIX) injection solution 40 mg Given 11/15/2020 10:02 AM CDT 40 mg 40 mg, IV, Two times a day diuretic, First dose on Wed11/15/20 at 0955, Until Discontinued, 4 mL, If preference is to further dilute for IV administration: First draw up patient-specific dose, then dilute to 10 mL with 0.9% sodium chloride. Administer SLOW IV push. heparin (porcine) injection solution Given 11/13/2020 1:14 PM C DT 5,000 Units 5,000 Units 5,000 Units, Subcutaneous, Every eight hours, First dose on Wed11/12/20 at 2325, Until Discontinued, 1 mL Given 11/13/2020 6:30 AM CDT 5,000 Units Given 11/13/2020 2:21 AM CDT 5,000 Units potassium chloride (KLOR-CON M20) CR tablet Given 10/20 11:23 AM CDT 20 mEq 20 mEq 20 mEq, Oral, One time, 1 dose, On Shawna 11/14/20 at 1205, Tablet may be broken in half, but should not be crushed or chewed. Tablet may be dissolved in 4 oz of water. DO NOT give via feeding tube route as this can clog the tube. potassium chloride (KLOR-CON M20) CR tablet Given 10/20 11:16 AM CDT 20 mEq 20 mEq 20 mEq, Oral, One time, 1 dose, On Wed11/15/20 at 1150, Tablet may be broken in half, but should not be crushed or chewed. Tablet may be dissolved in 4 oz of water. DO NOT give via feeding tube route as this can clog the tube. regadenoson (LEXISCAN) syringe 0.4 mg Given 11/14/2020 9:52 AM CDT 0.4 mg 0.4 mg, IV, One time, 1 dose, On Shawna 11/14/20 at 0900, 5 mL, Administer over 10-20 seconds For administration in CV diagnostics documented in this encounter Active and Recently Administered Medications Times are shown in CDT. Medication Order 11/14/2020 11/15/2020 11/16/2020 82Rb-rubidium 60 millicurie (COMPLETED) 0940 (Given - Provider: SAGE Villar - Comment: rest)0951 (Given - Provider: SAGE Villar - Comment: lexiscan) 60 millicurie, IV, Now imaging, 2 doses, Starting on Shawna 11/14/20 at 0949, Until Discontinued 82Rb-rubidium 60 millicurie (COMPLETED) 0953 (Given - Provider: SAGE Villar - Comment: high pressure error okd by dr. cox) 60 millicurie, IV, Now imaging, 1 dose, Starting on Shawna 11/14/20 at 0952, Until Shawna 11/14/20 at 0953 aspirin enteric coated tablet 81 mg 1049 (Given - Prov ider: Alondra Hickman RN) 0816 (Given - Provider: Marva Goetz RN) 0813 ( Given - Provider: Marva Goetz, RN) 81 mg, Oral, DAILY, First dose on Wed at 0900, Until Discontinued, Tablet should be swallowed whole and not be divided, crushed or chewed. carVEDilol (COREG) tablet 6.25 mg 1049 (Given - Provid er: Alondra Hickman RN)1659 (Given - Provider: Alondra Hickman RN) 0816 (Given - Provider: Marva Goetz RN)1704 (Given - Provider: Marva Goetz RN) 0813 (Given - Provider: Marva Goetz RN)1730 (Due) 6.25 mg, Oral, Two times a day with meal s, First dose (after last modification) on Wed11/14/20 at 0800, Until Discontinued, Take with food. Hold if sbp <100 Hold if HR <50 furosemide (LASIX) injection solution 20 mg (COMPLETED ) 1321 (Given - Provider: Alondra Hickman RN) 20 mg, IV, One time, 1 dose, On 11/14 at 1255, 2 mL, If preference is to further dilute for IV administration: First draw up patient-specific dose, then dilute to 10 mL with 0.9% sodium chloride. Administer SLOW IV push. furosemide (LASIX) injection solution 40 mg (COMPLETED ) 1235 (Given - Provider: Alondra iHckman RN) 40 mg, IV, One time, 1 dose, On Shawna11/14 at 1300, 4 mL, If preference is to further dilute for IV administration: First draw up patient-specific dose, then dilute to 10 mL with 0.9% sodium chloride. Administer SLOW IV push. furosemide (LASIX) injection solution 40 mg (CANCELED) 1002 (Given - Provider: Marva Goetz RN) 40 mg, IV, Two times a day diuretic, Fir st dose on Wed11/15/20 at 0955, Until Discontinued, 4 mL, If preference is to further dilute for IV administration: First draw up patient-specific dose, then dilu te to 10 mL with 0.9% sodium chloride. Administer SLOW IV push. furosemide (LASIX) tablet 40 mg 1615 (Gi spenser - Provider: Marva Goetz RN) 0813 (Given - Provider: Marva nails RN)1600 (Due) 40 mg, Oral, Two times a day diuretic, F irst dose on Wed11/15/20 at 1600, Until Discontinued, Hold for SBP less than 100 heparin (porcine) injection solution 5,000 Units 0605 (Given - Provider: Annie Montoya RN)1321 (Given - Provider: Alondra Hickman RN)2118 (Given - Provider: Annie Montoya RN) 0549 (Given - Provider: Minerva Singh)1404 (Given - Provider: Marva Goetz RN)2219 (Given - Provider: Jeremy Yeboah RN) 0550 (Given - Provider: Jeremy Yeboah RN)1400 (Due)2200 (Due) 5,000 Units, Subcutaneous, Every eight h ours, First dose on Wed11/13/20 at 2200, Until Discontinued, 1 mL magnesium oxide tablet 500 mg 1123 (Given - Provider: Kami Hickman RN) 0816 (Given - Provider: Marva Goetz RN) 0813 (Given - Provider: Marva Goetz RN) 500 mg, Oral, Daily, First dose on Wed11/14/20 at 1105, Until Di scontinued omeprazole (priLOSEC) capsule 40 mg 0605 (Refused - Pr ovider: Annie Montoya RN)1659 (Refused - Provider: Alondra Hickman RN) 0549 (Refused - Provider: Annie Montoya RN)1705 (Refused - Provider: Marva Goetz RN) 0551 (Refused - Provider: Jeremy Yeboah RN)1700 (Due) 40 mg, Oral, Two times a day before meal s, First dose on Wed11/13/20 at 0700, Until Discontinued, Swallow cap whole. Do not crush, chew or open. potassium chloride (KLOR-CON M20) CR tablet 20 mEq (CO MPLETED) 1123 (Given - Provider: Alondra Hickman RN) 20 mEq, Oral, One time, 1 dose, On Wed at 1205, Tablet may be broken in half, but should not be crushed or chewed. Tablet may be dissolved in 4 oz of water. DO NOT give via feeding tube route as this can clog the tube. potassium chloride (KLOR-CON M20) CR tablet 20 mEq (COMPLETE D) 1116 (Given - Provider: Marva Goetz RN) 20 mEq, Oral, One time, 1 dose, On Wed at 1150, Tablet may be broken in half, but should not be crushed or chewed. Tablet may be dissolved in 4 oz of water. DO NOT give via feeding tube route as this can clog the tube. regadenoson (LEXISCAN) syringe 0.4 mg (COMPLETED) 951 (Given - Provider: Keila Francis RN) 0.4 mg, IV, One time, 1 dose, On 10/20 at 0900, 5 mL, Administer over 10- 20 seconds For administration in CV diagnostics rosuvastatin (CRESTOR) tablet 10 mg 2117 (Given - Provider: Annie Montoya RN) 2000 (Given - Provider: Jeremy Yeboah RN) 2099 (Due) 10 mg, Oral, Bedtime, First dose on Wed11/13/20 at 2100, Until D iscontinued sodium chloride 0.9% flush (adult) 10 mL 105 (Not Ind icated - Provider: Alondra Hickman RN)2136 (Not Indicated - Provider: Annie Montoya RN) 0817 (Not Indicated - Provider: Marva Goetz, TOMMIE)2001 (Not Indicated - Provider: Jeremy Yeboah RN - Comment: pt only has one IV) 0814 (Not Indicated - Provider: Marva Goetz RN)2099 (Due) 10 mL, IV, Two times a day and prn, Firs t dose on Wed11/12/20 at 2205, Until Discontinued, 10 mL, Flush PIV line as scheduled and as often as necessary before and after meds. Use a push / pause technique when flushing to create turbulence. sodium chloride 0.9% flush (adult) 10 mL 0915 (Given - Provider: Keila Francis RN)1050 (Given - Provider: Alondra Hickman RN)2117 (Given - Provider: Annie Montoya RN) 0817 (Not Indicated - Provider: Solomon Goetz RN)2001 (Not Indicated - Provider: Jeremy Yeboah, TOMMIE - Comment: one IV only) 0814 (Not Indicated - Provider: Marva Goetz RN)2100 (Due) 10 mL, IV, Two times a day and prn, Firs t dose on Wed11/13/20 at 0900, Until Discontinued, 10 mL, Flush PIV line as scheduled and as often as necessary before and after meds. Use a push / pause technique when flushing to create turbulence. sodium chloride 0.9% flush (adult) 10 mL 1052 (Not Ind icated - Provider: Alondra Hickman RN)2137 (Not Indicated - Provider: Annie Montoya RN) 0816 (Given - Provider: Marva Goetz RN)2000 (Given - Provider: Jeremy Yeboah RN) 0814 (Given - Provider: Marva Goetz, TOMMIE)2100 (Due) 10 mL, IV, Two times a day and prn, Firs t dose on Shawna 11/14/20 at 0900, Until Discontinued, 10 mL, Flush PIV line as scheduled and as often as necessary before and after meds. Use a push / pause technique when flushing to create turbulence. Medication Order 11/14/2020 11/15/2020 11/16/2020 acetaminophen (TYLENOL) tablet 650 mg 650 mg, Oral, Every four hours prn, Star ting on Wed11/12/20 at 2200, Until Discontinued, mild pain, fever, pain scale 3 or less, Pain stratification is defined as follows for either analog scale (0-10) or critical care pain observation tool ( CPOT, 0-8). a. No pain (0) b. Mild pain level (1-3) c. Moderate pain level (4-6) d. Severe pain level (greater than or equal to 7) Adult patients: Total dose of acetaminophen from all acetaminophen co ntaining products should not exceed 4 grams (4,000 mg) per day. Pediatric Patients 0 - 3 months: Maximum of 60 mg/kg/24 hours of acetaminophen. Pediatric Patient s older than 3 months: Maximum of 75 mg /kg/24 hours of acetaminophen (Never exceeding 4 grams/day). bisacodyl (DULCOLAX) suppository 10 mg(Linked Group 1) 10 mg, Rectal, One time a day prn, Start ing on Wed11/12/20 at 2318, Until Discontinued, constipation, Use SECOND for constipation. If patient cannot take oral medications, use first for constipation. calcium carbonate (TUMS) chewable tablet 1,000 mg 1,000 mg, Oral, Every four hours prn, St arting on Wed11/12/20 at 2318, Until Discontinued, other (Specify), acid reflux, Use FIRST for acid reflux. If ineffective after 60 minutes, may proceed to next choice option or, if no other options, contact provider. docusate sodium (THEREVAC-SB MINI;ENEMEE Z MINI) 283 MG enema 1 enema(Linked Group 1) 1 enema, Rectal, One time a day prn, Sta rting on Wed11/12/20 at 2318, Until Discontinued, constipation, Use THIRD for constipation - if no BM 8 hours after dulcolax suppository. If patient cannot take oral medications, use second for constipation. lactulose oral solution (10 gm/15 mL) 30 mL 30 mL, Oral, One time a day prn, Startin g on Wed11/13/20 at 1448, Until Discontinued, constipation, 30 mL melatonin tablet 3 mg 3 mg, Oral, Bedtime prn, Starting on Wed11/12/20 at 2317, Until Discontinued, other (Specify), insomnia, Use FIRST for insomnia. If inadequate response in 60 minutes, may proceed to next choice option or, if no other options, contact provider. nalOXone (NARCAN) injection solution (vial) 0.2 mg 0.2 mg, Injection, Every two minutes prn , Starting on Wed11/12/20 at 2200, Until Discontinued, other (Specify), opioid induced respiratory depression - PARTIAL reversal, 0.5 mL, PARTIAL REVERSAL/RESPIRA TORY DEPRESSION If respiratory rate less than 8/minute - call rapid response and administer (until respiratory rate increases to 10/minute). Give IV (preferred), IM or SUBQ nalOXone (NARCAN) injection solution (vial) 0.4 mg 0.4 mg, Injection, Every two minutes prn , Starting on Wed11/12/20 at 2200, Until Discontinued, other (Specify), opioid induced respiratory arrest - FULL reversal, 1 mL, FULL REVERSAL/RESPIRATORY ARREST If patient is not breathing - call CODE BLUE and administer. Give IV (preferred), IM or SUBQ nitroglycerin (NITROSTAT) sublingual tablet 0.4 mg 0.4 mg, Sublingual, Every five minutes p rn, Starting on Wed11/12/20 at 2315, Until Discontinued, chest pain, Administer nitroglycerin FIRST for chest pain if SBP greater than 90 mmHg; dissolve one table t under tongue; do not crush or chew Ma y repeat every 5 minutes for a total of 3 doses if needed for continued pain as long as SBP remains greater than 90 mmHg. Notify provider if administered. ondansetron (ZOFRAN) injection solution 4 mg 4 mg, IV, Every four hours prn, Starting on Wed11/12/20 at 2200, Until Discontinued, nausea, vomiting, 2 mL, Use FIRST. If ineffective after 15 minutes use metoclopramide. If preference is to further di lute for IV administration: First draw u p patient-specific dose, then dilute to 10 mL with 0.9% sodium chloride. oxyCODONE (OXY-IR) tablet 5 mg 5 mg, Oral, Every six hours prn, Startin g on Wed11/12/20 at 2310, Until Discontinued, severe pain saline (AYR,OCEAN) nasal spray 1236 (Given - Provider: Alondra Hickman, TOMMIE) 2 spray, Each nostril, Every two hours p rn, Starting on Wed11/13/20 at 1449, Until Discontinued, other (Specify), dryness, 44 mL senna-docusate sodium (SENOKOT-S;PERICOLACE) tablet 2 tablet(Kerry arechiga Group 1) 2 tablet, Oral, Two times a day prn, Sta rting on Wed11/12/20 at 2318, Until Discontinued, constipation, Use FIRST for constipation unless patient cannot take oral medications. Order Group 1: senna-docusate sodium (SENOKOT-S;PERICOLACE) tablet 2 tabletJump to med 2 tablet, Oral, Two times a day prn, Sta rting on Wed11/12/20 at 2318, Until Discontinued, constipation
Use FIRST for constipation unless patient cannot take oral medications.
And bisacodyl (DULCOLAX) suppository 10 mgJump to med 10 mg, Rectal, One time a day prn, Start ing on Wed11/12/20 at 2318, Until Discontinued, constipation
Use SECOND for constipation. If patient cannot take oral medications, use first for constipation.
And docusate sodium (THEREVAC-SB MINI;ENEMEEZ MINI) 283 MG enema 1 enemaJump to med 1 enema, Rectal, One time a day prn, Sta rting on Wed11/12/20 at 2318, Until Discontinued, constipation
Use THIRD for constipation - if no BM 8 hours after dulcolax suppository. If patient canno t take oral medications, use second for constipation.
documented in this encounter
== END 2020-11-12 19:25 ==
LOC: KA.ED 16:05
DX: N17.9 Acute kidney failure, unspecified (principal); I12.9 Hypertensive chronic kidney disease with stage 1 through stage 4 chronic kidney disease, or unspecified chronic kidney disease; N18.4 Chronic kidney disease, stage 4 (severe); Q24.9 Congenital malformation of heart, unspecified; K21.9 Gastro-esophageal reflux disease without esophagitis; M19.90 Unspecified osteoarthritis, unspecified site; E66.9 Obesity, unspecified; Z68.41 Body mass index [BMI] 40.0-44.9, adult; Z79.899 Other long term (current) drug therapy; Z88.1 Allergy status to other antibiotic agents; Z88.8 Allergy status to other drugs, medicaments and biological substances; Z88.5 Allergy status to narcotic agent; Z79.82 Long term (current) use of aspirin; Z86.73 Personal history of transient ischemic attack (TIA), and cerebral infarction without residual deficits; Z20.822 Contact with and (suspected) exposure to COVID-19
CPT/HCPCS: 36415; 71045; 80053; 83605; 83880; 84484; 85025; 85379; 85610; 85730; 87040; 93005; 96374; 99285; 99285-25; J3490; U0002

== ENCOUNTER 2020-12-01 12:06 | Emergency (ER) | payer MEDICARE, OTHER ==
[2020-12-01 12:23] VITALS: BP 169/91; PULSE 71
[2020-12-01] MEDS ORDERED: Ondansetron 4 MG/2 ML SDV IVPUSH ONE (12:48)
[2020-12-01] MEDS ORDERED: Sodium Chloride 0.9% 10 ML Syringe FLUSH PRN (12:48)
[2020-12-01] MEDS ORDERED: Sodium Chloride 0.9% 1,000 ML IV ONE (12:48)
--- NOTE | 2020-12-01 12:59 | EDM.PDOC ---
ED HPI GENERAL MEDICAL PROBLEM - General Chief Complaint: General Stated Complaint: LOWER ABDOMINAL PAIN Time Seen by Provider: 12/01/20 12:35 Source of Information: Reports: Patient History Limitations: Reports: No Limitations - History of Present Illness INITIAL COMMENTS - FREE TEXT/NARRATIVE: 75 YO WF PRESENTS TO ER COMPLAINING OF PELVIC AND LOW BACK PAIN WHICH SHE STATES IS RELATED TO HER RENAL CELL CARCINOMA AND PELVIC MASS WHICH SHE'S SCHEDULED TO HAVE A PET SCAN AND RADIATION WELL ONCOLOGY FOLLOW UP ON 12/03/2020. PT REPORTS SHE WAS PRESCRIBED FENTANYL FOR HER PAIN BUT SHE DOESN'T LIKE NARCOTIC PAIN MEDICATIONS THEY MAKE HER NAUSEATED AND MAKES HER FEEL BAD. PT CAME TO ER FOR PAIN CONTROL OPTIONS. PT REPORTS NAUSEA. PT DENIES DYSURIA, URINARY FREQUENCY, OR URGENCY. PT DENIES FEVER/CHILLS, NO VAGINAL BLEEDING. Duration: Chronic Location: Reports: Pelvis Quality: Reports: Ache Severity: Moderate Improves with: Reports: None Worsens with: Reports: None Associated Symptoms: Reports: No Other Symptoms, Malaise, Nausea/Vomiting. 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 Right Posterior Pelvic Pain Score (Numeric/FACES): 10 - Related Data Allergies Allergy/AdvReac Type Severity Reaction Status Date / Time ampicillin Allergy Nausea and Verified 11/02/20 13:08 Vomiting ciprofloxacin Allergy Nausea Verified 11/02/20 13:08 lisinopril Allergy Cough Verified 11/02/20 13:08 pembrolizumab Allergy Joint Pain Verified 11/12/20 17:59 amoxicillin AdvReac Nausea and Verified 11/02/20 13:08 Vomiting azithromycin [From Zithromax] AdvReac Nausea and Verified 11/02/20 13:08 Vomiting hydrocodone AdvReac Nausea and Verified 11/02/20 13:08 Vomiting paclitaxel [From Taxol] AdvReac Nausea and Verified 11/02/20 13:08 Vomiting paclitaxel Allergy Nausea and Uncoded 11/12/20 17:59 Vomiting Home Meds: Home Meds Rosuvastatin Calcium 10 mg PO DAILY 01/24/17 [History] Acyclovir [Zovirax 5% Crm] 1 applic TOP ASDIRECTED PRN 12/27/19 [History] Fluticasone Propionate [Flonase] 1 spray NASBOTH BID PRN 12/27/19 [History] Hydrocortisone [Hydrocortisone 2.5% Crm] 1 applic TOP BID PRN 12/27/19 [History] atenoloL [Tenormin] 50 mg PO DAILY 12/27/19 [History] Ondansetron [Zofran ODT] 8 mg PO TID PRN 11/02/20 [History] Aspirin [Aspirin EC] 81 mg PO DAILY 11/12/20 [History] Lactulose [Chronulac] 30 ml PO DAILY 11/12/20 [History] Metoclopramide [Reglan] 10 mg PO QID 11/12/20 [History] Omeprazole 40 mg PO BIDAC 11/12/20 [History] Sodium Bicarbonate 650 mg PO BID 11/12/20 [History] Sodium Chloride/Aloe Vera [[place] Saline Nasal Gel [place]] 2 spray NS Q2H PRN 11/12/20 [History] Triamcinolone Acetonide [Triamcinolone Acetonide 0.1% Crm] 1 applic TOP BID 11/12/20 [History] fluorouraciL [Fluorouracil] 1 gm TP BID 11/12/20 [History] guaiFENesin/Dextromethorphan [Guaifenesin Dm Syrup] 10 ml PO Q6H 11/12/20 [History] oxyCODONE 5 mg PO Q6H PRN 11/12/20 [History] Past Medical History HEENT History: Reports: Allergic Rhinitis, Impaired Vision Cardiovascular History: Reports: Angina, Heart Murmur, Hypertension Gastrointestinal History: Reports: Cholelithiasis, Gastritis, GERD Other Gastrointestinal History: Severe nausea/vomiting since 07/2016. Up until yesterday, this was controlled with scopalomine patch. Genitourinary History: Reports: Chronic Renal Insuffiency, Other (See Below) Other Genitourinary History: cancer on L kidney. 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 left kidney removed - 2015 Dermatologic History: Reports: Eczema - Infectious Disease History Infectious Disease History: Reports: None - Past Surgical History HEENT Surgical History: Reports: None Cardiovascular Surgical History: Reports: None GI Surgical History: Reports: Appendectomy, Cholecystectomy, ERCP Female Surgical History: Reports: Nephrectomy Other Female Surgeries/Procedures: breast CA with mastectomy years ago Endocrine Surgical History: Reports: None Neurological Surgical History: Reports: None Musculoskeletal Surgical History: Reports: Knee Replacement Oncologic Surgical History: Reports: Mastectomy Other Oncologic Surgeries/Procedures: nephrectomy Dermatological Surgical History: Reports: None Social & Family History - Family History Family Medical History: No Pertinent Family History Cardiac: Reports: [place] Other Cardiac Family History: mother, father heart valve-replace, brother bypass Neurological: Reports: Alzheimers Disease Other Neurological Family History: father - Caffeine Use Caffeine Use: Reports: Coffee Other Caffeine Use: 2 cups a day ED ROS GENERAL - Review of Systems Review Of Systems: See Below Constitutional: Reports: Malaise HEENT: Reports: No Symptoms Respiratory: Reports: No Symptoms Cardiovascular: Reports: No Symptoms Endocrine: Reports: No Symptoms GI/Abdominal: Reports: Abdominal Pain, Nausea : Reports: Flank Pain Musculoskeletal: Reports: Back Pain Skin: Reports: No Symptoms Neurological: Reports: No Symptoms Psychiatric: Reports: No Symptoms Hematologic/Lymphatic: Reports: No Symptoms Immunologic: Reports: No Symptoms ED EXAM, GENERAL - Physical Exam Exam: See Below Exam Limited By: No Limitations General Appearance: Alert, WD/WN, No Apparent Distress Head: Atraumatic, Normocephalic Neck: Normal Inspection, Supple, Non-Tender, Full Range of Motion Respiratory/Chest: No Respiratory Distress, Lungs Clear, Normal Breath Sounds, No Accessory Muscle Use, Chest Non-Tender Cardiovascular: Normal Peripheral Pulses, Regular Rate, Rhythm, No Edema, No Gallop, No JVD, No Murmur, No Rub GI/Abdominal: Normal Bowel Sounds, Soft, Non-Tender, No Organomegaly, No Distention, No Abnormal Bruit, No Mass Back Exam: Normal Inspection, Full Range of Motion, CVA Tenderness (L), CVA Tenderness (R) Extremities: Normal Inspection, Normal Range of Motion, Non-Tender, Normal Capillary Refill, No Pedal Edema Neurological: Alert, Oriented, CN II-XII Intact, Normal Cognition, Normal Gait, Normal Reflexes, No Motor/Sensory Deficits Psychiatric: Normal Affect, Normal Mood Skin Exam: Warm, Dry, Intact, Normal Color, No Rash Lymphatic: No Adenopathy Course - Vital Signs Last Recorded V/S: Last Vital Signs Temp 96.9 F 12/01/20 12:18 Pulse 71 12/01/20 12:18 Resp 18 12/01/20 12:18 BP 169/91 H 12/01/20 12:18 Pulse Ox 96 12/01/20 12:18 - Orders/Labs/Meds Orders: Active Orders 24 hr Category Date Time Status Peripheral IV Care [RC] . DIRECTED Care 12/01/20 12:49 Active UA RFX LAURENCE AND CULT IF INDIC [URIN] Routine Lab 12/01/20 12:48 Results Sodium Chloride 0.9% [Saline Flush] Med 12/01/20 12:48 Active 10 ml FLUSH Q8HR PRN Peripheral IV Insertion Adult [OM.PC] Routine Oth 12/01/20 12:48 Ordered Medication Orders Sodium Chloride (Sodium Chloride 0.9% 10 Ml Syringe) 10 ml FLUSH Q8HR PRN PRN Reason: keep vein open Labs: Laboratory Tests 12/01/20 12/01/20 12/01/20 Range/Units 12:48 12:50 12:50 WBC 7.89 (5.00-10.00) 10^3/uL RBC 4.60 (3.80-5.50) 10^6/uL Hgb 12.9 (12.0-16.0) g/dL Hct 39.6 (37.0-47.0) % MCV 86.1 D (82.0-92.0) fL MCH 28.0 (27.0-31.0) pg MCHC 32.6 (32.0-36.0) g/dL RDW 16.6 H (11.5-14.5) % Plt Count 244 (150-400) 10^3/uL MPV 9.6 (7.4-10.4) fL Immature Gran % (Auto) 1.8 (0.0-5.0) % Neut % (Auto) 64.3 (50.0-70.0) % Lymph % (Auto) 17.9 L (20.0-40.0) % [place] % (Auto) 12.8 H (2.0-8.0) % Eos % (Auto) 2.7 (1.0-3.0) % Baso % (Auto) 0.5 (0.0-1.0) % Neut # (Auto) 5.08 (2.50-7.00) 10^3/uL Lymph # (Auto) 1.41 (1.00-4.00) 10^3/uL [place] # (Auto) 1.01 H (0.10-0.80) 10^3/uL Eos # (Auto) 0.21 (0.10-0.30) 10^3/uL Baso # (Auto) 0.04 (0.00-0.10) 10^3/uL Immature Gran # (Auto) 0.14 (0.00-0.50) 10^3/uL Sodium 136 (136-145) mmol/L Potassium 4.1 (3.5-5.1) mmol/L Chloride 98 (98-107) mmol/L Carbon Dioxide 26.6 (21.0-32.0) mmol/L Anion Gap 15.5 H (5-15) mmol/L BUN 25 H (7-18) mg/dL Creatinine 1.70 H (0.51-1.17) mg/dL Est Cr Clr Drug Dosing 29.73 mL/min Estimated GFR (MDRD) 29 mL/min Glucose 133 (70-140) mg/dL Calcium 9.9 (8.7-10.3) mg/dL Urine Color Yellow (YELLOW) Urine Appearance Clear (CLEAR) Urine pH 7.0 (5.0-9.0) Ur Specific [place] 1.015 (1.005-1.030) Urine Protein Negative (NEGATIVE) mg/dL Urine Glucose (UA) Negative (NEGATIVE) mg/dL Urine Ketones Negative (NEGATIVE) mg/dL Urine Occult Blood Negative (NEGATIVE) Urine Nitrite Negative (NEGATIVE) Urine Bilirubin Negative (NEGATIVE) Urine Urobilinogen 0.2 (0.2-1.0) E.U./dL Ur Leukocyte Esterase Negative (NEGATIVE) Meds: Medications Generic Name Dose Route Start Last Admin Trade Name Freq PRN Reason Stop Dose Admin Sodium Chloride 10 ml 12/01/20 12:48 Sodium Chloride 0.9% 10 Ml Syringe FLUSH Q8HR PRN keep vein open Discontinued Medications Generic Name Dose Route Start Last Admin Trade Name Freq PRN Reason Stop Dose Admin Sodium Chloride 1,000 mls @ 999 mls/hr 12/01/20 12:48 06/13/21 12:55 Normal Saline IV 12/01/20 13:48 999 mls/hr .BOLUS ONE Administration Lorazepam 1 mg 12/01/20 13:09 12/01/20 13:28 Lorazepam 2 Mg/Ml Sdv IVPUSH 12/01/20 13:10 1 mg ONETIME ONE Administration Ondansetron HCl 4 mg 12/01/20 12:48 12/01/20 12:55 Ondansetron 4 Mg/2 Ml Sdv IVPUSH 12/01/20 12:49 4 mg ONETIME ONE Administration Departure - Departure Time of Disposition: 13:57 Disposition: Home, Self-Care 01 Condition: Fair Clinical Impression: Chronic pelvic pain in female - Discharge Information Instructions: Pelvic Pain, Female, [id number] Referrals: Sophia Smith, POLITICAL AIDE [Primary Care Provider] - Forms: ED Department Discharge Additional Instructions: 1. DISCHARGE HOME 2. ATIVAN 1MG ORALLY EVERY 8 HOURS NEEDED- RECOMMEND BEFORE BEDTIME #10 3. TYLENOL 1000MG EVERY 6 HOURS NEEDED 4. ULTRAM 50-100MG EVERY 6 HOUR NEEDED 5. FOLLOW UP WITH ONCOLOGIST SCHEDULED 12/03/2020 6. RETURN TO ER FOR WORSENING SYMPTOMS Sepsis Event Note (ED) - Evaluation Sepsis Screening Result: No Definite Risk - Focused Exam Vital Signs: Vital Signs Temp Pulse Resp BP Pulse Ox 12/01/20 12:18 96.9 F 71 18 169/91 H 96 - My Orders Last 24 Hours: My Active Orders 12/01/20 12:48 UA RFX LAURENCE AND CULT IF INDIC [URIN] Routine Sodium Chloride 0.9% [Saline Flush] 10 ml FLUSH Q8HR PRN Peripheral IV Insertion Adult [OM.PC] Routine 12/01/20 12:49 Peripheral IV Care [RC] . DIRECTED - Assessment/Plan Last 24 Hours: My Active Orders 12/01/20 12:48 UA RFX LAURENCE AND CULT IF INDIC [URIN] Routine Sodium Chloride 0.9% [Saline Flush] 10 ml FLUSH Q8HR PRN Peripheral IV Insertion Adult [OM.PC] Routine 12/01/20 12:49 Peripheral IV Care [RC] . DIRECTED Assessment:: 1. CHRONIC PELVIC PAIN Plan: 1. DISCHARGE HOME 2. ATIVAN 1MG ORALLY EVERY 8 HOURS NEEDED- RECOMMEND BEFORE BEDTIME #10 3. TYLENOL 1000MG EVERY 6 HOURS NEEDED 4. ULTRAM 50-100MG EVERY 6 HOUR NEEDED 5. FOLLOW UP WITH ONCOLOGIST SCHEDULED 12/03/2020 6. RETURN TO ER FOR WORSENING SYMPTOMS
[2020-12-01] MEDS ORDERED: LORazepam 2 MG/ML SDV IVPUSH ONE (13:09)
[2020-12-01 13:16] LABS: ANION GAP 15.5 mmol/L (5-15)
[2020-12-01] MEDS ORDERED: LORazepam 0.5 MG Tab PO ONE (13:59)
== END 2020-12-01 14:15 | disposition home or self-care (01) ==
LOC: KA.ED 12:06
DX: G89.29 Other chronic pain (principal); R10.2 Pelvic and perineal pain; E66.9 Obesity, unspecified; I10 Essential (primary) hypertension; Z88.0 Allergy status to penicillin; Z88.1 Allergy status to other antibiotic agents; Z88.5 Allergy status to narcotic agent; Z68.34 Body mass index [BMI] 34.0-34.9, adult
CPT/HCPCS: 80048; 81003; 85025; 96374; 96375; 99284; 99284-25; A9270-GY; J2060; J2405; J7030

== ENCOUNTER 2021-08-28 15:00 | Emergency (ER) | payer MEDICARE, OTHER ==
[2021-08-28] MEDS: Sodium Chloride 0.9% 10 ML Syringe FLUSH PRN (16:08)
[2021-08-28] MEDS: Sodium Chloride 0.9% 1,000 ML IV SCH (16:08)
[2021-08-28 17:30] VITALS: BP 114/63
[2021-08-28 17:31] VITALS: PULSE 89
== END 2021-08-28 17:50 ==
LOC: KA.ED 15:00
DX: I35.0 Nonrheumatic aortic (valve) stenosis (principal); I13.0 Hypertensive heart and chronic kidney disease with heart failure and stage 1 through stage 4 chronic kidney disease, or unspecified chronic kidney disease; N18.9 Chronic kidney disease, unspecified; I50.9 Heart failure, unspecified; D63.1 Anemia in chronic kidney disease; K21.9 Gastro-esophageal reflux disease without esophagitis; E66.9 Obesity, unspecified; Z86.73 Personal history of transient ischemic attack (TIA), and cerebral infarction without residual deficits; Z88.1 Allergy status to other antibiotic agents; Z88.0 Allergy status to penicillin; Z88.5 Allergy status to narcotic agent; Z88.8 Allergy status to other drugs, medicaments and biological substances; Z79.82 Long term (current) use of aspirin; Z68.37 Body mass index [BMI] 37.0-37.9, adult
CPT/HCPCS: 36415; 84484; 99284; 99285; J3490; J7030

== ENCOUNTER 2021-12-31 18:16 | Emergency (ER) | payer MEDICARE, OTHER ==
[2021-12-31 18:41] VITALS: PULSE 81
[2021-12-31 18:46] VITALS: BP 163/79
[2021-12-31 18:50] LABS: ANION GAP 14.2 mmol/L (5-15)
[2021-12-31 18:58] LABS: PTT,PARTIAL THROMBOPLSTIN TIME 25.7 SEC (22.8-31.4)
[2021-12-31] MEDS: cefTRIAXone 1 GM Vial IVPUSH ONE (20:02)
[2021-12-31] MEDS: Sodium Chloride 0.9% 10 ML Syringe FLUSH PRN (20:05)
== END 2021-12-31 20:16 | disposition home or self-care (01) ==
LOC: KA.ED 18:16
DX: N30.00 Acute cystitis without hematuria (principal); R41.0 Disorientation, unspecified; I12.9 Hypertensive chronic kidney disease with stage 1 through stage 4 chronic kidney disease, or unspecified chronic kidney disease; N18.9 Chronic kidney disease, unspecified; K21.9 Gastro-esophageal reflux disease without esophagitis; M19.90 Unspecified osteoarthritis, unspecified site; E66.9 Obesity, unspecified; Z68.33 Body mass index [BMI] 33.0-33.9, adult; Z86.73 Personal history of transient ischemic attack (TIA), and cerebral infarction without residual deficits; Z88.0 Allergy status to penicillin; Z88.1 Allergy status to other antibiotic agents; Z88.5 Allergy status to narcotic agent; Z88.8 Allergy status to other drugs, medicaments and biological substances; Z79.899 Other long term (current) drug therapy
CPT/HCPCS: 36415; 70450; 71045; 80053; 81001; 84484; 85025; 85610; 85730; 87086; 96374; 99285-25; J0696; J3490

== ENCOUNTER 2022-02-02 07:54 | Day surgery (SDC) | payer MEDICARE, OTHER ==
[2022-02-02] MEDS ORDERED: Lactated Ringers 1,000 ML IV SCH (08:00)
[2022-02-02] MEDS ORDERED: Sodium Chloride 0.9% 10 ML Syringe FLUSH PRN (08:00)
[2022-02-02] MEDS ORDERED: Propofol 200 MG/20 ML SDV ONE (08:48)
[2022-02-02 10:42] VITALS: BP 138/65; PULSE 61
== END 2022-02-02 11:04 | disposition home or self-care (01) ==
LOC: KA.SDS 07:54
PROVIDERS: ATTEND Family Medicine
DX: D12.8 Benign neoplasm of rectum (principal); K63.5 Polyp of colon; K57.30 Diverticulosis of large intestine without perforation or abscess without bleeding; Z79.83 Long term (current) use of bisphosphonates; Z88.8 Allergy status to other drugs, medicaments and biological substances; Z88.5 Allergy status to narcotic agent; Z88.0 Allergy status to penicillin; Z88.1 Allergy status to other antibiotic agents; Z88.6 Allergy status to analgesic agent
CPT/HCPCS: 00812; J2704; J7120

== ENCOUNTER 2022-03-12 19:56 | Emergency (ER) | payer MEDICARE, OTHER ==
[2022-03-12 20:38] LABS: ANION GAP 8.6 mmol/L (5-15)
[2022-03-12 20:56] VITALS: BP 167/77; PULSE 72
[2022-03-12] MEDS ORDERED: Amoxicillin/Clavulanate K 875-125 MG Tab PO ONE (20:59)
== END 2022-03-12 21:10 | disposition home or self-care (01) ==
LOC: KA.ED 19:56
DX: J01.00 Acute maxillary sinusitis, unspecified (principal); I10 Essential (primary) hypertension; E66.9 Obesity, unspecified; Z68.34 Body mass index [BMI] 34.0-34.9, adult; Z88.1 Allergy status to other antibiotic agents; Z88.8 Allergy status to other drugs, medicaments and biological substances; Z88.5 Allergy status to narcotic agent; Z79.899 Other long term (current) drug therapy; Z79.82 Long term (current) use of aspirin; Z86.16 Personal history of COVID-19; Z90.49 Acquired absence of other specified parts of digestive tract
CPT/HCPCS: 36415; 71045; 80048; 84484; 85025; 93005; 93010; 99284; A9270-GY

== ENCOUNTER 2022-05-27 10:51 | Observation (INO) | payer MEDICARE, OTHER ==
[2022-05-27] MEDS ORDERED: Sodium Chloride 0.9% 10 ML Syringe FLUSH PRN (11:23)
[2022-05-27] MEDS ORDERED: Oseltamivir 75 MG Cap PO ONE (12:00)
[2022-05-27] MEDS ORDERED: Sodium Chloride 0.9% 1,000 ML IV ONE (12:00)
[2022-05-27] MEDS: Ondansetron 4 MG/2 ML SDV IVPUSH PRN ×2 (12:18→18:23)
[2022-05-27] MEDS ORDERED: Nitroglycerin 0.4 MG Tab.SL SL PRN (15:18)
[2022-05-27] MEDS ORDERED: Acetaminophen 325 MG Tab PO PRN (18:26)
[2022-05-27] MEDS: predniSONE 1 MG Tab PO SCH (20:58)
[2022-05-27] MEDS ORDERED: Rosuvastatin 10 MG Tab PO SCH (21:00)
[2022-05-28 07:28] LABS: ANION GAP 10.5 mmol/L (5-15)
[2022-05-28] MEDS: predniSONE 1 MG Tab PO SCH (08:38)
[2022-05-28] MEDS ORDERED: Rosuvastatin 10 MG Tab PO SCH (09:00)
[2022-05-28] MEDS ORDERED: BISOPROLOL FUMARATE 5 MG PO SCH (09:00)
[2022-05-28] MEDS ORDERED: Oseltamivir 6 MG/ML Susp 60 ML Bot PO SCH (09:00)
[2022-05-28] MEDS ORDERED: Aspirin 81 MG Tab.EC PO SCH (09:00)
[2022-05-28] MEDS ORDERED: predniSONE 1 MG Tab PO SCH ×2 (09:00→21:00)
[2022-05-28] MEDS: Famotidine 20 MG Tab PO PRN ×2 (10:20→16:40)
[2022-05-28] MEDS ORDERED: guaiFENesin 600 MG Tab.ER PO SCH (10:30)
[2022-05-28 14:31] VITALS: BP 129/63; PULSE 70
== END 2022-05-28 16:55 | disposition home or self-care (01) ==
LOC: KA.MS 10:51
PROVIDERS: ADMIT Nurse Practitioner Family; ATTEND Student in an Organized Health Care Education/Training Program
DX: J10.1 Influenza due to other identified influenza virus with other respiratory manifestations (principal); R11.2 Nausea with vomiting, unspecified; R05.1 Acute cough; I13.0 Hypertensive heart and chronic kidney disease with heart failure and stage 1 through stage 4 chronic kidney disease, or unspecified chronic kidney disease; I50.22 Chronic systolic (congestive) heart failure; N18.32 Chronic kidney disease, stage 3b; I42.0 Dilated cardiomyopathy; I65.22 Occlusion and stenosis of left carotid artery; E78.00 Pure hypercholesterolemia, unspecified; I35.0 Nonrheumatic aortic (valve) stenosis; E27.40 Unspecified adrenocortical insufficiency; E04.2 Nontoxic multinodular goiter; E66.9 Obesity, unspecified; E55.9 Vitamin D deficiency, unspecified; J30.9 Allergic rhinitis, unspecified; D12.5 Benign neoplasm of sigmoid colon; K76.0 Fatty (change of) liver, not elsewhere classified; K21.9 Gastro-esophageal reflux disease without esophagitis; K57.30 Diverticulosis of large intestine without perforation or abscess without bleeding; C44.111 Basal cell carcinoma of skin of unspecified eyelid, including canthus; C79.51 Secondary malignant neoplasm of bone; C64.2 Malignant neoplasm of left kidney, except renal pelvis; C79.72 Secondary malignant neoplasm of left adrenal gland; C78.02 Secondary malignant neoplasm of left lung; C50.911 Malignant neoplasm of unspecified site of right female breast; M19.90 Unspecified osteoarthritis, unspecified site; M85.80 Other specified disorders of bone density and structure, unspecified site; F51.01 Primary insomnia; Z86.73 Personal history of transient ischemic attack (TIA), and cerebral infarction without residual deficits; Z95.2 Presence of prosthetic heart valve; Z79.899 Other long term (current) drug therapy; Z88.8 Allergy status to other drugs, medicaments and biological substances
CPT/HCPCS: 36415; 80053; 85025; 96361; 96374; 96376; A9270-GY; G0378; G0379; J2405; J7030; J7512

== ENCOUNTER 2023-01-31 13:27 | Emergency (ER) | payer MEDICARE, OTHER ==
[2023-01-31] MEDS ORDERED: Aspirin 81 MG Tab.Chew PO ONE (13:37)
[2023-01-31] MEDS ORDERED: Sodium Chloride 0.9% 10 ML Syringe FLUSH PRN (13:40)
[2023-01-31 14:12] LABS: HEMATOCRIT 41.2 % (37.0-47.0); HEMOGLOBIN 13.1 g/dL (12.0-16.0); MEAN CORPUSCULAR HEMOGLOBIN 28.7 pg (27.0-31.0); MEAN CORPUSCULAR HGB CONC 31.8 g/dL (32.0-36.0); MEAN CORPUSCULAR VOLUME 90.2 fL (82.0-92.0); MEAN PLATELET VOLUME 9.6 fL (7.4-10.4); PLATELET COUNT,PLT 279 10^3/uL (150-400); RED BLOOD CELL COUNT 4.57 10^6/uL (3.80-5.50); RED CELL DISTRIBUTION WIDTH 16.6 % (11.5-14.5)
[2023-01-31 14:20] LABS: WHITE BLOOD CELL COUNT,WBC 71.88 10^3/uL (5.00-10.00)
[2023-01-31 14:37] LABS: ALBUMIN 3.45 g/dL (3.40-5.00); BILIRUBIN TOTAL 0.9 mg/dL (0.2-1.0); CALCIUM 9.2 mg/dL (8.7-10.3); CARBON DIOXIDE,CO2 27.8 mmol/L (21.0-32.0); CREATININE 1.39 mg/dL (0.51-1.17); EST CRCL DRUG DOSING (CG) 37.82 mL/min; POTASSIUM,K 3.8 mmol/L (3.5-5.1); PROTEIN TOTAL,TP 7.1 g/dL (6.4-8.2)
[2023-01-31 14:55] LABS: URIC ACID 7.9 mg/dL (2.6-7.2)
[2023-01-31 14:56] LABS: C-REACTIVE PROTEIN < 0.4 mg/dL (0.0-0.9)
[2023-01-31 15:01] LABS: BAND PERCENT MAN 8 % (4-12); BASOPHILS PERCENT MAN 3 % (0-1); EOSINOPHILS PERCENT MAN 2 % (1-3); LYMPHOCYTES PERCENT MAN 8 % (20-40); MONOCYTES PERCENT MAN 3 % (2-8); SEG NEUTROPHILS PERCENT MAN 44 % (50-70); SLIDE REVIEW YES
[2023-01-31 15:02] LABS: BLASTS PERCENT MAN 6; METAMYELOCYTE PERCENT MAN 8; MYELOCYTE PERCENT MAN 16; PROMYELOCYTE PERCENT MAN 2
[2023-01-31 15:04] LABS: PLATELET COUNT ESTIMATE ADEQUATE
[2023-01-31 16:50] VITALS: BP 134/69; PULSE 61
== END 2023-01-31 16:40 | disposition home or self-care (01) ==
LOC: KA.ED 13:27
DX: R53.82 Chronic fatigue, unspecified (principal); C78.01 Secondary malignant neoplasm of right lung; D72.829 Elevated white blood cell count, unspecified; I10 Essential (primary) hypertension; K21.9 Gastro-esophageal reflux disease without esophagitis; E66.9 Obesity, unspecified; Z68.33 Body mass index [BMI] 33.0-33.9, adult; Z86.16 Personal history of COVID-19; Z79.899 Other long term (current) drug therapy; Z88.0 Allergy status to penicillin; Z88.1 Allergy status to other antibiotic agents; Z88.6 Allergy status to analgesic agent; Z88.8 Allergy status to other drugs, medicaments and biological substances
CPT/HCPCS: 71046; 80053; 84484; 84550; 85025; 86140; 93005; 93010; 99284; 99285; A9270-GY

== ENCOUNTER 2023-02-21 17:43 | Inpatient (IN) | payer MEDICARE, OTHER ==
[2023-02-21] MEDS ORDERED: Sodium Chloride 0.9% 1,000 ML IV ONE (18:01)
[2023-02-21] MEDS ORDERED: Ondansetron 4 MG/2 ML SDV IVPUSH ONE (18:01)
[2023-02-21] MEDS ORDERED: Sodium Chloride 0.9% 10 ML Syringe FLUSH PRN (18:01)
[2023-02-21 18:14] LABS: HEMATOCRIT 41.6 % (37.0-47.0); HEMOGLOBIN 13.5 g/dL (12.0-16.0); MEAN CORPUSCULAR HEMOGLOBIN 28.9 pg (27.0-31.0); MEAN CORPUSCULAR HGB CONC 32.5 g/dL (32.0-36.0); MEAN CORPUSCULAR VOLUME 89.1 fL (82.0-92.0); MEAN PLATELET VOLUME 10.4 fL (7.4-10.4); PLATELET COUNT,PLT 245 10^3/uL (150-400); RED BLOOD CELL COUNT 4.67 10^6/uL (3.80-5.50); RED CELL DISTRIBUTION WIDTH 16.8 % (11.5-14.5)
[2023-02-21 18:22] LABS: WHITE BLOOD CELL COUNT,WBC 38.21 10^3/uL (5.00-10.00)
[2023-02-21 18:24] LABS: BAND PERCENT MAN 5 % (4-12); BASOPHILS PERCENT MAN 4 % (0-1); EOSINOPHILS PERCENT MAN 2 % (1-3); LYMPHOCYTES PERCENT MAN 12 % (20-40); METAMYELOCYTE PERCENT MAN 4; MONOCYTES PERCENT MAN 2 % (2-8); MYELOCYTE PERCENT MAN 7; PROMYELOCYTE PERCENT MAN 1; SEG NEUTROPHILS PERCENT MAN 63 % (50-70); SLIDE REVIEW YES
[2023-02-21 18:30] LABS: ALBUMIN 3.61 g/dL (3.40-5.00); ANION GAP 12.9 mmol/L (5-15); BILIRUBIN TOTAL 1.4 mg/dL (0.2-1.0); CALCIUM 9.2 mg/dL (8.7-10.3); CARBON DIOXIDE,CO2 28.5 mmol/L (21.0-32.0); CREATININE 1.67 mg/dL (0.51-1.17); EST CRCL DRUG DOSING (CG) 29.36 mL/min; POTASSIUM,K 3.4 mmol/L (3.5-5.1); PROTEIN TOTAL,TP 7.6 g/dL (6.4-8.2)
[2023-02-21 19:29] LABS: APPEARANCE,URINE CLEAR (CLEAR); BILIRUBIN,URINE NEGATIVE (NEGATIVE); COLOR,URINE DARK YELLOW (YELLOW); GLUCOSE,URINE NEGATIVE (NEGATIVE); KETONES,URINE NEGATIVE (NEGATIVE); LEUKOCYTE ESTERASE,URINE TRACE (NEGATIVE); NITRITE,URINE NEGATIVE (NEGATIVE); OCCULT BLOOD,URINE NEGATIVE (NEGATIVE); PH,URINE 5.5 (5.0-9.0); PROTEIN,URINE NEGATIVE (NEGATIVE); UROBILINOGEN,URINE 0.2 E.U./dL (0.2-1.0)
[2023-02-21 19:40] LABS: BACTERIA,URINE OCCASIONAL /HPF (NONE TO FEW); EPITHELIAL CELLS,URINE FEW /LPF; RBC,URINE 0-5 /HPF (0-5)
[2023-02-21] MEDS ORDERED: Ondansetron 4 MG/2 ML SDV IV PRN (20:56)
[2023-02-21] MEDS ORDERED: Albuterol 8 GM Inhaler INH PRN (20:56)
[2023-02-21] MEDS ORDERED: Sennosides/Docusate Sodium 50-8.6 MG Tab PO PRN (20:56)
[2023-02-21] MEDS: NS + KCl 20mEq/L 1,000 ML IV SCH (21:17)
[2023-02-21 21:45] LABS: MAGNESIUM 2.3 mg/dL (1.8-2.4); URIC ACID 5.9 mg/dL (2.6-7.2)
[2023-02-21] MEDS: predniSONE 1 MG Tab PO SCH (21:51)
[2023-02-21] MEDS: Temazepam 15 MG Cap PO SCH (21:52)
[2023-02-22] MEDS: NS + KCl 20mEq/L 1,000 ML IV SCH (05:19)
[2023-02-22 08:10] LABS: HEMATOCRIT 40.6 % (37.0-47.0); HEMOGLOBIN 12.9 g/dL (12.0-16.0); MEAN CORPUSCULAR HEMOGLOBIN 28.2 pg (27.0-31.0); MEAN CORPUSCULAR HGB CONC 31.8 g/dL (32.0-36.0); MEAN CORPUSCULAR VOLUME 88.8 fL (82.0-92.0); PLATELET COUNT,PLT 213 10^3/uL (150-400); RED BLOOD CELL COUNT 4.57 10^6/uL (3.80-5.50)
[2023-02-22 08:18] LABS: WHITE BLOOD CELL COUNT,WBC 33.82 10^3/uL (5.00-10.00)
[2023-02-22 08:19] LABS: SLIDE REVIEW YES
[2023-02-22 08:24] LABS: SEG NEUTROPHILS PERCENT MAN 66 % (50-70)
[2023-02-22 08:25] LABS: BAND PERCENT MAN 6 % (4-12); BASOPHILS PERCENT MAN 4 % (0-1); EOSINOPHILS PERCENT MAN 2 % (1-3); LYMPHOCYTES PERCENT MAN 12 % (20-40); METAMYELOCYTE PERCENT MAN 2; MONOCYTES PERCENT MAN 2 % (2-8); MYELOCYTE PERCENT MAN 5; PROMYELOCYTE PERCENT MAN 1
[2023-02-22 08:29] LABS: ALBUMIN 2.97 g/dL (3.40-5.00); ANION GAP 12.4 mmol/L (5-15); BILIRUBIN TOTAL 1.3 mg/dL (0.2-1.0); CALCIUM 8.5 mg/dL (8.7-10.3); CREATININE 1.39 mg/dL (0.51-1.17); EST CRCL DRUG DOSING (CG) 35.28 mL/min; POTASSIUM,K 4.4 mmol/L (3.5-5.1); PROTEIN TOTAL,TP 6.5 g/dL (6.4-8.2)
[2023-02-22 08:44] LABS: MAGNESIUM 2.3 mg/dL (1.8-2.4)
[2023-02-22 08:47] LABS: C-REACTIVE PROTEIN < 0.4 mg/dL (0.0-0.9)
[2023-02-22] MEDS: Enoxaparin 30 MG/0.3 ML Syringe SUBCUT SCH (09:28)
[2023-02-22] MEDS ORDERED: ClonazePAM 0.5 MG Tab PO PRN (09:37)
[2023-02-22] MEDS ORDERED: Famotidine 20 MG Tab PO PRN (09:37)
[2023-02-22] MEDS: Aspirin 81 MG Tab.EC PO SCH (10:38)
[2023-02-22] MEDS: BISOPROLOL FUMARATE 5 MG PO SCH (10:52)
[2023-02-22] MEDS: Sodium Chloride 0.9% 1,000 ML IV SCH (15:46)
[2023-02-22] MEDS: predniSONE 1 MG Tab PO SCH (17:48)
[2023-02-22] MEDS: Temazepam 15 MG Cap PO SCH (20:58)
[2023-02-22] MEDS ORDERED: Allopurinol 100 MG Tab PO SCH (21:00)
[2023-02-23] MEDS: Sodium Chloride 0.9% 1,000 ML IV SCH (00:34)
[2023-02-23 06:30] VITALS: PULSE 62
[2023-02-23 08:01] LABS: HEMATOCRIT 40.3 % (37.0-47.0); HEMOGLOBIN 12.6 g/dL (12.0-16.0); MEAN CORPUSCULAR HEMOGLOBIN 28.3 pg (27.0-31.0); MEAN CORPUSCULAR HGB CONC 31.3 g/dL (32.0-36.0); MEAN CORPUSCULAR VOLUME 90.6 fL (82.0-92.0); MEAN PLATELET VOLUME 9.9 fL (7.4-10.4); PLATELET COUNT,PLT 195 10^3/uL (150-400); RED BLOOD CELL COUNT 4.45 10^6/uL (3.80-5.50); WHITE BLOOD CELL COUNT,WBC 26.54 10^3/uL (5.00-10.00)
[2023-02-23] MEDS: Aspirin 81 MG Tab.EC PO SCH (08:13)
[2023-02-23] MEDS: Enoxaparin 30 MG/0.3 ML Syringe SUBCUT SCH (08:13)
[2023-02-23 08:14] LABS: BAND PERCENT MAN 8 % (4-12); BASOPHILS PERCENT MAN 4 % (0-1); EOSINOPHILS PERCENT MAN 3 % (1-3); LYMPHOCYTES PERCENT MAN 13 % (20-40); METAMYELOCYTE PERCENT MAN 1; MONOCYTES PERCENT MAN 2 % (2-8); MYELOCYTE PERCENT MAN 4; SEG NEUTROPHILS PERCENT MAN 65 % (50-70); SLIDE REVIEW YES
[2023-02-23 08:19] LABS: ANION GAP 10.5 mmol/L (5-15); CALCIUM 8.3 mg/dL (8.7-10.3); CARBON DIOXIDE,CO2 25.9 mmol/L (21.0-32.0); CREATININE 1.19 mg/dL (0.51-1.17); EST CRCL DRUG DOSING (CG) 41.2 mL/min; POTASSIUM,K 4.4 mmol/L (3.5-5.1)
[2023-02-23] MEDS: BISOPROLOL FUMARATE 5 MG PO SCH ×2 (08:52→11:56)
[2023-02-23 12:02] VITALS: BP 145/66
== END 2023-02-23 13:02 | disposition home or self-care (01) | DRG 439 ==
LOC: KA.ED 17:43 → KA.MS 19:23 → UNDOADMIN 19:30 → KA.MS 19:30
PROVIDERS: ADMIT Internal Medicine; ATTEND Internal Medicine
DX: K85.30 Drug induced acute pancreatitis without necrosis or infection (principal); C92.10 Chronic myeloid leukemia, BCR/ABL-positive, not having achieved remission; I13.0 Hypertensive heart and chronic kidney disease with heart failure and stage 1 through stage 4 chronic kidney disease, or unspecified chronic kidney disease; I50.32 Chronic diastolic (congestive) heart failure; T45.1X5A Adverse effect of antineoplastic and immunosuppressive drugs, initial encounter; E86.0 Dehydration; D84.9 Immunodeficiency, unspecified; M19.90 Unspecified osteoarthritis, unspecified site; I12.9 Hypertensive chronic kidney disease with stage 1 through stage 4 chronic kidney disease, or unspecified chronic kidney disease; E80.6 Other disorders of bilirubin metabolism; E87.5 Hyperkalemia; I35.0 Nonrheumatic aortic (valve) stenosis; D63.1 Anemia in chronic kidney disease; E78.5 Hyperlipidemia, unspecified; C50.919 Malignant neoplasm of unspecified site of unspecified female breast; F41.9 Anxiety disorder, unspecified; N18.9 Chronic kidney disease, unspecified; K21.9 Gastro-esophageal reflux disease without esophagitis; Z88.1 Allergy status to other antibiotic agents; Z88.8 Allergy status to other drugs, medicaments and biological substances; E66.9 Obesity, unspecified; Z79.82 Long term (current) use of aspirin; Z79.2 Long term (current) use of antibiotics; Z79.899 Other long term (current) drug therapy; Z95.2 Presence of prosthetic heart valve; Z86.73 Personal history of transient ischemic attack (TIA), and cerebral infarction without residual deficits; Z90.49 Acquired absence of other specified parts of digestive tract; Z98.890 Other specified postprocedural states; Z68.34 Body mass index [BMI] 34.0-34.9, adult; Z85.528 Personal history of other malignant neoplasm of kidney; Z90.5 Acquired absence of kidney; Z90.10 Acquired absence of unspecified breast and nipple
CPT/HCPCS: 36415; 80048; 80053; 81001; 83605; 83690; 83735; 84478; 84550; 85025; 86140; 96361; 96374; 99223-GT; 99233-GT; 99239-GT; 99284; 99284-25; A9270-GY; J1650; J2405; J3480; J3490; J7030; J7512; Q3014

== ENCOUNTER 2023-04-03 09:17 | Emergency (ER) | payer MEDICARE, OTHER ==
[2023-04-03 09:24] VITALS: BP 134/62; PULSE 67
[2023-04-03] MEDS ORDERED: methylPREDNISolone Sodium Succinate 125 MG/2 ML SDV IM ONE (10:12)
== END 2023-04-03 10:31 | disposition home or self-care (01) ==
LOC: KA.ED 09:17
DX: R21 Rash and other nonspecific skin eruption (principal); T45.1X5A Adverse effect of antineoplastic and immunosuppressive drugs, initial encounter; I13.0 Hypertensive heart and chronic kidney disease with heart failure and stage 1 through stage 4 chronic kidney disease, or unspecified chronic kidney disease; N18.9 Chronic kidney disease, unspecified; I50.9 Heart failure, unspecified; K21.9 Gastro-esophageal reflux disease without esophagitis; E78.00 Pure hypercholesterolemia, unspecified; E66.9 Obesity, unspecified; Z68.31 Body mass index [BMI] 31.0-31.9, adult; Z86.16 Personal history of COVID-19; Z86.73 Personal history of transient ischemic attack (TIA), and cerebral infarction without residual deficits; Z88.8 Allergy status to other drugs, medicaments and biological substances; Z88.1 Allergy status to other antibiotic agents; Z88.0 Allergy status to penicillin; Z79.82 Long term (current) use of aspirin; Z79.899 Other long term (current) drug therapy
CPT/HCPCS: 96372; 99282; J2930

== ENCOUNTER 2024-10-31 01:31 | Emergency (ER) | payer MEDICARE, OTHER ==
[2024-10-31] MEDS: Sodium Chloride 0.9% 10 ML Syringe FLUSH PRN (01:56)
[2024-10-31] MEDS: Sodium Chloride 0.9% 1,000 ML IV ONE (02:05)
[2024-10-31 02:14] LABS: BASOPHILS ABSOLUTE AUTO 0.05 10^3/uL (0.00-0.10); BASOPHILS PERCENT AUTO 0.2 % (0.0-1.0); EOSINOPHILS ABSOLUTE AUTO 0.24 10^3/uL (0.10-0.30); EOSINOPHILS PERCENT AUTO 1.2 % (1.0-3.0); IMMATURE GRAN ABSOLUTE AUTO 0.09 10^3/uL (0.00-0.04); IMMATURE GRAN PERCENT AUTO 0.4 % (0.0-0.4); LYMPHOCYTES ABSOLUTE AUTO 1.11 10^3/uL (1.00-4.00); LYMPHOCYTES PERCENT AUTO 5.4 % (20.0-40.0); MEAN CORPUSCULAR HEMOGLOBIN 28.8 pg (27.0-31.0); MEAN CORPUSCULAR HGB CONC 32.5 g/dL (32.0-36.0); MEAN CORPUSCULAR VOLUME 88.5 fL (82.0-92.0); MEAN PLATELET VOLUME 10.6 fL (7.4-10.4); MONOCYTES ABSOLUTE AUTO 2.25 10^3/uL (0.10-0.80); NEUTROPHILS PERCENT AUTO 81.8 % (50.0-70.0); PLATELET COUNT,PLT 206 10^3/uL (150-400); RED BLOOD CELL COUNT 4.52 10^6/uL (3.80-5.50); RED CELL DISTRIBUTION WIDTH 14.7 % (11.5-14.5); WHITE BLOOD CELL COUNT,WBC 20.44 10^3/uL (5.00-10.00)
[2024-10-31 02:25] LABS: ALANINE AMINOTRANSFERASE,ALT 17 U/L (14-63); ALKALINE PHOSPHATASE 75 U/L (46-116); ANION GAP 12.2 mmol/L (5-15); ASPARTATE AMNIOTRANSFERASE,AST 24 U/L (15-37); BILIRUBIN TOTAL 1.7 mg/dL (0.2-1.0); BLOOD UREA NITROGEN,BUN 24 mg/dL (7-18); CALCIUM 10.1 mg/dL (8.7-10.3); CARBON DIOXIDE,CO2 28.6 mmol/L (21.0-32.0); CHLORIDE,CL 100 mmol/L (98-107); CREATININE 1.75 mg/dL (0.51-1.17); GLUCOSE RANDOM 119 mg/dL (70-140); POTASSIUM,K 3.8 mmol/L (3.5-5.1); PROTEIN TOTAL,TP 7.4 g/dL (6.4-8.2); SODIUM,NA 137 mmol/L (136-145)
[2024-10-31 02:26] LABS: ESTIMATED GFR 30 mL/min (>=60)
[2024-10-31 03:42] LABS: APPEARANCE,URINE CLEAR (CLEAR); BILIRUBIN,URINE NEGATIVE (NEGATIVE); COLOR,URINE YELLOW (YELLOW); GLUCOSE,URINE NEGATIVE (NEGATIVE); KETONES,URINE NEGATIVE (NEGATIVE); LEUKOCYTE ESTERASE,URINE TRACE (NEGATIVE); NITRITE,URINE NEGATIVE (NEGATIVE); OCCULT BLOOD,URINE LARGE (NEGATIVE); PROTEIN,URINE 100 mg/dL (NEGATIVE); UROBILINOGEN,URINE 0.2 E.U./dL (0.2-1.0)
[2024-10-31 03:44] LABS: BACTERIA,URINE FEW /HPF (NONE TO FEW); EPITHELIAL CELLS,URINE RARE /LPF; OTHER CRYSTALS,URINE RARE /HPF; RBC,URINE 20-30 /HPF (0-5); WBC,URINE 0-5 /HPF (0-5)
[2024-10-31] MEDS: Ondansetron 4 MG/2 ML SDV IVPUSH ONE (04:06)
[2024-10-31] MEDS: Heparin Sodium 5,000 Units/ML Vial IVPUSH ONE (05:48)
[2024-10-31] MEDS: Cefepime 1 GM Vial IVPUSH ONE (05:49)
[2024-10-31] MEDS: metroNIDAZOLE/Normal Saline 500 MG in Premix Bag 1 BAG IV ONE (06:11)
[2024-10-31 06:49] VITALS: BP 107/55; PULSE 71
[2024-11-02] MEDS: Cefepime 1 GM Vial ONE (14:47)
[2024-11-02] MEDS: metroNIDAZOLE/Normal Saline 100 ML ONE (14:47)
== END 2024-10-31 06:34 ==
LOC: KA.ED 01:31
DX: K57.32 Diverticulitis of large intestine without perforation or abscess without bleeding (principal); I13.0 Hypertensive heart and chronic kidney disease with heart failure and stage 1 through stage 4 chronic kidney disease, or unspecified chronic kidney disease; N18.9 Chronic kidney disease, unspecified; I50.9 Heart failure, unspecified; R79.89 Other specified abnormal findings of blood chemistry; E66.9 Obesity, unspecified; Z86.16 Personal history of COVID-19; Z90.49 Acquired absence of other specified parts of digestive tract; Z79.899 Other long term (current) drug therapy; Z88.5 Allergy status to narcotic agent; Z88.0 Allergy status to penicillin; Z88.8 Allergy status to other drugs, medicaments and biological substances; Z88.1 Allergy status to other antibiotic agents
CPT/HCPCS: 36415; 71045; 74176; 80053; 81001; 83605; 83880; 85025; 85379; 96361; 96365; 96375; 99284; 99285-25; J0692; J1644; J1836; J2405; J7030

== ENCOUNTER 2024-12-26 07:45 | Day surgery (SDC) | payer MEDICARE, OTHER ==
[2024-12-26] MEDS ORDERED: Sodium Chloride 0.9% 10 ML Syringe FLUSH PRN (08:00)
[2024-12-26] MEDS ORDERED: Propofol 200 MG/20 ML SDV ONE (08:40)
[2024-12-26] MEDS ORDERED: Midazolam 1 MG/ML 2 ML SDV ONE (08:40)
[2024-12-26] MEDS: Lactated Ringers 1,000 ML IV SCH (09:17)
[2024-12-26 11:19] VITALS: BP 148/78; PULSE 54
== END 2024-12-26 10:52 | disposition home or self-care (01) ==
LOC: KA.SDS 07:45
PROVIDERS: ATTEND Family Medicine
DX: Z12.11 Encounter for screening for malignant neoplasm of colon (principal); K62.1 Rectal polyp; K57.30 Diverticulosis of large intestine without perforation or abscess without bleeding; K64.8 Other hemorrhoids; E66.9 Obesity, unspecified; I12.9 Hypertensive chronic kidney disease with stage 1 through stage 4 chronic kidney disease, or unspecified chronic kidney disease; N18.30 Chronic kidney disease, stage 3 unspecified; Z88.8 Allergy status to other drugs, medicaments and biological substances; Z88.1 Allergy status to other antibiotic agents; Z68.32 Body mass index [BMI] 32.0-32.9, adult; Z79.899 Other long term (current) drug therapy; Z86.0101 Personal history of adenomatous and serrated colon polyps
CPT/HCPCS: 00811; 99100; J2250; J2704; J7120